=== PATIENT | male | born 2005 | race Caucasian/White ===

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

== ENCOUNTER 2024-06-11 09:41 | Inpatient (IN) ==
--- NOTE | 2024-06-11 09:59 | Emergency Department Note ---
Impression & Plan Tachycardia ADMIT ED Provider Note HPI: History obtained from patient as well as parents at the bedside. The patient is a 19 year-old male with complex past medical history including Klippel Feil syndrome, Weidemann Xavier syndrome, mitochondrial disorder, ADHD, GERD, vitamin D deficiency, gastroparesis, TPN dependence via central line, GJ tube, who presents to the ED today with his father at the bedside over concern for fever.Patient's mother and father at the bedside, they state that the patient developed a fever overnight to 101.8 and was complaining of some back pain and headache that he frequently gets when he gets febrile. Patient's mother states that she noticed he appeared unwell at about 8 AM and that is when she took his temperature. Patient has also been susceptible historically to central line infections. He is TPN dependent and has a central line in the right upper chest. On arrival here to the ED the patient is tachycardic but otherwise hemodynamically stable, he appears to be in mild distress secondary to back pain on arrival. ROS: - Per HPI Differential Diagnosis: Sepsis secondary to central line infection, viral upper respiratory infection to include COVID-19, influenza A, meningitis, encephalitis, epidural abscess, intra-abdominal abscess, Urinary tract infection, pneumonia , amongst other potential pathologies. *Outpatient medications and allergy history reviewed. PE: General: Alert, mild distress secondary to pain HEENT: Normocephalic, trachea midline Eyes: Extraocular eye movement is intact, no scleral erythema Pulmonary: Clear to auscultation bilaterally, no wheezing Cardio: Tachycardic rate and regular rhythm GI: Abdomen is soft to palpation, ostomy in place with appropriate drainage : No suprapubic tenderness MSK: No evidence of trauma or malformation of the extremities, no edema, There is no midline tenderness of the thoracic or lumbar spine with palpation, there is firm musculature lateral to the lumbar spine bilaterally that is somewhat tender to palpation Skin: Central line to the right upper chest appears without any surrounding erythema of the skin, no purulent drainage near the entry site, otherwise no evidence of rash Neuro: Alert, no focal deficits Psychiatric: Cooperative INDEPENDENT INTERPRETATIONS: monitoring coordinator: (As interpreted by myself): - An order was placed for continuous cardiac monitoring - Patient was noted to be in sinus rhythm with a rate of 113 EKG: (As interpreted by myself): Rate: 115 Rhythm: Sinus tachycardia Intervals: Within normal limits ST changes: No ST elevation Time: 1016 Chest x-ray: (As interpreted by myself): No focal infiltrate Interventions provided in ED: -IV fluid bolus, IV morphine, IV Zofran, IV cefepime, IV vancomycin, IV Capsofungin Medical Decision Making: IV was established and lab work ordered, patient was placed on security monitor.Lab work shows no leukocytosis, hemoglobin is normal, platelet count is 82 which appears to be near recent baseline. Venous blood gas shows a pH of 7.28, pCO2 is 56, CMP shows mild hyponatremia 131, chronic transaminitis, troponin is negative, no critical electrolyte abnormalities are noted, procalcitonin is mildly elevated at 0.55, urinalysis does not show any evidence of infection, viral panel testing is negative. Chest x-ray does not show any evidence of pneumonia. In regards to the patient's back pain, this appears to be in the area of the lateral lumbar musculature on both sides. There is no midline tenderness on palpation. Patient's mother states that he does get this pain frequently when he gets septic or has fevers. Have low suspicion for epidural abscess, Given the intermittent and chronic nature of the patient's pain in addition to the location and lack of neurologic findings of any significance in the lower extremities. Patient has motor and sensory function intact/baseline in the lower extremities. Patient started on broad-spectrum antibiotics with vancomycin and cefepime, I also did discuss the patient's presentation with on-call pediatric infectious disease at [facility], Dr. Chairez, Who is in agreement to initiating the patient on broad-spectrum antibiotics, she does recommend that we get cultures from both of the patient's ports of the central line and also would be in agreement for consultation should the patient be transferred to the adult service at [facility] in [place] given his chronic medical conditions and continuity of care with [facility].She also did recommend that the patient be started on antifungal medications secondary to recent cultures that were done at their facility. At this time I did discuss the patient's presentation with the physician at the transfer center for [facility], Dr. Perez, He did accept the patient for transfer but stated that there were currently no beds available and there likely would not be a bed available until Thursday morning and therefore [facility] and follow-up on blood cultures. I discussed this with the patient's parents at the bedside and they are in agreement for admission. Case was then discussed with the on-call [facility] hospitalist, Dr. Millan, The patient was placed for admission in stable condition. Prior to admission, the hospitalist did request CT imaging of the abdomen pelvis be performed for further evaluation of any potential infectious etiology, therefore this order was placed. Consultants/Discussions held with other healthcare providers: -Pediatric infectious disease, Dr. Chairez -Hospitalist, Dr. Millan -Transfer Physician at [facility], Dr. Perez Disposition discussion held by myself with: -Patient and Mother at bedside Diagnosis: 1. Tachycardia, acute 2. Fever by history 3. Central line in place, on TPN 4. Elevated procalcitonin, acute 5. Lower back pain, acute Disposition: ADMIT (pending transfer) Ricci Way DO Emergency Medicine Past Med/Surg History Problem List (Updated 06/11/24 @ 15:[address] DO) Tachycardia (Acute) Bladder dysfunction Insomnia POTS (postural orthostatic tachycardia syndrome) On total parenteral nutrition (TPN) Bacteremia History of central line-associated bloodstream infection (CLABSI) (Acute) Wiedemann-Xavier syndrome Klippel-Feil syndrome (Chronic) Abnormal LFTs Allergic reaction caused by a drug Mid back pain (Acute) Asthma (Chronic) Reflux (Chronic) Bowel dysfunction (Acute) Dehydration (Acute) ADHD (attention deficit hyperactivity disorder) (Chronic) Jejunostomy tube fell out (Acute) Medical History Lab test negative for COVID-19 virus Septic shock S/P colectomy Autistic disorder Pain around PEG tube site Constipation Surgical History History of fundoplication History of appendectomy S/P cecostomy S/P tonsillectomy and adenoidectomy Family History Other FHx: heart disease Family history of diabetes mellitus Family history of gallbladder disease Family history of high blood pressure Social History Smoking Status: Never smoker Hx Alcohol Use: No Hx Substance Use: No Preferred Language: Persian Communication Ability: Effective Visual Impairment: No Limitations Hearing Ability: Normal Officer Lieutenant Required: No Beliefs That Will Affect Care: None Current Living Situation: Parent Feels Safe at Home: Yes Assistive Devices: Nebulizer, Walker and Wheelchair Allergies Allergies Allergy/AdvReac Type Severity Reaction Status Date / Time dexmedetomidine Allergy Severe LOW BLOOD Verified 02/27/24 17:28 [From Precedex] PRESURE egg Allergy Severe Hives Verified 02/27/24 17:28 Wheezing midazolam Allergy Severe ANAPHYLAXIS Verified 02/27/24 17:28 alcohol Allergy Intermediate Rash/ Verified 02/27/24 17:28 [From Mastisol Adhesive] severe burning sensation of the skin gum mastic Allergy Intermediate Rash/ Verified 02/27/24 17:28 [From Mastisol Adhesive] severe burning sensation of the skin iodine Allergy Intermediate RASH Verified 02/27/24 17:28 methyl salicylate Allergy Intermediate Rash/ Verified 02/27/24 17:28 [From Mastisol Adhesive] severe burning sensation of the skin storax Allergy Intermediate Rash/ Verified 02/27/24 17:28 [From Mastisol Adhesive] severe burning sensation of the skin vancomycin Allergy Mild RED AMIRA Verified 02/27/24 17:28 ketamine AdvReac Intermediate Hallucinati Unverified 02/27/24 17:29 ng Peptmen JR Allergy Intermediate Rash Uncoded 02/27/24 17:28 Home Meds Home Medications Medication Instructions Recorded Confirmed Ethanol 70 % Lock Sari 1.3 ml IV DIRECTED 11/12/21 06/11/24 Tpn Sari 1 ea continuous IV infusion 11/12/21 06/11/24 DIRECTED albuterol sulfate 2.5 mg/3 mL 2.5 mg continuous nebulization Q4 11/12/21 06/11/24 (0.083 %) solution for nebulization PRN Shortness Of Breath Or Wheezing atenolol 25 mg tablet 25 mg feeding tube QAM 11/12/21 06/11/24 budesonide 0.5 mg/2 mL suspension 0.5 mg inhalation BID PRN 11/12/21 06/11/24 for nebulization Shortness Of Breath Or Wheezing fat emulsion-soybean sfy-eip-ssozf 350 ml IV 3XWK 11/12/21 06/11/24 oil-fish oil 20 % intravenous (SMOFlipid) fludrocortisone 0.1 mg tablet 0.2 mg feeding tube DAILY 11/12/21 06/11/24 heparin (porcine) 10 unit/mL in 3 unit IV DIRECTED PRN Other 11/12/21 06/11/24 0.9 % sodium chloride intravenous kit famotidine (PF) 20 mg/2 mL 40 mg IV QAM 02/08/22 06/11/24 intravenous solution cetirizine 10 mg tablet (Zyrtec) 20 mg feeding tube BID 07/20/22 06/11/24 cholecalciferol (vitamin D3) 50 50 mcg PO DAILY 07/20/22 06/11/24 mcg (2,000 unit) capsule (Vitamin D3) sodium chloride 0.9 % 75 ml IV DIRECTED 07/20/22 06/11/24 acetaminophen 500 mg tablet 500 mg feeding tube Q6H PRN .Fever 09/25/22 06/11/24 (Tylenol Extra Strength) >38 C, MILD-MOD PAIN duloxetine 60 mg capsule,delayed 60 mg PO BID 09/25/22 06/11/24 release ibuprofen 200 mg tablet 200 mg feeding tube Q4 PRN Pain 09/25/22 06/11/24 ondansetron HCl 4 mg tablet 4 mg PO Q8H PRN Nausea 09/25/22 06/11/24 tamsulosin 0.4 mg capsule 0.4 mg PO HS 09/25/22 06/11/24 dexmethylphenidate 30 mg 30 mg PO .DAILY@0800 11/20/22 06/11/24 capsule,extended release [id number] melatonin 5 mg tablet 10 mg feeding tube HS 11/20/22 06/11/24 menthol 0.44 %-zinc oxide 20.6 % 1 applic topical DIRECTED PRN 11/20/22 06/11/24 topical ointment AFFECTED AREAS, G/J-TUBE pantoprazole 40 mg intravenous 40 mg IV DAILY 11/20/22 06/11/24 solution potassium iodide 1 gram/mL oral 1 ml feeding tube DAILY 11/20/22 06/11/24 solution baclofen 10 mg tablet 10 mg feeding tube QID 01/26/23 06/11/24 simethicone 80 mg chewable tablet 80 mg PO Q6H PRN GAS/ABD PAIN 01/26/23 06/11/24 apixaban 2.5 mg tablet (Eliquis) 2.5 mg feeding tube BID 02/27/24 06/11/24 dexmethylphenidate 10 mg tablet 10 mg PO .@1400 06/11/24 06/11/24 oxybutynin chloride 5 ml feeding tube UD 06/11/24 06/11/24 Results & Data (ED) Vital Signs Vital Signs - 24 hr 06/11/24 09:42 06/11/24 11:04 06/11/24 11:04 Temperature 37.1 C Temperature Source Temporal Artery Scan Pulse Rate 132 H Pulse Rate [Finger] 102 H Pulse Rate from SpO2 Sensor Respiratory Rate 18 20 Respiratory Effort / Characteristics Non-Labored Spontaneous Respiratory Depth Normal Blood Pressure 117/65 Blood Pressure Mean 82 Pulse Oximetry 99 Oxygen Delivery Method Room Air Sepsis Recent Fever Within 48 Hours No Sepsis New/Unexplained Change in Mental Status N/A Sepsis Action Taken by Nursing No Action Required 06/11/24 11:09 06/11/24 11:12 06/11/24 11:54 Temperature Temperature Source Pulse Rate 102 H 102 H 99 H Pulse Rate [Finger] Pulse Rate from SpO2 Sensor 100 H 103 H 99 H Respiratory Rate 19 18 16 Respiratory Effort / Characteristics Respiratory Depth Blood Pressure 93/53 L Blood Pressure Mean 66 Pulse Oximetry 96 96 97 Oxygen Delivery Method Sepsis Recent Fever Within 48 Hours Sepsis New/Unexplained Change in Mental Status Sepsis Action Taken by Nursing 06/11/24 12:04 06/11/24 12:13 06/11/24 12:15 Temperature Temperature Source Pulse Rate 100 H 102 H Pulse Rate [Finger] Pulse Rate from SpO2 Sensor 101 H Respiratory Rate 19 Respiratory Effort / Characteristics Respiratory Depth Blood Pressure 96/56 L 98/56 L Blood Pressure Mean 72 69 Pulse Oximetry 97 Oxygen Delivery Method Sepsis Recent Fever Within 48 Hours Sepsis New/Unexplained Change in Mental Status Sepsis Action Taken by Nursing 06/11/24 12:30 06/11/24 12:44 06/11/24 12:45 Temperature 37 C Temperature Source Oral Pulse Rate 100 H 93 H Pulse Rate [Finger] Pulse Rate from SpO2 Sensor 99 H 95 H Respiratory Rate 17 16 Respiratory Effort / Characteristics Respiratory Depth Blood Pressure 96/58 L 93/72 L Blood Pressure Mean 70 79 Pulse Oximetry 96 96 Oxygen Delivery Method Sepsis Recent Fever Within 48 Hours Sepsis New/Unexplained Change in Mental Status Sepsis Action Taken by Nursing 06/11/24 13:00 06/11/24 13:15 06/11/24 13:36 Temperature Temperature Source Pulse Rate 110 H 106 H 116 H Pulse Rate [Finger] Pulse Rate from SpO2 Sensor 111 H 106 H Respiratory Rate 20 20 21 Respiratory Effort / Characteristics Respiratory Depth Blood Pressure 96/52 L Blood Pressure Mean 75 Pulse Oximetry 96 95 95 Oxygen Delivery Method Sepsis Recent Fever Within 48 Hours Sepsis New/Unexplained Change in Mental Status Sepsis Action Taken by Nursing 06/11/24 13:42 06/11/24 13:57 06/11/24 14:15 Temperature Temperature Source Pulse Rate 107 H 97 H 103 H Pulse Rate [Finger] Pulse Rate from SpO2 Sensor 97 H 104 H Respiratory Rate 16 14 18 Respiratory Effort / Characteristics Respiratory Depth Blood Pressure 86/54 L 122/61 Blood Pressure Mean 64 89 Pulse Oximetry 95 96 99 Oxygen Delivery Method Sepsis Recent Fever Within 48 Hours Sepsis New/Unexplained Change in Mental Status Sepsis Action Taken by Nursing 06/11/24 14:30 06/11/24 14:45 Temperature Temperature Source Pulse Rate 103 H 103 H Pulse Rate [Finger] Pulse Rate from SpO2 Sensor 103 H 101 H Respiratory Rate 17 16 Respiratory Effort / Characteristics Respiratory Depth Blood Pressure 103/63 106/61 Blood Pressure Mean 78 76 Pulse Oximetry 99 100 Oxygen Delivery Method Sepsis Recent Fever Within 48 Hours Sepsis New/Unexplained Change in Mental Status Sepsis Action Taken by Nursing Laboratory Data 06/11/24 10:45 06/11/24 10:45 Lab Results 06/11/24 06/11/24 06/11/24 Range/Units 10:45 11:40 13:09 WBC 6.11 (4.8-10.8) K/ul RBC 4.72 (4.70-6.10) M/uL Hgb 14.4 (14.0-18.0) g/dl Hct 40.3 L (42.0-52.0) % MCV 85.4 (80.0-100.0) fL MCH 30.5 (25.0-34.0) pg MCHC 35.7 (32.0-36.0) g/dL RDW Std Deviation 38.2 (36.4-46.3) fL RDW Coeff of Osvaldo 12.3 (11.5-14.5) % Plt Count 82 L (130-400) K/uL MPV 10.1 (9.4-12.4) fL Immature Gran % (Auto) 0.3 % Neut % (Auto) 89.8 % Lymph % (Auto) 3.3 % Weld % (Auto) 6.2 % Eos % (Auto) 0.2 % Baso % (Auto) 0.2 % Neut # (Auto) 5.49 (1.40-6.50) K/uL Lymph # (Auto) 0.20 L (1.20-3.40) K/uL Weld # (Auto) 0.38 (0.11-0.59) K/uL Eos # (Auto) 0.01 (0.00-0.50) K/uL Baso # (Auto) 0.01 (0.00-0.20) K/uL Immature Gran # (Auto) 0.02 (0.01-0.20) K/uL PT 11.9 (9.0-12.0) Seconds INR 1.1 (0.9-1.1) VBG pH 7.28 L (7.36-7.41) VBG pCO2 56 H (38-50) mmHg VBG pO2 40 mmHg VBG HCO3 26 mmol/L VBG O2 Saturation 66.5 % VBG Base Excess -1.4 mEq/L Sodium 131 L (136-145) mmol/L Potassium 4.0 (3.5-5.1) mmol/L Chloride 101 (98-107) mmol/L Carbon Dioxide 25 (21-32) mmol/L Anion Gap 5 (3-11) BUN 18 (6-23) mg/dl Creatinine 0.53 L (0.6-1.4) mg/dl Est Cr Clr Drug Dosing 181.3 ml/min eGFR 146.22 BUN/Creatinine Ratio 34.0 H (10-20) Glucose 100 H (70-99(Fasting)) mg/dl Lactate 1.2 (0.4-2.0) mmol/L Calcium 8.9 (8.6-10.3) mg/dl Magnesium 1.9 (1.7-2.4) mg/dl Total Bilirubin 0.7 (0.2-1.0) mg/dl Direct Bilirubin 0.2 (0-0.2) mg/dl AST 66 H (13-39) U/L ALT 220 H (7-52) U/L Alkaline Phosphatase 107 H (34-104) U/L Troponin I High Sens < 2.3 (0-20) pg/ml Total Protein 6.6 (6.0-8.3) gm/dl Albumin 4.0 (3.4-5.0) gm/dl Procalcitonin 0.55 H (0-0.5) ng/ml Urine Color Yellow Urine Appearance Clear (Clear) Urine pH 6.0 (4.5-7.5) Ur Specific Hadley 1.006 (1.000-1.030) Urine Protein Negative (Negative) Urine Glucose (UA) Negative (Negative) Urine Ketones Negative (Negative) Urine Blood Negative (Negative) Urine Nitrite Negative (Negative) Urine Bilirubin Negative (Negative) Urine Urobilinogen Negative (Negative) Ur Leukocyte Esterase Negative (Negative) Adenovirus (PCR) Not Detected (NotDetected) B. pertussis DNA (PCR) Not Detected (NotDetected) B.parapertussis DNA PCR Not Detected (NotDetected) C. pneumoniae DNA (PCR) Not Detected (NotDetected) Coronavirus OC43 (PCR) Not Detected (NotDetected) Coronavirus HKU1 (PCR) Not Detected (NotDetected) Coronavirus 229E (PCR) Not Detected (NotDetected) SARS-CoV-2 (PCR) Not Detected (NotDetected) Coronavirus NL63 (PCR) Not Detected (NotDetected) Human Metapneumovir PCR Not Detected (NotDetected) Influenza Type A (PCR) Not Detected (NotDetected) Influenza Type B (PCR) Not Detected (NotDetected) M. pneumoniae (PCR) Not Detected (NotDetected) Parainfluenza 1 (PCR) Not Detected (NotDetected) Parainfluenza 2 (PCR) Not Detected (NotDetected) Parainfluenza 3 (PCR) Not Detected (NotDetected) Parainfluenza 4 (PCR) Not Detected (NotDetected) RSV (PCR) Not Detected (NotDetected) Entero/Rhino (PCR) Not Detected (NotDetected) Administered Medications Discontinued Medications Diphenhydramine HCl (Diphenhydramine 50 Mg/Ml Vial) 25 mg IV NOW STA Stop: 06/11/24 10:08 Last Admin: 06/11/24 10:32 Dose: 25 mg Documented By: FATUMA Sodium Chloride (Nss) 1,000 mls @ 999 mls/hr IV .Q1M MORENITA Stop: 06/11/24 11:15 Last Infusion: 06/11/24 12:16 Dose: Infused Documented By: Admin: 06/11/24 10:36 Dose: 999 mls/hr Documented By: FATUMA Acetaminophen (Ofirmev) 1,000 mg in 100 mls @ 400 mls/hr IV NOW STA Stop: 06/11/24 10:20 Last Infusion: 06/11/24 11:16 Dose: Infused Documented By: Admin: 06/11/24 10:32 Dose: 400 mls/hr Documented By: FATUMA Vancomycin HCl 1,250 mg/ (Sodium Chloride) 525 mls @ 200 mls/hr IV NOW ONE Stop: 06/11/24 12:44 Last Infusion: 06/11/24 14:45 Dose: Infused Documented By: Admin: 06/11/24 11:06 Dose: 200 mls/hr Documented By: FATUMA Cefepime HCl (Maxipime 2000mg) 1,000 mg in 10 mls @ 5 mls/min IV NOW STA; Protocol Stop: 06/11/24 10:09 Last Admin: 06/11/24 12:45 Dose: 5 mls/min Documented By: REYES Caspofungin 70 mg/ Sodium (Chloride) 260 mls @ 260 mls/hr IV NOW ONE Stop: 06/11/24 11:44 Last Infusion: 06/11/24 14:45 Dose: Infused Documented By: Admin: 06/11/24 12:45 Dose: 260 mls/hr Documented By: REYES Sodium Chloride (Nss) 1,000 mls @ 999 mls/hr IV .Q1H1M MORENITA Stop: 06/11/24 15:00 Last Admin: 06/11/24 13:44 Dose: 999 mls/hr Documented By: REYES Ioversol (Optiray 320 100ml) 94 ml IV ONCE ONE Stop: 06/11/24 13:40 Last Admin: 06/11/24 13:40 Dose: 94 ml Documented By: BRIANA Morphine Sulfate (Morphine Sulfate 4 Mg/Ml 1 Ml Carp\Vial) 4 mg IV NOW STA Stop: 06/11/24 10:07 Last Admin: 06/11/24 10:32 Dose: 4 mg Documented By: FATUMA Morphine Sulfate (Morphine Sulfate 4 Mg/Ml 1 Ml Carp\Vial) 4 mg IV NOW STA Stop: 06/11/24 12:47 Last Admin: 06/11/24 12:54 Dose: 4 mg Documented By: REYES Ondansetron HCl (Ondansetron Inj 2 Mg/Ml 2 Ml Vial) 4 mg IV NOW STA Stop: 06/11/24 10:07 Last Admin: 06/11/24 10:32 Dose: 4 mg Documented By: FATUMA Imaging Data Radiologist's Impression: Chest X-Ray 06/11/24 10:06 XR chest 1V portable CLINICAL HISTORY: Sepsis. COMPARISON STUDY: Chest radiograph February 27, 2024. FINDINGS: Right internal jugular catheter is unchanged in position. Cardiomediastinal silhouette is stable. Mild right basilar densities favor atelectasis. There is no consolidation to suggest pneumonia. There is no pneumothorax or pleural effusion. IMPRESSION: No acute cardiopulmonary findings. No significant change in appearance of the chest. ACT 112: Negative or not required by law. Electronically signed by: Elroy Durbin M.D. 06/11/2024 1:36 PM Abdomen/Pelvis CT 06/11/24 12:45 CT OF THE ABDOMEN AND PELVIS WITH CONTRAST CLINICAL HISTORY: Fever. COMPARISON STUDY: CT of the abdomen and pelvis January 26, 2023. TECHNIQUE: Following IV administration of 94 mL of Optiray, axial images of the abdomen and pelvis were obtained from the lung bases to the proximal femurs. Images were reviewed in the axial, sagittal, and coronal planes. IV contrast was administered without complication. Automated exposure control was utilized for the study. A dose lowering technique was utilized adhering to the principles of ALARA. CT DOSE: 714.39 mGy.cm FINDINGS: Subpleural opacities within the visualized lower lungs favor atelectasis. There is no pneumatosis, free air or portal venous gas biliary ductal dilatation status post cholecystectomy. Gastrostomy tube is in place. Mild splenomegaly is unchanged. Adrenal glands, kidneys and pancreas are normal. There is no hydronephrosis. Slight dilatation of the bilateral ureters is noted. No urinary calculi. The bladder is distended. Bladder wall thickening is again noted. This is probably chronic. There are no fluid collections. There is no lymphadenopathy. 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 A few fluid-filled mildly dilated loops of small bowel are present. There is no definitive transition point. There is no definite evidence for a small bowel obstruction. There is no lymphadenopathy. IMPRESSION: 1. 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 A few mildly dilated small bowel loops without definite transition point. The small bowel dilatation is chronic however a partial small bowel obstruction cannot be excluded. 2. Distended bladder. Bladder wall thickening, likely chronic. 3. Gastrostomy tube in place. 4. Stable splenomegaly. 5. Subpleural lower lung opacities which favor atelectasis. ACT 112: Negative or not required by law. Electronically signed by: Elroy Durbin M.D. 06/11/2024 2:27 PM Discharge Plan Visit Data Chief Complaint: Fever Stated Complaint: FEVER/101.8, CENTRAL LINE ED Provider: Ricci Way Discharge Problem: Tachycardia Forms Stand Alone Forms: [facility] Prescriptions Prescriptions: No Action famotidine (PF) 20 mg/2 mL Solution 40 mg IV QAM Rx Instructions: Add to TPN acetaminophen [Tylenol Extra Strength] 500 mg Tablet 500 mg feeding tube Q6H PRN (Reason: .Fever >38 C, MILD-MOD PAIN) Rx Instructions: DO NOT EXCEED 3,000 MG DAILY duloxetine 60 mg capsule,delayed release(DR/EC) 60 mg PO BID ondansetron HCl 4 mg Tablet 4 mg PO Q8H PRN (Reason: Nausea) ibuprofen 200 mg Tablet 200 mg feeding tube Q4 PRN (Reason: Pain) tamsulosin 0.4 mg capsule 0.4 mg PO HS baclofen 10 mg tablet 10 mg feeding tube QID simethicone [Mylicon-80] 80 mg Tablet,Chewable 80 mg PO Q6H PRN (Reason: GAS/ABD PAIN) Rx Instructions: PT USES CAPSULE albuterol sulfate 2.5 mg /3 mL (0.083 %) solution for nebulization 2.5 mg continuous nebulization Q4 PRN (Reason: Shortness Of Breath Or Wheezing) atenolol 25 mg tablet 25 mg feeding tube QAM budesonide 0.5 mg/2 mL Suspension For Nebulization 0.5 mg INHALATION BID PRN (Reason: Shortness Of Breath Or Wheezing) fludrocortisone 0.1 mg tablet 0.2 mg feeding tube DAILY heparin (porcine) in 0.9% NaCl 10 unit/mL Kit 3 unit IV DIRECTED PRN (Reason: Other) Rx Instructions: Per mother, they use it PRN. USE DAILY TO WHITE LUMEN, THEN SUN, TUES, THUR, & SAT. TO RED LUMEN. SMOFlipid 20 % Emulsion 350 ml IV 3XWK Rx Instructions: MOWEFR lipid days Ethanol 70 % Lock Sari 1.3 ml IV DIRECTED Rx Instructions: Instill in both lumens of central catheter, DIRECTED BY PARENT (SHE HAS SPECIAL DIRECTIONS). ALLOW ETHANOL TO DWELL FOR 2-4 HOURS. AFTER DWELL, FLUSH ENTIRE DWELL VOLUME THROUGH CVC, FLUSH WITH 10 ML 0.9% SODIUM CHLORIDE. THEN FOLLOW WITH HEPARIN. Tpn Sari 1 ea continuous IV infusion DIRECTED Rx Instructions: ADMINISTER IV 2,640 ML DAILY. 2,900 ML PER DAY @ 145 ML/HR X 20 HOURS. TAPERS BETWEEN A TOTAL OF 17 HOURS. 1 hour taper up, 17 hour run time, 2 hour taper down per mother. cetirizine [Zyrtec] 10 mg Tablet 20 mg feeding tube BID sodium chloride 0.9 % Solution 75 ml IV DIRECTED Rx Instructions: INFUSE AT 75ML/HR X 20 HOURS, while tpn is running. 1500 ml over the 20 hours. cholecalciferol (vitamin D3) [Vitamin D3] 50 mcg (2,000 unit) Capsule 50 mcg PO DAILY pantoprazole 40 mg Recon Soln 40 mg IV DAILY potassium iodide 1 gram/mL Solution 1 ml feeding tube DAILY Rx Instructions: ADMINISTER WITH FOOD OR DILUTE IN WATER. REPEAT IF EMESIS OCCURS WITHIN 30 MINUTES. PARENT HAS MEDICATION WITH HER. melatonin 5 mg Tablet 10 mg feeding tube HS menthol-zinc oxide 0.44-20.6 % Ointment 1 applic TOPICAL DIRECTED PRN (Reason: AFFECTED AREAS, G/J-TUBE) dexmethylphenidate 30 mg capsule,ER biphasic 50-50 30 mg PO .DAILY@0800 Rx Instructions: TAKES AT 0800; PARENT HAS MED WITH THEM Eliquis 2.5 mg Tablet 2.5 mg feeding tube BID dexmethylphenidate 10 mg Tablet 10 mg PO .@1400 Rx Instructions: if needed parent can bring in the 10 mg oxybutynin chloride 5 ml feeding tube UD Rx Instructions: Per mother, pt isn't currently on but has it listed on their medication list. We added the medication just so it's on this list. Referrals Referrals: Torres Snowden MD [Primary Care Provider] -
[2024-06-11] MEDS ORDERED: VANCOMYCIN CONSULT ACTIVE PRN ×2 (10:07→16:01)
[2024-06-11] MEDS: ONDANSETRON INJ 2 MG/ML 2 ML VIAL IV STA (10:32)
[2024-06-11] MEDS: diphenhydrAMINE 50 MG/ML VIAL IV STA (10:32)
[2024-06-11] MEDS: MoRPHine SULFATE 4 MG/ML 1 ML CARP\\VIAL IV STA ×2 (10:32→12:54)
[2024-06-11] MEDS: ACETAMINOPHEN 1,000 MG/100 ML VIAL IV STA (10:32)
[2024-06-11] MEDS: SODIUM CHLORIDE 0.9% 1,000 ML IV SCH ×3 (10:36→17:35)
[2024-06-11] MEDS: VANCOMYCIN HCL 1,250 MG in SODIUM CHLORIDE 0.9% 500 ML IV ONE (11:06)
[2024-06-11 11:09] LABS: Basophils # (auto) 0.01 K/uL (0.00-0.20); Basophils % (auto) 0.2 %; Eosinophils # (auto) 0.01 K/uL (0.00-0.50); Eosinophils % (auto) 0.2 %; Hematocrit (blood only) 40.3 % (42.0-52.0); Hemoglobin 14.4 g/dl (14.0-18.0); Immature Granulocytes # (auto) 0.02 K/uL (0.01-0.20); Immature Granulocytes % (auto) 0.3 %; Lymphocytes % (auto) 3.3 %; Mean Corpuscular Hemoglobin 30.5 pg (25.0-34.0); Mean Corpuscular Hgb Conc 35.7 g/dL (32.0-36.0); Mean Corpuscular Volume 85.4 fL (80.0-100.0); Mean Platelet Volume 10.1 fL (9.4-12.4); Monocytes # (auto) 0.38 K/uL (0.11-0.59); Monocytes % (auto) 6.2 %; Neutrophils # (auto) 5.49 K/uL (1.40-6.50); Neutrophils % (auto) 89.8 %; Platelet Count 82 K/uL (130-400); RDW Coefficient of Variation 12.3 % (11.5-14.5); RDW Standard Deviation 38.2 fL (36.4-46.3); Red Blood Count 4.72 M/uL (4.70-6.10); White Blood Count 6.11 K/ul (4.8-10.8)
[2024-06-11 11:25] LABS: Alanine Aminotransferase 220 U/L (7-52); Alkaline Phosphatase 107 U/L (34-104); Anion Gap 5 (3-11); Aspartate Aminotransferase 66 U/L (13-39); Bilirubin Direct 0.2 mg/dl (0-0.2); Bilirubin,Total 0.7 mg/dl (0.2-1.0); Blood Urea Nitrogen 18 mg/dl (6-23); Calcium 8.9 mg/dl (8.6-10.3); Carbon Dioxide 25 mmol/L (21-32); Chloride 101 mmol/L (98-107); Creatinine Clr Calc Pharmacy 181.3 ml/min; Glucose 100 mg/dl (70-99(Fasting)); Magnesium 1.9 mg/dl (1.7-2.4); Sodium 131 mmol/L (136-145); Total Protein 6.6 gm/dl (6.0-8.3)
[2024-06-11 11:31] LABS: Troponin I High Sensitivity < 2.3 pg/ml (0-20)
[2024-06-11 11:35] LABS: INR 1.1 (0.9-1.1); Prothrombin Time 11.9 Seconds (9.0-12.0)
[2024-06-11 12:01] LABS: Base Excess VBG -1.4 mEq/L; HCO3 VBG 26 mmol/L; Oxygen Saturation VBG 66.5 %; PCO2 VBG 56 mmHg (38-50); PO2 VBG 40 mmHg; pH VBG 7.28 (7.36-7.41)
[2024-06-11 12:03] LABS: Adenovirus PCR Not Detected (NotDetected); Bordetella parapertussis PCR Not Detected (NotDetected); Bordetella pertussis PCR Not Detected (NotDetected); Chlamydia pneumoniae PCR Not Detected (NotDetected); Coronavirus 229E PCR Not Detected (NotDetected); Coronavirus CoV-2 (COVID19)PCR Not Detected (NotDetected); Coronavirus HKU1 PCR Not Detected (NotDetected); Coronavirus NL63 PCR Not Detected (NotDetected); Coronavirus OC43PCR Not Detected (NotDetected); Human Metapneumovirus PCR Not Detected (NotDetected); Influenza A PCR Not Detected (NotDetected); Influenza B PCR Not Detected (NotDetected); Mycoplasma pneumoniae PCR Not Detected (NotDetected); Parainfluenza Virus 1 PCR Not Detected (NotDetected); Parainfluenza Virus 2 PCR Not Detected (NotDetected); Parainfluenza Virus 3 PCR Not Detected (NotDetected); Parainfluenza Virus 4 PCR Not Detected (NotDetected); Respiratory Syncytial VirusPCR Not Detected (NotDetected); Rhinovirus/Enterovirus PCR Not Detected (NotDetected)
[2024-06-11] MEDS: CASPOFUNGIN 70 MG in SODIUM CHLORIDE 0.9% 250 ML IV ONE (12:45)
[2024-06-11] MEDS: CEFEPIME 1000MG 1,000 MG/10 ML SYR IV STA (12:45)
[2024-06-11 13:28] LABS: Appearance Urine Clear (Clear); Bilirubin Urine Negative (Negative); Blood Urine Negative (Negative); Color Urine Yellow; Glucose Urine UA Negative (Negative); Ketones Urine Negative (Negative); Leukocyte Esterase Urine Negative (Negative); Nitrite Urine Negative (Negative); Protein Urine Negative (Negative); Specific Gravity Urine 1.006 (1.000-1.030); Urobilinogen Urine Negative (Negative)
--- NOTE | 2024-06-11 13:38 | XRay Report ---
XR chest 1V portable CLINICAL HISTORY: Sepsis. COMPARISON STUDY: Chest radiograph February 27, 2024. FINDINGS: Right internal jugular catheter is unchanged in position. Cardiomediastinal silhouette is s table. Mild right basilar densities favor atelectasis. There is no consolidation to suggest pneumonia . There is no pneumothorax or pleural effusion. IMPRESSION: No acute cardiopulmonary findings. No significant change in appearance of the chest. ACT 112: Negative or not required by law. Electronically signed by: Elroy Durbin M.D. 06/11/2024 1:36 PM
[2024-06-11] MEDS: OPTIRAY 320 100ml IV ONE (13:40)
--- NOTE | 2024-06-11 14:30 | CT Scan Report ---
CT OF THE ABDOMEN AND PELVIS WITH CONTRAST CLINICAL HISTORY: Fever. COMPARISON STUDY: CT of the abdomen and pelvis January 26, 2023. TECHNIQUE: Following IV administration of 94 mL of Optiray, axial images of the abdomen and pelvis we re obtained from the lung bases to the proximal femurs. Images were reviewed in the axial, sagittal, and coronal planes. IV contrast was administered without complication. Automated exposure control wa s utilized for the study. A dose lowering technique was utilized adhering to the principles of ALARA . CT DOSE: 714.39 mGy.cm FINDINGS: Subpleural opacities within the visualized lower lungs favor atelectasis. There is no pneum atosis, free air or portal venous gas biliary ductal dilatation status post cholecystectomy. Gastrost meghna tube is in place. Mild splenomegaly is unchanged. Adrenal glands, kidneys and pancreas are normal . There is no hydronephrosis. Slight dilatation of the bilateral ureters is noted. No urinary calculi . The bladder is distended. Bladder wall thickening is again noted. This is probably chronic. There a re no fluid collections. There is no lymphadenopathy. Status post subtotal colectomy with Omar po uch formation and right-sided ileostomy. A few fluid-filled mildly dilated loops of small bowel are p resent. There is no definitive transition point. There is no definite evidence for a small bowel obst ruction. There is no lymphadenopathy. IMPRESSION: 1. 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 A few mildly dilated s mall bowel loops without definite transition point. The small bowel dilatation is chronic however a p artial small bowel obstruction cannot be excluded. 2. Distended bladder. Bladder wall thickening, likely chronic. 3. Gastrostomy tube in place. 4. Stable splenomegaly. 5. Subpleural lower lung opacities which favor atelectasis. ACT 112: Negative or not required by law. Electronically signed by: Elroy Durbin M.D. 06/11/2024 2:27 PM
--- NOTE | 2024-06-11 14:51 | History & Physical Report ---
Date of Service June 11, 2024 Assessment & Plan (1) Bacteremia: Plan: -patient with history of line infections, presenting with relative hypotension consistent with patients previous infections -hemodynamically stable, no leukocytosis, procal 0.55 -TPN reliant with chronic central line placement -follows with pediatric ID at 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, short stature, 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 -likely strong contributer to back pain (5) Abnormal LFTs: Plan: -likely related to TPN use, worsened by acute infection Plan: -trend LFTs daily -nutrition consult, TPN nutrition consult (6) Allergic reaction caused by a drug: Plan: -patient has known itching and reactions to most medications -per chart and family treated with benadryl prn 50 mg Plan: -50 mg q4hr prn benadryl for drug itch -continue cetirizine (7) POTS (postural orthostatic tachycardia syndrome): Plan: -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 and other chronic illnesses above Plan: -continue home florinef (8) Reflux: Plan: -conttinue home protonix (9) Dehydration: Plan: -s/p 1 L of NS Plan: -resume home TPN and fluids (10) ADHD (attention deficit hyperactivity disorder): Plan: -continue home dexmethylphnidate -continue home duloxetine (11) Mid back pain: Plan: -related to Klippel Feil syndrome and posture Plan: -continue home baclofen (12) Bowel dysfunction: Plan: -see above, ordered home TPN (13) On total parenteral nutrition (TPN): Plan: -see above, home TPN ordered (14) Insomnia: Plan: -continue home melatonin (15) Bladder dysfunction: Plan: -continue home oxybutynin and tamulosin Plan Feeding/fluids: TPN Analgesia: tylenol Sedation: none Thromboprophylaxis: on eliquis Head up position: 30 degrees Ulcer prophylaxis: protonix Glycemic control: none Spontaneous breathing trial: na Bowel care: miralax Indwelling catheter removal: none Deescalation of antibiotics: vanc/cefepime/capsofungin I spent a total of 75 minutes coordinating, documenting, and providing care for this patient excluding time spent in the performance of separately billed services. History of Present Illness Chief Complaint: back pain Primary Care Provider: Torres Snowden 18 past medical history of Klippel-Feil syndrome, Wiedemann Xavier syndrome, asthma, MARLENE, POTS, TPN reliance, ADD, gastroparesis who presents with back pain and lightheadedness. He has a history of lightheadedness and central line related infections. Mom and dad are very involved in care. Patient is reliant on TPN for nutrition. He states he woke up this morning did not feel right and had worsening back pain. Mom states she noticed right away that something was wrong and came to the emergency room. He does have back pain at baseline. No tobacco or alcohol use. No use of new medications in the past few weeks. Mom states this has happened before and this is how he is off. He usually gets hypotensive and his labs like behind. Follows with [facility], in the emergency room discussed case with team at that time. Patient has a central line. He feels like he has an infection. Denies chest pain shortness of breath abdominal pain or other associated symptoms. Allergies Allergy/AdvReac Type Severity Reaction Status Date / Time dexmedetomidine Allergy Severe LOW BLOOD Verified 02/27/24 17:28 [From Precedex] PRESURE egg Allergy Severe Hives Verified 02/27/24 17:28 Wheezing midazolam Allergy Severe ANAPHYLAXIS Verified 02/27/24 17:28 alcohol Allergy Intermediate Rash/ Verified 02/27/24 17:28 [From Mastisol Adhesive] severe burning sensation of the skin gum mastic Allergy Intermediate Rash/ Verified 02/27/24 17:28 [From Mastisol Adhesive] severe burning sensation of the skin iodine Allergy Intermediate RASH Verified 02/27/24 17:28 methyl salicylate Allergy Intermediate Rash/ Verified 02/27/24 17:28 [From Mastisol Adhesive] severe burning sensation of the skin storax Allergy Intermediate Rash/ Verified 02/27/24 17:28 [From Mastisol Adhesive] severe burning sensation of the skin vancomycin Allergy Mild RED AMIRA Verified 02/27/24 17:28 ketamine AdvReac Intermediate Hallucinati Unverified 02/27/24 17:29 ng Peptmen JR Allergy Intermediate Rash Uncoded 02/27/24 17:28 Home Medications Medication Instructions Recorded Confirmed Type Ethanol 70 % Lock Sari 1.3 ml IV DIRECTED 11/12/21 06/11/24 History Tpn Sari 1 ea continuous IV infusion 11/12/21 06/11/24 History DIRECTED albuterol sulfate 2.5 mg/3 mL 2.5 mg continuous nebulization Q4 11/12/21 06/11/24 History (0.083 %) solution for nebulization PRN Shortness Of Breath Or Wheezing atenolol 25 mg tablet 25 mg feeding tube QAM 11/12/21 06/11/24 History budesonide 0.5 mg/2 mL suspension 0.5 mg inhalation BID PRN 11/12/21 06/11/24 History for nebulization Shortness Of Breath Or Wheezing fat emulsion-soybean [id number] 350 ml IV 3XWK 11/12/21 06/11/24 History oil-fish oil 20 % intravenous (SMOFlipid) fludrocortisone 0.1 mg tablet 0.2 mg feeding tube DAILY 11/12/21 06/11/24 History heparin (porcine) 10 unit/mL in 3 unit IV DIRECTED PRN Other 11/12/21 06/11/24 History 0.9 % sodium chloride intravenous kit famotidine (PF) 20 mg/2 mL 40 mg IV QAM 02/08/22 06/11/24 History intravenous solution cetirizine 10 mg tablet (Zyrtec) 20 mg feeding tube BID 07/20/22 06/11/24 History cholecalciferol (vitamin D3) 50 50 mcg PO DAILY 07/20/22 06/11/24 History mcg (2,000 unit) capsule (Vitamin D3) sodium chloride 0.9 % 75 ml IV DIRECTED 07/20/22 06/11/24 History acetaminophen 500 mg tablet 500 mg feeding tube Q6H PRN .Fever 09/25/22 06/11/24 History (Tylenol Extra Strength) >38 C, MILD-MOD PAIN duloxetine 60 mg capsule,delayed 60 mg PO BID 09/25/22 06/11/24 History release ibuprofen 200 mg tablet 200 mg feeding tube Q4 PRN Pain 09/25/22 06/11/24 History ondansetron HCl 4 mg tablet 4 mg PO Q8H PRN Nausea 09/25/22 06/11/24 History tamsulosin 0.4 mg capsule 0.4 mg PO HS 09/25/22 06/11/24 History dexmethylphenidate 30 mg 30 mg PO .DAILY@0800 11/20/22 06/11/24 History capsule,extended release [id number] melatonin 5 mg tablet 10 mg feeding tube HS 11/20/22 06/11/24 History menthol 0.44 %-zinc oxide 20.6 % 1 applic topical DIRECTED PRN 11/20/22 06/11/24 History topical ointment AFFECTED AREAS, G/J-TUBE pantoprazole 40 mg intravenous 40 mg IV DAILY 11/20/22 06/11/24 History solution potassium iodide 1 gram/mL oral 1 ml feeding tube DAILY 11/20/22 06/11/24 History solution baclofen 10 mg tablet 10 mg feeding tube QID 01/26/23 06/11/24 History simethicone 80 mg chewable tablet 80 mg PO Q6H PRN GAS/ABD PAIN 01/26/23 06/11/24 History apixaban 2.5 mg tablet (Eliquis) 2.5 mg feeding tube BID 02/27/24 06/11/24 History dexmethylphenidate 10 mg tablet 10 mg PO .@1400 06/11/24 06/11/24 History oxybutynin chloride 5 ml feeding tube UD 06/11/24 06/11/24 History Past Med/Surg History Problem List (Updated 06/11/24 @ 15:[address] DO) Tachycardia (Acute) Bladder dysfunction Insomnia POTS (postural orthostatic tachycardia syndrome) On total parenteral nutrition (TPN) Bacteremia History of central line-associated bloodstream infection (CLABSI) (Acute) Wiedemann-Xavier syndrome Klippel-Feil syndrome (Chronic) Abnormal LFTs Allergic reaction caused by a drug Mid back pain (Acute) Asthma (Chronic) Reflux (Chronic) Bowel dysfunction (Acute) Dehydration (Acute) ADHD (attention deficit hyperactivity disorder) (Chronic) Jejunostomy tube fell out (Acute) Medical History Lab test negative for COVID-19 virus Septic shock S/P colectomy Autistic disorder Pain around PEG tube site Constipation Surgical History History of fundoplication History of appendectomy S/P cecostomy S/P tonsillectomy and adenoidectomy Family History Other FHx: heart disease Family history of diabetes mellitus Family history of gallbladder disease Family history of high blood pressure Social History Smoking Status: Never smoker Second Hand Exposure: No; Do You Dip or Chew Tobacco: No; Tobacco Cessation Education Requested by Patient: No Hx Alcohol Use: No Hx Substance Use: No Preferred Language: Japanese Communication Ability: Effective Visual Impairment: No Limitations Hearing Ability: Normal Waste Water Or Water Plant Operator Required: No Beliefs That Will Affect Care: None Current Living Situation: Family Other Information That Helps Us Care for You: No Feels Safe at Home: Yes Safety Concerns: Feels Safe At This Time Assistive Devices: Walker and Wheelchair Assistive Devices Comment: wheelchair and walker for long distances Review of Systems Review of Systems: CONSTITUTIONAL: Patient denies fevers, chills, sweats and weight changes. EYES: Patient denies any visual symptoms. EARS, NOSE, AND THROAT: No difficulties with hearing. No symptoms of rhinitis or sore throat. CARDIOVASCULAR: Patient denies chest pains, palpitations, orthopnea and paroxysmal nocturnal dyspnea. RESPIRATORY: No dyspnea on exertion, no wheezing or cough. GI: No nausea, vomiting, diarrhea, constipation, abdominal pain, hematochezia or melena. : No urinary hesitancy or dribbling. No nocturia or urinary frequency. No abnormal urethral discharge. MUSCULOSKELETAL: lower back pain NEUROLOGIC: headache on arrival, lightheaded PSYCHIATRIC: Patient denies problems with mood disturbance. No problems with anxiety. ENDOCRINE: No excessive urination or excessive thirst. DERMATOLOGIC: Patient denies any rashes or skin changes. Physical Exam Physical Exam: Gen: A&O 3 NAD HEENT: NCAT, EOMI, not icteric. External ears normal. No rhinorrhea. Moist mucous membranes. Neck: Supple, full range of motion, no observable masses, No meningeal sign. Lungs: No Respiratory distress. CV: RRR, no edema. Abdomen: Soft, nondistended, No rebound tenderness. Noted g tube MSK: No joint swelling, no redness. Skin: No rashes, petechiae, lesions. Normal color per patient. Neuro: Normal Gait, Grossly intact. Psych: Appropriate for situation. Results & Data Results & Data Vital Signs (Past 12 Hours) Vital Signs Temp Pulse Pulse Resp BP Pulse Ox O2 Del Method 06/11/24 12:44 37 C 06/11/24 12:13 102 H 19 96/56 L 97 06/11/24 12:04 100 H 06/11/24 11:54 99 H 16 93/53 L 97 06/11/24 11:12 102 H 18 96 06/11/24 11:09 102 H 19 96 06/11/24 11:04 Room Air 06/11/24 11:04 102 H 20 06/11/24 09:42 37.1 C 132 H 18 117/65 99 Laboratory Results Laboratory Results WBC 6.11 K/ul (4.8-10.8) 06/11/24 10:45 RBC 4.72 M/uL (4.70-6.10) 06/11/24 10:45 Hgb 14.4 g/dl (14.0-18.0) 06/11/24 10:45 Hct 40.3 % (42.0-52.0) L 06/11/24 10:45 MCV 85.4 fL (80.0-100.0) 06/11/24 10:45 MCH 30.5 pg (25.0-34.0) 06/11/24 10:45 MCHC 35.7 g/dL (32.0-36.0) 06/11/24 10:45 RDW Std Deviation 38.2 fL (36.4-46.3) 06/11/24 10:45 RDW Coeff of Osvaldo 12.3 % (11.5-14.5) 06/11/24 10:45 Plt Count 82 K/uL (130-400) L 06/11/24 10:45 MPV 10.1 fL (9.4-12.4) 06/11/24 10:45 Immature Gran % (Auto) 0.3 % 06/11/24 10:45 Neut % (Auto) 89.8 % 06/11/24 10:45 Lymph % (Auto) 3.3 % 06/11/24 10:45 [place] % (Auto) 6.2 % 06/11/24 10:45 Eos % (Auto) 0.2 % 06/11/24 10:45 Baso % (Auto) 0.2 % 06/11/24 10:45 Neut # (Auto) 5.49 K/uL (1.40-6.50) 06/11/24 10:45 Lymph # (Auto) 0.20 K/uL (1.20-3.40) L 06/11/24 10:45 [place] # (Auto) 0.38 K/uL (0.11-0.59) 06/11/24 10:45 Eos # (Auto) 0.01 K/uL (0.00-0.50) 06/11/24 10:45 Baso # (Auto) 0.01 K/uL (0.00-0.20) 06/11/24 10:45 Immature Gran # (Auto) 0.02 K/uL (0.01-0.20) 06/11/24 10:45 PT 11.9 Seconds (9.0-12.0) 06/11/24 10:45 INR 1.1 (0.9-1.1) 06/11/24 10:45 VBG pH 7.28 (7.36-7.41) L 06/11/24 11:40 VBG pCO2 56 mmHg (38-50) H 06/11/24 11:40 VBG pO2 40 mmHg 06/11/24 11:40 VBG HCO3 26 mmol/L 06/11/24 11:40 VBG O2 Saturation 66.5 % 06/11/24 11:40 VBG Base Excess -1.4 mEq/L 06/11/24 11:40 Sodium 131 mmol/L (136-145) L 06/11/24 10:45 Potassium 4.0 mmol/L (3.5-5.1) 06/11/24 10:45 Chloride 101 mmol/L (98-107) 06/11/24 10:45 Carbon Dioxide 25 mmol/L (21-32) 06/11/24 10:45 Anion Gap 5 (3-11) 06/11/24 10:45 BUN 18 mg/dl (6-23) 06/11/24 10:45 Creatinine 0.53 mg/dl (0.6-1.4) L 06/11/24 10:45 Est Cr Clr Drug Dosing 181.3 ml/min 06/11/24 10:45 eGFR 146.22 06/11/24 10:45 BUN/Creatinine Ratio 34.0 (10-20) H 06/11/24 10:45 Glucose 100 mg/dl (70-99(Fasting)) H 06/11/24 10:45 Lactate 1.2 mmol/L (0.4-2.0) 06/11/24 10:45 Calcium 8.9 mg/dl (8.6-10.3) 06/11/24 10:45 Magnesium 1.9 mg/dl (1.7-2.4) 06/11/24 10:45 Total Bilirubin 0.7 mg/dl (0.2-1.0) 06/11/24 10:45 Direct Bilirubin 0.2 mg/dl (0-0.2) 06/11/24 10:45 AST 66 U/L (13-39) H 06/11/24 10:45 ALT 220 U/L (7-52) H 06/11/24 10:45 Alkaline Phosphatase 107 U/L (34-104) H 06/11/24 10:45 Troponin I High Sens < 2.3 pg/ml (0-20) 06/11/24 10:45 Total Protein 6.6 gm/dl (6.0-8.3) 06/11/24 10:45 Albumin 4.0 gm/dl (3.4-5.0) 06/11/24 10:45 Procalcitonin 0.55 ng/ml (0-0.5) H 06/11/24 10:45 Urine Color Yellow 06/11/24 13:09 Urine Appearance Clear (Clear) 06/11/24 13:09 Urine pH 6.0 (4.5-7.5) 06/11/24 13:09 Ur Specific [place] 1.006 (1.000-1.030) 06/11/24 13:09 Urine Protein Negative (Negative) 06/11/24 13:09 Urine Glucose (UA) Negative (Negative) 06/11/24 13:09 Urine Ketones Negative (Negative) 06/11/24 13:09 Urine Blood Negative (Negative) 06/11/24 13:09 Urine Nitrite Negative (Negative) 06/11/24 13:09 Urine Bilirubin Negative (Negative) 06/11/24 13:09 Urine Urobilinogen Negative (Negative) 06/11/24 13:09 Ur Leukocyte Esterase Negative (Negative) 06/11/24 13:09 Adenovirus (PCR) Not Detected (NotDetected) 06/11/24 10:45 B. pertussis DNA (PCR) Not Detected (NotDetected) 06/11/24 10:45 B.parapertussis DNA PCR Not Detected (NotDetected) 06/11/24 10:45 C. pneumoniae DNA (PCR) Not Detected (NotDetected) 06/11/24 10:45 Coronavirus OC43 (PCR) Not Detected (NotDetected) 06/11/24 10:45 Coronavirus HKU1 (PCR) Not Detected (NotDetected) 06/11/24 10:45 Coronavirus 229E (PCR) Not Detected (NotDetected) 06/11/24 10:45 SARS-CoV-2 (PCR) Not Detected (NotDetected) 06/11/24 10:45 Coronavirus NL63 (PCR) Not Detected (NotDetected) 06/11/24 10:45 Human Metapneumovir PCR Not Detected (NotDetected) 06/11/24 10:45 Influenza Type A (PCR) Not Detected (NotDetected) 06/11/24 10:45 Influenza Type B (PCR) Not Detected (NotDetected) 06/11/24 10:45 M. pneumoniae (PCR) Not Detected (NotDetected) 06/11/24 10:45 Parainfluenza 1 (PCR) Not Detected (NotDetected) 06/11/24 10:45 Parainfluenza 2 (PCR) Not Detected (NotDetected) 06/11/24 10:45 Parainfluenza 3 (PCR) Not Detected (NotDetected) 06/11/24 10:45 Parainfluenza 4 (PCR) Not Detected (NotDetected) 06/11/24 10:45 RSV (PCR) Not Detected (NotDetected) 06/11/24 10:45 Entero/Rhino (PCR) Not Detected (NotDetected) 06/11/24 10:45 Impressions Chest X-Ray 06/11/24 10:06 XR chest 1V portable CLINICAL HISTORY: Sepsis. COMPARISON STUDY: Chest radiograph February 27, 2024. FINDINGS: Right internal jugular catheter is unchanged in position. Cardiomediastinal silhouette is stable. Mild right basilar densities favor atelectasis. There is no consolidation to suggest pneumonia. There is no pneumothorax or pleural effusion. IMPRESSION: No acute cardiopulmonary findings. No significant change in appearance of the chest. ACT 112: Negative or not required by law. Electronically signed by: Elroy Durbin M.D. 06/11/2024 1:36 PM Abdomen/Pelvis CT 06/11/24 12:45 CT OF THE ABDOMEN AND PELVIS WITH CONTRAST CLINICAL HISTORY: Fever. COMPARISON STUDY: CT of the abdomen and pelvis January 26, 2023. TECHNIQUE: Following IV administration of 94 mL of Optiray, axial images of the abdomen and pelvis were obtained from the lung bases to the proximal femurs. Images were reviewed in the axial, sagittal, and coronal planes. IV contrast was administered without complication. Automated exposure control was utilized for the study. A dose lowering technique was utilized adhering to the principles of ALARA. CT DOSE: 714.39 mGy.cm FINDINGS: Subpleural opacities within the visualized lower lungs favor atelectasis. There is no pneumatosis, free air or portal venous gas biliary ductal dilatation status post cholecystectomy. Gastrostomy tube is in place. Mild splenomegaly is unchanged. Adrenal glands, kidneys and pancreas are normal. There is no hydronephrosis. Slight dilatation of the bilateral ureters is noted. No urinary calculi. The bladder is distended. Bladder wall thickening is again noted. This is probably chronic. There are no fluid collections. There is no lymphadenopathy. 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 A few fluid-filled mildly dilated loops of small bowel are present. There is no definitive transition point. There is no definite evidence for a small bowel obstruction. There is no lymphadenopathy. IMPRESSION: 1. 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 A few mildly dilated small bowel loops without definite transition point. The small bowel dilatation is chronic however a partial small bowel obstruction cannot be excluded. 2. Distended bladder. Bladder wall thickening, likely chronic. 3. Gastrostomy tube in place. 4. Stable splenomegaly. 5. Subpleural lower lung opacities which favor atelectasis. ACT 112: Negative or not required by law. Electronically signed by: Elroy Durbin M.D. 06/11/2024 2:27 PM Medications Administered Sodium Chloride (Nss) 1,000 mls @ 999 mls/hr IV .Q1H1M MORENITA Stop: 06/11/24 15:00 Last Admin: 06/11/24 13:44 Dose: 999 mls/hr Documented By: REYES Code Status & VTE Plan Code Status full code VTE Prophylaxis Plan VTE Prophylaxis will be ordered: Yes (6) Allergic reaction caused by a drug Encounter type: initial encounter Qualified Code(s): T78.40XA - Allergy, unspecified, initial encounter (10) ADHD (attention deficit hyperactivity disorder) Attention deficit-hyperactivity disorder type: unspecified Qualified Code(s): F90.9 - Attention-deficit hyperactivity disorder, unspecified type (14) Insomnia Insomnia type: primary Qualified Code(s): F51.01 - Primary insomnia
[2024-06-11] MEDS ORDERED: SODIUM CHLORIDE 0.9% PF INJ 10 ML VIAL IV SCH (16:01)
[2024-06-11] MEDS ORDERED: SIMETHICONE 80 MG CHEW PO PRN (16:01)
[2024-06-11] MEDS ORDERED: [UNRECOGNIZED DRUG - NUTRITION] IV SCH (16:01)
[2024-06-11] MEDS ORDERED: POLYETHYLENE (MIRALAX) 17 GM PACK PO PRN (16:01)
[2024-06-11] MEDS ORDERED: TPN continuous IV infusion SCH (16:01)
[2024-06-11] MEDS ORDERED: ETHANOL IV SCH (16:01)
[2024-06-11] MEDS ORDERED: ONDANSETRON 4 MG OD TAB PO PRN (16:19)
[2024-06-11] MEDS ORDERED: MoRPHine SULFATE 10 MG/0.5 ML UDP NG PRN (16:47)
[2024-06-11] MEDS ORDERED: TPN/PPN CONSULT PHARMACY PRN (17:02)
[2024-06-11 17:13] LABS: Chol HDL Ratio 4.7 (0-5); Cholesterol 113 mg/dl (0-200); HDL Cholesterol 24 mg/dl; LDL Cholesterol Calculated 38 mg/dl; Triglycerides 253 mg/dl (0-150); VLDL Cholesterol 51 mg/dl (0-30)
[2024-06-11] MEDS: LIDOCAINE 5% 1 PATCH TD STA (17:52)
[2024-06-11] MEDS ORDERED: CENTRAL TPN IV SCH (18:00)
[2024-06-11] MEDS ORDERED: [UNRECOGNIZED DRUG - OTHER] IV SCH (18:00)
[2024-06-11] MEDS: MoRPHine SULFATE 10 MG/0.5 ML UDP SL PRN (18:23)
[2024-06-11] MEDS: BACLOFEN 10 MG TAB PEG SCH (18:23)
[2024-06-11] MEDS: CEFEPIME 2000MG 2,000 MG/20 ML SYR IV SCH (18:24)
[2024-06-11] MEDS ORDERED: MoRPHine SULFATE 10 MG/0.5 ML UDP GT PRN (18:37)
[2024-06-11] MEDS: diphenhydrAMINE 50 MG/ML VIAL IV SCH (19:29)
[2024-06-11] MEDS: VANCOMYCIN HCL 1,250 MG in SODIUM CHLORIDE 0.9% 250 ML IV SCH (20:17)
[2024-06-11] MEDS: MoRPHine SULFATE 4 MG/ML 1 ML CARP\\VIAL IV PRN (20:45)
[2024-06-11] MEDS: DULoxetine HCL 60 MG CAP PO SCH (21:04)
[2024-06-11] MEDS: MELATONIN 3 MG TAB PO SCH (21:04)
[2024-06-11] MEDS: TAMSULOSIN HCL 0.4 MG CAP PO SCH (21:04)
[2024-06-11] MEDS: APIXABAN 2.5 MG TAB PO SCH (21:04)
[2024-06-11] MEDS: CETIRIZINE ORAL SOLN 1 MG/ML GT SCH (21:05)
[2024-06-11] MEDS: FAMOTIDINE 20MG IV PUSH 20 MG/5 ML SYR IV SCH (21:05)
[2024-06-11] MEDS: ATENOLOL 25 MG TABLET PO SCH (21:06)
[2024-06-11 21:39] LABS: A calco-baum cmplx NotReported Not Detected (NotDetected); Bact fragilis Not Reported Not Detected (NotDetected); Blood Culture Id Panel See PCR Comment (NotDetected); C auris Not Reported Not Detected (NotDetected); Calbicans Not Reported Not Detected (NotDetected); Candida glabrata Not Reported Not Detected (NotDetected); Candida krusei Not Reported Not Detected (NotDetected); Cneoformans/gatti Not Reported Not Detected (NotDetected); Cparapsilosis Not Reported Not Detected (NotDetected); E cloacae compx Not Reported Not Detected (NotDetected); Efaecalis Not Reported Not Detected (NotDetected); Efaecium Not Reported Not Detected (NotDetected); Enterobacterales Not Reported Not Detected (NotDetected); Escherichia coli Not Reported Not Detected (NotDetected); H influenzae Not Reported Not Detected (NotDetected); K aerogenes Not Reported Not Detected (NotDetected); Koxytoca Not Reported Not Detected (NotDetected); Kpneumoniae grp Not Reported Not Detected (NotDetected); Lmonocyt Not Reported Not Detected (NotDetected); N meningitidis Not Reported Not Detected (NotDetected); P aeruginosa Not Reported Not Detected (NotDetected); Proteus spp Not Reported Not Detected (NotDetected); Salmonella spp Not Reported Not Detected (NotDetected); Staph lugdunensis Not Reported Not Detected (NotDetected); Staph spp. Not Reported DETECTED (NotDetected); Staphaureus Not Reported DETECTED (NotDetected); Staphepi Not Reported Not Detected (NotDetected); Staphylococcus spp. DETECTED (NotDetected); Stenmaltophilia Not Reported Not Detected (NotDetected); Strep agal(GrpB) Not Reported Not Detected (NotDetected); Strep pneum Not Reported Not Detected (NotDetected); Strep pyog (GrpA) Not Reported Not Detected (NotDetected); Strep spp Not Reported Not Detected (NotDetected); mecAC+MREJ Resistant Gene MRSA Not Detected (NotDetected)
[2024-06-12 04:20] LABS: Hematocrit (blood only) 36.8 % (42.0-52.0); Hemoglobin 12.7 g/dl (14.0-18.0); Mean Corpuscular Hemoglobin 30.3 pg (25.0-34.0); Mean Corpuscular Hgb Conc 34.5 g/dL (32.0-36.0); Mean Corpuscular Volume 87.8 fL (80.0-100.0); Mean Platelet Volume 10.1 fL (9.4-12.4); Platelet Count 63 K/uL (130-400); RDW Coefficient of Variation 12.6 % (11.5-14.5); RDW Standard Deviation 40.5 fL (36.4-46.3); Red Blood Count 4.19 M/uL (4.70-6.10)
[2024-06-12] MEDS ORDERED: Nursing to Pharmacy Communication SCH (04:30)
[2024-06-12 04:35] LABS: Albumin Globulin Ratio 1.5 (0.9-2); Albumin Level 3.5 gm/dl (3.4-5.0); BUN Creatinine Ratio 18.5 (10-20); Bilirubin,Total 1.2 mg/dl (0.2-1.0); Calcium 8.4 mg/dl (8.6-10.3); Creatinine Clr Calc Pharmacy 181.7 ml/min; Globulin 2.3 gm/dl (2.5-4.0); Magnesium 1.7 mg/dl (1.7-2.4); Phosphorus 2.1 mg/dl (2.5-4.9); Potassium 3.8 mmol/L (3.5-5.1); Total Protein 5.8 gm/dl (6.0-8.3)
[2024-06-12] MEDS ORDERED: PANTOPRAZOLE 40 MG IV SCH (09:00)
[2024-06-12] MEDS ORDERED: POTASSIUM IODIDE SOLN 1 GM/ML 30 ML NG SCH (09:00)
[2024-06-12] MEDS ORDERED: FAMOTIDINE 20 MG/2 ML IV SCH (09:00)
[2024-06-12] MEDS: DEXMETHYLPHENIDATE HCL 30 MG PO SCH (09:23)
[2024-06-12] MEDS: PATIENT'S OWN CONTROLLED MED 2 SCH (09:23)
[2024-06-12] MEDS: FLUDROCORTISONE ACETATE 0.1 MG TAB PO SCH (09:24)
[2024-06-12] MEDS: PANTOprazole 40 MG in SYRINGE DAILY IV SCH (09:24)
[2024-06-12] MEDS: ATENOLOL 25 MG TABLET PO SCH (09:25)
[2024-06-12] MEDS: diphenhydrAMINE 50 MG/ML VIAL IV PRN (09:50)
--- NOTE | 2024-06-12 10:32 | Surgery Consultation ---
Date of Consultation June 12, 2024 Assessment & Plan (1) Bacteremia: Blood cultures preliminarily show Gram (+) cocci resulting staph aureus. Upon examination of the patient, I see this is a tunneled catheter and will not be able to be removed at the bedside after discussion with his mother secondary to his complex history and procedure risks. He has had 26 central line exchanges with special protocols due to his complex history and now significant surgical risks. The patient did have a fever to 38.3 at 8pm last night and has been afebrile this am. His tachycardia is decreasing. He is on Cefepime, Vancomycin, Caspofungin and Eliquis. I have had a lengthy discussion with Onofre's mother regarding the intricateness of his central line management. When I asked about central line salvage, she tells me this is the process that is usually attempted first if possible because he is such a risk and had had so many exchanges. Considering risks and benefits, we both agreed that it may be more reasonable to initiate a central line salvage protocol while he awaits bed availability at [place] and transfer. The tunneled catheter will remain in place at this time. I have discussed this case in detail with Dr. Guevara who requested this consult. 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 He is typically treated at [place] or [place] for his central line management due to the complexities of his case further described below. He presented to the ED yesterday with his mom who noted a fever at home, once he c/o back pain and headache, overall feeling unwell. He has been admitted to medicine, blood cultures obtained returned positive with Staph aureus, final cultures pending and he is currently awaiting transfer to [place]. I have been consulted fo removal of a central line due to bacteremia. His mother is at the bedside and helps provide his history stating his line infections have typically been gram (-) and at times have been fungal. She says he has developed such scar tissue that the lines are difficult to remove and place resulting in significant bleeding when replaced. She also clarifies that he has required treatment in [place] where very specific protocols have been developed for him to undergo procedures as over the years, he has developed some significant sensitivities and become a more complex surgical case. As such, he is not able to have sedation due to a severe airway risk. He also requires a combination of pressors amongst other things during anesthesia secondary to life threatening vasodilation that occurs with anesthesia and specific protocols have been developed for him at [place] to be followed. Mom states all of his protocols had to be transferred to [place] which is where he is typically treated otherwise and that transfer process was also very intricate. His mother states that at this time, he appears improved compared to what he was at home prior to admission with the initiation of abx and other supportive measures. Allergies Allergy/AdvReac Type Severity Reaction Status Date / Time dexmedetomidine Allergy Severe LOW BLOOD Verified 02/27/24 17:28 [From Precedex] PRESURE egg Allergy Severe Hives Verified 02/27/24 17:28 Wheezing midazolam Allergy Severe ANAPHYLAXIS Verified 02/27/24 17:28 alcohol Allergy Intermediate Rash/ Verified 02/27/24 17:28 [From Mastisol Adhesive] severe burning sensation of the skin gum mastic Allergy Intermediate Rash/ Verified 02/27/24 17:28 [From Mastisol Adhesive] severe burning sensation of the skin iodine Allergy Intermediate RASH Verified 02/27/24 17:28 methyl salicylate Allergy Intermediate Rash/ Verified 02/27/24 17:28 [From Mastisol Adhesive] severe burning sensation of the skin storax Allergy Intermediate Rash/ Verified 02/27/24 17:28 [From Mastisol Adhesive] severe burning sensation of the skin vancomycin Allergy Mild RED AMIRA Verified 02/27/24 17:28 ketamine AdvReac Intermediate Hallucinati Unverified 02/27/24 17:29 ng Peptmen JR Allergy Intermediate Rash Uncoded 02/27/24 17:28 Home Medications Medication Instructions Recorded Confirmed Type Ethanol 70 % Lock Sari 1.3 ml IV DIRECTED 11/12/21 06/11/24 History Tpn Sari 1 ea continuous IV infusion 11/12/21 06/11/24 History DIRECTED albuterol sulfate 2.5 mg/3 mL 2.5 mg continuous nebulization Q4 11/12/21 06/11/24 History (0.083 %) solution for nebulization PRN Shortness Of Breath Or Wheezing atenolol 25 mg tablet 25 mg feeding tube QAM 11/12/21 06/11/24 History budesonide 0.5 mg/2 mL suspension 0.5 mg inhalation BID PRN 11/12/21 06/11/24 History for nebulization Shortness Of Breath Or Wheezing fat emulsion-soybean [id number] 350 ml IV 3XWK 11/12/21 06/11/24 History oil-fish oil 20 % intravenous (SMOFlipid) fludrocortisone 0.1 mg tablet 0.2 mg feeding tube DAILY 11/12/21 06/11/24 History heparin (porcine) 10 unit/mL in 3 unit IV DIRECTED PRN Other 11/12/21 06/11/24 History 0.9 % sodium chloride intravenous kit famotidine (PF) 20 mg/2 mL 40 mg IV QAM 02/08/22 06/11/24 History intravenous solution cetirizine 10 mg tablet (Zyrtec) 20 mg feeding tube BID 07/20/22 06/11/24 History cholecalciferol (vitamin D3) 50 50 mcg PO DAILY 07/20/22 06/11/24 History mcg (2,000 unit) capsule (Vitamin D3) sodium chloride 0.9 % 75 ml IV DIRECTED 07/20/22 06/11/24 History acetaminophen 500 mg tablet 500 mg feeding tube Q6H PRN .Fever 09/25/22 06/11/24 History (Tylenol Extra Strength) >38 C, MILD-MOD PAIN duloxetine 60 mg capsule,delayed 60 mg PO BID 09/25/22 06/11/24 History release ibuprofen 200 mg tablet 200 mg feeding tube Q4 PRN Pain 09/25/22 06/11/24 History ondansetron HCl 4 mg tablet 4 mg PO Q8H PRN Nausea 09/25/22 06/11/24 History tamsulosin 0.4 mg capsule 0.4 mg PO HS 09/25/22 06/11/24 History dexmethylphenidate 30 mg 30 mg PO .DAILY@0800 11/20/22 06/11/24 History capsule,extended release -96 melatonin 5 mg tablet 10 mg feeding tube HS 11/20/22 06/11/24 History menthol 0.44 %-zinc oxide 20.6 % 1 applic topical DIRECTED PRN 11/20/22 06/11/24 History topical ointment AFFECTED AREAS, G/J-TUBE pantoprazole 40 mg intravenous 40 mg IV DAILY 11/20/22 06/11/24 History solution potassium iodide 1 gram/mL oral 1 ml feeding tube DAILY 11/20/22 06/11/24 History solution baclofen 10 mg tablet 10 mg feeding tube QID 01/26/23 06/11/24 History simethicone 80 mg chewable tablet 80 mg PO Q6H PRN GAS/ABD PAIN 01/26/23 06/11/24 History apixaban 2.5 mg tablet (Eliquis) 2.5 mg feeding tube BID 02/27/24 06/11/24 History dexmethylphenidate 10 mg tablet 10 mg PO .@1400 06/11/24 06/11/24 History oxybutynin chloride 5 ml feeding tube UD 06/11/24 06/11/24 History Patient History Medical History Lab test negative for COVID-19 virus Septic shock S/P colectomy Autistic disorder Pain around PEG tube site Constipation Surgical History History of fundoplication History of appendectomy S/P cecostomy S/P tonsillectomy and adenoidectomy Family History Other FHx: heart disease Family history of diabetes mellitus Family history of gallbladder disease Family history of high blood pressure Social History Smoking Status: Never smoker Second Hand Exposure: No; Do You Dip or Chew Tobacco: No; Tobacco Cessation Education Requested by Patient: No Hx Alcohol Use: No Hx Substance Use: No Preferred Language: Sinhala Communication Ability: Effective Visual Impairment: No Limitations Hearing Ability: Normal Ground Source Heat Pump Technician Required: No Beliefs That Will Affect Care: None Current Living Situation: Family Other Information That Helps Us Care for You: No Feels Safe at Home: Yes Safety Concerns: Feels Safe At This Time Assistive Devices: Walker and Wheelchair Assistive Devices Comment: wheelchair and walker for long distances Review of Systems Review of Systems: as above Physical Exam Constitutional: Fever early this am Respiratory: normal respiratory effort; no respiratory distress, no labored breathing and does not use accessory muscles Chest (Breasts): Additional Comments: tunneled catheter at the right chest Skin: no rashes Psychiatric: Orientation: alert, oriented x 3 and cooperative Results & Data Vital Signs (Past 12 Hours) Vital Signs Temp Pulse Resp BP Pulse Ox O2 Del Method O2 Flow Rate 06/12/24 09:25 Nasal Cannula 2 06/12/24 08:49 37.0 C 103 H 19 113/71 98 Nasal Cannula 2 PG Care Time/CCT Total # of Minutes Spent Total Time Spent with Patient: Total time spent is greater than 50% in coordination of care (as documented) at patient's floor/unit and/or counseling patient: Coding Level of Care Code 95803 IN/OBS CONSULT LVL 3,45M Diagnoses Bacteremia R78.81
--- NOTE | 2024-06-12 10:48 | Pharmacy Report ---
Pharmacy PK ABX Note - Date of Service June 12, 2024 - Assessment and Plan Assessment 19 year old M receiving vancomycin, cefepime and caspofungin empirically in setting of bacteremia. History of central line associated bacteremia and followed by peds ID at [facility]. 06/11 blood cultures (+) GPC in clusters, Staph aureus (MSSA) in 09/09. [place] [facility] [place]2 of antimicrobial therapy. Plan Vancomycin * Maintenance dose: 1250 mg IV every 8 hours * Regimen is predicted to achieve target AUC/RHINA of 400-600 mg/L.hr * Random level ordered by hospitalist service overnight, 8.2mcg/mL (~7.5h level after 2 doses) - predicted to achieve ssAUC 499mg/L.hr - therapeutic. Continue vancomycin 1250mg IV q8h. * Will obtain a repeat steady state level in ~ 48h Pharmacy will continue to follow and will adjust dose/frequency as necessary. Thank you. Pharmacy has transitioned to AUC monitoring for vancomycin. AUC/RHINA is the preferred PK/PD target and is associated with decreased risk of nephrotoxicity compared to traditional trough targets.
[2024-06-12 11:19] LABS: Appearance Urine Clear (Clear); Bacteria Urine Automated None Seen (None Seen); Bilirubin Urine Negative (Negative); Blood Urine Negative (Negative); Cast Urine Automated 0-2 /lpf (0-2); Color Urine Dark Yellow; Epithelial Cell Urine Auto 0-2 /hpf (0-2); Glucose Urine UA Negative (Negative); Ketones Urine 1+ (Negative); Leukocyte Esterase Urine Negative (Negative); Nitrite Urine Negative (Negative); Protein Urine Trace (Negative); Specific Gravity Urine 1.021 (1.000-1.030); Urobilinogen Urine Negative (Negative); WBC Urine Automated 0-5 /hpf (0-5)
[2024-06-12] MEDS: DEXMETHYLPHENIDATE HCL 10 MG PO SCH (12:03)
[2024-06-12] MEDS: PATIENT'S OWN CONTROLLED MED 3 SCH (12:04)
[2024-06-12] MEDS: CASPOFUNGIN 50 MG in SODIUM CHLORIDE 0.9% 250 ML IV SCH (12:47)
[2024-06-12] MEDS: ACETAMINOPHEN 1,000 MG/100 ML VIAL IV STA (15:03)
[2024-06-12] MEDS ORDERED: FAMOTIDINE 20MG IV PUSH 20 MG/5 ML SYR IV SCH (16:45)
--- NOTE | 2024-06-12 16:45 | Hospitalist Progress Note ---
Date of Service June 12, 2024 Assessment & Plan (1) Bacteremia: Plan: Blood cultx posit. for MSSA -CT imaging without any overt nidus of infection -patient with history of line infections, presenting with relative hypotension consistent with patients previous infections -hemodynamically stable, no leukocytosis, procal 0.55 -TPN reliant with chronic central line placement -follows with pediatric ID at [facility], and likely transfer on Thursday - updated [facility] ID doctor as well as transfer center - unfortunately no beds available yet - also consulted and discussed w/ surgery , and pharmacy - given he had multiple line s removed / exchanged, requires specific anesthesia needs, will try to salvage the line for now Plan: -continue vancomycin, cefepime, and caspofungin per pediatric ID recs -ID and surgery consulted, as above - plan for transfer on Thursday pending bed avalability (2) History of central line-associated bloodstream infection (CLABSI): Plan: -see above, has predilection to line infections with unique resistance and bug profiles -will likely need transfer to [facility] when bed available (3) 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, short stature, hypotonia (4) Klippel-Feil syndrome: Plan: -cervical vertebral fusion syndrome -likely strong contributor to back pain (5) Abnormal LFTs: Plan: -likely related to TPN use, worsened by acute infection -trend LFTs daily (6) Allergic reaction caused by a drug: Plan: -patient has known itching and reactions to most medications -per chart and family treated with benadryl prn 50 mg Plan: -50 mg q4hr prn benadryl for drug itch -continue cetirizine (7) POTS (postural orthostatic tachycardia syndrome): Plan: -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 w/ peripheral IVF (10) ADHD (attention deficit hyperactivity disorder): Plan: -continue home dexmethylphnidate -continue home duloxetine (11) Mid back pain: Plan: -related to Klippel Feil syndrome and posture -continue home baclofen (12) Bowel dysfunction: Plan: -see above, on tpn (13) On total parenteral nutrition (TPN): Plan: -see above, on tpn (14) Insomnia: Plan: -continue home melatonin (15) Bladder dysfunction: Plan: -continue home oxybutynin and tamulosin Plan Thromboprophylaxis: on eliquis Ulcer prophylaxis: protonix Glycemic control: none Deescalation of antibiotics: vanc/cefepime/caspofungin Admission and Anticipated Discharge Date Admission Date: June 11, 2024 Subjective Pt seen in follow up of bacteremia, sepsis Pt on TPN - hx of multiple lines removed/ exchanged. discussed in detail w/ surgery today, ID, and pharmacy. Given pt's complicated hx , will try to salvage the line for now. Transfer Center also contacted and updated that pt is bacteremic. awaiting to hear back from triage officer Discussed w/ pt and and his mother multiple times symptom management. Pt gets back pain and pruritus when sick/ febrile/ on abx. Pt laying in bed in NAD, complains of back pain. No other pain reported. Review of Systems Review of Systems: All systems reviewed & are unremarkable except as noted in Subjective Physical Exam Physical Exam: Gen: WD/WN young M in NAD HEENT: NCAT, EOMI Neck: Supple Lungs: CTAB CV: RRR, no edema. Abdomen: Soft, nondistended, No rebound tenderness. Noted g tube MSK: No joint swelling, moves extremities Back: no edema, erythema noted Skin: warm, dry Neuro: awake, alert, answers simple questions, moves extremities Results & Data Results & Data Vital Signs (Past 12 Hours) Vital Signs Temp Pulse Pulse Resp BP Pulse Ox O2 Del Method 06/12/24 15:46 109 H 06/12/24 15:44 36.8 C 99 H 16 100/74 97 Nasal Cannula 06/12/24 11:22 36.6 C 110 H 18 119/77 06/12/24 09:25 Nasal Cannula 06/12/24 08:49 37.0 C 103 H 19 113/71 98 Nasal Cannula O2 Flow Rate 06/12/24 15:46 06/12/24 15:44 2 06/12/24 11:22 06/12/24 09:25 2 06/12/24 08:49 2 Laboratory Results 06/12/24 06/12/24 06/11/24 Range/Units 11:04 03:52 17:44 WBC 2.50 L (4.8-10.8) K/ul RBC 4.19 L (4.70-6.10) M/uL Hgb 12.7 L (14.0-18.0) g/dl Hct 36.8 L (42.0-52.0) % MCV 87.8 (80.0-100.0) fL MCH 30.3 (25.0-34.0) pg MCHC 34.5 (32.0-36.0) g/dL RDW Std Deviation 40.5 (36.4-46.3) fL RDW Coeff of Osvaldo 12.6 (11.5-14.5) % Plt Count 63 L (130-400) K/uL MPV 10.1 (9.4-12.4) fL Sodium 134 L (136-145) mmol/L Potassium 3.8 (3.5-5.1) mmol/L Chloride 104 (98-107) mmol/L Carbon Dioxide 27 (21-32) mmol/L Anion Gap 3 (3-11) BUN 10 (6-23) mg/dl Creatinine 0.54 L (0.6-1.4) mg/dl Est Cr Clr Drug Dosing 181.7 ml/min eGFR 145.40 BUN/Creatinine Ratio 18.5 (10-20) Glucose 87 (70-99(Fasting)) mg/dl POC Glucose 79 (70-99) mg/dl Calcium 8.4 L (8.6-10.3) mg/dl Phosphorus 2.1 L (2.5-4.9) mg/dl Magnesium 1.7 (1.7-2.4) mg/dl Total Bilirubin 1.2 H D (0.2-1.0) mg/dl AST 148 H (13-39) U/L ALT 390 H (7-52) U/L Alkaline Phosphatase 86 (34-104) U/L Total Protein 5.8 L (6.0-8.3) gm/dl Albumin 3.5 (3.4-5.0) gm/dl Globulin 2.3 L (2.5-4.0) gm/dl Albumin/Globulin Ratio 1.5 (0.9-2) Triglycerides (0-150) mg/dl Cholesterol (0-200) mg/dl LDL Cholesterol, Calc mg/dl VLDL Cholesterol, Calc (0-30) mg/dl HDL Cholesterol mg/dl Cholesterol/HDL Ratio (0-5) Urine Color Dark Yellow Urine Appearance Clear (Clear) Urine pH 6.0 (4.5-7.5) Ur Specific Morgan 1.021 (1.000-1.030) Urine Protein Trace H (Negative) Urine Glucose (UA) Negative (Negative) Urine Ketones 1+ H (Negative) Urine Blood Negative (Negative) Urine Nitrite Negative (Negative) Urine Bilirubin Negative (Negative) Urine Urobilinogen Negative (Negative) Ur Leukocyte Esterase Negative (Negative) Urine WBC (Auto) 0-5 (0-5) /hpf Urine RBC (Auto) 6-10 H (0-2) /hpf U Hyaline Cast (Auto) 0-2 (0-2) /lpf U Epithel Cells (Auto) 0-2 (0-2) /hpf Urine Bacteria (Auto) None Seen (None Seen) Random Vancomycin 8.2 L (10-20) mcg/ml Staphylococcus sp PCR (NotDetected) Staph aureus (PCR) (NotDetected) mecA/C & MREJ Resist Gene (NotDetected) Bld Cult ID Panel PCR (NotDetected) 06/11/24 06/11/24 Range/Units 10:45 10:35 WBC (4.8-10.8) K/ul RBC (4.70-6.10) M/uL Hgb (14.0-18.0) g/dl Hct (42.0-52.0) % MCV (80.0-100.0) fL MCH (25.0-34.0) pg MCHC (32.0-36.0) g/dL RDW Std Deviation (36.4-46.3) fL RDW Coeff of Osvaldo (11.5-14.5) % Plt Count (130-400) K/uL MPV (9.4-12.4) fL Sodium (136-145) mmol/L Potassium (3.5-5.1) mmol/L Chloride (98-107) mmol/L Carbon Dioxide (21-32) mmol/L Anion Gap (3-11) BUN (6-23) mg/dl Creatinine (0.6-1.4) mg/dl Est Cr Clr Drug Dosing ml/min eGFR BUN/Creatinine Ratio (10-20) Glucose (70-99(Fasting)) mg/dl POC Glucose (70-99) mg/dl Calcium (8.6-10.3) mg/dl Phosphorus (2.5-4.9) mg/dl Magnesium (1.7-2.4) mg/dl Total Bilirubin (0.2-1.0) mg/dl AST (13-39) U/L ALT (7-52) U/L Alkaline Phosphatase (34-104) U/L Total Protein (6.0-8.3) gm/dl Albumin (3.4-5.0) gm/dl Globulin (2.5-4.0) gm/dl Albumin/Globulin Ratio (0.9-2) Triglycerides 253 H (0-150) mg/dl Cholesterol 113 (0-200) mg/dl LDL Cholesterol, Calc 38 mg/dl VLDL Cholesterol, Calc 51 H (0-30) mg/dl HDL Cholesterol 24 mg/dl Cholesterol/HDL Ratio 4.7 (0-5) Urine Color Urine Appearance (Clear) Urine pH (4.5-7.5) Ur Specific Morgan (1.000-1.030) Urine Protein (Negative) Urine Glucose (UA) (Negative) Urine Ketones (Negative) Urine Blood (Negative) Urine Nitrite (Negative) Urine Bilirubin (Negative) Urine Urobilinogen (Negative) Ur Leukocyte Esterase (Negative) Urine WBC (Auto) (0-5) /hpf Urine RBC (Auto) (0-2) /hpf U Hyaline Cast (Auto) (0-2) /lpf U Epithel Cells (Auto) (0-2) /hpf Urine Bacteria (Auto) (None Seen) Random Vancomycin (10-20) mcg/ml Staphylococcus sp PCR DETECTED A (NotDetected) Staph aureus (PCR) DETECTED A (NotDetected) mecA/C & MREJ Resist Gene MRSA Not Detected (NotDetected) Bld Cult ID Panel PCR See PCR Comment (NotDetected) Medications Administered Current Inpatient Medications Apixaban (Apixaban 2.5 Mg Tab) 2.5 mg PO BID MORENITA Stop: 07/11/24 20:59 Last Admin: 06/12/24 09:24 Dose: 2.5 mg Atenolol (Atenolol 25 Mg Tablet) 25 mg PO QAM [facility] Stop: 07/12/24 08:59 Last Admin: 06/12/24 09:25 Dose: 25 mg Baclofen (Baclofen 10 Mg Tab) 10 mg PEG QID [facility] Stop: 07/11/24 16:59 Last Admin: 06/12/24 12:03 Dose: 10 mg Cetirizine HCl (Cetirizine Oral Soln 1 Mg/Ml) 25 mg GT BID [facility] Stop: 07/11/24 20:59 Last Admin: 06/12/24 09:27 Dose: 25 mg Dexmethylphenidate HCl (Dexmethylphenidate Hcl 30 Mg Cap - Patient's Own Med) 30 mg PO TODAY@0800 [facility] Stop: 07/12/24 07:59 Last Admin: 06/12/24 09:23 Dose: 30 mg Dexmethylphenidate HCl (Dexmethylphenidate Hcl 10 Mg Tab) 10 mg PO TODAY@1200 [facility] Stop: 06/26/24 11:59 Last Admin: 06/12/24 12:03 Dose: 10 mg Diphenhydramine HCl (Diphenhydramine 50 Mg/Ml Vial) 50 mg IV Q4 PRN PRN Reason: Itching Stop: 07/11/24 16:00 Last Admin: 06/12/24 09:50 Dose: 50 mg Diphenhydramine HCl (Diphenhydramine 50 Mg/Ml Vial) 25 mg IV Q8H [facility] Stop: 07/11/24 19:29 Last Admin: 06/12/24 12:48 Dose: 25 mg Duloxetine HCl (Duloxetine Hcl 60 Mg Cap) 60 mg PO BID [facility] Stop: 07/11/24 20:59 Last Admin: 06/12/24 09:26 Dose: 60 mg Fludrocortisone Acetate (Fludrocortisone Acetate 0.1 Mg Tab) 0.2 mg PO QAM [facility] Stop: 07/12/24 08:59 Last Admin: 06/12/24 09:24 Dose: 0.2 mg Cefepime HCl (Maxipime 2000mg) 2,000 mg in 20 mls @ 5 mls/min IV Q8H [facility]; Protocol Stop: 06/25/24 17:59 Last Admin: 06/12/24 09:23 Dose: 5 mls/min Caspofungin 50 mg/ Sodium (Chloride) 260 mls @ 250 mls/hr IV Q24H [facility]; Protocol Stop: 06/22/24 11:59 Last Infusion: 06/12/24 14:38 Dose: Infused Pantoprazole Sodium (Protonix) 40 mg in 10 mls @ 5 mls/min IV DAILY [facility] Stop: 07/12/24 08:59 Last Admin: 06/12/24 09:24 Dose: 5 mls/min Sodium Chloride (Nss) 1,000 mls @ 75 mls/hr IV .[id number] [facility] Stop: 07/11/24 17:14 Last Admin: 06/12/24 05:47 Dose: 75 mls/hr Famotidine (Pepcid 20mg Iv Push) 20 mg in 5 mls @ 2.5 mls/min IV Q12H [facility] Stop: 07/11/24 20:59 Last Admin: 06/12/24 09:22 Dose: 2.5 mls/min Vancomycin HCl 1,250 mg/ (Sodium Chloride) 275 mls @ 100 mls/hr IV Q8H [facility] Stop: 06/13/24 19:59 Last Infusion: 06/12/24 16:15 Dose: Infused Cefazolin Sodium 1.08 ml/ (Syringe) 1.08 mls @ 129.6 mls/hr INTC Q24H [facility]; Protocol Stop: 06/26/24 12:59 Last Admin: 06/12/24 13:32 Dose: 129.6 mls/hr Cefazolin Sodium 0.88 ml/ (Syringe) 0.88 mls @ 105.6 mls/hr INTC Q24H [facility]; Protocol Stop: 06/19/24 12:59 Last Admin: 06/12/24 13:32 Dose: 105.6 mls/hr Famotidine (Pepcid 20mg Iv Push) 20 mg in 5 mls @ 2.5 mls/min IV Q12H [facility] Stop: 07/12/24 16:44 Lidocaine (Lidocaine 5% 1 Patch) 1 patch TD Q24H [facility] Stop: 07/12/24 17:59 Melatonin (Melatonin 3 Mg Tab) 9 mg PO HSZ [facility] Stop: 07/11/24 21:59 Last Admin: 06/11/24 21:04 Dose: 9 mg Miscellaneous (Remove Lidoderm Patch) 1 each N/A DAILY@0600 [facility] Stop: 07/12/24 05:59 Last Admin: 06/12/24 04:07 Dose: Not Given Miscellaneous (Remove Antibiotc Lock Therapy (Alt) 1 Ea) 1 each INTC Q24H [facility] Stop: 07/12/24 12:59 Last Admin: 06/12/24 13:51 Dose: Not Given Miscellaneous (Remove Antibiotc Lock Therapy (Alt) 1 Ea) 1 each INTC Q24H [facility] Stop: 07/12/24 12:59 Last Admin: 06/12/24 13:51 Dose: Not Given Miscellaneous Information (Tpn/Ppn Consult Pharmacy) 1 each N/A UD PRN PRN Reason: Consult Stop: 07/11/24 17:01 Miscellaneous Information (Vancomycin Consult Active) 1 each N/A UD PRN PRN Reason: Consult Stop: 07/11/24 16:00 Morphine Sulfate (Morphine Sulfate 4 Mg/Ml 1 Ml Carp\Vial) 3 mg IV Q3H PRN PRN Reason: Severe Pain (Scale 7, 8, 9,10) Stop: 06/25/24 20:16 Non-Formulary Medication (Patient's Own Controlled Med 2) 1 each N/A TODAY@0800 [facility] Stop: 06/26/24 07:59 Last Admin: 06/12/24 09:23 Dose: 30 mg Non-Formulary Medication (Patient's Own Controlled Med 3) 1 ea N/A TODAY@1200 [facility] Stop: 06/26/24 11:59 Last Admin: 06/12/24 12:04 Dose: Not Given Ondansetron HCl (Ondansetron 4 Mg Od Tab) 4 mg PO Q8H PRN PRN Reason: Nausea And Vomiting Stop: 07/11/24 16:18 Polyethylene Glycol (Polyethylene (Miralax) 17 Gm Pack) 17 gm PO DAILY PRN PRN Reason: Constipation Stop: 07/11/24 16:00 Simethicone (Simethicone 80 Mg Chew) 80 mg PO Q6H PRN PRN Reason: GAS/ABD PAIN Stop: 07/11/24 16:00 Tamsulosin HCl (Tamsulosin Hcl 0.4 Mg Cap) 0.4 mg PO [facility] Stop: 07/11/24 20:59 Last Admin: 06/11/24 21:04 Dose: 0.4 mg (6) Allergic reaction caused by a drug Encounter type: initial encounter Qualified Code(s): T78.40XA - Allergy, unspecified, initial encounter (10) ADHD (attention deficit hyperactivity disorder) Attention deficit-hyperactivity disorder type: unspecified Qualified Code(s): F90.9 - Attention-deficit hyperactivity disorder, unspecified type (14) Insomnia Insomnia type: primary Qualified Code(s): F51.01 - Primary insomnia
[2024-06-12] MEDS: MoRPHine SULFATE 4 MG/ML 1 ML CARP\\VIAL IV PRN (17:14)
[2024-06-12] MEDS: LIDOCAINE 5% 1 PATCH TD SCH (17:38)
[2024-06-12] MEDS ORDERED: SODIUM PHOSPHATE 3 MMOL/1 ML INFUSION IV ONE (17:57)
[2024-06-12] MEDS: D5W AND 1/2NSS + 20MEQ KCL 20 MEQ/1,000 ML BAG IV SCH (18:16)
[2024-06-12] MEDS: SODIUM PHOSPHATE 9 MMOL in SODIUM CHLORIDE 0.9% 250 ML IV ONE (18:39)
[2024-06-12] MEDS ORDERED: oxyCODONE HCL IR 5 MG TAB (IMMEDIATE RELEASE) PO PRN (19:54)
[2024-06-12] MEDS: MAGNESIUM SULFATE / D5W 1 GM/100 ML BAG IV ONE (20:20)
[2024-06-13 11:42] LABS: Hematocrit (blood only) 38.8 % (42.0-52.0); Hemoglobin 14.1 g/dl (14.0-18.0); Mean Corpuscular Hemoglobin 30.6 pg (25.0-34.0); Mean Corpuscular Hgb Conc 36.3 g/dL (32.0-36.0); Mean Corpuscular Volume 84.2 fL (80.0-100.0); Mean Platelet Volume 9.7 fL (9.4-12.4); Platelet Count 84 K/uL (130-400); RDW Coefficient of Variation 12.7 % (11.5-14.5); RDW Standard Deviation 38.5 fL (36.4-46.3); Red Blood Count 4.61 M/uL (4.70-6.10); White Blood Count 3.49 K/ul (4.8-10.8)
[2024-06-13 11:55] LABS: Calcium 9.1 mg/dl (8.6-10.3); Creatinine Clr Calc Pharmacy 181.7 ml/min; Potassium 3.2 mmol/L (3.5-5.1)
[2024-06-13 11:56] LABS: Magnesium 1.8 mg/dl (1.7-2.4); Phosphorus 1.4 mg/dl (2.5-4.9)
[2024-06-13] MEDS ORDERED: POTASSIUM PHOS 3 MMOL/1 ML INFUSION IV STA (12:01)
[2024-06-13] MEDS: POTASSIUM PHOSPHATE 15 MMOL in SODIUM CHLORIDE 0.9% 250 ML IV ONE (12:50)
[2024-06-13] MEDS: MAGNESIUM SULFATE / D5W 1 GM/100 ML BAG IV ONE (13:26)
--- NOTE | 2024-06-13 15:19 | Electrocardiogram Report ---
Test Reason : Blood Pressure : */* mmHG Vent. Rate : 115 BPM Atrial Rate : 115 BPM P-R Int : 164 ms QRS Dur : 88 ms QT Int : 278 ms P-R-T Axes : 64 37 18 degrees QTcB Int : 384 ms Sinus tachycardia Otherwise normal ECG When compared with ECG of 27-Feb-2024 14:59, No significant change was found Confirmed by Malachi Rainey ([id number]) on 06/13/2024 3:19:12 PM Referred By: REFERRED SELF Confirmed By: Malachi Rainey
--- NOTE | 2024-06-13 17:01 | Infectious Disease Consult ---
Date of Service June 13, 2024 Telehealth Information I performed this visit using a real-time telehealth connection between my location and the patients location ([facility]). After connecting through interactive tele-video, patient was identified by name and date of and/or wristband check.Patient (or authorized healthcare exhibit display representative) was informed that this was a telemedicine visit and it was being conducted confidentially over secure lines. My office door was closed and no o ne else was present in the room with me.Patient (or authorized healthcare exhibit display representative) provided consent to proceed with the visit, expressed an understanding of privacy and security of the telemedicine visit, and gave permission to have a hospital exhibit display representative in the room in order to assist with the visit and to conduct portions of the visit, as needed. I informed the patient (or authorized healthcare exhibit display representative) that I reviewed their record and presented the opportunity for them to ask any questions regarding the visit today. The patient agreed to participate. 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 I would treat this as CLABSI. Although it is difficulty to define his worsening back pain as he is a poor historian, I would get MRI spine w/ contrast to evaluate the entire spine in view of high burden MSSA bacteremia. I spent a total of 60 minutes coordinating, documenting, and providing care for this patient excluding time spent in the performance of separately billed services or time spent by another provider/QHP. 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 Fever on presentation w/ high burden of MSSA in blood. Severe back pain all over (no HW present on spine). Headache resolved. No n/v, abd pain, diarrhea, coughing, sob, or CP. The patient is not a good historian. Tamara, patients mother, was at bedside during the video encounter. Allergies Allergy/AdvReac Type Severity Reaction Status Date / Time dexmedetomidine Allergy Severe LOW BLOOD Verified 02/27/24 17:28 [From Precedex] PRESURE egg Allergy Severe Hives Verified 02/27/24 17:28 Wheezing midazolam Allergy Severe ANAPHYLAXIS Verified 02/27/24 17:28 alcohol Allergy Intermediate Rash/ Verified 02/27/24 17:28 [From Mastisol Adhesive] severe burning sensation of the skin gum mastic Allergy Intermediate Rash/ Verified 02/27/24 17:28 [From Mastisol Adhesive] severe burning sensation of the skin iodine Allergy Intermediate RASH Verified 02/27/24 17:28 methyl salicylate Allergy Intermediate Rash/ Verified 02/27/24 17:28 [From Mastisol Adhesive] severe burning sensation of the skin storax Allergy Intermediate Rash/ Verified 02/27/24 17:28 [From Mastisol Adhesive] severe burning sensation of the skin vancomycin Allergy Mild RED AMIRA Verified 02/27/24 17:28 ketamine AdvReac Intermediate Hallucinati Unverified 02/27/24 17:29 ng Peptmen JR Allergy Intermediate Rash Uncoded 02/27/24 17:28 Home Medications Medication Instructions Recorded Confirmed Type Ethanol 70 % Lock Sari 1.3 ml IV DIRECTED 11/12/21 06/11/24 History Tpn Sari 1 ea continuous IV infusion 11/12/21 06/11/24 History DIRECTED albuterol sulfate 2.5 mg/3 mL 2.5 mg continuous nebulization Q4 11/12/21 06/11/24 History (0.083 %) solution for nebulization PRN Shortness Of Breath Or Wheezing atenolol 25 mg tablet 25 mg feeding tube QAM 11/12/21 06/11/24 History budesonide 0.5 mg/2 mL suspension 0.5 mg inhalation BID PRN 11/12/21 06/11/24 History for nebulization Shortness Of Breath Or Wheezing fat emulsion-soybean [id number] 350 ml IV 3XWK 11/12/21 06/11/24 History oil-fish oil 20 % intravenous (SMOFlipid) fludrocortisone 0.1 mg tablet 0.2 mg feeding tube DAILY 11/12/21 06/11/24 History heparin (porcine) 10 unit/mL in 3 unit IV DIRECTED PRN Other 11/12/21 06/11/24 History 0.9 % sodium chloride intravenous kit famotidine (PF) 20 mg/2 mL 40 mg IV QAM 02/08/22 06/11/24 History intravenous solution cetirizine 10 mg tablet (Zyrtec) 20 mg feeding tube BID 07/20/22 06/11/24 History cholecalciferol (vitamin D3) 50 50 mcg PO DAILY 07/20/22 06/11/24 History mcg (2,000 unit) capsule (Vitamin D3) sodium chloride 0.9 % 75 ml IV DIRECTED 07/20/22 06/11/24 History acetaminophen 500 mg tablet 500 mg feeding tube Q6H PRN .Fever 09/25/22 06/11/24 History (Tylenol Extra Strength) >38 C, MILD-MOD PAIN duloxetine 60 mg capsule,delayed 60 mg PO BID 09/25/22 06/11/24 History release ibuprofen 200 mg tablet 200 mg feeding tube Q4 PRN Pain 09/25/22 06/11/24 History ondansetron HCl 4 mg tablet 4 mg PO Q8H PRN Nausea 09/25/22 06/11/24 History tamsulosin 0.4 mg capsule 0.4 mg PO HS 09/25/22 06/11/24 History dexmethylphenidate 30 mg 30 mg PO .DAILY@0800 11/20/22 06/11/24 History capsule,extended release -20 melatonin 5 mg tablet 10 mg feeding tube HS 11/20/22 06/11/24 History menthol 0.44 %-zinc oxide 20.6 % 1 applic topical DIRECTED PRN 11/20/22 06/11/24 History topical ointment AFFECTED AREAS, G/J-TUBE pantoprazole 40 mg intravenous 40 mg IV DAILY 11/20/22 06/11/24 History solution potassium iodide 1 gram/mL oral 1 ml feeding tube DAILY 11/20/22 06/11/24 History solution baclofen 10 mg tablet 10 mg feeding tube QID 01/26/23 06/11/24 History simethicone 80 mg chewable tablet 80 mg PO Q6H PRN GAS/ABD PAIN 01/26/23 06/11/24 History apixaban 2.5 mg tablet (Eliquis) 2.5 mg feeding tube BID 02/27/24 06/11/24 History dexmethylphenidate 10 mg tablet 10 mg PO .@1400 06/11/24 06/11/24 History oxybutynin chloride 5 ml feeding tube UD 06/11/24 06/11/24 History Patient History Medical History Lab test negative for COVID-19 virus Septic shock S/P colectomy Autistic disorder Pain around PEG tube site Constipation Surgical History History of fundoplication History of appendectomy S/P cecostomy S/P tonsillectomy and adenoidectomy Family History Other FHx: heart disease Family history of diabetes mellitus Family history of gallbladder disease Family history of high blood pressure Social History Smoking Status: Never smoker Second Hand Exposure: No; Do You Dip or Chew Tobacco: No; Hx Alcohol Use: No Hx Substance Use: No Preferred Language: Latvian Communication Ability: Effective Visual Impairment: No Limitations Hearing Ability: Normal Assistant Manager Retail Required: No Beliefs That Will Affect Care: None Current Living Situation: Family Feels Safe at Home: Yes Assistive Devices: Walker and Wheelchair Review of Systems as HPI and all others negative Physical Exam General: does not appear to be in distress Lungs: breathing comfortably on RA but saturating around 90-91% Neuro: awake and answers some questions as he seems distracted A double-lumen R IJ in place Results & Data Vital Signs (Past 12 Hours) Vital Signs Temp Pulse Pulse Resp BP Pulse Ox O2 Del Method 06/13/24 15:17 101 H 01/06/25 15:10 37.5 C 114 H 18 135/94 91 Room Air 06/13/24 11:30 37.2 C 110 H 16 108/67 90 Room Air 06/13/24 08:00 100 H 06/13/24 07:56 37.2 C 102 H 18 100/67 92 Room Air Laboratory Results Labs WBC 6.11K -> 2.5K -> 3.49K H 14.1 Plt 84K Cr 0.54K LFT ast 148, alt 390, T bili 1.2 UA (06/12/24): WBC 0-5, neg LE Blood cx (06/13): result pending CXR (06/11/24): No acute cardiopulmonary findings. No significant change in appearance of the chest. CT A/P (06/11/24): 1. 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 A few mildly dilated small bowel loops without definite transition point. The small bowel dilatation is chronic however a partial small bowel obstruction cannot be excluded. 2. Distended bladder. Bladder wall thickening, likely chronic. 3. Gastrostomy tube in place. 4. Stable splenomegaly. 5. Subpleural lower lung opacities which favor atelectasis. Diagnostic Findings Blood cx (06/11): MSSA (6 of 6; drawn from 2 lumes and 1 periphery) Medications Administered cefepime, caspofungin, and vancomycin iv
[2024-06-13] MEDS: HYDROmorphone INJ 0.5 MG/0.5 ML SYR IV PRN (22:17)
[2024-06-13] MEDS: diphenhydrAMINE 50 MG/ML VIAL IV STA (23:33)
[2024-06-14 05:19] VITALS: RESP 16
--- NOTE | 2024-06-14 07:20 | Hospitalist Progress Note ---
Date of Service June 13, 2024 Assessment & Plan (1) Bacteremia: Plan: Blood cultx posit. for MSSA, CLABSI -CT imaging without any overt nidus of infection -patient with history of line infections, presenting with relative hypotension consistent with patients previous infections -hemodynamically stable, no leukocytosis, procal 0.55 -TPN reliant with chronic central line placement -follows with pediatric ID at [facility], and likely transfer on Thursday - updated [facility] ID doctor as well as transfer center - unfortunately no beds available yet - also consulted and discussed w/ surgery , and pharmacy - given he had multiple line s removed / exchanged, requires specific anesthesia needs, will try to salvage the line for now Plan: -continue vancomycin, cefepime, and caspofungin per pediatric ID recs -ID and surgery consulted, as above - plan for transfer pending bed availability (2) History of central line-associated bloodstream infection (CLABSI): Plan: -see above, has predilection to line infections with unique resistance and bug profiles -will likely need transfer to [facility] when bed available (3) 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, short stature, hypotonia (4) Klippel-Feil syndrome: Plan: -cervical vertebral fusion syndrome -likely strong contributor to back pain (5) Abnormal LFTs: Plan: -likely related to TPN use, worsened by acute infection -trend LFTs daily (6) Allergic reaction caused by a drug: Plan: -patient has known itching and reactions to most medications -per chart and family treated with benadryl prn 50 mg Plan: -50 mg q4hr prn benadryl for drug itch -continue cetirizine (7) POTS (postural orthostatic tachycardia syndrome): Plan: -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 w/ peripheral IVF (10) ADHD (attention deficit hyperactivity disorder): Plan: -continue home dexmethylphnidate -continue home duloxetine (11) Mid back pain: Plan: -related to Klippel Feil syndrome and posture -continue home baclofen (12) Bowel dysfunction: Plan: -see above, on tpn (13) On total parenteral nutrition (TPN): Plan: -see above, on tpn (14) Insomnia: Plan: -continue home melatonin (15) Bladder dysfunction: Plan: -continue home oxybutynin and tamulosin Plan Thromboprophylaxis: on eliquis Ulcer prophylaxis: protonix Admission and Anticipated Discharge Date Admission Date: June 11, 2024 Subjective Pt seen in follow up of bacteremia, sepsis Pt on TPN - hx of multiple lines removed/ exchanged. discussed in detail w/ surgery yesterday, ID, and pharmacy. Given pt's complicated hx , will try to salvage the line for now. Transfer Center also contacted and updated that pt is bacteremic. awaiting to hear back from triage officer Discussed w/ pt and and his mother symptom management. Pt gets back pain and pruritus when sick/ febrile/ on abx. Pt laying in bed in NAD, complains of back pain, but improved. No other pain reported. Update: Contacted by transfer center that pt will be leaving at 7pm on 06/13/23 Review of Systems Review of Systems: All systems reviewed & are unremarkable except as noted in Subjective Physical Exam Physical Exam: Gen: WD/WN young M in NAD HEENT: NCAT, EOMI Neck: Supple Lungs: CTAB CV: RRR, no edema. Abdomen: Soft, nondistended, No rebound tenderness. Noted g tube MSK: No joint swelling, moves extremities Back: no edema, erythema noted Skin: warm, dry Neuro: awake, alert, answers simple questions, moves extremities Results & Data Results & Data Vital Signs (Past 12 Hours) Vital Signs Temp Pulse Pulse Resp BP Pulse Ox O2 Del Method 06/13/24 23:14 37.8 C H 100 H 18 126/72 06/13/24 22:17 107 H 06/13/24 19:22 37.8 C H 111 H 20 116/80 91 Room Air O2 Flow Rate 06/13/24 23:14 06/13/24 22:17 06/13/24 19:22 (6) Allergic reaction caused by a drug Encounter type: initial encounter Qualified Code(s): T78.40XA - Allergy, unspecified, initial encounter (10) ADHD (attention deficit hyperactivity disorder) Attention deficit-hyperactivity disorder type: unspecified Qualified Code(s): F90.9 - Attention-deficit hyperactivity disorder, unspecified type (14) Insomnia Insomnia type: primary Qualified Code(s): F51.01 - Primary insomnia
[2024-06-14 07:52] VITALS: BP 125/82; PULSE 95; TEMP 99; O2SAT 91
--- NOTE | 2024-06-14 08:38 | Discharge Summary ---
Date of Service June 14, 2024 Admission HPI Per Admitting Provider 18 past medical history of Klippel-Feil syndrome, Wiedemann Xavier syndrome, asthma, MARLENE, POTS, TPN reliance, ADD, gastroparesis who presents with back pain and lightheadedness. He has a history of lightheadedness and central line related infections. Mom and dad are very involved in care. Patient is reliant on TPN for nutrition. He states he woke up this morning did not feel right and had worsening back pain. Mom states she noticed right away that something was wrong and came to the emergency room. He does have back pain at baseline. No tobacco or alcohol use. No use of new medications in the past few weeks. Mom states this has happened before and this is how he is off. He usually gets hypotensive and his labs like behind. Follows with [facility], in the emergency room discussed case with team at that time. Patient has a central line. He feels like he has an infection. Denies chest pain shortness of breath abdominal pain or other associated symptoms. Admission Exam Per Admitting Provider Gen: A&O 3 NAD HEENT: NCAT, EOMI, not icteric. External ears normal. No rhinorrhea. Moist muco us membranes. Neck: Supple, full range of motion, no observable masses, No meningeal sign. Lungs: No Respiratory distress. CV: RRR, no edema. Abdomen: Soft, nondistended, No rebound tenderness. Noted g tube MSK: No joint swelling, no redness. Skin: No rashes, petechiae, lesions. Normal color per patient. Neuro: Normal Gait, Grossly intact. Psych: Appropriate for situation. Principal Diagnosis Sepsis, bacteremia, CLABSI Discharge Exam Pt not seen early AM on 06/14/23. [place] [facility] [place]charge Data Allergies Allergy/AdvReac Type Severity Reaction Status Date / Time dexmedetomidine Allergy Severe LOW BLOOD Verified 02/27/24 17:28 [From Precedex] PRESURE egg Allergy Severe Hives Verified 02/27/24 17:28 Wheezing midazolam Allergy Severe ANAPHYLAXIS Verified 02/27/24 17:28 alcohol Allergy Intermediate Rash/ Verified 02/27/24 17:28 [From Mastisol Adhesive] severe burning sensation of the skin gum mastic Allergy Intermediate Rash/ Verified 02/27/24 17:28 [From Mastisol Adhesive] severe burning sensation of the skin iodine Allergy Intermediate RASH Verified 02/27/24 17:28 methyl salicylate Allergy Intermediate Rash/ Verified 02/27/24 17:28 [From Mastisol Adhesive] severe burning sensation of the skin storax Allergy Intermediate Rash/ Verified 02/27/24 17:28 [From Mastisol Adhesive] severe burning sensation of the skin vancomycin Allergy Mild RED AMIRA Verified 02/27/24 17:28 ketamine AdvReac Intermediate Hallucinati Unverified 02/27/24 17:29 ng Peptmen JR Allergy Intermediate Rash Uncoded 02/27/24 17:28 Consultations 06/11/24 12:50 ED Decision to Admit Stat 06/12/24 08:46 Consult Infectious Diseases Routine 06/12/24 09:15 Consult General Surgery Routine Ordered Studies 06/11/24 12:45 CT abd pelvis IV con only Stat FINDINGS: Subpleural opacities within the visualized lower lungs favor atelectasis. There is no pneumatosis, free air or portal venous gas biliary ductal dilatation status post cholecystectomy. Gastrostomy tube is in place. Mild splenomegaly is unchanged. Adrenal glands, kidneys and pancreas are normal. There is no hydronephrosis. Slight dilatation of the bilateral ureters is noted. No urinary calculi. The bladder is distended. Bladder wall thickening is again noted. This is probably chronic. There are no fluid collections. There is no lymphadenopathy. 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 A few fluid-filled mildly dilated loops of small bowel are present. There is no definitive transition point. There is no definite evidence for a small bowel obstruction. There is no lymphadenopathy. IMPRESSION: 1. 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 A few mildly dilated small bowel loops without definite transition point. The small bowel dilatation is chronic however a partial small bowel obstruction cannot be excluded. 2. Distended bladder. Bladder wall thickening, likely chronic. 3. Gastrostomy tube in place. 4. Stable splenomegaly. 5. Subpleural lower lung opacities which favor atelectasis. Hospital Course (1) Bacteremia: Blood cultx posit. for MSSA, CLABSI -CT imaging without any overt nidus of infection -patient with history of line infections, presenting with relative hypotension consistent with patients previous infections -hemodynamically stable, no leukocytosis, procal 0.55 -TPN reliant with chronic central line placement -follows with pediatric ID at [facility], and likely transfer on Thursday - updated [facility] ID doctor as well as transfer center - awaiting bed - also consulted and discussed w/ surgery , and pharmacy - given he had multiple line s removed / exchanged, requires specific anesthesia needs, will try to salvage the line for now - [facility] ID consulted Plan: -continue vancomycin, cefepime, and caspofungin per pediatric ID recs -ID and surgery consulted, as above - plan for transfer pending bed availability Update: Pt was supposed to leave on 06/13 in the evening but eventually left on 06/14 early AM. 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, short stature, hypotonia (4) Klippel-Feil syndrome: -cervical vertebral fusion syndrome -likely strong contributor to back pain (5) Abnormal LFTs: -likely related to TPN use, worsened by acute infection -trend LFTs daily (6) Allergic reaction caused by a drug: -patient has known itching and reactions to most medications -per chart and family treated with benadryl prn 50 mg Plan: -50 mg q4hr prn benadryl for drug itch -continue cetirizine (7) POTS (postural orthostatic tachycardia syndrome): -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 w/ peripheral IVF (10) ADHD (attention deficit hyperactivity disorder): -continue home dexmethylphnidate -continue home duloxetine (11) Mid back pain: -related to Klippel Feil syndrome and posture -continue home baclofen (12) Bowel dysfunction: -see above, on tpn (13) On total parenteral nutrition (TPN): -see above, on tpn (14) Insomnia: -continue home melatonin (15) Bladder dysfunction: -continue home oxybutynin and tamulosin Total Time Total Time Spent Total Time Spent (In Minutes): 0 Discharge Plan Discharge Items Patient Disposition: Transfer Acute Care Hospital Reason For Visit: SEPSIS Discharge Diagnosis: Sepsis, bacteremia, CLABSI Activity: Per Instructions section Non-emergency contact: Hospitalist and Specialist Call non-emergency contact if: you have any medication questions and your symptoms worsen Follow-up/Referrals: Torres Snowden MD [Primary Care Provider] - Diet: Other - See Diet Comment Diet Comment: TPN dependent, now on hold, and only on peripheral IVF Addtl Attending Provider Instructions: Patient to be transferred to [facility] for bacteremia - CLABSI. Pending Studies at Discharge: Yes Studies:: blood cultx results Stand-Alone Forms: My [facility] [employer] Skilled Items Patient informed of condition?: Yes DNR: No Discharge Level of Care: Other Communicable Disease: No Discharge Prognosis: Other Lines: Peripheral IV Urinary Catheter: No Medications and DC Order Prescriptions: Continued famotidine (PF) 20 mg/2 mL Solution 40 mg IV QAM Rx Instructions: Add to TPN acetaminophen [Tylenol Extra Strength] 500 mg Tablet 500 mg feeding tube Q6H PRN (Reason: .Fever >38 C, MILD-MOD PAIN) Rx Instructions: DO NOT EXCEED 3,000 MG DAILY duloxetine 60 mg capsule,delayed release(DR/EC) 60 mg PO BID ondansetron HCl 4 mg Tablet 4 mg PO Q8H PRN (Reason: Nausea) ibuprofen 200 mg Tablet 200 mg feeding tube Q4 PRN (Reason: Pain) tamsulosin 0.4 mg capsule 0.4 mg PO HS baclofen 10 mg tablet 10 mg feeding tube QID simethicone 80 mg Tablet,Chewable 80 mg PO Q6H PRN (Reason: GAS/ABD PAIN) Rx Instructions: PT USES CAPSULE albuterol sulfate 2.5 mg /3 mL (0.083 %) solution for nebulization 2.5 mg continuous nebulization Q4 PRN (Reason: Shortness Of Breath Or Wheezing) atenolol 25 mg tablet 25 mg feeding tube QAM budesonide 0.5 mg/2 mL Suspension For Nebulization 0.5 mg INHALATION BID PRN (Reason: Shortness Of Breath Or Wheezing) fludrocortisone 0.1 mg tablet 0.2 mg feeding tube DAILY heparin (porcine) in 0.9% NaCl 10 unit/mL Kit 3 unit IV DIRECTED PRN (Reason: Other) Rx Instructions: Per mother, they use it PRN. USE DAILY TO WHITE LUMEN, THEN SUN, KIMIES, THUR, & SAT. TO RED LUMEN. SMOFlipid 20 % Emulsion 350 ml IV 3XWK Rx Instructions: MOWEFR lipid days Ethanol 70 % Lock Sari 1.3 ml IV DIRECTED Rx Instructions: Instill in both lumens of central catheter, DIRECTED BY PARENT (SHE HAS SPECIAL DIRECTIONS). ALLOW ETHANOL TO DWELL FOR 2-4 HOURS. AFTER DWELL, FLUSH ENTIRE DWELL VOLUME THROUGH CVC, FLUSH WITH 10 ML 0.9% SODIUM CHLORIDE. THEN FOLLOW WITH HEPARIN. Tpn Sari 1 ea continuous IV infusion DIRECTED Rx Instructions: ADMINISTER IV 2,640 ML DAILY. 2,900 ML PER DAY @ 145 ML/HR X 20 HOURS. TAPERS BETWEEN A TOTAL OF 17 HOURS. 1 hour taper up, 17 hour run time, 2 hour taper down per mother. cetirizine [Zyrtec] 10 mg Tablet 20 mg feeding tube BID sodium chloride 0.9 % Solution 75 ml IV DIRECTED Rx Instructions: INFUSE AT 75ML/HR X 20 HOURS, while tpn is running. 1500 ml over the 20 hours. cholecalciferol (vitamin D3) [Vitamin D3] 50 mcg (2,000 unit) Capsule 50 mcg PO DAILY pantoprazole 40 mg Recon Soln 40 mg IV DAILY potassium iodide 1 gram/mL Solution 1 ml feeding tube DAILY Rx Instructions: ADMINISTER WITH FOOD OR DILUTE IN WATER. REPEAT IF EMESIS OCCURS WITHIN 30 MINUTES. PARENT HAS MEDICATION WITH HER. melatonin 5 mg Tablet 10 mg feeding tube HS menthol-zinc oxide 0.44-20.6 % Ointment 1 applic TOPICAL DIRECTED PRN (Reason: AFFECTED AREAS, G/J-TUBE) dexmethylphenidate 30 mg capsule,ER biphasic 50-50 30 mg PO .DAILY@0800 Rx Instructions: TAKES AT 0800; PARENT HAS MED WITH THEM Eliquis 2.5 mg Tablet 2.5 mg feeding tube BID dexmethylphenidate 10 mg Tablet 10 mg PO .@1400 Rx Instructions: if needed parent can bring in the 10 mg oxybutynin chloride 5 ml feeding tube UD Rx Instructions: Per mother, pt isn't currently on but has it listed on their medication list. We added the medication just so it's on this list. Discharge Orders: Discharge Order (Routine); Ordered 06/13/24 Ordered By: Amrit Guevara Admission Data Admit Date/Time: 06/11/24 14:22 Attending Provider: Amrit Guevara Admit Provider: Flash Millan Primary Care Provider: Torres Snowden Other Providers: Flash Millan; Asaf Kothari; Italo Goodwin; Refugio Ruvalcaba I.; Chaitanya Marrero II; Iveth Kilpatrick; Ricci Sanchez; Ruiz Arguello; China Lange; Rangel Marie Other Interventions: Discharge Summary Assessment (RN) Last Done: 06/14/24 07:55
== END 2024-06-14 08:00 | disposition short-term general hospital (02) | DRG 314 ==
LOC: ED 09:41 → SUATTDRO 14:22 → 3E 14:22 → 2S 15:45

== ENCOUNTER 2024-09-04 22:09 | Inpatient (IN) ==
[2024-09-04] MEDS ORDERED: VANCOMYCIN CONSULT ACTIVE PRN (22:36)
[2024-09-04 22:51] LABS: Base Excess VBG -0.7 mEq/L; HCO3 VBG 24 mmol/L; Oxygen Saturation VBG 99.1 %; PCO2 VBG 40 mmHg (38-50); PO2 VBG 91 mmHg; pH VBG 7.39 (7.36-7.41)
[2024-09-04] MEDS: SODIUM CHLORIDE 0.9% 1,000 ML IV ONE (22:53)
[2024-09-04] MEDS: MoRPHine SULFATE 4 MG/ML 1 ML CARP\\VIAL IV STA (22:53)
[2024-09-04] MEDS: SODIUM CHLORIDE 0.9% 1,000 ML IV SCH (22:54)
[2024-09-04] MEDS: CEFEPIME 2000MG 2,000 MG/20 ML SYR IV STA (22:57)
[2024-09-04] MEDS: ONDANSETRON INJ 2 MG/ML 2 ML VIAL IV STA (22:57)
[2024-09-04] MEDS: ACETAMINOPHEN 1,000 MG/100 ML VIAL IV STA (22:57)
[2024-09-04 22:58] LABS: Basophils # (auto) 0.01 K/uL (0.00-0.20); Basophils % (auto) 0.2 %; Eosinophils # (auto) 0.01 K/uL (0.00-0.50); Eosinophils % (auto) 0.2 %; Hematocrit (blood only) 44.4 % (42.0-52.0); Hemoglobin 15.8 g/dl (14.0-18.0); Immature Granulocytes # (auto) 0.02 K/uL (0.01-0.20); Immature Granulocytes % (auto) 0.4 %; Lymphocytes # (auto) 0.32 K/uL (1.20-3.40); Lymphocytes % (auto) 7.1 %; Mean Corpuscular Hemoglobin 30.5 pg (25.0-34.0); Mean Corpuscular Hgb Conc 35.6 g/dL (32.0-36.0); Mean Corpuscular Volume 85.7 fL (80.0-100.0); Mean Platelet Volume 9.6 fL (9.4-12.4); Monocytes # (auto) 0.46 K/uL (0.11-0.59); Monocytes % (auto) 10.3 %; Neutrophils # (auto) 3.66 K/uL (1.40-6.50); Neutrophils % (auto) 81.8 %; Platelet Count 112 K/uL (130-400); RDW Coefficient of Variation 12.2 % (11.5-14.5); RDW Standard Deviation 38.2 fL (36.4-46.3); Red Blood Count 5.18 M/uL (4.70-6.10); White Blood Count 4.48 K/ul (4.8-10.8)
[2024-09-04] MEDS: diphenhydrAMINE 50 MG/ML VIAL IV STA (23:04)
[2024-09-04] MEDS: VANCOMYCIN HCL 1,250 MG in SODIUM CHLORIDE 0.9% 500 ML IV ONE (23:04)
[2024-09-04 23:11] LABS: Albumin Level 4.7 gm/dl (3.4-5.0); BUN Creatinine Ratio 20.8 (10-20); Bilirubin Direct 0.3 mg/dl (0-0.2); Bilirubin,Total 0.9 mg/dl (0.2-1.0); Calcium 9.7 mg/dl (8.6-10.3); Magnesium 1.8 mg/dl (1.7-2.4); Potassium 3.6 mmol/L (3.5-5.1)
[2024-09-04 23:17] LABS: Troponin I High Sensitivity 5.6 pg/ml (0-20)
--- NOTE | 2024-09-04 23:17 | Emergency Department Note ---
History of Present Illness General Chief complaint: Fever Stated complaint: FEVER PROTOCOL W/ CENTRAL LINE Time Seen by Provider: 09/04/24 22:25 History of Present Illness This 19-year-old male with past medical history of Klippel-Feil syndrome, Wiedemann Xavier syndrome, asthma, MARLENE, POTS, TPN reliance, ADD, gastroparesis who presents to the ER with family and the mother is the primary historian for fever for the past day. Patient just left [facility] yesterday as they replaced his dual lumen central venous catheter. Mother states on the drive home they noticed a low-grade fever. Today the fever got up to 101 and was concerned and came in. She gave Tylenol earlier. Mother denies cough, congestion, vomiting, excessive diarrhea or any other medical complaints. The care plan outlined by Stu infectious disease was brought in by the mother. The child is on chronic TPN with a G and J-tube ileostomy and neurogenic bladder. Home Medications Medication Instructions Recorded Confirmed Type Ethanol 70 % Lock Sari 1.3 ml IV DIRECTED 11/12/21 09/05/24 History Tpn Sari 1 ea continuous IV infusion 11/12/21 09/05/24 History DIRECTED albuterol sulfate 2.5 mg/3 mL 2.5 mg continuous nebulization Q4 11/12/21 09/05/24 History (0.083 %) solution for nebulization PRN Shortness Of Breath Or Wheezing atenolol 25 mg tablet 25 mg feeding tube QAM 11/12/21 09/05/24 History budesonide 0.5 mg/2 mL suspension 0.5 mg inhalation BID PRN 11/12/21 09/05/24 History for nebulization Shortness Of Breath Or Wheezing fludrocortisone 0.1 mg tablet 0.2 mg feeding tube DAILY 11/12/21 09/05/24 History heparin (porcine) 10 unit/mL in 3 unit IV DIRECTED PRN NEEDED 11/12/21 09/05/24 History 0.9 % sodium chloride intravenous kit famotidine (PF) 20 mg/2 mL 40 mg IV QAM 02/08/22 09/05/24 History intravenous solution cetirizine 10 mg tablet (Zyrtec) 20 mg feeding tube BID 07/20/22 09/05/24 History sodium chloride 0.9 % 75 ml IV DIRECTED 07/20/22 09/05/24 History acetaminophen 500 mg tablet 500 mg feeding tube Q6H PRN .Fever 09/25/22 09/05/24 History (Tylenol Extra Strength) >38 C, MILD-MOD PAIN ibuprofen 200 mg tablet 200 mg feeding tube Q4 PRN Pain 09/25/22 09/05/24 History tamsulosin 0.4 mg capsule 0.4 mg PO HS 09/25/22 09/05/24 History dexmethylphenidate 30 mg 30 mg PO .DAILY@0800 11/20/22 09/05/24 History capsule,extended release [id number] menthol 0.44 %-zinc oxide 20.6 % 1 applic topical DIRECTED PRN 11/20/22 09/05/24 History topical ointment AFFECTED AREAS, G/J-TUBE potassium iodide 1 gram/mL oral 1 ml feeding tube DAILY 11/20/22 09/05/24 History solution baclofen 10 mg tablet 10 mg feeding tube QID 01/26/23 09/05/24 History apixaban 2.5 mg tablet (Eliquis) 2.5 mg feeding tube BID 02/27/24 09/05/24 History dexmethylphenidate 10 mg tablet 10 mg PO .@1400 06/11/24 09/05/24 History cholecalciferol (vitamin D3) 50 50 mcg PO DAILY 09/05/24 09/05/24 History mcg/drop (2,000 unit/drop) oral drops diphenhydramine HCl 50 mg capsule 50 mg PO .Q4-6HR PRN 09/05/24 09/05/24 History ITCHING/ANXIETY duloxetine 30 mg capsule,delayed 60 mg PO BID 09/05/24 09/05/24 History release esomeprazole sodium 40 mg 40 mg IV DAILY 09/05/24 09/05/24 History intravenous solution melatonin 10 mg tablet 10 mg feeding tube HS 09/05/24 09/05/24 History Allergies Allergy/AdvReac Type Severity Reaction Status Date / Time dexmedetomidine Allergy Severe LOW BLOOD Verified 09/05/24 00:20 [From Precedex] PRESURE egg Allergy Severe Hives Verified 09/05/24 00:20 Wheezing midazolam Allergy Severe ANAPHYLAXIS Verified 09/05/24 00:20 alcohol Allergy Intermediate Rash/ Verified 09/05/24 00:20 [From Mastisol Adhesive] severe burning sensation of the skin gum mastic Allergy Intermediate Rash/ Verified 09/05/24 00:20 [From Mastisol Adhesive] severe burning sensation of the skin iodine Allergy Intermediate RASH Verified 09/05/24 00:20 methyl salicylate Allergy Intermediate Rash/ Verified 09/05/24 00:20 [From Mastisol Adhesive] severe burning sensation of the skin storax Allergy Intermediate Rash/ Verified 09/05/24 00:20 [From Mastisol Adhesive] severe burning sensation of the skin vancomycin Allergy Mild RED AMIRA Verified 09/05/24 00:20 ketamine AdvReac Intermediate Hallucinati Verified 09/05/24 00:20 ng Peptmen JR Allergy Intermediate Rash Uncoded 09/05/24 00:20 Past Med/Surg History Problem List (Updated 09/05/24 @ 00:17 by Naina Moore PA-C) Fever of unknown origin (Acute) Fever (Acute) Bacteremia due to methicillin susceptible Staphylococcus aureus (MSSA) Bacterial sepsis Tachycardia (Acute) Bladder dysfunction Insomnia POTS (postural orthostatic tachycardia syndrome) On total parenteral nutrition (TPN) Bacteremia History of central line-associated bloodstream infection (CLABSI) (Acute) Wiedemann-Xavier syndrome Klippel-Feil syndrome (Chronic) Abnormal LFTs Allergic reaction caused by a drug Mid back pain (Acute) Asthma (Chronic) Reflux (Chronic) Bowel dysfunction (Acute) Dehydration (Acute) ADHD (attention deficit hyperactivity disorder) (Chronic) Jejunostomy tube fell out (Acute) Medical History Lab test negative for COVID-19 virus Septic shock S/P colectomy Autistic disorder Pain around PEG tube site Constipation Surgical History History of fundoplication History of appendectomy S/P cecostomy S/P tonsillectomy and adenoidectomy Family History Other FHx: heart disease Family history of diabetes mellitus Family history of gallbladder disease Family history of high blood pressure Social History Smoking Status: Never smoker Second Hand Exposure: No; Do You Dip or Chew Tobacco: No; Hx Alcohol Use: No Hx Substance Use: No Preferred Language: Czech Communication Ability: Effective Visual Impairment: No Limitations Hearing Ability: Normal Cosmetic Consultant Required: No Beliefs That Will Affect Care: None Current Living Situation: Family Feels Safe at Home: Yes Assistive Devices: Walker and Wheelchair Review of Systems A total of 10 systems reviewed and were otherwise negative Physical Exam Vital Signs Vital Signs - 24 hr 09/04/24 22:13 09/04/24 23:11 09/04/24 23:11 Temperature 38.1 C H Temperature Source Oral Pulse Rate 110 H 121 H Pulse Rate [Apical] 123 H Pulse Rhythm Regular Regular Pulse Rhythm [Apical] Regular Pulse Strength Normal Respiratory Rate 17 18 16 Respiratory Effort / Characteristics Non-Labored Spontaneous Non-Labored Spontaneous Respiratory Depth Normal Normal Respiratory Pattern Regular Blood Pressure 150/77 H Blood Pressure [Right Arm] 123/67 Blood Pressure Mean 101 Blood Pressure Mean [Right Arm] 85 Blood Pressure Position Lying Pulse Oximetry 98 99 99 Oxygen Delivery Method Room Air Room Air Room Air Sepsis Recent Fever Within 48 Hours Yes Sepsis New/Unexplained Change in Mental Status Yes Sepsis Action Taken by Nursing MD Previously Notified 09/04/24 23:20 09/04/24 23:45 09/05/24 00:06 Temperature 37.3 C Temperature Source Oral Pulse Rate 154 H Pulse Rate [Apical] 118 H Pulse Rhythm Pulse Rhythm [Apical] Regular Pulse Strength Respiratory Rate 18 Respiratory Effort / Characteristics Non-Labored Spontaneous Respiratory Depth Normal Respiratory Pattern Blood Pressure Blood Pressure [Right Arm] 118/71 Blood Pressure Mean Blood Pressure Mean [Right Arm] 86 Blood Pressure Position Pulse Oximetry 95 Oxygen Delivery Method Room Air Sepsis Recent Fever Within 48 Hours Sepsis New/Unexplained Change in Mental Status Sepsis Action Taken by Nursing VITALS: Vitals are noted on the nurse's note and reviewed by myself. Vital signs febrile GENERAL: Pleasant child with family present, in no acute distress, nondiaphoretic, well-developed well-nourished. SKIN: Central line in place with minimal erythema which is improving per mother, the rest of the skin was without rashes, erythema, edema, or bruising. There is no tenting of the skin. Capillary reflex less than 2 seconds. HEAD: Normocephalic atraumatic. EARS: External auditory canals clear EYES: Pupils equal round and reactive to light and accommodation. Conjunctivae without injection, sclerae without icterus. Extraocular movements intact. NOSE: Patent, no discharge. MOUTH: Mucous membranes moist. Pharynx without erythema or exudate. Uvula midline. Airway patent. Tongue does not deviate. NECK: Supple without nuchal rigidity. No lymphadenopathy. No thyromegaly. Cervical spine is nontender. No JVD. HEART: Regular rate and rhythm LUNGS: Clear to auscultation bilaterally without wheezes, rales or rhonchi. No retractions or accessory muscle use. ABDOMEN: Positive bowel sounds x 4. Normal tympanic percussion. Soft, G-tube and ostomy in place without signs of infection, nontender, without masses or organomegaly. Stevenson sign negative. No guarding or rebound tenderness. No CVA tenderness MUSCULOSKELETAL: No muscle atrophy, erythema, or edema noted. NEURO: Patient was alert and oriented at baseline per mother. No focal neurological deficits. Course Administered Medications Vancomycin HCl 1,250 mg/ (Sodium Chloride) 525 mls @ 200 mls/hr IV NOW ONE Stop: 09/05/24 01:13 Last Admin: 09/04/24 23:04 Dose: 200 mls/hr Documented By: [facility] Discontinued Medications Diphenhydramine HCl (Diphenhydramine 50 Mg/Ml Vial) 50 mg IV NOW STA Stop: 09/04/24 22:43 Last Admin: 09/04/24 23:04 Dose: 50 mg Documented By: [facility] Sodium Chloride (Nss) 1,000 mls @ 999 mls/hr IV .Q1H1M MORENITA Stop: 09/04/24 23:30 Last Infusion: 09/04/24 23:55 Dose: Infused Documented By: [facility] Admin: 09/04/24 22:54 Dose: 999 mls/hr Documented By: [facility] Cefepime HCl (Maxipime 2000mg) 2,000 mg in 20 mls @ 5 mls/min IV NOW STA; Protocol Stop: 09/04/24 22:39 Last Admin: 09/04/24 22:57 Dose: 5 mls/min Documented By: [facility] Acetaminophen (Ofirmev) 1,000 mg in 100 mls @ 400 mls/hr IV NOW STA Stop: 09/04/24 22:50 Last Infusion: 09/04/24 23:39 Dose: Infused Documented By: [facility] Admin: 09/04/24 22:57 Dose: 400 mls/hr Documented By: [facility] Sodium Chloride (Nss) 1,000 mls @ 999 mls/hr IV .Q1H1M ONE Stop: 09/04/24 23:42 Last Infusion: 09/04/24 23:55 Dose: Infused Documented By: [facility] Admin: 09/04/24 22:53 Dose: 999 mls/hr Documented By: [facility] Morphine Sulfate (Morphine Sulfate 4 Mg/Ml 1 Ml Carp\Vial) 4 mg IV NOW STA Stop: 09/04/24 22:37 Last Admin: 09/04/24 22:53 Dose: 4 mg Documented By: [facility] Ondansetron HCl (Ondansetron Inj 2 Mg/Ml 2 Ml Vial) 4 mg IV NOW STA Stop: 09/04/24 22:37 Last Admin: 09/04/24 22:57 Dose: 4 mg Documented By: [facility] Medical Decision Making Medical Records Attestation: I reviewed the patient's medical records. Home Medications Current Medication List: was personally reviewed by me Laboratory Data Attestation: I reviewed the patient's lab results. 09/04/24 22:40 09/04/24 22:40 Lab Results 09/04/24 09/04/24 09/04/24 Range/Units 22:40 22:50 23:25 WBC 4.48 L (4.8-10.8) K/ul RBC 5.18 (4.70-6.10) M/uL Hgb 15.8 (14.0-18.0) g/dl Hct 44.4 (42.0-52.0) % MCV 85.7 (80.0-100.0) fL MCH 30.5 (25.0-34.0) pg MCHC 35.6 (32.0-36.0) g/dL RDW Std Deviation 38.2 (36.4-46.3) fL RDW Coeff of Osvaldo 12.2 (11.5-14.5) % Plt Count 112 L (130-400) K/uL MPV 9.6 (9.4-12.4) fL Immature Gran % (Auto) 0.4 % Neut % (Auto) 81.8 % Lymph % (Auto) 7.1 % Edmunds % (Auto) 10.3 % Eos % (Auto) 0.2 % Baso % (Auto) 0.2 % Neut # (Auto) 3.66 (1.40-6.50) K/uL Lymph # (Auto) 0.32 L (1.20-3.40) K/uL Edmunds # (Auto) 0.46 (0.11-0.59) K/uL Eos # (Auto) 0.01 (0.00-0.50) K/uL Baso # (Auto) 0.01 (0.00-0.20) K/uL Immature Gran # (Auto) 0.02 (0.01-0.20) K/uL PT 11.5 (9.0-12.0) Seconds INR 1.1 (0.9-1.1) APTT 25 (21-31) Seconds PTT Ratio 0.9 VBG pH 7.39 (7.36-7.41) VBG pCO2 40 (38-50) mmHg VBG pO2 91 mmHg VBG HCO3 24 mmol/L VBG O2 Saturation 99.1 % VBG Base Excess -0.7 mEq/L Sodium 136 (136-145) mmol/L Potassium 3.6 (3.5-5.1) mmol/L Chloride 101 (98-107) mmol/L Carbon Dioxide 28 (21-32) mmol/L Anion Gap 7 (3-11) BUN 15 (6-23) mg/dl Creatinine 0.72 (0.6-1.4) mg/dl Est Cr Clr Drug Dosing 132.0 ml/min eGFR 133.30 BUN/Creatinine Ratio 20.8 H (10-20) Glucose 86 (70-99(Fasting)) mg/dl Lactate 0.7 (0.4-2.0) mmol/L Calcium 9.7 (8.6-10.3) mg/dl Magnesium 1.8 (1.7-2.4) mg/dl Total Bilirubin 0.9 (0.2-1.0) mg/dl Direct Bilirubin 0.3 H (0-0.2) mg/dl AST 194 H (13-39) U/L ALT 317 H (7-52) U/L Alkaline Phosphatase 174 H (34-104) U/L Troponin I High Sens 5.6 (0-20) pg/ml Total Protein 8.0 (6.0-8.3) gm/dl Albumin 4.7 (3.4-5.0) gm/dl Procalcitonin 0.54 H (0-0.5) ng/ml Urine Color Yellow Urine Appearance Clear (Clear) Urine pH 6.0 (4.5-7.5) Ur Specific [place] 1.026 (1.000-1.030) Urine Protein Trace H (Negative) Urine Glucose (UA) Negative (Negative) Urine Ketones Trace H (Negative) Urine Blood Trace H (Negative) Urine Nitrite Negative (Negative) Urine Bilirubin Negative (Negative) Urine Urobilinogen Negative (Negative) Ur Leukocyte Esterase Negative (Negative) Urine WBC (Auto) 0-5 (0-5) /hpf Urine RBC (Auto) 6-10 H (0-2) /hpf U Hyaline Cast (Auto) 0-2 (0-2) /lpf U Epithel Cells (Auto) 0-2 (0-2) /hpf Urine Bacteria (Auto) None Seen (None Seen) Adenovirus (PCR) Not Detected (NotDetected) B. pertussis DNA (PCR) Not Detected (NotDetected) B.parapertussis DNA PCR Not Detected (NotDetected) C. pneumoniae DNA (PCR) Not Detected (NotDetected) Coronavirus OC43 (PCR) Not Detected (NotDetected) Coronavirus HKU1 (PCR) Not Detected (NotDetected) Coronavirus 229E (PCR) Not Detected (NotDetected) SARS-CoV-2 (PCR) Not Detected (NotDetected) Coronavirus NL63 (PCR) Not Detected (NotDetected) Human Metapneumovir PCR Not Detected (NotDetected) Influenza Type A (PCR) Not Detected (NotDetected) Influenza Type B (PCR) Not Detected (NotDetected) M. pneumoniae (PCR) Not Detected (NotDetected) Parainfluenza 1 (PCR) Not Detected (NotDetected) Parainfluenza 2 (PCR) Not Detected (NotDetected) Parainfluenza 3 (PCR) Not Detected (NotDetected) Parainfluenza 4 (PCR) Not Detected (NotDetected) RSV (PCR) Not Detected (NotDetected) Entero/Rhino (PCR) Not Detected (NotDetected) Imaging Data Attestation: I personally reviewed and interpreted this imaging study as follows: Radiologist's Impression: Chest X-Ray 09/04/24 22:26 Exam(s): XR CXR 1 VIEW EXAM: XR Chest, 1 View CLINICAL HISTORY: Reason for exam: Sepsis. TECHNIQUE: Frontal view of the chest. COMPARISON: Chest radiograph On 06/11/2024 FINDINGS: Hardware: Right-sided central venous catheter terminates in the region of the lower SVC. Lungs/pleura: Normal. No focal consolidation. No pleural effusion or pneumothorax. Heart/mediastinum: Mild enlargement of the cardiac silhouette Soft tissues: Unremarkable. Bones: No acute fracture. Upper abdomen: Normal. IMPRESSION: 1. No acute disease identified. 2. Right-sided central venous catheter terminates in the region of the lower SVC. Electronically signed by: Les Klein M.D. 09/05/24 00:09 AM [facility] Narrative Prior records/ancillary studies reviewed. Triage Nursing notes reviewed. Additional history obtained from family. The patient's history was concerning for fever. Differential diagnosis: Etiologies such as sepsis, UTI, pneumonia, metabolic, electrolyte abnormalities, cardiac sources, intracerebral event, toxicologic, neurologic, as well as others were entertained. Physical examination: As above. Pertinent findings were febrile. Vital signs reviewed and revealed febrile. ER treatment provided: IV fluid resuscitation with Normal saline solution, 2000 mL bolus. Blood and urine cultures Antibiotics: Cefepime and vancomycin as outlined by the care plan Benadryl as needed prior to the vancomycin. Morphine and Tylenol for pain and fever. An order was placed for continuous cardiac monitoring. The monitor shows a rate of 60-100 with a sinus rhythm per my interpretation. On reassessment the patient vital signs improved. Diagnostics interpretation by me: ECG: Ordered for fever EKG: Normal sinus, normal intervals, no acute ST-T wave changes, rate of 118. Impression sinus tachycardia independently interpreted by myself The labs Independently Interpreted by myself revealed WBC 4.48 on CBC. Chemistry panel revealed chronically mildly elevated LFTs per chart review. LFTs revealed. Cardiac enzymes were negative. Negative BioFire Serum Lactate measurement was 0.7. Procalcitonin 0.54. Blood and urine cultures are pending. Imaging studies: Chest xray revealed with no acute consolidation, pneumothorax or free air per my independent interpretation Consultation: A consultation was placed with the hospitalist. The case was discussed and diagnostics were reviewed. The patient was evaluated in the ER for further treatment. Consultation was placed with Stu infectious disease, Dr. Landers. The case was discussed. She recommends continue the current treatment plan as outlined and call back once the cultures have resulted. Exam and history seem consistent with fever with unclear etiology. Patient just had his central line replaced. No obvious redness or drainage. Clear x-ray. Negative BioFire. Negative urine. No worrisome leukocytosis. Negative lactic. Patient does not have acute abdomen. Patient was started on his antibiotics as outlined by the treatment care plan. He was hydrated as above per septic protocol. He was reassessed and improved. Skin perfusion was stable upon reassessment. Mother was agreeable treatment plan of admission. Medicine and infectious disease were consulted. Patient was admitted to the medical service. The chart was completed utilizing [employer] Speech voice recognition software. Grammatical errors, random word insertions, pronoun errors, and incomplete sentences are an occassional consequence of this system due to software limitations, ambient noise, and hardware issues. Any formal questions or concerns about the content, text, or information contained within the body of this dictation should be directly addressed to the physician sales service assistant for clarification. Impression & Plan Fever, Fever of unknown origin Discharge Plan Visit Data Chief Complaint: Fever Stated Complaint: FEVER PROTOCOL W/ CENTRAL LINE ED Provider: Regis Knapp ED Midlevel Provider: Naina Moore Discharge Problem: Fever, Fever of unknown origin Patient Disposition: Admitted As Inpatient Condition: Good Forms Stand Alone Forms: [facility] Prescriptions Prescriptions: No Action famotidine (PF) 20 mg/2 mL Solution 40 mg IV QAM Rx Instructions: Add to TPN acetaminophen [Tylenol Extra Strength] 500 mg Tablet 500 mg feeding tube Q6H PRN (Reason: .Fever >38 C, MILD-MOD PAIN) Rx Instructions: DO NOT EXCEED 3,000 MG DAILY ibuprofen 200 mg Tablet 200 mg feeding tube Q4 PRN (Reason: Pain) tamsulosin 0.4 mg capsule 0.4 mg PO HS baclofen 10 mg tablet 10 mg feeding tube QID albuterol sulfate 2.5 mg /3 mL (0.083 %) solution for nebulization 2.5 mg continuous nebulization Q4 PRN (Reason: Shortness Of Breath Or Wheezing) atenolol 25 mg tablet 25 mg feeding tube QAM budesonide 0.5 mg/2 mL Suspension For Nebulization 0.5 mg INHALATION BID PRN (Reason: Shortness Of Breath Or Wheezing) fludrocortisone 0.1 mg tablet 0.2 mg feeding tube DAILY heparin (porcine) in 0.9% NaCl 10 unit/mL Kit 3 unit IV DIRECTED PRN (Reason: NEEDED) Rx Instructions: Per mother, they use it PRN. USE DAILY TO WHITE LUMEN, THEN SUN, TUES, THUR, & SAT. TO RED LUMEN. Ethanol 70 % Lock Sari 1.3 ml IV DIRECTED Rx Instructions: Instill in both lumens of central catheter, DIRECTED BY PARENT (SHE HAS SPECIAL DIRECTIONS). ALLOW ETHANOL TO DWELL FOR 2-4 HOURS. AFTER DWELL, FLUSH ENTIRE DWELL VOLUME THROUGH CVC, FLUSH WITH 10 ML 0.9% SODIUM CHLORIDE. THEN FOLLOW WITH HEPARIN. Tpn Sari 1 ea continuous IV infusion DIRECTED Rx Instructions: ADMINISTER IV 2,640 ML DAILY. 2,900 ML PER DAY @ 145 ML/HR X 20 HOURS. TAPERS BETWEEN A TOTAL OF 17 HOURS. 1 hour taper up, 17 hour run time, 2 hour taper down per mother. cetirizine [Zyrtec] 10 mg Tablet 20 mg feeding tube BID sodium chloride 0.9 % Solution 75 ml IV DIRECTED Rx Instructions: INFUSE AT 75ML/HR X 20 HOURS, while tpn is running. 1500 ml over the 20 hours. potassium iodide 1 gram/mL Solution 1 ml feeding tube DAILY Rx Instructions: ADMINISTER WITH FOOD OR DILUTE IN WATER. REPEAT IF EMESIS OCCURS WITHIN 30 MINUTES. PARENT HAS MEDICATION WITH HER. menthol-zinc oxide 0.44-20.6 % Ointment 1 applic TOPICAL DIRECTED PRN (Reason: AFFECTED AREAS, G/J-TUBE) dexmethylphenidate 30 mg capsule,ER biphasic 50-50 30 mg PO .DAILY@0800 Rx Instructions: TAKES AT 0800; PARENT HAS MED WITH THEM Eliquis 2.5 mg Tablet 2.5 mg feeding tube BID dexmethylphenidate 10 mg Tablet 10 mg PO .@1400 Rx Instructions: if needed parent can bring in the 10 mg diphenhydramine HCl [Benadryl] 50 mg Capsule 50 mg PO .Q4-6HR PRN (Reason: ITCHING/ANXIETY) duloxetine 30 mg Capsule,Delayed Release(Dr/Ec) 60 mg PO BID esomeprazole sodium [Nexium IV] 40 mg Recon Soln 40 mg IV DAILY Rx Instructions: administer over at least 3 mins if given IV push cholecalciferol (vitamin D3) 50 mcg/drop (2, 000 unit/drop) Drops 50 mcg PO DAILY melatonin 10 mg Tablet 10 mg feeding tube HS Referrals Referrals: Torres Snowden MD [Primary Care Provider] - Discharge Problem: Fever Qualifiers: Fever type: unspecified Qualified Code(s): R50.9 - Fever, unspecified
[2024-09-04 23:20] LABS: INR 1.1 (0.9-1.1); Partial Thromboplastin Ratio 0.9; Partial Thromboplastin Time 25 Seconds (21-31); Prothrombin Time 11.5 Seconds (9.0-12.0)
[2024-09-04 23:45] LABS: Adenovirus PCR Not Detected (NotDetected); Bordetella parapertussis PCR Not Detected (NotDetected); Bordetella pertussis PCR Not Detected (NotDetected); Chlamydia pneumoniae PCR Not Detected (NotDetected); Coronavirus 229E PCR Not Detected (NotDetected); Coronavirus CoV-2 (COVID19)PCR Not Detected (NotDetected); Coronavirus HKU1 PCR Not Detected (NotDetected); Coronavirus NL63 PCR Not Detected (NotDetected); Coronavirus OC43PCR Not Detected (NotDetected); Human Metapneumovirus PCR Not Detected (NotDetected); Influenza A PCR Not Detected (NotDetected); Influenza B PCR Not Detected (NotDetected); Mycoplasma pneumoniae PCR Not Detected (NotDetected); Parainfluenza Virus 1 PCR Not Detected (NotDetected); Parainfluenza Virus 2 PCR Not Detected (NotDetected); Parainfluenza Virus 3 PCR Not Detected (NotDetected); Parainfluenza Virus 4 PCR Not Detected (NotDetected); Respiratory Syncytial VirusPCR Not Detected (NotDetected); Rhinovirus/Enterovirus PCR Not Detected (NotDetected)
[2024-09-05 00:02] LABS: Appearance Urine Clear (Clear); Bacteria Urine Automated None Seen (None Seen); Bilirubin Urine Negative (Negative); Blood Urine Trace (Negative); Cast Urine Automated 0-2 /lpf (0-2); Color Urine Yellow; Epithelial Cell Urine Auto 0-2 /hpf (0-2); Glucose Urine UA Negative (Negative); Ketones Urine Trace (Negative); Leukocyte Esterase Urine Negative (Negative); Nitrite Urine Negative (Negative); Protein Urine Trace (Negative); Specific Gravity Urine 1.026 (1.000-1.030); Urobilinogen Urine Negative (Negative); WBC Urine Automated 0-5 /hpf (0-5)
--- NOTE | 2024-09-05 00:10 | XRay Report ---
Exam(s): XR CXR 1 VIEW EXAM: XR Chest, 1 View CLINICAL HISTORY: Reason for exam: Sepsis. TECHNIQUE: Frontal view of the chest. COMPARISON: Chest radiograph On 06/11/2024 FINDINGS: Hardware: Right-sided central venous catheter terminates in the region of the lower SVC. Lungs/pleura: Normal. No focal consolidation. No pleural effusion or pneumothorax. Heart/mediastinum: Mild enlargement of the cardiac silhouette Soft tissues: Unremarkable. Bones: No acute fracture. Upper abdomen: Normal. IMPRESSION: 1. No acute disease identified. 2. Right-sided central venous catheter terminates in the region of the lower SVC. Electronically signed by: Les Klein M.D. 09/05/24 00:09 AM
[2024-09-05] MEDS: MoRPHine SULFATE 4 MG/ML 1 ML CARP\\VIAL IV STA (00:56)
[2024-09-05] MEDS: diphenhydrAMINE 50 MG/ML VIAL IV STA ×2 (03:36→09:57)
--- NOTE | 2024-09-05 05:36 | History & Physical Report ---
Date of Service September 05, 2024 Assessment & Plan (1) Fever: Plan: 19-year-old male with past medical history significant for mild persistent asthma, obstructive sleep apnea, POTS, moderate protein calorie malnutrition, history of Klippel-Feil syndrome, Wiedemann Xavier syndrome, nutrition through TPN, ADD, gastroparesis insomnia, bladder dysfunction comes because of Fevers. Last Thursday Patient Was at [facility] and They Replaced His Dual-Lumen Central Venous Catheter. Came Home on Thursday. On Thursday He Was Having Low-Grade Fevers. Thursday Also Having Low-Grade Fevers but in the Nighttime the Fever Was Spiking up to 101 F so the Mother Brought Him to the ER.. Patient having mild tachycardia. Resting comfortably. Denies any headache. Denies chest pain. Denies shortness of breath. Denies abdominal pain. No nausea. Ileostomy is working okay. No cough. Blood pressure is okay. Saturating okay. Mother is in the room. Mother has the [facility] care plan with her. Patient started on IV Vanco and cefepime as per plan. Cultures were drawn from all the lines and also UA was ordered. ER called [facility] and they advised to call back after cultures are available. Fever Procal 0.5 Lactic acid 0.7 Tachycardia Blood pressure okay In June 2024 patient had MSSA bacteremia and transferred to [facility] and was treated with 6 weeks of IV Ancef. 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 Nutrition Patient is TPN dependent Will hold the nutrition until cultures available IV fluids ADHD Continue home medications Chronic back pain On baclofen Bladder dysfunction On oxybutynin and Flomax Insomnia On melatonin Nocturnal hypoxia oxygen q hs at home not started yet DVT prophylaxis On Eliquis Disposition Telemetry Full code. History of Present Illness Chief Complaint: Fevers Primary Care Provider: Torres Snowden 19-year-old male with past medical history significant for mild persistent asthma, obstructive sleep apnea, POTS, moderate protein calorie malnutrition, history of Klippel-Feil syndrome, Wiedemann Xavier syndrome, nutrition through TPN, ADD, gastroparesis insomnia, bladder dysfunction comes because of Fevers. Last Thursday Patient Was at [facility] and They Replaced His Dual-Lumen Central Venous Catheter. Came Home on Thursday. On Thursday He Was Having Low-Grade Fevers. Thursday Also Having Low-Grade Fevers but in the Nighttime the Fever Was Spiking up to 101 F so the Mother Brought Him to the ER.. Patient having some mild tachycardia. Resting comfortably. Denies any headache. Denies chest pain. Denies shortness of breath. Denies abdominal pain. No nausea. Ileostomy is working okay. No cough. Blood pressure is okay. Saturating okay. Mother is in the room. Mother has the [facility] care plan with her. Patient started on IV Vanco and cefepime as per plan. Cultures were drawn from all the lines and also UA was ordered. ER called [facility] and they advised to call back after cultures are available. Past medical history. As mentioned above Past surgical history. Bone marrow biopsy. Central line placement. Chemodenervation internal annals pinchers. Colonoscopy. Debride necrotic tissue abdominal wall. Dilatation of rectal narrowing. EGD. EGD with biopsy. Esophagogastric fundoplasty. Exploration of abdomen. Ileoscopy with biopsy. Ileostomy/jejunostomy. IR aspiration abscess. IR gastrojejunostomy. Percutaneous conversion of gastrostomy to gastrojejunostomy. Temporary gastrostomy tube. Removal of tunneled catheter. Cholecystectomy. Enterectomy small bowel resection. Removal of rectal obstruction. Tonsillectomy and adenoidectomy. Repair bowel opening. Wedge biopsy of liver. Social history. No smoking. No alcohol use. No drug use. Family history. Father has allergies. Asthma. Mother has asthma. GERD. Allergies Allergy/AdvReac Type Severity Reaction Status Date / Time dexmedetomidine Allergy Severe LOW BLOOD Verified 09/05/24 00:20 [From Precedex] PRESURE egg Allergy Severe Hives Verified 09/05/24 00:20 Wheezing midazolam Allergy Severe ANAPHYLAXIS Verified 09/05/24 00:20 alcohol Allergy Intermediate Rash/ Verified 09/05/24 00:20 [From Mastisol Adhesive] severe burning sensation of the skin gum mastic Allergy Intermediate Rash/ Verified 09/05/24 00:20 [From Mastisol Adhesive] severe burning sensation of the skin iodine Allergy Intermediate RASH Verified 09/05/24 00:20 methyl salicylate Allergy Intermediate Rash/ Verified 09/05/24 00:20 [From Mastisol Adhesive] severe burning sensation of the skin storax Allergy Intermediate Rash/ Verified 09/05/24 00:20 [From Mastisol Adhesive] severe burning sensation of the skin vancomycin Allergy Mild RED AMIRA Verified 09/05/24 00:20 ketamine AdvReac Intermediate Hallucinati Verified 09/05/24 00:20 ng Peptmen JR Allergy Intermediate Rash Uncoded 09/05/24 00:20 Home Medications Medication Instructions Recorded Confirmed Type Ethanol 70 % Lock Sari 1.3 ml IV DIRECTED 11/12/21 09/05/24 History Tpn Sari 1 ea continuous IV infusion 11/12/21 09/05/24 History DIRECTED albuterol sulfate 2.5 mg/3 mL 2.5 mg continuous nebulization Q4 11/12/21 09/05/24 History (0.083 %) solution for nebulization PRN Shortness Of Breath Or Wheezing atenolol 25 mg tablet 25 mg feeding tube QAM 11/12/21 09/05/24 History budesonide 0.5 mg/2 mL suspension 0.5 mg inhalation BID PRN 11/12/21 09/05/24 History for nebulization Shortness Of Breath Or Wheezing fludrocortisone 0.1 mg tablet 0.2 mg feeding tube DAILY 11/12/21 09/05/24 History heparin (porcine) 10 unit/mL in 3 unit IV DIRECTED PRN NEEDED 11/12/21 09/05/24 History 0.9 % sodium chloride intravenous kit famotidine (PF) 20 mg/2 mL 40 mg IV QAM 02/08/22 09/05/24 History intravenous solution cetirizine 10 mg tablet (Zyrtec) 20 mg feeding tube BID 07/20/22 09/05/24 History sodium chloride 0.9 % 75 ml IV DIRECTED 07/20/22 09/05/24 History acetaminophen 500 mg tablet 500 mg feeding tube Q6H PRN .Fever 09/25/22 09/05/24 History (Tylenol Extra Strength) >38 C, MILD-MOD PAIN ibuprofen 200 mg tablet 200 mg feeding tube Q4 PRN Pain 09/25/22 09/05/24 History tamsulosin 0.4 mg capsule 0.4 mg PO HS 09/25/22 09/05/24 History dexmethylphenidate 30 mg 30 mg PO .DAILY@0800 11/20/22 09/05/24 History capsule,extended release [id number] menthol 0.44 %-zinc oxide 20.6 % 1 applic topical DIRECTED PRN 11/20/22 09/05/24 History topical ointment AFFECTED AREAS, G/J-TUBE potassium iodide 1 gram/mL oral 1 ml feeding tube DAILY 11/20/22 09/05/24 History solution baclofen 10 mg tablet 10 mg feeding tube QID 01/26/23 09/05/24 History apixaban 2.5 mg tablet (Eliquis) 2.5 mg feeding tube BID 02/27/24 09/05/24 History dexmethylphenidate 10 mg tablet 10 mg PO .@1400 06/11/24 09/05/24 History cholecalciferol (vitamin D3) 50 50 mcg PO DAILY 09/05/24 09/05/24 History mcg/drop (2,000 unit/drop) oral drops diphenhydramine HCl 50 mg capsule 50 mg PO .Q4-6HR PRN 09/05/24 09/05/24 History ITCHING/ANXIETY duloxetine 30 mg capsule,delayed 60 mg PO BID 09/05/24 09/05/24 History release esomeprazole sodium 40 mg 40 mg IV DAILY 09/05/24 09/05/24 History intravenous solution melatonin 10 mg tablet 10 mg feeding tube HS 09/05/24 09/05/24 History Past Med/Surg History Problem List (Updated 09/05/24 @ 00:17 by Naina Moore PA-C) Fever of unknown origin (Acute) Fever (Acute) Bacteremia due to methicillin susceptible Staphylococcus aureus (MSSA) Bacterial sepsis Tachycardia (Acute) Bladder dysfunction Insomnia POTS (postural orthostatic tachycardia syndrome) On total parenteral nutrition (TPN) Bacteremia History of central line-associated bloodstream infection (CLABSI) (Acute) Wiedemann-Xavier syndrome Klippel-Feil syndrome (Chronic) Abnormal LFTs Allergic reaction caused by a drug Mid back pain (Acute) Asthma (Chronic) Reflux (Chronic) Bowel dysfunction (Acute) Dehydration (Acute) ADHD (attention deficit hyperactivity disorder) (Chronic) Jejunostomy tube fell out (Acute) Medical History Lab test negative for COVID-19 virus Septic shock S/P colectomy Autistic disorder Pain around PEG tube site Constipation Surgical History History of fundoplication History of appendectomy S/P cecostomy S/P tonsillectomy and adenoidectomy Family History Other FHx: heart disease Family history of diabetes mellitus Family history of gallbladder disease Family history of high blood pressure Social History Smoking Status: Never smoker Second Hand Exposure: No; Do You Dip or Chew Tobacco: No; Hx Alcohol Use: No Hx Substance Use: No Preferred Language: Slovak Communication Ability: Effective Visual Impairment: No Limitations Hearing Ability: Normal Substitute Bus Driver Required: No Beliefs That Will Affect Care: None Current Living Situation: Family Feels Safe at Home: Yes Assistive Devices: Walker and Wheelchair Review of Systems Review of Systems: All systems reviewed & are unremarkable except as noted in HPI & below Physical Exam Physical Exam: General- Not in distress Head- atraumatic Eyes- PERRL. ENT- oropharynx clear Neck- supple, no JVD. Lungs- clear to auscultation no wheezing or crackles Heart- regular rhythm; tachycardia no murmur, no gallop.Central line seen on right side of the chest-no erythema seen Abdomen- normal bowel sounds, soft, nontender, no distension. G tube seen and no erythema around G tube. Extremities- no pretibial edema, no calf tenderness; peripheral pulses intact Neuro- alert, oriented PERRL, no facial palsy; no dysarthria; moves extremities Results & Data Results & Data Vital Signs (Past 12 Hours) Vital Signs Temp Pulse Pulse Resp BP BP Pulse Ox 09/05/24 03:45 124 H 17 130/94 90 09/05/24 03:30 102 H 16 132/92 95 09/05/24 03:25 137 H 09/05/24 03:15 117 H 21 116/84 95 09/05/24 03:00 111 H 26 H 116/83 94 09/05/24 02:45 116 H 18 119/79 99 09/05/24 02:30 119 H 18 128/79 100 09/05/24 02:15 115 H 16 127/87 99 09/05/24 02:00 129 H 18 127/88 100 09/05/24 01:45 120 H 16 128/85 99 09/05/24 01:30 123 H 18 120/86 95 09/05/24 01:15 127 H 18 133/88 95 09/05/24 01:00 132 H 18 133/88 99 09/05/24 00:45 125 H 18 129/94 99 09/05/24 00:30 125 H 18 118/77 96 09/05/24 00:15 125 H 16 111/70 99 09/05/24 00:06 37.3 C 09/04/24 23:45 118 H 18 118/71 95 09/04/24 23:20 154 H 09/04/24 23:11 123 H 16 123/67 99 09/04/24 23:11 121 H 18 99 09/04/24 22:13 38.1 C H 110 H 17 150/77 H 98 O2 Del Method 09/05/24 03:45 Room Air 09/05/24 03:30 Room Air 09/05/24 03:25 09/05/24 03:15 Room Air 09/05/24 03:00 Room Air 09/05/24 02:45 Room Air 09/05/24 02:30 Room Air 09/05/24 02:15 Room Air 09/05/24 02:00 Room Air 09/05/24 01:45 Room Air 09/05/24 01:30 Room Air 09/05/24 01:15 Room Air 09/05/24 01:00 Room Air 09/05/24 00:45 Room Air 09/05/24 00:30 Room Air 09/05/24 00:15 Room Air 09/05/24 00:06 09/04/24 23:45 Room Air 09/04/24 23:20 09/04/24 23:11 Room Air 09/04/24 23:11 Room Air 09/04/24 22:13 Room Air Diagnostic Findings Laboratory Results WBC 4.48 K/ul (4.8-10.8) L 09/04/24 22:40 RBC 5.18 M/uL (4.70-6.10) 09/04/24 22:40 Hgb 15.8 g/dl (14.0-18.0) 09/04/24 22:40 Hct 44.4 % (42.0-52.0) 09/04/24 22:40 MCV 85.7 fL (80.0-100.0) 09/04/24 22:40 MCH 30.5 pg (25.0-34.0) 09/04/24 22:40 MCHC 35.6 g/dL (32.0-36.0) 09/04/24 22:40 RDW Std Deviation 38.2 fL (36.4-46.3) 09/04/24 22:40 RDW Coeff of [place] 12.2 % (11.5-14.5) 09/04/24 22:40 Plt Count 112 K/uL (130-400) L 09/04/24 22:40 MPV 9.6 fL (9.4-12.4) 09/04/24 22:40 Immature Gran % (Auto) 0.4 % 09/04/24 22:40 Neut % (Auto) 81.8 % 09/04/24 22:40 Lymph % (Auto) 7.1 % 09/04/24 22:40 [place] % (Auto) 10.3 % 09/04/24 22:40 Eos % (Auto) 0.2 % 09/04/24 22:40 Baso % (Auto) 0.2 % 09/04/24 22:40 Neut # (Auto) 3.66 K/uL (1.40-6.50) 09/04/24 22:40 Lymph # (Auto) 0.32 K/uL (1.20-3.40) L 09/04/24 22:40 [place] # (Auto) 0.46 K/uL (0.11-0.59) 09/04/24 22:40 Eos # (Auto) 0.01 K/uL (0.00-0.50) 09/04/24 22:40 Baso # (Auto) 0.01 K/uL (0.00-0.20) 09/04/24 22:40 Immature Gran # (Auto) 0.02 K/uL (0.01-0.20) 09/04/24 22:40 PT 11.5 Seconds (9.0-12.0) 09/04/24 22:40 INR 1.1 (0.9-1.1) 09/04/24 22:40 APTT 25 Seconds (21-31) 09/04/24 22:40 PTT Ratio 0.9 09/04/24 22:40 VBG pH 7.39 (7.36-7.41) 09/04/24 22:40 VBG pCO2 40 mmHg (38-50) 09/04/24 22:40 VBG pO2 91 mmHg 09/04/24 22:40 VBG HCO3 24 mmol/L 09/04/24 22:40 VBG O2 Saturation 99.1 % 09/04/24 22:40 VBG Base Excess -0.7 mEq/L 09/04/24 22:40 Sodium 136 mmol/L (136-145) 09/04/24 22:40 Potassium 3.6 mmol/L (3.5-5.1) 09/04/24:40 Chloride 101 mmol/L (98-107) 09/04/24 22:40 Carbon Dioxide 28 mmol/L (21-32) 09/04/24 22:40 Anion Gap 7 (3-11) 09/04/24 22:40 BUN 15 mg/dl (6-23) 09/04/24 22:40 Creatinine 0.72 mg/dl (0.6-1.4) 09/04/24 22:40 Est Cr Clr Drug Dosing 132.0 ml/min 09/04/24 22:40 eGFR 133.30 09/04/24 22:40 BUN/Creatinine Ratio 20.8 (10-20) H 09/04/24 22:40 Glucose 86 mg/dl (70-99(Fasting)) 09/04/24 22:40 Lactate 0.7 mmol/L (0.4-2.0) 09/04/24 22:50 Calcium 9.7 mg/dl (8.6-10.3) 09/04/24 22:40 Magnesium 1.8 mg/dl (1.7-2.4) 09/04/24 22:40 Total Bilirubin 0.9 mg/dl (0.2-1.0) 09/04/24 22:40 Direct Bilirubin 0.3 mg/dl (0-0.2) H 09/04/24 22:40 AST 194 U/L (13-39) H 09/04/24 22:40 ALT 317 U/L (7-52) H 09/04/24 22:40 Alkaline Phosphatase 174 U/L (34-104) H 09/04/24 22:40 Troponin I High Sens 5.6 pg/ml (0-20) 09/04/24 22:40 Total Protein 8.0 gm/dl (6.0-8.3) 09/04/24 22:40 Albumin 4.7 gm/dl (3.4-5.0) 09/04/24 22:40 Procalcitonin 0.54 ng/ml (0-0.5) H 09/04/24 22:40 Urine Color Yellow 09/04/24 23:25 Urine Appearance Clear (Clear) 09/04/24 23:25 Urine pH 6.0 (4.5-7.5) 09/04/24 23:25 Ur Specific [place] 1.026 (1.000-1.030) 09/04/24 23:25 Urine Protein Trace (Negative) H 09/04/24 23:25 Urine Glucose (UA) Negative (Negative) 09/04/24 23:25 Urine Ketones Trace (Negative) H 09/04/24 23:25 Urine Blood Trace (Negative) H 09/04/24 23:25 Urine Nitrite Negative (Negative) 09/04/24 23:25 Urine Bilirubin Negative (Negative) 09/04/24 23:25 Urine Urobilinogen Negative (Negative) 09/04/24 23:25 Ur Leukocyte Esterase Negative (Negative) 09/04/24 23:25 Urine WBC (Auto) 0-5 /hpf (0-5) 09/04/24 23:25 Urine RBC (Auto) 6-10 /hpf (0-2) H 09/04/24 23:25 U Hyaline Cast (Auto) 0-2 /lpf (0-2) 09/04/24 23:25 U Epithel Cells (Auto) 0-2 /hpf (0-2) 09/04/24 23:25 Urine Bacteria (Auto) None Seen (None Seen) 09/04/24 23:25 Adenovirus (PCR) Not Detected (NotDetected) 09/04/24 22:40 B. pertussis DNA (PCR) Not Detected (NotDetected) 09/04/24 22:40 B.parapertussis DNA PCR Not Detected (NotDetected) 09/04/24 22:40 C. pneumoniae DNA (PCR) Not Detected (NotDetected) 09/04/24 22:40 Coronavirus OC43 (PCR) Not Detected (NotDetected) 09/04/24 22:40 Coronavirus HKU1 (PCR) Not Detected (NotDetected) 09/04/24 22:40 Coronavirus 229E (PCR) Not Detected (NotDetected) 09/04/24 22:40 SARS-CoV-2 (PCR) Not Detected (NotDetected) 09/04/24 22:40 Coronavirus NL63 (PCR) Not Detected (NotDetected) 09/04/24 22:40 Human Metapneumovir PCR Not Detected (NotDetected) 09/04/24 22:40 Influenza Type A (PCR) Not Detected (NotDetected) 09/04/24 22:40 Influenza Type B (PCR) Not Detected (NotDetected) 09/04/24 22:40 M. pneumoniae (PCR) Not Detected (NotDetected) 09/04/24 22:40 Parainfluenza 1 (PCR) Not Detected (NotDetected) 09/04/24 22:40 Parainfluenza 2 (PCR) Not Detected (NotDetected) 09/04/24 22:40 Parainfluenza 3 (PCR) Not Detected (NotDetected) 09/04/24 22:40 Parainfluenza 4 (PCR) Not Detected (NotDetected) 09/04/24 22:40 RSV (PCR) Not Detected (NotDetected) 09/04/24 22:40 Entero/Rhino (PCR) Not Detected (NotDetected) 09/04/24 22:40 Impressions Chest X-Ray 03/30/25 22:26 Exam(s): XR CXR 1 VIEW EXAM: XR Chest, 1 View CLINICAL HISTORY: Reason for exam: Sepsis. TECHNIQUE: Frontal view of the chest. COMPARISON: Chest radiograph On 06/11/2024 FINDINGS: Hardware: Right-sided central venous catheter terminates in the region of the lower SVC. Lungs/pleura: Normal. No focal consolidation. No pleural effusion or pneumothorax. Heart/mediastinum: Mild enlargement of the cardiac silhouette Soft tissues: Unremarkable. Bones: No acute fracture. Upper abdomen: Normal. IMPRESSION: 1. No acute disease identified. 2. Right-sided central venous catheter terminates in the region of the lower SVC. Electronically signed by: Les Klein M.D. 09/05/24 00:09 AM ECG Additional Comments: ECG. Sinus tachycardia rate of 118. No significant change was found. Code Status & VTE Plan VTE Prophylaxis Plan VTE Prophylaxis will be ordered: Yes (1) Fever Fever type: unspecified Qualified Code(s): R50.9 - Fever, unspecified
[2024-09-05] MEDS ORDERED: ALBUTEROL 0.083% NEBU SOLN 3 ML VIAL NEB PRN (07:10)
[2024-09-05] MEDS ORDERED: MENTHOL-ZINC OXIDE 360 APPLN/120 GM TUBE EXT PRN (07:10)
[2024-09-05] MEDS ORDERED: BUDESONIDE 0.5 MG/2 ML VIAL (PULMICORT) INH PRN (07:10)
[2024-09-05 07:58] LABS: Eosinophils # (auto) 0.02 K/uL (0.00-0.50); Eosinophils % (auto) 0.6 %; Hematocrit (blood only) 39.3 % (42.0-52.0); Hemoglobin 13.8 g/dl (14.0-18.0); Immature Granulocytes # (auto) 0.02 K/uL (0.01-0.20); Immature Granulocytes % (auto) 0.6 %; Lymphocytes # (auto) 0.43 K/uL (1.20-3.40); Lymphocytes % (auto) 13.2 %; Mean Corpuscular Hemoglobin 30.5 pg (25.0-34.0); Mean Corpuscular Hgb Conc 35.1 g/dL (32.0-36.0); Mean Corpuscular Volume 86.8 fL (80.0-100.0); Monocytes # (auto) 0.42 K/uL (0.11-0.59); Monocytes % (auto) 12.9 %; Neutrophils # (auto) 2.37 K/uL (1.40-6.50); Neutrophils % (auto) 72.7 %; Platelet Count 93 K/uL (130-400); RDW Coefficient of Variation 12.7 % (11.5-14.5); RDW Standard Deviation 39.9 fL (36.4-46.3); Red Blood Count 4.53 M/uL (4.70-6.10); White Blood Count 3.26 K/ul (4.8-10.8)
[2024-09-05] MEDS: CEFEPIME 2000MG 2,000 MG/20 ML SYR IV ONE (08:00)
--- NOTE | 2024-09-05 08:18 | Electrocardiogram Report ---
Test Reason : Blood Pressure : */* mmHG Vent. Rate : 118 BPM Atrial Rate : 118 BPM P-R Int : 166 ms QRS Dur : 90 ms QT Int : 286 ms P-R-T Axes : 63 11 28 degrees QTcB Int : 400 ms Sinus tachycardia Otherwise normal ECG When compared with ECG of 11-Jun-2024 10:16, No significant change was found Confirmed by Kike Justice ([id number]) on 09/05/2024 8:17:33 AM Referred By: REFERRED SELF Confirmed By: Kike Justice
[2024-09-05] MEDS: D5W AND 1/2NSS 1,000 ML IV SCH (08:27)
[2024-09-05] MEDS: ACETAMINOPHEN 1,000 MG/100 ML VIAL IV PRN (08:27)
[2024-09-05] MEDS: diphenhydrAMINE 50 MG/ML VIAL IV SCH (08:32)
[2024-09-05] MEDS ORDERED: FAMOTIDINE 20 MG/2 ML IV SCH (09:00)
[2024-09-05] MEDS ORDERED: ESOMEPRAZOLE SODIUM 40 MG IV SCH (09:00)
[2024-09-05] MEDS: VANCOMYCIN HCL 1,250 MG in SODIUM CHLORIDE 0.9% 250 ML IV SCH (09:27)
[2024-09-05] MEDS: HYDROmorphone INJ 0.5 MG/0.5 ML SYR IV PRN ×2 (09:59→18:17)
[2024-09-05 10:00] LABS: A calco-baum cmplx NotReported Not Detected (NotDetected); Bact fragilis Not Reported Not Detected (NotDetected); Blood Culture Id Panel See PCR Comment (NotDetected); C auris Not Reported Not Detected (NotDetected); CTX-M Resistant Gene Not Detected (NotDetected); Calbicans Not Reported Not Detected (NotDetected); Candida glabrata Not Reported Not Detected (NotDetected); Candida krusei Not Reported Not Detected (NotDetected); Cneoformans/gatti Not Reported Not Detected (NotDetected); Cparapsilosis Not Reported Not Detected (NotDetected); Efaecalis Not Reported Not Detected (NotDetected); Efaecium Not Reported Not Detected (NotDetected); Enterobacterales DETECTED (NotDetected); Enterobacterales Not Reported DETECTED (NotDetected); Escherichia coli Not Reported Not Detected (NotDetected); H influenzae Not Reported Not Detected (NotDetected); IMP Resistant Gene Not Detected (NotDetected); K aerogenes Not Reported Not Detected (NotDetected); KPC Resistant Gene Not Detected (NotDetected); Koxytoca Not Reported Not Detected (NotDetected); Kpneumoniae grp Not Reported DETECTED (NotDetected); Lmonocyt Not Reported Not Detected (NotDetected); N meningitidis Not Reported Not Detected (NotDetected); NDM Resistant Gene Not Detected (NotDetected); OXA 48 Like Resistant Gene Not Detected (NotDetected); P aeruginosa Not Reported Not Detected (NotDetected); Proteus spp Not Reported Not Detected (NotDetected); Salmonella spp Not Reported Not Detected (NotDetected); Staph lugdunensis Not Reported Not Detected (NotDetected); Staph spp. Not Reported Not Detected (NotDetected); Staphaureus Not Reported Not Detected (NotDetected); Staphepi Not Reported Not Detected (NotDetected); Stenmaltophilia Not Reported Not Detected (NotDetected); Strep agal(GrpB) Not Reported Not Detected (NotDetected); Strep pneum Not Reported Not Detected (NotDetected); Strep pyog (GrpA) Not Reported Not Detected (NotDetected); Strep spp Not Reported Not Detected (NotDetected); VIM Resistant Gene Not Detected (NotDetected); mcr-1 Colistin Resistant Gene Not Detected (NotDetected)
[2024-09-05] MEDS: FAMOTIDINE 20MG IV PUSH 20 MG/5 ML SYR IV SCH (10:01)
[2024-09-05] MEDS: BACLOFEN 10 MG TAB GT SCH (10:04)
[2024-09-05] MEDS: ATENOLOL 25 MG TABLET PO SCH (10:04)
[2024-09-05] MEDS: CETIRIZINE HCL 10 MG TABLET PO SCH (10:04)
[2024-09-05] MEDS: DULoxetine HCL 60 MG CAP PO SCH (10:04)
[2024-09-05] MEDS: APIXABAN 2.5 MG TAB PO SCH (10:05)
[2024-09-05] MEDS: FLUDROCORTISONE ACETATE 0.1 MG TAB PO SCH (10:05)
[2024-09-05] MEDS: CHOLECALCIFEROL 25 MCG (1000 UNITS) TAB PO SCH (10:05)
[2024-09-05 10:08] LABS: E cloacae compx Not Reported DETECTED (NotDetected)
[2024-09-05 10:09] LABS: Enterobacter cloacae complex DETECTED (NotDetected); Klebsiella pneumoniae group DETECTED (NotDetected)
[2024-09-05 12:13] LABS: BUN Creatinine Ratio 16.4 (10-20); Calcium 9.1 mg/dl (8.6-10.3); Creatinine Clr Calc Pharmacy 172.8 ml/min; Phosphorus 2.4 mg/dl (2.5-4.9); Potassium 3.6 mmol/L (3.5-5.1)
[2024-09-05] MEDS: PANTOprazole 40 MG in SYRINGE DAILY IV SCH (12:23)
[2024-09-05] MEDS: HYDROmorphone INJ 0.5 MG/0.5 ML SYR IV STA (12:56)
[2024-09-05] MEDS: diphenhydrAMINE Capsule 25 MG CAP PO PRN (13:28)
[2024-09-05] MEDS: DEXMETHYLPHENIDATE HCL 30 MG PO SCH (13:36)
[2024-09-05] MEDS: PATIENT'S OWN CONTROLLED MED 1 EXT SCH (13:36)
--- NOTE | 2024-09-05 13:53 | Pharmacy Report ---
Pharmacy PK ABX Note - Date of Service September 05, 2024 - Assessment and Plan Assessment 19 year old M receiving vancomycin and cefepime empirically in setting of fever and recent CVC replacement. History of central line associated bloodstream infections. ID consulted. Renal function at baseline. Blood cultures (+) GNB in 06/13. Blood biofire (+) E. cloacae and K. pneumoniae. Day #1 of antimicrobial therapy. Plan Vancomycin * Loading dose: 1250 mg IV x 1 * Maintenance dose: 1250 mg IV every 8 hours * Regimen is predicted to achieve target AUC/RHINA of 400-600 mg/L.hr * Trough level ordered for: 4/1 AM Pharmacy will continue to follow and will adjust dose/frequency as necessary. Thank you. Pharmacy has transitioned to AUC monitoring for vancomycin. AUC/RHINA is the preferred PK/PD target and is associated with decreased risk of nephrotoxicity compared to traditional trough targets.
[2024-09-05] MEDS: CEFEPIME 2000MG 2,000 MG/20 ML SYR IV SCH (15:54)
[2024-09-05] MEDS: TAMSULOSIN HCL 0.4 MG CAP PO SCH (21:17)
[2024-09-05] MEDS: MELATONIN 3 MG TAB PO SCH (21:25)
[2024-09-06] MEDS ORDERED: DEXMETHYLPHENIDATE HCL 30 MG PO SCH (08:00)
[2024-09-06] MEDS: VANCOMYCIN LEVEL ONE (08:32)
[2024-09-06 08:33] LABS: Hematocrit (blood only) 42.9 % (42.0-52.0); Hemoglobin 15.1 g/dl (14.0-18.0); Mean Corpuscular Hemoglobin 30.4 pg (25.0-34.0); Mean Corpuscular Hgb Conc 35.2 g/dL (32.0-36.0); Mean Corpuscular Volume 86.5 fL (80.0-100.0); Mean Platelet Volume 9.3 fL (9.4-12.4); Platelet Count 108 K/uL (130-400); RDW Coefficient of Variation 12.8 % (11.5-14.5); RDW Standard Deviation 39.8 fL (36.4-46.3); Red Blood Count 4.96 M/uL (4.70-6.10); White Blood Count 1.58 K/ul (4.8-10.8)
[2024-09-06 08:45] LABS: Calcium 9.4 mg/dl (8.6-10.3); Creatinine Clr Calc Pharmacy 158.5 ml/min; Phosphorus 2.7 mg/dl (2.5-4.9); Potassium 3.3 mmol/L (3.5-5.1)
[2024-09-06] MEDS ORDERED: diphenhydrAMINE HCL 25 MG/10 ML UDC GT PRN (11:38)
[2024-09-06] MEDS ORDERED: TPN/PPN CONSULT PHARMACY PRN (11:47)
[2024-09-06] MEDS ORDERED: DEXTROSE 10% 1,000 ML IV PRN (11:47)
--- NOTE | 2024-09-06 13:23 | Discharge Summary ---
Discharge Summary Date of Service September 06, 2024 Principal Dx & Hospital Course #1 = Principal Diagnosis (1) Gram-negative sepsis: (2) Bacteremia due to Klebsiella pneumoniae: (3) Bacteremia due to Enterobacter species: (4) POTS (postural orthostatic tachycardia syndrome): (5) On total parenteral nutrition (TPN): (6) Wiedemann-Xavier syndrome: (7) Klippel-Feil syndrome: (8) ADHD (attention deficit hyperactivity disorder): (9) History of ileostomy: (10) History of colectomy: Plan Patient is a 19-year-old gentleman with numerous comorbidities and congenital syndromes that have left him dependent on TPN for nutrition and a chronic indwelling central catheter. Patient has had numerous episodes of bacteremia. This is required to his central line to be removed and replaced multiple times. Patient was just recently treated for MSSA bacteremia in June 2024. His central line had been removed at that time at [facility]. He completed his course of antibiotics outpatient and this past Thursday was at [facility] to have his dual-lumen central venous catheter replaced. This is the only hospital that has been willing to replace his central catheter. According to his mother the procedure went well and was discharged home on Thursday. During the trip home he started with low-grade fever. He also started to feel more unwell but no localizing symptoms. His fever continued to progress and elevate and patient was brought to [facility] ED for evaluation. He was noted to be febrile and leukopenic. Due to the patient's high risk of bacteremia patient was admitted to the hospital on broad-spectrum antibiotics. Blood cultures did grow gram-negative bacilli and more specifically Klebsiella and Enterobacter. Patient was treated with initially cefepime and vancomycin narrowed to cefepime once he is noted to have gram-negative bacteremia. The source of his bacteremia is unclear. Urinalysis was completely unremarkable. Patient has no other localizing symptoms. He has had no further fevers since antibiotics have been initiated. Due to the patient's complicated IV access. Also patient's complicated TPN scheduling did not have the services here at [facility] may need to provide removal of the central line and access of headed For ongoing antibiotics. Mother also stated that all of his entire care team has been at [place]. [place] center was contacted, had conversation with Dr. Marrero from infectious disease. He recommended obtaining a CT of the abdomen and pelvis to look for possible source of his Klebsiella and Enterobacter bacteremia. He did recommend that the central line be removed since more than likely it is now infected although may not have been the initial source of infection. Dr. Marrero did say that we could continue to use a central line s ina patient requires central line access for his TPN. Pharmacy was involved and helping continue patient's TPN and nutritional supplementations. We do not have interventional radiology services here that can manage this and and hospital medicine was contacted. Spoke with Dr. Arroyo, medicine at [facility]. Reviewed patient's case and situation with him. He graciously accepted the patient in transfer to continue his care at [place]. Notes For Next Care Provider Continue to pursue source of gram-negative bacteremia Medication Changes From Visit Cefepime for Klebsiella and Enterobacter bacteremia Admission HPI Per Admitting Provider 19-year-old male with past medical history significant for mild persistent asthma, obstructive sleep apnea, POTS, moderate protein calorie malnutrition, history of Klippel-Feil syndrome, Wiedemann Xavier syndrome, nutrition through TPN, ADD, gastroparesis insomnia, bladder dysfunction comes because of Fevers. Last Thursday Patient Was at [facility] and They Replaced His Dual-Lumen Central Venous Catheter. Came Home on Thursday. On Thursday He Was Having Low-Grade Fevers. Thursday Also Having Low-Grade Fevers but in the Nighttime the Fever Was Spiking up to 101 F so the Mother Brought Him to the ER.. Patient having some mild tachycardia. Resting comfortably. Denies any headache. Denies chest pain. Denies shortness of breath. Denies abdominal pain. No nausea. Ileostomy is working okay. No cough. Blood pressure is okay. Saturating okay. Mother is in the room. Mother has the [facility] care plan with her. Patient started on IV Vanco and cefepime as per plan. Cultures were drawn from all the lines and also UA was ordered. ER called [phone] and they advised to call back after cultures are available. Past medical history. As mentioned above Past surgical history. Bone marrow biopsy. Central line placement. Chemodenervation internal annals pinchers. Colonoscopy. Debride necrotic tissue abdominal wall. Dilatation of rectal narrowing. EGD. EGD with biopsy. Esophagogastric fundoplasty. Exploration of abdomen. Ileoscopy with biopsy. Ileostomy/jejunostomy. IR aspiration abscess. IR gastrojejunostomy. Percutaneous conversion of gastrostomy to gastrojejunostomy. Temporary gastrostomy tube. Removal of tunneled catheter. Cholecystectomy. Enterectomy small bowel resection. Removal of rectal obstruction. Tonsillectomy and adenoidectomy. Repair bowel opening. Wedge biopsy of liver. Social history. No smoking. No alcohol use. No drug use. Family history. Father has allergies. Asthma. Mother has asthma. GERD. Admission Exam Per Admitting Provider See H&P Discharge Exam Constitutional: Alert, nontoxic HEENT: Mucous membranes moist. Lungs: Clear to auscultation, decreased, CV: S1-S2, regular Abdomen: Soft, nontender, nondistended, ileostomy functioning Extremities: No significant edema Neuro: Baseline deficits Psych: Cooperative, normal mood Updated Medication List Medication Instructions Recorded Confirmed Type Ethanol 70 % Lock Sari 1.3 ml IV DIRECTED 11/12/21 09/05/24 History Tpn Sari 1 ea continuous IV infusion 11/12/21 09/05/24 History DIRECTED albuterol sulfate 2.5 mg/3 mL 2.5 mg continuous nebulization Q4 11/12/21 09/05/24 History (0.083 %) solution for nebulization PRN Shortness Of Breath Or Wheezing atenolol 25 mg tablet 25 mg feeding tube QAM 11/12/21 09/05/24 History budesonide 0.5 mg/2 mL suspension 0.5 mg inhalation BID PRN 11/12/21 09/05/24 History for nebulization Shortness Of Breath Or Wheezing fludrocortisone 0.1 mg tablet 0.2 mg feeding tube DAILY 11/12/21 09/05/24 History heparin (porcine) 10 unit/mL in 3 unit IV DIRECTED PRN NEEDED 11/12/21 09/05/24 History 0.9 % sodium chloride intravenous kit famotidine (PF) 20 mg/2 mL 40 mg IV QAM 02/08/22 09/05/24 History intravenous solution cetirizine 10 mg tablet (Zyrtec) 20 mg feeding tube BID 07/20/22 09/05/24 History sodium chloride 0.9 % 75 ml IV DIRECTED 07/20/22 09/05/24 History acetaminophen 500 mg tablet 500 mg feeding tube Q6H PRN .Fever 04/20/23 03/31/25 History (Tylenol Extra Strength) >38 C, MILD-MOD PAIN ibuprofen 200 mg tablet 200 mg feeding tube Q4 PRN Pain 09/25/22 09/05/24 History tamsulosin 0.4 mg capsule 0.4 mg PO HS 09/25/22 09/05/24 History dexmethylphenidate 30 mg 30 mg PO .DAILY@0800 11/20/22 09/05/24 History capsule,extended release [id number] menthol 0.44 %-zinc oxide 20.6 % 1 applic topical DIRECTED PRN 11/20/22 09/05/24 History topical ointment AFFECTED AREAS, G/J-TUBE potassium iodide 1 gram/mL oral 1 ml feeding tube DAILY 11/20/22 09/05/24 History solution baclofen 10 mg tablet 10 mg feeding tube QID 01/26/23 09/05/24 History apixaban 2.5 mg tablet (Eliquis) 2.5 mg feeding tube BID 02/27/24 09/05/24 History dexmethylphenidate 10 mg tablet 10 mg PO .@1400 06/11/24 09/05/24 History cholecalciferol (vitamin D3) 50 50 mcg PO DAILY 09/05/24 09/05/24 History mcg/drop (2,000 unit/drop) oral drops diphenhydramine HCl 50 mg capsule 50 mg PO .Q4-6HR PRN 09/05/24 09/05/24 History ITCHING/ANXIETY duloxetine 30 mg capsule,delayed 60 mg PO BID 09/05/24 09/05/24 History release esomeprazole sodium 40 mg 40 mg IV DAILY 09/05/24 09/05/24 History intravenous solution melatonin 10 mg tablet 10 mg feeding tube HS 09/05/24 09/05/24 History cetirizine 10 mg tablet 20 mg (2 x 10 mg) PO TID #90 tabs 09/06/24 Rx diphenhydramine HCl 12.5 mg/5 mL 50 mg (20 mL) G-tube Q4H PRN 09/06/24 Rx oral elixir itching #500 mL Hospital Stay Data Consultations 09/05/24 00:15 ED Decision to Admit Stat 09/05/24 10:17 Consult Infectious Diseases Routine Diagnostic Imagining Performed 09/06/24 12:55 CT abd pelvis wo con Routine Reviewed imaging, laboratory and diagnostic studies. Pertinent findings as below. WBCs 1.5 Hemoglobin 15.1 Platelets of 108 Sodium 139 Potassium 3.3, being replaced BUN 6 Creatinine 0.6 Magnesium 2.0 Phosphorus 2.7 Chest x-ray no acute cardiopulmonary abnormalities Initial EKG sinus tachycardia Initial blood cultures growing Klebsiella and Enterobacter Surveillance blood cultures from 09/06/2024, pending CT of abdomen pelvis pending Pending Results Patient Have Any Pending Studies at Discharge: Yes Discharge Instructions Given to Patient (Per Discharging Provider) You are going to be transferred to [facility] in [place] for ongoing care and management of your IV access Total Time Total Time Spent Total Time Spent (In Minutes): 63
[2024-09-06] MEDS: SODIUM CHLORIDE 0.9% 1,000 ML IV SCH (13:28)
[2024-09-06] MEDS: POTASSIUM CHLORIDE / WTR 10 MEQ/100 ML PLCT IV SCH (13:33)
--- NOTE | 2024-09-06 14:22 | Hospitalist Progress Note ---
Date of Service September 06, 2024 Assessment & Plan (1) Gram-negative sepsis: Plan: Unable to determine if it complication to his central line being placed (2) Bacteremia due to Klebsiella pneumoniae: (3) Bacteremia due to Enterobacter species: (4) POTS (postural orthostatic tachycardia syndrome): (5) On total parenteral nutrition (TPN): (6) Wiedemann-Xavier syndrome: (7) Klippel-Feil syndrome: (8) ADHD (attention deficit hyperactivity disorder): (9) History of ileostomy: (10) History of colectomy: Plan Patient presented with gram-negative sepsis. Patient has been afebrile the last 24 hours. Blood cultures growing Klebsiella and Enterobacter Narrow antibiotics to cefepime, discontinue vancomycin Phone conversation with infectious disease. Agreeable with cefepime. Recommend central line be removed. Recommend CT of the abdomen pelvis to evaluate for source of his gram-negative bacteremia. Phone conversation with the Dr. Arroyo from [facility]. Patient has had the majority of his care at [facility] especially when he was on the pediatric service. Patient has very specific anesthesia needs, nutritional needs. He also has been difficult to have a central line was removed due to scar tissue as well as right PICC lines being inserted for IV antibiotics. Request to transfer for continuity of care as well as we do not have interventional radiology for these procedures. Patient excepted tentatively for transfer, however bed not available. Extensive conversation with patient's mother at bedside, due to the patient's extensive history and complications with procedures she is very hesitant to go to [place] or to be seen by vascular surgery here. Reports that anytime they have gone anywhere else other than [place] he has had significant complications and/or issues with care. She is willing to continue care here getting antibiotics well waiting for a bed at [place]. Continue to monitor surveillance cultures TPN as coordinated and managed by pharmacy Replace potassium Infectious disease states that we can continue to use his central line until it can be removed and have other central access established Continue to monitor electrolytes 75 minutes spent in coordinating care, communication with specialist, review of records and care at the bedside. Admission and Anticipated Discharge Date Admission Date: September 05, 2024 Subjective Patient denies any pain. His biggest complaint is chronic pruritus Physical Exam Physical Exam: Constitutional: Alert, nontoxic HEENT: Mucous membranes moist. Lungs: Clear to auscultation, decreased, no wheezes rales or rhonchi CV: S1-S2, regular Abdomen: Soft, nontender, nondistended, ileostomy Extremities: No significant edema Neuro: At baseline deficits Psych: Cooperative, normal mood Results & Data Results & Data Vital Signs (Past 12 Hours) Vital Signs Temp Pulse Pulse Resp BP Pulse Ox O2 Del Method 09/06/24 14:13 91 H 09/06/24 11:04 36.9 C 86 17 118/74 98 Room Air 09/06/24 08:19 36.7 C 86 19 113/68 98 Room Air 09/06/24 07:00 78 09/06/24 02:49 36.4 C L 85 18 98/65 L 98 Room Air Diagnostic Findings Reviewed imaging, laboratory and diagnostic studies. Pertinent findings as below. WBCs 1.5 Hemoglobin 15.1 Platelets of 108 Sodium 139 Potassium 3.3, being replaced BUN 6 Creatinine 0.6 Magnesium 2.0 Phosphorus 2.7 Chest x-ray no acute cardiopulmonary abnormalities Initial EKG sinus tachycardia Initial blood cultures growing Klebsiella and Enterobacter Surveillance blood cultures from 09/06/2024, pending CT of abdomen pelvis pending (8) ADHD (attention deficit hyperactivity disorder) Attention deficit-hyperactivity disorder type: unspecified Qualified Code(s): F90.9 - Attention-deficit hyperactivity disorder, unspecified type
--- NOTE | 2024-09-06 14:37 | CT Scan Report ---
CT OF THE ABDOMEN AND PELVIS WITHOUT CONTRAST CLINICAL HISTORY: Bacteremia. COMPARISON STUDY: CT of the abdomen and pelvis June 11, 2024. TECHNIQUE: Axial images of the abdomen and pelvis were obtained without IV contrast. Images were revi ewed in the axial, sagittal, and coronal planes. Automated exposure control was utilized for the gita dy. A dose lowering technique was utilized adhering to the principles of ALARA. FINDINGS: There are trace bilateral pleural effusions. Subpleural opacities favor atelectasis. No pne umatosis, free air or portal venous gas is present. Evaluation of the abdomen and pelvis is suboptima l on this unenhanced exam. There are postoperative findings at the gastroesophageal junction. A gastr ostomy tube is in place. There are also postoperative findings consistent with subtotal colectomy wit h ileostomy and Omar pouch formation. The postoperative appearance is similar to CT of June 11, 2024. A few mildly dilated fluid-filled small bowel loops are similar to prior exam. There is no tra nsition point to suggest a bowel obstruction. Unenhanced images of the liver, adrenal glands, kidneys and pancreas are unremarkable. Splenomegaly is unchanged. There is no lymphadenopathy. There are no fluid collections. The bladder is distended, as before. Bladder wall thickening is also unchanged. Th ere is no hydronephrosis. There are no urinary calculi. IMPRESSION: 1. No acute process within the abdomen or pelvis on unenhanced exam. 2. Stable postoperative findings following subtotal colectomy with ileostomy and Omar pouch forma tion. A few mildly dilated small bowel loops, similar to prior exam. The findings are likely chronic. 3. Distended bladder and bladder wall thickening, similar to prior exam. No hydronephrosis. 4. Gastrostomy tube in place. 5. Stable splenomegaly. ACT 112: Negative or not required by law. Electronically signed by: Elroy Durbin M.D. 09/06/2024 2:36 PM
--- NOTE | 2024-09-06 14:39 | Infectious Disease Consult ---
Date of Service September 06, 2024 Telehealth Information I performed this visit using a real-time telehealth connection between my location and the patients location ([facility]). After connecting through interactive tele-video, patient was identified by name and date of and/or wristband check.Patient (or authorized healthcare safety representative) was informed that this was a telemedicine visit and it was being conducted confidentially over secure lines. My office door was closed and no one else was present in the room with me.Patient (or authorized healthcare safety representative) provided consent to proceed with the visit, expressed an understanding of privacy and security of the telemedicine visit, and gave permission to have a hospital safety representative in the room in order to assist with the visit and to conduct portions of the visit, as needed. I informed the patient (or authorized healthcare safety representative) that I reviewed their record and presented the opportunity for them to ask any questions regarding the visit today. The patient agreed to participate. Assessment & Plan (1) Bacteremia due to Enterobacter species: (2) Bacteremia due to Klebsiella pneumoniae: (3) Wiedemann-Xavier syndrome: (4) Klippel-Feil syndrome: Plan Patient with multiple species of Gram-negative bacteremia, agree with continuing with cefepime for the time being as there does not seem to be any other symptomatology, patient is stable. Unclear if his infection is related to his recent CBC replacement however this was very recently completed and fevers started immediately following replacement which may indicate causality. Agree with transferred to [facility], we will see him here. would recommend obtaining CT of the abdomen and pelvis given the Gram-negative bacteremia. - Cefepime IV 1 g q.6 hours - CT abdomen and pelvis with IV contrast if feasible Appreciate consultation, please do not hesitate to reach out for any further questions or concerns. Joe Vyas MD PGY5 Infectious Disease History of Present Illness History of Present Illness 19M w PMhx of Klippel-Feil and Wiedmann Graff syndrome, gastroparesis/Ostomy w nutrition via TPN, POTS, Recently treated for MSSA bacteremia June 2024 w 6 weeks Ancef, recently replacement CVC cath at [facility]. On return home on Thursday he developed low grade fevers, Tmax 101 and prompted ER visit. Blood cultures + for Klebsiella pneumoniae and Enterobacter. CXR unremarkable, WBC decreasing currently 1.58. Initiated on Cefepime/ Vancomycin. Discussed with the attending physician, plans with transferring to [facility]. Allergies Allergy/AdvReac Type Severity Reaction Status Date / Time dexmedetomidine Allergy Severe LOW BLOOD Verified 09/05/24 00:20 [From Precedex] PRESURE egg Allergy Severe Hives Verified 09/05/24 00:20 Wheezing midazolam Allergy Severe ANAPHYLAXIS Verified 09/05/24 00:20 alcohol Allergy Intermediate Rash/ Verified 09/05/24 00:20 [From Mastisol Adhesive] severe burning sensation of the skin fiber Allergy Intermediate Rash Verified 09/05/24 14:15 [From Peptide Formula 1.5] gum mastic Allergy Intermediate Rash/ Verified 09/05/24 00:20 [From Mastisol Adhesive] severe burning sensation of the skin iodine Allergy Intermediate RASH Verified 09/05/24 00:20 methyl salicylate Allergy Intermediate Rash/ Verified 09/05/24 00:20 [From Mastisol Adhesive] severe burning sensation of the skin nutritional Allergy Intermediate Rash Verified 09/05/24 14:15 supplement,special formulas [From Peptide Formula 1.5] storax Allergy Intermediate Rash/ Verified 09/05/24 00:20 [From Mastisol Adhesive] severe burning sensation of the skin vancomycin Allergy Mild RED AMIRA Verified 09/05/24 00:20 ketamine AdvReac Intermediate Hallucinati Verified 09/05/24 00:20 ng Home Medications Medication Instructions Recorded Confirmed Type Ethanol 70 % Lock Sari 1.3 ml IV DIRECTED 11/12/21 09/05/24 History Tpn Sari 1 ea continuous IV infusion 11/12/21 09/05/24 History DIRECTED albuterol sulfate 2.5 mg/3 mL 2.5 mg continuous nebulization Q4 11/12/21 09/05/24 History (0.083 %) solution for nebulization PRN Shortness Of Breath Or Wheezing atenolol 25 mg tablet 25 mg feeding tube QAM 11/12/21 09/05/24 History budesonide 0.5 mg/2 mL suspension 0.5 mg inhalation BID PRN 11/12/21 09/05/24 History for nebulization Shortness Of Breath Or Wheezing fludrocortisone 0.1 mg tablet 0.2 mg feeding tube DAILY 11/12/21 09/05/24 History heparin (porcine) 10 unit/mL in 3 unit IV DIRECTED PRN NEEDED 11/12/21 09/05/24 History 0.9 % sodium chloride intravenous kit famotidine (PF) 20 mg/2 mL 40 mg IV QAM 02/08/22 09/05/24 History intravenous solution cetirizine 10 mg tablet (Zyrtec) 20 mg feeding tube BID 07/20/22 09/05/24 History sodium chloride 0.9 % 75 ml IV DIRECTED 07/20/22 09/05/24 History acetaminophen 500 mg tablet 500 mg feeding tube Q6H PRN .Fever 09/25/22 09/05/24 History (Tylenol Extra Strength) >38 C, MILD-MOD PAIN ibuprofen 200 mg tablet 200 mg feeding tube Q4 PRN Pain 09/25/22 09/05/24 History tamsulosin 0.4 mg capsule 0.4 mg PO HS 09/25/22 09/05/24 History dexmethylphenidate 30 mg 30 mg PO .DAILY@0800 11/20/22 09/05/24 History capsule,extended release [id number] menthol 0.44 %-zinc oxide 20.6 % 1 applic topical DIRECTED PRN 11/20/22 09/05/24 History topical ointment AFFECTED AREAS, G/J-TUBE potassium iodide 1 gram/mL oral 1 ml feeding tube DAILY 11/20/22 09/05/24 History solution baclofen 10 mg tablet 10 mg feeding tube QID 01/26/23 09/05/24 History apixaban 2.5 mg tablet (Eliquis) 2.5 mg feeding tube BID 02/27/24 09/05/24 History dexmethylphenidate 10 mg tablet 10 mg PO .@1400 06/11/24 09/05/24 History cholecalciferol (vitamin D3) 50 50 mcg PO DAILY 09/05/24 09/05/24 History mcg/drop (2,000 unit/drop) oral drops diphenhydramine HCl 50 mg capsule 50 mg PO .Q4-6HR PRN 09/05/24 09/05/24 History ITCHING/ANXIETY duloxetine 30 mg capsule,delayed 60 mg PO BID 09/05/24 09/05/24 History release esomeprazole sodium 40 mg 40 mg IV DAILY 09/05/24 09/05/24 History intravenous solution melatonin 10 mg tablet 10 mg feeding tube HS 09/05/24 09/05/24 History cetirizine 10 mg tablet 20 mg (2 x 10 mg) PO TID #90 tabs 09/06/24 Rx diphenhydramine HCl 12.5 mg/5 mL 50 mg (20 mL) G-tube Q4H PRN 09/06/24 Rx oral elixir itching #500 mL Patient History Medical History Lab test negative for COVID-19 virus Septic shock S/P colectomy Autistic disorder Pain around PEG tube site Constipation Surgical History History of fundoplication History of appendectomy S/P cecostomy S/P tonsillectomy and adenoidectomy Family History Other FHx: heart disease Family history of diabetes mellitus Family history of gallbladder disease Family history of high blood pressure Social History Smoking Status: Never smoker Second Hand Exposure: No; Do You Dip or Chew Tobacco: No; Hx Alcohol Use: No Hx Substance Use: No Preferred Language: Malagasy Communication Ability: Effective Visual Impairment: No Limitations Hearing Ability: Normal 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 HEENT: Denies changes in vision and hearing. RESPIRATORY: Denies SOB and cough. CV: Denies palpitations and CP. GI: Denies abdominal pain, nausea, vomiting and diarrhea. : Denies dysuria and urinary frequency. MSK: Denies myalgia and joint pain. SKIN: Denies rash and pruritus. NEUROLOGICAL: Denies headache and syncope PSYCHIATRIC: Denies recent changes in mood. Denies anxiety and depression. Physical Exam General: playing video games / on his tablet comfortably NEUROLOGIC: No focal neurological deficits. Cranial nerves grossly intact. Results & Data Vital Signs (Past 12 Hours) Vital Signs Temp Pulse Pulse Resp BP Pulse Ox O2 Del Method 09/06/24 14:13 91 H 09/06/24 11:04 36.9 C 86 17 118/74 98 Room Air 09/06/24 08:19 36.7 C 86 19 113/68 98 Room Air 09/06/24 07:00 78 09/06/24 02:49 36.4 C L 85 18 98/65 L 98 Room Air Laboratory Results 09/04/24 22:50 Aerobic Blood Culture - Preliminary Blood Gram negative bacilli Anaerobic Blood Culture - Preliminary No growth in Anaerobic bottle after 24 hours. 09/04/24 22:45 Aerobic Blood Culture - Preliminary Blood Klebsiella pneumoniae Enterobacter cloacae complex Anaerobic Blood Culture - Preliminary Klebsiella pneumoniae Enterobacter cloacae complex 09/06/24 08:12 Aerobic Blood Culture - Pending Blood Anaerobic Blood Culture - Pending 09/06/24 08:00 Aerobic Blood Culture - Pending Blood Anaerobic Blood Culture - Pending 09/04/24 22:40 Aerobic Blood Culture - Preliminary Blood No growth in Aerobic bottle after 24 hours. Anaerobic Blood Culture - Preliminary No growth in Anaerobic bottle after 24 hours. 09/06/24 09/05/24 08:00 14:47 WBC 1.58 L RBC 4.96 Hgb 15.1 Hct 42.9 MCV 86.5 MCH 30.4 MCHC 35.2 RDW Std Deviation 39.8 RDW Coeff of Osvaldo 12.8 Plt Count 108 L MPV 9.3 L Sodium 139 Potassium 3.3 L Chloride 104 Carbon Dioxide 31 Anion Gap 4 BUN 6 Creatinine 0.60 Est Cr Clr Drug Dosing 158.5 eGFR 140.85 BUN/Creatinine Ratio 10.0 Glucose 92 POC Glucose 85 Calcium 9.4 Phosphorus 2.7 Magnesium 2.0
[2024-09-06] MEDS: CETIRIZINE HCL 10 MG TABLET PO SCH (14:41)
[2024-09-06] MEDS: DEXMETHYLPHENIDATE HCL 10 MG PO SCH (14:42)
[2024-09-06] MEDS: DEXMETHYLPHENIDATE 10 MG PO SCH (14:42)
--- NOTE | 2024-09-06 15:18 | Pharmacy Report ---
Pharmacy Initial PN Consult Nt - Date of Service September 06, 2024 - [facility] has been consulted on this date to manage parenteral nutrition orders and order appropriate labs. As part of the Nutrition Support Team Guidelines, pharmacy will work in conjunction with dietary when determining the patients c aloric needs. - Subjective * The patient is a 19 year old Male admitted on 09/05/24 for FEVER, HX OF SEPSIS AND BACTEREMIA. * Patient is to receive parenteral nutrition for chronic home TPN. * Pertinent PMHx: * Weidemann-Stiner Syndrome * Klippel-Feil syndrome * POTS * gastroparesis * ileostomy - Objective Vascular Access: * Patient currently has a central line. * Height & Weight (Last Documented) Height 5 ft 1 in Weight 65.4 kg Diet Order(s) 09/05/24 07:10 NPO Intake & Ouput (24hrs) 09/05/24 09/06/24 09/07/24 06:59 06:59 06:59 Intake Total 2875 / 2875 2983.333 / 2983.333 1000 / 1000 Output Total 425 / 425 2750 / 2750 1250 / 1250 Balance 2450 / 2450 233.333 / 233.333 -250 / -250 Selected Laboratory Results 09/06/24 08:00 Sodium 139 Potassium 3.3 L Chloride 104 Carbon Dioxide 31 Anion Gap 4 BUN 6 Creatinine 0.60 BUN/Creatinine Ratio 10.0 Glucose 92 Calcium 9.[address] - Initial Nutrition Assessment Start: 09/06/24 09:45 Freq: Status: Active Protocol: Document 09/06/24 09:46 WCHARLY (Rec: 09/06/24 10:37 DARCY [email or web address]) Co-signed By Amrit Mazariegos - Assessment & Plan Assessment: * Appreciate dietitians recommendations for macronutrients. * Will continue cyclic TPN as patient does at home, begins infusion with 1 hour ramp up at 1800, then 2 hour ramp down at 1200, ending infusion at 1400. * To reach home volume of 2900mL, will need additional fluids in addition to central Clinimix 8/14 formulation. NS @70mLs/hr is ordered which exceeds his typical TPN sodium content so no additional sodium has been added to TPN at this time for this reason. * Remainder of electrolytes similar to home TPN formulation * No lipids as patient has egg allergy and cannot use formulary Clinolipid. Uses SMOF at home, can submit a non-formulary request if necessary and patient is u nabgunjan to transfer to [place]. Plan: * For Day #1 of TPN administration, the following will be ordered: * Macronutrients: * Amino Acids: 96 grams/day * Dextrose: 168 grams/day * Lipids: HOLD (see assessment) * Micronutrients: * Potassium phosphate: 45 mMol/day * Potassium chloride: 40 mEq/day * Magnesium sulfate: 16.24 mEq/day * Calcium gluconate: 4.06 mEq/day * Multivitamins: 10 mL/day * Trace elements: 1 mL/day * Total volume of 1259 mL will be infused over 20 hours and will provide 956 kcal/day * Labs will be ordered per PN protocol. * Pharmacy will follow and adjust PN orders on a daily basis. Thank you!
[2024-09-06 15:31] VITALS: RESP 18
[2024-09-06] MEDS: [UNRECOGNIZED DRUG - OTHER] IV SCH (18:03)
[2024-09-06] MEDS: CENTRAL TPN IV SCH (18:03)
[2024-09-06] MEDS: TPN STOP ORDER ONE (18:28)
[2024-09-06] MEDS: ACETAMINOPHEN SUSP 325 MG/10.15 ML UDC GT PRN (21:45)
[2024-09-06] MEDS: FAMOTIDINE SUSP 20 MG/2.5 ML UDP GT SCH (21:51)
[2024-09-06 23:16] VITALS: BP 124/89; PULSE 93; TEMP 98.1; O2SAT 95
[2024-09-07] MEDS ORDERED: LANSOPRAZOLE 30 MG SOLTAB GT SCH (09:00)
== END 2024-09-07 00:56 | disposition short-term general hospital (02) | DRG 314 ==
LOC: ED 22:09 → OBSVTOIN 09-05 05:14 → INTOOBSV 09-05 05:14 → SUATTDRO 09-05 05:14 → EDINP 09-05 05:14 → 2S 09-05 07:11

== ENCOUNTER 2025-01-07 21:36 | Inpatient (IN) ==
[2025-01-07 22:20] LABS: Hematocrit (blood only) 34.5 % (42.0-52.0); Hemoglobin 11.7 g/dl (14.0-18.0); Immature Granulocytes # (auto) 0.01 K/uL (0.01-0.20); Immature Granulocytes % (auto) 0.4 %; Mean Corpuscular Hemoglobin 28.6 pg (25.0-34.0); Mean Corpuscular Volume 84.4 fL (80.0-100.0); Platelet Count 87 K/uL (130-400); RDW Standard Deviation 40.6 fL (36.4-46.3); Red Blood Count 4.09 M/uL (4.70-6.10); White Blood Count 2.77 K/ul (4.8-10.8)
[2025-01-07] MEDS: KETOROLAC TROMETHAMINE 15 MG/ML VIAL IV STA (22:26)
[2025-01-07] MEDS: SODIUM CHLORIDE 0.9% 1,000 ML IV SCH (22:27)
[2025-01-07 22:38] LABS: Anion Gap 8.0 (3-11); Blood Urea Nitrogen 13.0 mg/dl (6-23); Calcium 9.1 mg/dl (8.6-10.3); Carbon Dioxide 26.0 mmol/L (21-32); Chloride 102.0 mmol/L (98-107); Creatinine Clr Calc Pharmacy 199.8 ml/min; Glucose 111.0 mg/dl (70-99(Fasting)); Potassium 3.5 mmol/L (3.5-5.1); Sodium 136.0 mmol/L (136-145)
[2025-01-07 22:43] LABS: Procalcitonin 0.62 ng/ml (0-0.5)
[2025-01-07 22:45] LABS: Alkaline Phosphatase 204.0 U/L (34-104); Bilirubin,Total 1.3 mg/dl (0.2-1.0); Magnesium 1.6 mg/dl (1.7-2.4); Total Protein 6.5 gm/dl (6.0-8.3)
[2025-01-07 22:56] LABS: Alanine Aminotransferase 605.0 U/L (7-52)
--- NOTE | 2025-01-07 23:02 | Emergency Department Note ---
History of Present Illness General Chief complaint: Fever Stated complaint: FEVER W/ PICC LINE Time Seen by Provider: 01/07/25 21:46 Source: patient and family (Parents at bedside) History of Present Illness Provider complaint: Fever Onset (ago): day(s) 1 Maximum Pain Intensity: [age]-year-old male with complicated medical history including Klippel-Feil syndrome, neurogenic bladder, intellectual disability, pancytopenia, and recurrent central line associated bloodstream infections presented to the emergency department for fever. Parents reports that the patient had a fever this evening. They report they gave him Tylenol at 8 PM. Patient reports myalgias headache. Parents state they were just discharged from [facility] for similar symptoms. They state his blood cultures were were negative there. They state they removed his central line that he usually has and put in a PICC line. They report the patient is currently on 2 outpatient antibiotics. They presented me with a care plan from the patient which states that the patient is supposed to be worked up for sepsis and transferred to [facility]. Home Medications Medication Instructions Recorded Confirmed Type Tpn Sari 1 ea continuous IV infusion 11/12/21 01/07/25 History DIRECTED atenolol 25 mg tablet 25 mg feeding tube QAM 11/12/21 01/07/25 History fludrocortisone 0.1 mg tablet 0.2 mg feeding tube DAILY 11/12/21 01/07/25 History heparin (porcine) 10 unit/mL in 3 ml IV DIRECTED PRN NEEDED 11/12/21 01/07/25 History 0.9 % sodium chloride intravenous kit famotidine (PF) 20 mg/2 mL 40 mg continuous IV infusion DAILY 02/08/22 01/07/25 History intravenous solution sodium chloride 0.9 % 1,000 ml IV DIRECTED 07/20/22 01/07/25 History acetaminophen 500 mg tablet 500 mg feeding tube Q6H PRN .Fever 09/25/22 01/07/25 History (Tylenol Extra Strength) >38 C, MILD-MOD PAIN tamsulosin 0.4 mg capsule 0.4 mg PO QAM 09/25/22 01/07/25 History dexmethylphenidate 30 mg 30 mg PO .DAILY@0800 11/20/22 01/07/25 History capsule,extended release [id number] menthol 0.44 %-zinc oxide 20.6 % 1 applic topical DIRECTED PRN 11/20/22 01/07/25 History topical ointment AFFECTED AREAS, G/J-TUBE baclofen 10 mg tablet 10 mg feeding tube QID 01/26/23 01/07/25 History dexmethylphenidate 10 mg tablet 10 mg PO .DAILY@1200 06/11/24 01/07/25 History cholecalciferol (vitamin D3) 50 50 mcg PO HS 09/05/24 01/07/25 History mcg/drop (2,000 unit/drop) oral drops melatonin 10 mg tablet 10 mg feeding tube HS 09/05/24 01/07/25 History Sterile Water Irrigation 5 - 20 ml feeding tube TID FLUSH 01/07/25 01/07/25 History AFTER MEDS. apixaban 5 mg tablet (Eliquis) 5 mg feeding tube BID 01/07/25 01/07/25 History cefadroxil 500 mg capsule 500 mg PO BID 01/07/25 01/07/25 History cetirizine 10 mg tablet 10 mg PO TID 01/07/25 01/07/25 History ciprofloxacin 0.3 %-dexamethasone 2 drp DIRECTED PRN DRESSING 01/07/25 01/07/25 History 0.1 % ear drops,suspension CHANGES dextrose 10 % in water (D10W) 10 % 1,000 ea IV DIRECTED PRN PUMP 01/07/25 01/07/25 History in water (D10W) intravenous FAILURE/WEATHER EMERGENCY. solution diphenhydramine HCl 25 mg tablet 25 mg feeding tube HS 01/07/25 01/07/25 History (Benadryl Allergy) doxycycline hyclate 100 mg capsule 100 mg PO BID 01/07/25 01/07/25 History duloxetine 60 mg capsule,delayed 60 mg PO BID 01/07/25 01/07/25 History release econazole nitrate 1 % topical cream 1 applic topical DAILY 01/07/25 01/07/25 History electrolytes-dextrose oral 0 ml feeding tube DIRECTED 01/07/25 01/07/25 History solution (Pedialyte oral solution) famotidine 20 mg tablet 20 mg feeding tube QAM 01/07/25 01/07/25 History fat emulsion-soybean [id number] 350 ml IV 5XWK 01/07/25 01/07/25 History oil-fish oil 20 % intravenous (SMOFlipid) heparin flush (porcine) 100 5 unit IV DIRECTED 01/07/25 01/07/25 History unit/mL in 0.9 % sodium chloride IV kit mirabegron 25 mg tablet,extended 25 mg PO DAILY 01/07/25 01/07/25 History release 24 hr ondansetron HCl 4 mg tablet 4 mg PO Q8H PRN Nausea 01/07/25 01/07/25 History pantoprazole 40 mg intravenous 40 mg IV DAILY 01/07/25 01/07/25 History solution simethicone 80 mg chewable tablet 40 mg PO Q6H PRN GAS/ABD PAIN 01/07/25 01/07/25 History sodium chloride 0.9 % 1,500 ml IV DIRECTED 01/07/25 01/07/25 History sodium chloride 0.9 % (flush) 10 ml IV DAILY 01/07/25 01/07/25 History therapeutic multivitamin 10 ml PO DAILY 01/07/25 01/07/25 History Allergies Allergy/AdvReac Type Severity Reaction Status Date / Time dexmedetomidine Allergy Severe LOW BLOOD Verified 01/07/25 23:19 [From Precedex] PRESURE egg Allergy Severe Hives Verified 01/07/25 23:19 Wheezing midazolam Allergy Severe ANAPHYLAXIS Verified 01/07/25 23:19 alcohol Allergy Intermediate Rash/ Verified 01/07/25 23:19 [From Mastisol Adhesive] severe burning sensation of the skin fiber Allergy Intermediate Rash Verified 01/07/25 23:19 [From Peptide Formula 1.5] gum mastic Allergy Intermediate Rash/ Verified 01/07/25 23:19 [From Mastisol Adhesive] severe burning sensation of the skin iodine Allergy Intermediate RASH Verified 01/07/25 23:19 methyl salicylate Allergy Intermediate Rash/ Verified 01/07/25 23:19 [From Mastisol Adhesive] severe burning sensation of the skin nutritional Allergy Intermediate Rash Verified 01/07/25 23:19 supplement,special formulas [From Peptide Formula 1.5] storax Allergy Intermediate Rash/ Verified 01/07/25 23:19 [From Mastisol Adhesive] severe burning sensation of the skin vancomycin Allergy Mild RED AMIRA Verified 01/07/25 23:19 ketamine AdvReac Intermediate Hallucinati Verified 01/07/25 23:19 ng Past Med/Surg History Problem List (Updated 01/08/25 @ 00:14 by Tru Dejesus MD) Lyme disease (Acute) History of colectomy History of ileostomy Bacteremia due to Enterobacter species Bacteremia due to Klebsiella pneumoniae Gram-negative sepsis Fever of unknown origin (Acute) Fever (Acute) Bacteremia due to methicillin susceptible Staphylococcus aureus (MSSA) Bacterial sepsis Tachycardia (Acute) Bladder dysfunction Insomnia POTS (postural orthostatic tachycardia syndrome) On total parenteral nutrition (TPN) Bacteremia History of central line-associated bloodstream infection (CLABSI) (Acute) Wiedemann-Xavier syndrome Klippel-Feil syndrome (Chronic) Abnormal LFTs Allergic reaction caused by a drug Mid back pain (Acute) Asthma (Chronic) Reflux (Chronic) Bowel dysfunction (Acute) Dehydration (Acute) ADHD (attention deficit hyperactivity disorder) (Chronic) Jejunostomy tube fell out (Acute) Medical History Lab test negative for COVID-19 virus Septic shock S/P colectomy Autistic disorder Pain around PEG tube site Constipation Surgical History History of fundoplication History of appendectomy S/P cecostomy S/P tonsillectomy and adenoidectomy Family History Other FHx: heart disease Family history of diabetes mellitus Family history of gallbladder disease Family history of high blood pressure Social History Smoking Status: Never smoker Second Hand Exposure: No; Do You Dip or Chew Tobacco: No; Hx Alcohol Use: No Hx Substance Use: No Preferred Language: Macedonian Communication Ability: Effective Visual Impairment: No Limitations Hearing Ability: Normal Linen Room Houseperson Required: No Beliefs That Will Affect Care: Spiritual Current Living Situation: Family Feels Safe at Home: Yes Assistive Devices: Walker and Wheelchair Physical Exam Vital Signs Vital Signs - 24 hr 01/07/25 21:38 01/07/25 21:46 01/07/25 21:46 Temperature 37.9 C H Temperature Source Oral Pulse Rate 129 H 116 H Pulse Rate [Right Finger] 115 H Pulse Rhythm Regular Pulse Rhythm [Right Finger] Pulse Strength Normal Respiratory Rate 18 20 16 Respiratory Effort / Characteristics Non-Labored Spontaneous Respiratory Depth Normal Normal Respiratory Pattern Regular Blood Pressure 133/86 Blood Pressure [Left Arm] 110/74 Blood Pressure Mean 101 Blood Pressure Mean [Left Arm] 86 Blood Pressure Position Sitting Pulse Oximetry 96 97 Oxygen Delivery Method Room Air Room Air Room Air Sepsis Recent Fever Within 48 Hours Yes Sepsis New/Unexplained Change in Mental Status No Sepsis Action Taken by Nursing No Action Required 01/07/25 21:46 01/07/25 21:57 01/07/25 22:31 Temperature Temperature Source Pulse Rate 115 H Pulse Rate [Right Finger] 115 H 98 H Pulse Rhythm Pulse Rhythm [Right Finger] Regular Pulse Strength Respiratory Rate 20 16 Respiratory Effort / Characteristics Respiratory Depth Normal Respiratory Pattern Blood Pressure Blood Pressure [Left Arm] 110/74 111/74 Blood Pressure Mean Blood Pressure Mean [Left Arm] 86 86 Blood Pressure Position Pulse Oximetry 95 97 Oxygen Delivery Method Room Air Room Air Sepsis Recent Fever Within 48 Hours Sepsis New/Unexplained Change in Mental Status Sepsis Action Taken by Nursing 01/07/25 23:07 01/07/25 23:40 Temperature Temperature Source Pulse Rate Pulse Rate [Right Finger] 110 H 94 H Pulse Rhythm Pulse Rhythm [Right Finger] Regular Regular Pulse Strength Respiratory Rate 20 20 Respiratory Effort / Characteristics Respiratory Depth Normal Normal Respiratory Pattern Blood Pressure Blood Pressure [Left Arm] 125/70 110/80 Blood Pressure Mean Blood Pressure Mean [Left Arm] 88 90 Blood Pressure Position Pulse Oximetry 95 96 Oxygen Delivery Method Room Air Room Air Sepsis Recent Fever Within 48 Hours Sepsis New/Unexplained Change in Mental Status Sepsis Action Taken by Nursing Physical Exam GENERAL: Ill-appearing. CV: Tachycardic rate, regular rhythm, normal heart sounds and intact distal pulses. There is no peripheral edema. Palpable radial pulses bue. PULM/CHEST: Effort normal and breath sounds normal. No respiratory distress. No stridor. He has no wheezes. He has no rales. ABD: The abdomen is soft. Ostomy present. MUSC/SKEL: PICC line in the patient's right upper extremity. Course Course 2145: The patient was evaluated in room C11. A complete history and physical exam was performed Cardiac monitoring: An order was placed for continuous cardiac monitoring. The monitor shows a rate of 120 with sinus tachycardia rhythm interpreted by ma Sepsis protocols initiated. 2300: Labs show white blood cell count 2.77 hemoglobin 11.7 sodium 136 total bili 1.3 direct bilirubin 0.7 AST 216 ALT 605 alkaline phosphatase 204. Lactic acid was within normal limits. Procalcitonin elevated 0.62. Spoke with Dr. Goodwin on-call infectious disease at [facility]. He states that there is no need for transfer at this time. He does recommend adding on a fungal blood culture to the patient. He states continue cefepime and vancomycin as instructed by the care plan. He did state that the mother sometimes directs the patient's care and advocates for the patient to be transferred to [facility] however he states that there is no need at this time and that antibiotics can be given here and cultures can be followed here. I did discuss these findings with the patient and the family at bedside. The patient and the mother were uneasy about the plan to be admitted here stating they have had negative experiences and eventually need to be transferred to [facility] in the past. They had several questions about the patient's PICC line and TPN which I stated I would contact Dr. Goodwin about and relayed to him. I relayed the patient's and mother's concerns to Dr. Goodwin and he states he would not be the accepting physician. He states he did not want to make decision if the patient need to be transferred to [place] but ultimately was up to the patient. The patient and mother seemed to be more comfortable being transferred to [place] as it is dictated by their care plan. Dr. Goodwin stated to speak with the hospitalist at [facility]. 2317: Spoke with Dr. Angeles [facility] hospitalist. He agreed with Dr. Goodwin's assessment that blood cultures can be followed here and IV antibiotics can be given here. I again expressed to him the patient and family's concerns about not following the care plan and initiating transfer. After very lengthy discussion Dr. Angeles did agree to accept the patient. Unfortunately there are no beds available at [facility] and he stated that he would be the accepting physician but since there are no beds available we decided we would admit the patient here. Dr. Angeles did make note that the systems triage officer would review this transfer in the morning to determine when and if the patient should be transferred to [place]. I did discuss this with the patient and family and they are in agreement with the plan to be admitted here overnight. They understand that the patient's case will be reviewed in the morning by [facility] systems triage officer. Upon reviewing the patient's blood work, I did ask if that they have any pets or if the patient has been exposed to any ticks. They state they do have several pets but the patient has not been outside exposed to any pets. Patient's blood work from [facility] during his last admission did not show any testing for any tickborne illnesses however given the patient's persistent fevers I did decide to add on a tickborne illness panel. 0011: Vital signs stable. Patient's respiratory bio fire is negative. Patient's tickborne panel was sent out. Patient is Lyme screen positive. We will continue with the plan to do the patient cefepime and vancomycin and will also continue his doxycycline and cefotaxime that he was discharged with. Will definitely continue doxycycline as he tested positive for Lyme. Other tickborne illness panel blood work is still pending. Discussed the case with Dr. Baeza [facility] hospitalist who did agree to admit the patient to the hospital tonight. Administered Medications Discontinued Medications Diphenhydramine HCl (Diphenhydramine 50 Mg/Ml Vial) 25 mg IV NOW STA Stop: 01/07/25 23:16 Last Admin: 01/07/25 23:55 Dose: 25 mg Documented By: YAKOV Sodium Chloride (Nss) 1,000 mls @ 999 mls/hr IV .Q1H1M MORENITA Stop: 01/07/25 23:00 Last Admin: 01/07/25 22:27 Dose: 999 mls/hr Documented By: YAKOV Cefepime HCl (Maxipime 2000mg) 2,000 mg in 20 mls @ 5 mls/min IV NOW STA; Protocol Stop: 01/07/25 23:17 Last Admin: 01/07/25 23:40 Dose: 5 mls/min Documented By: YAKOV Ketorolac Tromethamine (Ketorolac Tromethamine 15 Mg/Ml Vial) 15 mg IV NOW STA Stop: 01/07/25 22:20 Last Admin: 01/07/25 22:26 Dose: 15 mg Documented By: YAKOV Medical Decision Making Medical Records Attestation: I reviewed the patient's medical records. External medical records reviewed. Family presented me with a care plan signed by Dr. Torres Snowden director of the [facility] clinic at [facility]. According to this, the patient has a history of recurrent several central line infections as well as UTIs secondary to his neurogenic bladder. They stated that the patient has fevers to obtain CBC procalcitonin urinalysis and urine culture. It states that the patient should be transferred to [facility] and recommended starting vancomycin and cefepime and to call infectious disease at [facility]. 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 Medical records were reviewed from patient's last admission from [facility] from December 29 to January 04, 2025. According to the discharge summary by Dr. Diaz the patient presented with fevers and having headaches and myalgias and tachycardia. On presentation the patient's labs showed a white blood cell count of 2.33, hemoglobin 12.8 platelet count 78 CRP 30 AST 348 ALT 676 alk phos 243 chest x- ray was unremarkable and an abdominal ultrasound showed hepatomegaly with hepatic steatosis. The patient's elevated liver enzymes were thought to be due to his TPN. The patient had his central line removed and a PICC line inserted on January 03, 2025. The patient blood cultures did not grow out anything and the patient was transition from IV antibiotics to oral antibiotics cefadroxil and doxycycline and was supposed to finish this on January 12, 2025. Laboratory Data Attestation: I reviewed the patient's lab results. 01/07/25 22:04 01/07/25 22:04 Lab Results 01/07/25 01/07/25 01/07/25 Range/Units 22:00 22:04 22:30 WBC 2.77 L (4.8-10.8) K/ul RBC 4.09 L (4.70-6.10) M/uL Hgb 11.7 L (14.0-18.0) g/dl Hct 34.5 L (42.0-52.0) % MCV 84.4 (80.0-100.0) fL MCH 28.6 (25.0-34.0) pg MCHC 33.9 (32.0-36.0) g/dL RDW Std Deviation 40.6 (36.4-46.3) fL RDW Coeff of Osvaldo 13.2 (11.5-14.5) % Plt Count 87 L (130-400) K/uL MPV 10.1 (9.4-12.4) fL Immature Gran % (Auto) 0.4 % Neut % (Auto) 85.1 % Lymph % (Auto) 5.8 % [place] % (Auto) 7.6 % Eos % (Auto) 1.1 % Baso % (Auto) 0.0 % Neut # (Auto) 2.36 (1.40-6.50) K/uL Lymph # (Auto) 0.16 L (1.20-3.40) K/uL [place] # (Auto) 0.21 (0.11-0.59) K/uL Eos # (Auto) 0.03 (0.00-0.50) K/uL Baso # (Auto) 0.00 (0.00-0.20) K/uL Immature Gran # (Auto) 0.01 (0.01-0.20) K/uL PT Cancelled INR Cancelled APTT Cancelled PTT Ratio Cancelled Sodium 136 (136-145) mmol/L Potassium 3.5 (3.5-5.1) mmol/L Chloride 102 (98-107) mmol/L Carbon Dioxide 26 (21-32) mmol/L Anion Gap 8 (3-11) BUN 13 (6-23) mg/dl Creatinine 0.49 L (0.6-1.4) mg/dl Est Cr Clr Drug Dosing 199.8 ml/min eGFR 149.73 BUN/Creatinine Ratio 26.5 H (10-20) Glucose 111 H (70-99(Fasting)) mg/dl Lactate 1.2 (0.4-2.0) mmol/L Calcium 9.1 (8.6-10.3) mg/dl Magnesium 1.6 L (1.7-2.4) mg/dl Total Bilirubin 1.3 H (0.2-1.0) mg/dl Direct Bilirubin 0.7 H (0-0.2) mg/dl AST 216 H (13-39) U/L ALT 605 H (7-52) U/L Alkaline Phosphatase 204 H (34-104) U/L Troponin I High Sens 8.3 (0-20) pg/ml Total Protein 6.5 (6.0-8.3) gm/dl Albumin 3.9 (3.4-5.0) gm/dl Procalcitonin 0.62 H (0-0.5) ng/ml Adenovirus (PCR) Not Detected (NotDetected) Anaplasma Smear See Comment Babesia Smear See Comment B. pertussis DNA (PCR) Not Detected (NotDetected) B.parapertussis DNA PCR Not Detected (NotDetected) Lyme Disease Screen Positive H (Negative) C. pneumoniae DNA (PCR) Not Detected (NotDetected) Coronavirus OC43 (PCR) Not Detected (NotDetected) Coronavirus HKU1 (PCR) Not Detected (NotDetected) Coronavirus 229E (PCR) Not Detected (NotDetected) SARS-CoV-2 (PCR) Not Detected (NotDetected) Coronavirus NL63 (PCR) Not Detected (NotDetected) Human Metapneumovir PCR Not Detected (NotDetected) Influenza Type A (PCR) Not Detected (NotDetected) Influenza Type B (PCR) Not Detected (NotDetected) M. pneumoniae (PCR) Not Detected (NotDetected) Parainfluenza 1 (PCR) Not Detected (NotDetected) Parainfluenza 2 (PCR) Not Detected (NotDetected) Parainfluenza 3 (PCR) Not Detected (NotDetected) Parainfluenza 4 (PCR) Not Detected (NotDetected) RSV (PCR) Not Detected (NotDetected) Entero/Rhino (PCR) Not Detected (NotDetected) Imaging Data Attestation: I personally reviewed and interpreted this imaging study as follows: My Impression: Chest x-ray negative. Airway clear. No pneumothorax. No consolidation. No cardiomegaly or cephalization.. No free air under the diaphragm. No fractures of the skeletal structures. ECG Data Attestation: I personally reviewed and interpreted this ECG as follows: Rate (beats per minute): 111 Rhythm: + sinus tachycardia ECG Intervals/blocks: + Normal QRS, + Normal ID and + Normal QT-c ECG ST segments: + Normal ST segments [facility] Narrative 2146: The patient was evaluated in room C11. A complete history and physical exam was performed Cardiac monitoring: An order was placed for continuous cardiac monitoring. The monitor shows a rate of 120 with sinus tachycardia rhythm interpreted by me Sepsis protocols initiated. 2300: Labs show white blood cell count 2.77 hemoglobin 11.7 sodium 136 total bili 1.3 direct bilirubin 0.7 AST 216 ALT 605 alkaline phosphatase 204. Lactic acid was within normal limits. Procalcitonin elevated 0.62. Spoke with Dr. Goodwin on-call infectious disease at [facility]. He states that there is no need for transfer at this time. He does recommend adding on a fungal blood culture to the patient. He states continue cefepime and vancomycin as instructed by the care plan. He did state that the mother sometimes directs the patient's care and advocates for the patient to be transferred to [facility] however he states that there is no need at this time and that antibiotics can be given here and cultures can be followed here. I did discuss these findings with the patient and the family at bedside. The patient and the mother were uneasy about the plan to be admitted here stating they have had negative experiences and eventually need to be transferred to [facility] in the past. They had several questions about the patient's PICC line and TPN which I stated I would contact Dr. Goodwin about and relayed to him. I relayed the patient's and mother's concerns to Dr. Goodwin and he states he would not be the accepting physician. He states he did not want to make decision if the patient need to be transferred to [place] but ultimately was up to the patient. The patient and mother seemed to be more comfortable being transferred to [place] as it is dictated by their care plan. Dr. Goodwin stated to speak with the hospitalist at [facility]. 2317: Spoke with Dr. Angeles [facility] hospitalist. He agreed with Dr. Goodwin's assessment that blood cultures can be followed here and IV antibiotics can be given here. I again expressed to him the patient and family's concerns about not following the care plan and initiating transfer. After very lengthy discussion Dr. Angeles did agree to accept the patient. Unfortunately there are no beds available at [facility] and he stated that he would be the accepting physician but since there are no beds available we decided we would admit the patient here. Dr. Angeles did make note that the systems triage officer would review this transfer in the morning to determine when and if the patient should be transferred to [place]. I did discuss this with the patient and family and they are in agreement with the plan to be admitted here overnight. They understand that the patient's case will be reviewed in the morning by [facility] systems triage officer. Upon reviewing the patient's blood work, I did ask if that they have any pets or if the patient has been exposed to any ticks. They state they do have several pets but the patient has not been outside exposed to any pets. Patient's blood work from [facility] during his last admission did not show any testing for any tickborne illnesses however given the patient's persistent fevers I did decide to add on a tickborne illness panel. 0011: Vital signs stable. Patient's respiratory bio fire is negative. Patient's tickborne panel was sent out. Patient is Lyme screen positive. We will continue with the plan to do the patient cefepime and vancomycin and will also continue his doxycycline and cefotaxime that he was discharged with. Will definitely continue doxycycline as he tested positive for Lyme. Other tickborne illness panel blood work is still pending. Discussed the case with Dr. Baeza [facility] hospitalist who did agree to admit the patient to the [facility]. Impression & Plan Fever of unknown origin, Lyme disease Discharge Plan Visit Data Chief Complaint: Fever Stated Complaint: FEVER W/ PICC LINE ED Provider: Tru Dejesus Discharge Problem: Fever of unknown origin, Lyme disease Patient Disposition: Admitted As Inpatient Condition: Fair Forms Stand Alone Forms: My [facility] Prescriptions Prescriptions: No Action famotidine (PF) 20 mg/2 mL Solution 40 mg continuous IV infusion DAILY Rx Instructions: Add to TPN acetaminophen [Tylenol Extra Strength] 500 mg Tablet 500 mg feeding tube Q6H PRN (Reason: .Fever >38 C, MILD-MOD PAIN) Rx Instructions: DO NOT EXCEED 3,000 MG DAILY tamsulosin 0.4 mg capsule 0.4 mg PO QAM baclofen 10 mg tablet 10 mg feeding tube QID atenolol 25 mg tablet 25 mg feeding tube QAM fludrocortisone 0.1 mg tablet 0.2 mg feeding tube DAILY heparin (porcine) in 0.9% NaCl 10 unit/mL Kit 3 ml IV DIRECTED PRN (Reason: NEEDED) Rx Instructions: Per mother, they use it PRN. USE DAILY TO WHITE LUMEN, THEN SUN, TUES, THUR, & SAT. TO RED LUMEN. Tpn Sari 1 ea continuous IV infusion DIRECTED Rx Instructions: ADMINISTER IV 2,640 ML DAILY. 2,900 ML PER DAY @ 145 ML/HR X 20 HOURS. TAPERS BETWEEN A TOTAL OF 17 HOURS. 1 hour taper up, 17 hour run time, 2 hour taper down per mother. sodium chloride 0.9 % Solution 1,000 ml IV DIRECTED Rx Instructions: ADMINISTER 1,000 ML OVER 2 HOURS IV DAILY NEEDED. menthol-zinc oxide 0.44-20.6 % Ointment 1 applic TOPICAL DIRECTED PRN (Reason: AFFECTED AREAS, G/J-TUBE) dexmethylphenidate 30 mg capsule,ER biphasic 50-50 30 mg PO .DAILY@0800 Rx Instructions: TAKES AT 0800; PARENT HAS MED WITH THEM doxycycline hyclate 100 mg capsule 100 mg PO BID Rx Instructions: STARTED 01/04/25 FOR 9 DAYS ondansetron HCl [Zofran] 4 mg Tablet 4 mg PO Q8H PRN (Reason: Nausea) pantoprazole 40 mg Recon Soln 40 mg IV DAILY Rx Instructions: MIX WITH 10 ML OF NSS. ADMINISTER VIA SLOW IV PUSH OVER 3-5 MINUTES DAILY. cefadroxil 500 mg capsule 500 mg PO BID Rx Instructions: OF 01/04/25, TAKE FOR 9 MORE DAYS. famotidine 20 mg Tablet 20 mg feeding tube QAM sodium chloride 0.9 % Solution 1,500 ml IV DIRECTED Rx Instructions: ADMINISTER 1,500 ML OVER 20 HRS DAILY. . administer before and after IV drug administration as part of [facility] protocol econazole nitrate 1 % Cream 1 applic TOPICAL DAILY Rx Instructions: APPLY TO RASH diphenhydramine HCl [Benadryl Allergy] 25 mg Tablet 25 mg feeding tube HS Rx Instructions: MAY GIVE 50 MG VIA G-TUBE NEEDED FOR ITCHING/ANXIETY electrolytes-dextrose [Pedialyte] Solution 0 ml feeding tube DIRECTED Rx Instructions: MIX WITH ELECARE JR. AND WATER. ADMINISTER AT GOAL OF 8 ML/HR CONTINUOUSLY VIA FEEDING TUBE VIA PUMP. simethicone 80 mg Tablet,Chewable 40 mg PO Q6H PRN (Reason: GAS/ABD PAIN) Multivitamin Therapeutic Liquid 10 ml PO DAILY Rx Instructions: ADD TO INFUSION heparin flush(porcine)-0.9NaCl 100 unit/mL Kit 5 unit IV DIRECTED Rx Instructions: FLUSH PICC LINE. administer after IV drug administration as part of [facility] protocol dextrose 10 % in water (D10W) 10 % Parenteral Solution 1,000 ea IV DIRECTED PRN (Reason: PUMP FAILURE/WEATHER EMERGENCY.) sodium chloride 0.9 % (flush) Syringe 10 ml IV DAILY Rx Instructions: administer before and after IV drug administration as part of [facility] protocol ciprofloxacin-dexamethasone 0.3-0.1 % Drops,Suspension 2 drp DIRECTED PRN (Reason: DRESSING CHANGES) Rx Instructions: APPLY 2 DRPS TO AFFECTED SITE AT LEAST EVERY 3-4 DAYS OR WITH DRESSING CHANGES. duloxetine 60 mg capsule,delayed release(DR/EC) 60 mg PO BID mirabegron 25 mg Tablet Extended Release 24 Hr 25 mg PO DAILY Eliquis 5 mg tablet 5 mg feeding tube BID SMOFlipid 20 % Emulsion 350 ml IV 5XWK Rx Instructions: THURSDAY THROUGH . Sterile Water Irrigation 5 - 20 ml feeding tube TID cetirizine 10 mg tablet 10 mg PO TID dexmethylphenidate 10 mg Tablet 10 mg PO .DAILY@1200 Rx Instructions: if needed parent can bring in the 10 mg cholecalciferol (vitamin D3) 50 mcg/drop (2, 000 unit/drop) Drops 50 mcg PO HS melatonin 10 mg Tablet 10 mg feeding tube HS Referrals Referrals: Torres Snowden MD [Primary Care Provider] -
[2025-01-07] MEDS ORDERED: VANCOMYCIN CONSULT ACTIVE PRN (23:15)
[2025-01-07 23:27] LABS: Lyme Screen Rflx Confirmation Positive (Negative)
[2025-01-07] MEDS: CEFEPIME 2000MG 2,000 MG/20 ML SYR IV STA (23:40)
[2025-01-07 23:53] LABS: Chlamydia pneumoniae PCR Not Detected (NotDetected); Coronavirus 229E PCR Not Detected (NotDetected); Coronavirus CoV-2 (COVID19)PCR Not Detected (NotDetected); Coronavirus HKU1 PCR Not Detected (NotDetected); Coronavirus NL63 PCR Not Detected (NotDetected); Coronavirus OC43PCR Not Detected (NotDetected); Human Metapneumovirus PCR Not Detected (NotDetected); Parainfluenza Virus 1 PCR Not Detected (NotDetected); Parainfluenza Virus 2 PCR Not Detected (NotDetected); Parainfluenza Virus 3 PCR Not Detected (NotDetected); Parainfluenza Virus 4 PCR Not Detected (NotDetected); Respiratory Syncytial VirusPCR Not Detected (NotDetected); Rhinovirus/Enterovirus PCR Not Detected (NotDetected)
[2025-01-07] MEDS: diphenhydrAMINE 50 MG/ML VIAL IV STA (23:55)
[2025-01-08 00:11] LABS: Lyme Ab IgG 2nd Tier Confirm Negative (Negative)
[2025-01-08 00:12] LABS: Lyme Ab IgM 2nd Tier Confirm Negative (Negative)
[2025-01-08 00:12] LABS: Base Excess VBG 4.0 mEq/L; HCO3 VBG 29 mmol/L; Oxygen Saturation VBG 83.8 %; PCO2 VBG 45 mmHg (38-50); PO2 VBG 49 mmHg; pH VBG 7.42 (7.36-7.41)
[2025-01-08 00:34] LABS: INR 1.1 (0.9-1.1); Partial Thromboplastin Time 27 Seconds (21-31); Prothrombin Time 11.4 Seconds (9.0-12.0)
[2025-01-08] MEDS: VANCOMYCIN HCL 1,500 MG in SODIUM CHLORIDE 0.9% 500 ML IV ONE (01:26)
--- NOTE | 2025-01-08 02:52 | XRay Report ---
Exam(s): XR CXR 1 VIEW EXAM: XR Chest, 1 View CLINICAL HISTORY: Reason for exam: Sepsis. TECHNIQUE: Frontal view of the chest. COMPARISON: Prior chest x-ray from September 04, 2024. FINDINGS: There is a loop right brachial approach PICC line in place with the distal tip in the right ventricle. Lungs: Unremarkable. No consolidation. Pleural space: Unremarkable. No pneumothorax. Heart: Moderate cardiomegaly. Mediastinum: Unremarkable. Normal mediastinal contour. Bones/joints: Unremarkable. No acute fracture. IMPRESSION: No evidence of acute cardiopulmonary process. There is a right brachial approach PICC line in place with the distal tip in the right ventricle. Recommend pulling back catheter 8-9 cm Electronically signed by: Naya Curtis MD 01/08/25 02:51 AM
--- NOTE | 2025-01-08 02:56 | History & Physical Report ---
Date of Service January 08, 2025 Assessment & Plan (1) Fever: Plan: 19-year-old male with past medical history significant for mild persistent asthma, obstructive sleep apnea, POTS, moderate protein calorie malnutrition, history of Klippel-Feil syndrome, Wiedemann Xavier syndrome, nutrition through TPN, ADD, gastroparesis insomnia, bladder dysfunction comes because of Fevers. Patient was recently admitted at [facility] on 12/29/2024 and discharged on 01/04/2025. Patient was admitted for fevers, headaches and tachycardia. Patient has history of multiple bloodstream infection and is high risk for CLABSI. And because of complex history ID was consulted and was started on broad-spectrum antibiotics. Cultures from the venous blood sample and Central line did not show any growth. TPN was held for 48 hours until until negative blood cultures. Patient also had his central line removed and PICC line was inserted on 01/03/2025 given his history of CLABSI and the fevers. The plan is to need line replacement following completion of antibiotics. Hepatology was consulted foR elevated transaminase and and was felt elevated to TPN's and was recommended to follow-up with them as outpatient. Patient also follows with nutrition. Patient was discharged on p.o. doxycycline and cefadroxil until 01/12/2025. Yesterday's Thursday at 8 PM patient started having fevers. Complaining of headaches and bodyaches. There was no retching or vomiting. His ileostomy was working okay. Patient can speak and can ambulate. For long distances wheelchair is used. Patient complains of headache. Denies any nausea. Denies chest pain. Denies abdominal pain. Denies back pain. Denies pain in the legs. Hemodynamics are okay. According to the care plan to give Vanco with IV Benadryl as patient has allergy to vancomycin and cefepime and sepsis workup and to transfer to [facility]. ER talked with the [facility] ID and they said patient can be managed here. But mother wanted to be transferred to [facility] so the ER called back again [facility] and spoke with ID and hospitalist and was accepted for transfer but no bed availability at this time. Patient is on TPN for 20 hours. Patient also gets 1.5 L of normal saline daily in a period of 20 hours. Total he gets 4.5 L fluid daily Fever History of CLABSI Has PICC line. 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 Nutrition Patient is TPN dependent Will hold the nutrition until cultures available IV fluids ADHD Continue home medications Chronic back pain On baclofen Bladder dysfunction On mirabegron and Flomax Insomnia On melatonin Nocturnal hypoxia oxygen q hs? DVT prophylaxis On Eliquis Disposition Telemetry Full code. History of Present Illness Chief Complaint: Fevers Primary Care Provider: Torres Snowden 19-year-old male with past medical history significant for mild persistent asthma, obstructive sleep apnea, POTS, moderate protein calorie malnutrition, history of Klippel-Feil syndrome, Wiedemann Xavier syndrome, nutrition through TPN, ADD, gastroparesis insomnia, bladder dysfunction comes because of Fevers. Patient was recently admitted at [facility] on 12/29/2024 and discharged on 01/04/2025. Patient was admitted for fevers, headaches and tachycardia. Patient has history of multiple bloodstream infection and is high risk for CLABSI. And because of complex history ID was consulted and was started on broad-spectrum antibiotics. Cultures from the venous blood sample and Central line did not show any growth. TPN was held for 48 hours until until negative blood cul tures. Patient also had his central line removed and PICC line was inserted on 01/03/2025 given his history of CLABSI and the fevers. The plan is to need line replacement following completion of antibiotics. Hepatology was consulted foR elevated transaminase and and was felt elevated to TPN's and was recommended to follow-up with them as outpatient. Patient also follows with nutrition. Patient was discharged on p.o. doxycycline and cefadroxil until 01/12/2025. Yesterday's Thursday at 8 PM patient started having fevers. Complaining of headaches and bodyaches. There was no retching or vomiting. His ileostomy was working okay. Patient can speak and can ambulate. For long distances wheelchair is used. Patient complains of headache. Denies any nausea. Denies chest pain. Denies abdominal pain. Denies back pain. Denies pain in the legs. Hemodynamics are okay. According to the care plan to give Vanco with IV Benadryl as patient has allergy to vancomycin and cefepime and sepsis workup and to transfer to [facility]. ER talked with the [facility] ID and they said patient can be managed here. But mother wanted to be transferred to [facility] so the ER called back again [facility] and spoke with ID and hospitalist and was accepted for transfer but no bed availability at this time. Patient is on TPN for 20 hours. Patient also gets 1.5 L of normal saline daily in a period of 20 hours. Total he gets 4.5 L fluid daily Past medical history. As mentioned above Past surgical history. Bone marrow biopsy. Central line placement. Chemodenervation internal annals pinchers. Colonoscopy. Debride necrotic tissue abdominal wall. Dilatation of rectal narrowing. EGD. EGD with biopsy. Esophagogastric fundoplasty. Exploration of abdomen. Ileoscopy with biopsy. Ileostomy/jejunostomy. IR aspiration abscess. IR gastrojejunostomy. Percutaneous conversion of gastrostomy to gastrojejunostomy. Temporary gastrostomy tube. Removal of tunneled catheter. Cholecystectomy. Enterectomy small bowel resection. Removal of rectal obstruction. Tonsillectomy and adenoidectomy. Repair bowel opening. Wedge biopsy of liver. Social history. No smoking. No alcohol use. No drug use. Family history. Father has allergies. Asthma. Mother has asthma. GERD. Allergies Allergy/AdvReac Type Severity Reaction Status Date / Time dexmedetomidine Allergy Severe LOW BLOOD Verified 01/07/25 23:19 [From Precedex] PRESURE egg Allergy Severe Hives Verified 01/07/25 23:19 Wheezing midazolam Allergy Severe ANAPHYLAXIS Verified 01/07/25 23:19 alcohol Allergy Intermediate Rash/ Verified 01/07/25 23:19 [From Mastisol Adhesive] severe burning sensation of the skin fiber Allergy Intermediate Rash Verified 01/07/25 23:19 [From Peptide Formula 1.5] gum mastic Allergy Intermediate Rash/ Verified 01/07/25 23:19 [From Mastisol Adhesive] severe burning sensation of the skin iodine Allergy Intermediate RASH Verified 01/07/25 23:19 methyl salicylate Allergy Intermediate Rash/ Verified 01/07/25 23:19 [From Mastisol Adhesive] severe burning sensation of the skin nutritional Allergy Intermediate Rash Verified 01/07/25 23:19 supplement,special formulas [From Peptide Formula 1.5] storax Allergy Intermediate Rash/ Verified 01/07/25 23:19 [From Mastisol Adhesive] severe burning sensation of the skin vancomycin Allergy Mild RED AMIRA Verified 01/07/25 23:19 ketamine AdvReac Intermediate Hallucinati Verified 01/07/25 23:19 ng Home Medications Medication Instructions Recorded Confirmed Type Tpn Sari 1 ea continuous IV infusion 11/12/21 01/07/25 History DIRECTED atenolol 25 mg tablet 25 mg feeding tube QAM 11/12/21 01/07/25 History fludrocortisone 0.1 mg tablet 0.2 mg feeding tube DAILY 11/12/21 01/07/25 History heparin (porcine) 10 unit/mL in 3 ml IV DIRECTED PRN NEEDED 11/12/21 01/07/25 History 0.9 % sodium chloride intravenous kit famotidine (PF) 20 mg/2 mL 40 mg continuous IV infusion DAILY 02/08/22 01/07/25 History intravenous solution sodium chloride 0.9 % 1,000 ml IV DIRECTED 07/20/22 01/07/25 History acetaminophen 500 mg tablet 500 mg feeding tube Q6H PRN .Fever 09/25/22 01/07/25 History (Tylenol Extra Strength) >38 C, MILD-MOD PAIN tamsulosin 0.4 mg capsule 0.4 mg PO QAM 09/25/22 01/07/25 History dexmethylphenidate 30 mg 30 mg PO .DAILY@0800 11/20/22 01/07/25 History capsule,extended release [id number] menthol 0.44 %-zinc oxide 20.6 % 1 applic topical DIRECTED PRN 11/20/22 01/07/25 History topical ointment AFFECTED AREAS, G/J-TUBE baclofen 10 mg tablet 10 mg feeding tube QID 01/26/23 01/07/25 History dexmethylphenidate 10 mg tablet 10 mg PO .DAILY@1200 06/11/24 01/07/25 History cholecalciferol (vitamin D3) 50 50 mcg PO HS 09/05/24 01/07/25 History mcg/drop (2,000 unit/drop) oral drops melatonin 10 mg tablet 10 mg feeding tube HS 09/05/24 01/07/25 History Sterile Water Irrigation 5 - 20 ml feeding tube TID FLUSH 01/07/25 01/07/25 History AFTER MEDS. apixaban 5 mg tablet (Eliquis) 5 mg feeding tube BID 01/07/25 01/07/25 History cefadroxil 500 mg capsule 500 mg PO BID 01/07/25 01/07/25 History cetirizine 10 mg tablet 10 mg PO TID 01/07/25 01/07/25 History ciprofloxacin 0.3 %-dexamethasone 2 drp DIRECTED PRN DRESSING 01/07/25 01/07/25 History 0.1 % ear drops,suspension CHANGES dextrose 10 % in water (D10W) 10 % 1,000 ea IV DIRECTED PRN PUMP 01/07/25 01/07/25 History in water (D10W) intravenous FAILURE/WEATHER EMERGENCY. solution diphenhydramine HCl 25 mg tablet 25 mg feeding tube HS 01/07/25 01/07/25 History (Benadryl Allergy) doxycycline hyclate 100 mg capsule 100 mg PO BID 01/07/25 01/07/25 History duloxetine 60 mg capsule,delayed 60 mg PO BID 01/07/25 01/07/25 History release econazole nitrate 1 % topical cream 1 applic topical DAILY 01/07/25 01/07/25 History electrolytes-dextrose oral 0 ml feeding tube DIRECTED 01/07/25 01/07/25 History solution (Pedialyte oral solution) famotidine 20 mg tablet 20 mg feeding tube QAM 01/07/25 01/07/25 History fat emulsion-soybean [id number] 350 ml IV 5XWK 01/07/25 01/07/25 History oil-fish oil 20 % intravenous (SMOFlipid) heparin flush (porcine) 100 5 unit IV DIRECTED 01/07/25 01/07/25 History unit/mL in 0.9 % sodium chloride IV kit mirabegron 25 mg tablet,extended 25 mg PO DAILY 01/07/25 01/07/25 History release 24 hr ondansetron HCl 4 mg tablet 4 mg PO Q8H PRN Nausea 01/07/25 01/07/25 History pantoprazole 40 mg intravenous 40 mg IV DAILY 01/07/25 01/07/25 History solution simethicone 80 mg chewable tablet 40 mg PO Q6H PRN GAS/ABD PAIN 01/07/25 01/07/25 History sodium chloride 0.9 % 1,500 ml IV DIRECTED 01/07/25 01/07/25 History sodium chloride 0.9 % (flush) 10 ml IV DAILY 01/07/25 01/07/25 History therapeutic multivitamin 10 ml PO DAILY 01/07/25 01/07/25 History Past Med/Surg History Problem List (Updated 01/08/25 @ 00:14 by Tru Dejesus MD) Lyme disease (Acute) History of colectomy History of ileostomy Bacteremia due to Enterobacter species Bacteremia due to Klebsiella pneumoniae Gram-negative sepsis Fever of unknown origin (Acute) Fever (Acute) Bacteremia due to methicillin susceptible Staphylococcus aureus (MSSA) Bacterial sepsis Tachycardia (Acute) Bladder dysfunction Insomnia POTS (postural orthostatic tachycardia syndrome) On total parenteral nutrition (TPN) Bacteremia History of central line-associated bloodstream infection (CLABSI) (Acute) Wiedemann-Xavier syndrome Klippel-Feil syndrome (Chronic) Abnormal LFTs Allergic reaction caused by a drug Mid back pain (Acute) Asthma (Chronic) Reflux (Chronic) Bowel dysfunction (Acute) Dehydration (Acute) ADHD (attention deficit hyperactivity disorder) (Chronic) Jejunostomy tube fell out (Acute) Medical History Lab test negative for COVID-19 virus Septic shock S/P colectomy Autistic disorder Pain around PEG tube site Constipation Surgical History History of fundoplication History of appendectomy S/P cecostomy S/P tonsillectomy and adenoidectomy Family History Other FHx: heart disease Family history of diabetes mellitus Family history of gallbladder disease Family history of high blood pressure Social History Smoking Status: Never smoker Second Hand Exposure: No; Do You Dip or Chew Tobacco: No; Tobacco Cessation Education Requested by Patient: No Hx Alcohol Use: No Hx Substance Use: No Preferred Language: Malay Communication Ability: Effective Visual Impairment: No Limitations Hearing Ability: Normal Drug Room Operator Required: No Beliefs That Will Affect Care: None Current Living Situation: Family Other Information That Helps Us Care for You: No Feels Safe at Home: Yes Assistive Devices: None Review of Systems Review of Systems: All systems reviewed & are unremarkable except as noted in HPI & below Physical Exam Physical Exam: General- Not in distress. Head- atraumatic Eyes- PERRL. ENT- oropharynx clear Neck- supple, no JVD. Lungs- clear to auscultation no wheezing or crackles Heart- regular rhythm; no murmur, no gallop. Abdomen- Surgical scars seen.normal bowel sounds, soft, nontender, ileostomy bag seen. No distension Extremities- no pretibial edema, no erythema seen Neuro- Sleepy PERRL, no facial palsy; no dysarthria; moves extremities, obeys simple commands Results & Data Results & Data Vital Signs (Past 12 Hours) Vital Signs Temp Pulse Pulse Resp BP BP Pulse Ox 01/08/25 01:52 83 01/08/25 01:00 80 18 116/78 96 01/07/25 23:45 101 H 20 115/76 96 01/07/25 23:40 94 H 20 110/80 96 01/07/25 23:07 110 H 20 125/70 95 01/07/25 22:31 98 H 16 111/74 97 01/07/25 21:57 115 H 01/07/25 21:46 115 H 20 110/74 95 01/07/25 21:46 116 H 16 01/07/25 21:46 115 H 20 110/74 97 01/07/25 21:38 37.9 C H 129 H 18 133/86 96 O2 Del Method 01/08/25 01:52 01/08/25 01:00 Room Air 01/07/25 23:45 Room Air 01/07/25 23:40 Room Air 01/07/25 23:07 Room Air 01/07/25 22:31 Room Air 01/07/25 21:57 01/07/25 21:46 Room Air 01/07/25 21:46 Room Air 01/07/25 21:46 Room Air 01/07/25 21:38 Room Air Diagnostic Findings Laboratory Results WBC 2.77 K/ul (4.8-10.8) L 01/07/25 22:04 RBC 4.09 M/uL (4.70-6.10) L 01/07/25 22:04 Hgb 11.7 g/dl (14.0-18.0) L 01/07/25 22:04 Hct 34.5 % (42.0-52.0) L 01/07/25 22:04 MCV 84.4 fL (80.0-100.0) 01/07/25 22:04 MCH 28.6 pg (25.0-34.0) 01/07/25 22: MCHC 33.9 g/dL (32.0-36.0) 01/07/25 22: RDW Std Deviation 40.6 fL (36.4-46.3) 01/07/25 22:04 RDW Coeff of Osvaldo 13.2 % (11.5-14.5) 01/07/25 22:04 Plt Count 87 K/uL (130-400) L 01/07/25 22:04 MPV 10.1 fL (9.4-12.4) 01/07/25 22:04 Immature Gran % (Auto) 0.4 % 01/07/25 22:04 Neut % (Auto) 85.1 % 01/07/25 22:04 Lymph % (Auto) 5.8 % 01/07/25 22:04 [place] % (Auto) 7.6 % 01/07/25 22:04 Eos % (Auto) 1.1 % 01/07/25 22:04 Baso % (Auto) 0.0 % 01/07/25 22:04 Neut # (Auto) 2.36 K/uL (1.40-6.50) 01/07/25 22:04 Lymph # (Auto) 0.16 K/uL (1.20-3.40) L 01/07/25 22:04 [place] # (Auto) 0.21 K/uL (0.11-0.59) 01/07/25 22:04 Eos # (Auto) 0.03 K/uL (0.00-0.50) 01/07/25 22:04 Baso # (Auto) 0.00 K/uL (0.00-0.20) 01/07/25 22:04 Immature Gran # (Auto) 0.01 K/uL (0.01-0.20) 01/07/25 22:04 PT 11.4 Seconds (9.0-12.0) 01/07/25: INR 1.1 (0.9-1.1) 01/07/25: APTT 27 Seconds (21-31) 01/07/25: PTT Ratio 1.0 01/07/25 23: VBG pH 7.42 (7.36-7.41) H 01/07/25: VBG pCO2 45 mmHg (38-50) 01/07/25: VBG pO2 49 mmHg 01/07/25: VBG HCO3 29 mmol/L 01/07/25: VBG O2 Saturation 83.8 % 01/07/25: VBG Base Excess 4.0 mEq/L 01/07/25 23: Sodium 136 mmol/L (136-145) 01/07/25 22:04 Potassium 3.5 mmol/L (3.5-5.1) 01/07/25 22:04 Chloride 102 mmol/L (98-107) 01/07/25 22:04 Carbon Dioxide 26 mmol/L (21-32) 01/07/25 22:04 Anion Gap 8 (3-11) 01/07/25 22:04 BUN 13 mg/dl (6-23) 01/07/25 22:04 Creatinine 0.49 mg/dl (0.6-1.4) L 01/07/25 22:04 Est Cr Clr Drug Dosing 199.8 ml/min 01/07/25 22:04 eGFR 149.73 01/07/25 22:04 BUN/Creatinine Ratio 26.5 (10-20) H 01/07/25 22:04 Glucose 111 mg/dl (70-99(Fasting)) H 01/07/25 22:04 Lactate 1.2 mmol/L (0.4-2.0) 01/07/25 22:00 Calcium 9.1 mg/dl (8.6-10.3) 01/07/25 22:04 Magnesium 1.6 mg/dl (1.7-2.4) L 01/07/25 22:04 Total Bilirubin 1.3 mg/dl (0.2-1.0) H 01/07/25 22:04 Direct Bilirubin 0.7 mg/dl (0-0.2) H 01/07/25 22:04 AST 216 U/L (13-39) H 01/07/25 22:04 ALT 605 U/L (7-52) H 01/07/25 22:04 Alkaline Phosphatase 204 U/L (34-104) H 01/07/25 22:04 Troponin I High Sens 8.3 pg/ml (0-20) 01/07/25 22:04 Total Protein 6.5 gm/dl (6.0-8.3) 01/07/25 22:04 Albumin 3.9 gm/dl (3.4-5.0) 01/07/25 22:04 Procalcitonin 0.62 ng/ml (0-0.5) H 01/07/25 22:04 Adenovirus (PCR) Not Detected (NotDetected) 01/07/25 22:30 Anaplasma Smear See Comment 01/07/25 22:04 Babesia Smear See Comment 01/07/25 22:04 B. pertussis DNA (PCR) Not Detected (NotDetected) 01/07/25 22:30 B.parapertussis DNA PCR Not Detected (NotDetected) 01/07/25 22:30 Lyme Disease Screen Positive (Negative) H 01/07/25 22:04 Lyme Tier 2 IgG Confirm Negative (Negative) 01/07/25 22:04 Lyme Tier 2 IgM Confirm Negative (Negative) 01/07/25 22:04 C. pneumoniae DNA (PCR) Not Detected (NotDetected) 01/07/25 22:30 Coronavirus OC43 (PCR) Not Detected (NotDetected) 01/07/25 22:30 Coronavirus HKU1 (PCR) Not Detected (NotDetected) 01/07/25 22:30 Coronavirus 229E (PCR) Not Detected (NotDetected) 01/07/25 22:30 SARS-CoV-2 (PCR) Not Detected (NotDetected) 01/07/25 22:30 Coronavirus NL63 (PCR) Not Detected (NotDetected) 01/07/25 22:30 Human Metapneumovir PCR Not Detected (NotDetected) 01/07/25 22:30 Influenza Type A (PCR) Not Detected (NotDetected) 01/07/25 22:30 Influenza Type B (PCR) Not Detected (NotDetected) 01/07/25 22:30 M. pneumoniae (PCR) Not Detected (NotDetected) 01/07/25 22:30 Parainfluenza 1 (PCR) Not Detected (NotDetected) 01/07/25 22:30 Parainfluenza 2 (PCR) Not Detected (NotDetected) 01/07/25 22:30 Parainfluenza 3 (PCR) Not Detected (NotDetected) 01/07/25 22:30 Parainfluenza 4 (PCR) Not Detected (NotDetected) 01/07/25 22:30 RSV (PCR) Not Detected (NotDetected) 01/07/25 22:30 Entero/Rhino (PCR) Not Detected (NotDetected) 01/07/25 22:30 Impressions Chest X-Ray 01/07/25 21:46 Exam(s): XR CXR 1 VIEW EXAM: XR Chest, 1 View CLINICAL HISTORY: Reason for exam: Sepsis. TECHNIQUE: Frontal view of the chest. COMPARISON: Prior chest x-ray from September 04, 2024. FINDINGS: There is a loop right brachial approach PICC line in place with the distal tip in the right ventricle. Lungs: Unremarkable. No consolidation. Pleural space: Unremarkable. No pneumothorax. Heart: Moderate cardiomegaly. Mediastinum: Unremarkable. Normal mediastinal contour. Bones/joints: Unremarkable. No acute fracture. IMPRESSION: No evidence of acute cardiopulmonary process. There is a right brachial approach PICC line in place with the distal tip in the right ventricle. Recommend pulling back catheter 8-9 cm Electronically signed by: Naya Curtis MD 01/08/25 02:51 AM ECG Additional Comments: ECG. Sinus tach rate of 111. No significant changes found. QTc 394 Code Status & VTE Plan VTE Prophylaxis Plan VTE Prophylaxis will be ordered: Yes (1) Fever Fever type: unspecified Qualified Code(s): R50.9 - Fever, unspecified
[2025-01-08] MEDS ORDERED: MENTHOL-ZINC OXIDE 360 APPLN/120 GM TUBE EXT PRN (04:38)
[2025-01-08] MEDS ORDERED: ONDANSETRON INJ 2 MG/ML 2 ML VIAL IV PRN (04:38)
[2025-01-08] MEDS ORDERED: SIMETHICONE 80 MG CHEW PO PRN (04:38)
[2025-01-08] MEDS: D5W AND 1/2NSS 1,000 ML IV SCH (05:00)
--- NOTE | 2025-01-08 07:28 | Electrocardiogram Report ---
Test Reason : Blood Pressure : */* mmHG Vent. Rate : 111 BPM Atrial Rate : 111 BPM P-R Int : 162 ms QRS Dur : 92 ms QT Int : 290 ms P-R-T Axes : 43 31 33 degrees QTcB Int : 394 ms Sinus tachycardia Otherwise normal ECG When compared with ECG of 04-Sep-2024 23:03, No significant change was found Confirmed by Carter Plaza ([id number]) on 01/08/2025 7:28:10 AM Referred By: REFERRED SELF Confirmed By: Carter Plaza
[2025-01-08] MEDS: VANCOMYCIN HCL 1,250 MG in SODIUM CHLORIDE 0.9% 250 ML IV SCH (08:10)
[2025-01-08] MEDS: APIXABAN 5 MG TABLET PO SCH (08:10)
[2025-01-08] MEDS: ATENOLOL 25 MG TABLET PO SCH (08:10)
[2025-01-08] MEDS: CEFEPIME 2000MG 2,000 MG/20 ML SYR IV SCH (08:10)
[2025-01-08] MEDS: ECONAZOLE NITRATE 1% CRM 15 GM TUBE TOP SCH (08:11)
[2025-01-08] MEDS: BACLOFEN 10 MG TAB PO SCH (08:11)
[2025-01-08] MEDS: CETIRIZINE HCL 10 MG TABLET PO SCH (08:11)
[2025-01-08] MEDS: DOXYCYCLINE HYCLATE 100 MG CAP PO SCH (08:11)
[2025-01-08] MEDS: FAMOTIDINE 20 MG TAB PO SCH (08:12)
[2025-01-08] MEDS: FLUDROCORTISONE ACETATE 0.1 MG TAB PO SCH (08:13)
[2025-01-08] MEDS: PANTOprazole 40 MG in SYRINGE DAILY IV SCH (08:13)
[2025-01-08] MEDS: TAMSULOSIN HCL 0.4 MG CAP PO SCH (08:13)
[2025-01-08] MEDS: VIBEGRON 75 MG TAB PO SCH (08:15)
[2025-01-08] MEDS: diphenhydrAMINE 50 MG/ML VIAL IV PRN (08:15)
[2025-01-08 08:21] LABS: Hematocrit (blood only) 36.6 % (42.0-52.0); Hemoglobin 12.1 g/dl (14.0-18.0); Immature Granulocytes # (auto) 0.02 K/uL (0.01-0.20); Immature Granulocytes % (auto) 0.5 %; Mean Corpuscular Hemoglobin 28.5 pg (25.0-34.0); Mean Corpuscular Volume 86.3 fL (80.0-100.0); Platelet Count 100 K/uL (130-400); RDW Standard Deviation 42.4 fL (36.4-46.3); Red Blood Count 4.24 M/uL (4.70-6.10); White Blood Count 3.95 K/ul (4.8-10.8)
[2025-01-08 08:51] LABS: Anion Gap 5.0 (3-11); Blood Urea Nitrogen 12.0 mg/dl (6-23); Calcium 9.1 mg/dl (8.6-10.3); Carbon Dioxide 31.0 mmol/L (21-32); Chloride 105.0 mmol/L (98-107); Glucose 104.0 mg/dl (70-99(Fasting)); Magnesium 2.0 mg/dl (1.7-2.4); Potassium 3.9 mmol/L (3.5-5.1); Sodium 141.0 mmol/L (136-145)
[2025-01-08] MEDS ORDERED: PANTOPRAZOLE 40 MG IV SCH (09:00)
[2025-01-08 09:16] LABS: Creatinine Clr Calc Pharmacy 154.3 ml/min
--- NOTE | 2025-01-08 09:56 | Pharmacy Report ---
Pharmacy PK ABX Note - Date of Service January 08, 2025 - Assessment and Plan Assessment 19 year old M receiving vancomycin and cefepime for empiric coverage of fever in setting of central line/recurrent CLABSI. Recent admission to [facility] (known to ID consult service) and new PICC placement 01/03. Discharged on PO cefadroxil/doxycycline per report although cultures (-). Blood cultures pending from 01/07. Renal function stable. Day # 1 of antimicrobial therapy. Plan Vancomycin * Loading dose: 1500 mg IV x 1 * Maintenance dose: 1250 mg IV every 8 hours * Regimen is predicted to achieve target AUC/RHINA of 400-600 mg/L.hr * Trough ordered for 8/4 AM Pharmacy will continue to follow and will adjust dose/frequency as necessary. Thank you. Pharmacy has transitioned to AUC monitoring for vancomycin. AUC/RHINA is the preferred PK/PD target and is associated with decreased risk of nephrotoxicity compared to traditional trough targets.
--- NOTE | 2025-01-08 10:52 | Communication Note ---
Date of Service: January 08, 2025 Patient sleeping but arousable. Father at bedside stated he didn't get much sleep last night Continue vanc and cefepime Follow up infectious workup Start diet Continue IVF Awaiting transfer to [facility] Other plans as detailed in H/P this AM
[2025-01-08] MEDS: diphenhydrAMINE 50 MG/ML VIAL IV SCH (15:23)
[2025-01-08 15:34] LABS: A calco-baum cmplx NotReported Not Detected (NotDetected); Bact fragilis Not Reported Not Detected (NotDetected); Blood Culture Id Panel PCR Panel Negative (NotDetected); C auris Not Reported Not Detected (NotDetected); Calbicans Not Reported Not Detected (NotDetected); Candida glabrata Not Reported Not Detected (NotDetected); Candida krusei Not Reported Not Detected (NotDetected); Cneoformans/gatti Not Reported Not Detected (NotDetected); Cparapsilosis Not Reported Not Detected (NotDetected); Ctropicalis Not Reported Not Detected (NotDetected); E cloacae compx Not Reported Not Detected (NotDetected); Efaecalis Not Reported Not Detected (NotDetected); Efaecium Not Reported Not Detected (NotDetected); Enterobacterales Not Reported Not Detected (NotDetected); Escherichia coli Not Reported Not Detected (NotDetected); H influenzae Not Reported Not Detected (NotDetected); K aerogenes Not Reported Not Detected (NotDetected); Koxytoca Not Reported Not Detected (NotDetected); Kpneumoniae grp Not Reported Not Detected (NotDetected); Lmonocyt Not Reported Not Detected (NotDetected); N meningitidis Not Reported Not Detected (NotDetected); P aeruginosa Not Reported Not Detected (NotDetected); Proteus spp Not Reported Not Detected (NotDetected); Salmonella spp Not Reported Not Detected (NotDetected); Staph lugdunensis Not Reported Not Detected (NotDetected); Staph spp. Not Reported Not Detected (NotDetected); Staphaureus Not Reported Not Detected (NotDetected); Staphepi Not Reported Not Detected (NotDetected); Stenmaltophilia Not Reported Not Detected (NotDetected); Strep agal(GrpB) Not Reported Not Detected (NotDetected); Strep pneum Not Reported Not Detected (NotDetected); Strep pyog (GrpA) Not Reported Not Detected (NotDetected); Strep spp Not Reported Not Detected (NotDetected)
[2025-01-08] MEDS: diphenhydrAMINE Capsule 25 MG CAP PO SCH (20:13)
[2025-01-08] MEDS: CHOLECALCIFEROL 25 MCG (1000 UNITS) TAB PO SCH (20:13)
[2025-01-08 23:53] LABS: Appearance Urine Clear (Clear); Glucose Urine UA Negative (Negative)
[2025-01-09 07:33] LABS: Hematocrit (blood only) 32.9 % (42.0-52.0); Hemoglobin 11.3 g/dl (14.0-18.0); Mean Corpuscular Hemoglobin 29.0 pg (25.0-34.0); Mean Corpuscular Volume 84.4 fL (80.0-100.0); Platelet Count 114 K/uL (130-400); RDW Standard Deviation 40.8 fL (36.4-46.3); Red Blood Count 3.90 M/uL (4.70-6.10); White Blood Count 3.02 K/ul (4.8-10.8)
[2025-01-09] MEDS: VANCOMYCIN LEVEL ONE (08:06)
[2025-01-09 08:11] LABS: Alanine Aminotransferase 453.0 U/L (7-52); Albumin Globulin Ratio 1.4 (0.9-2); Alkaline Phosphatase 184.0 U/L (34-104); Anion Gap 4.0 (3-11); Bilirubin,Total 1.1 mg/dl (0.2-1.0); Blood Urea Nitrogen 6.0 mg/dl (6-23); Calcium 9.1 mg/dl (8.6-10.3); Carbon Dioxide 31.0 mmol/L (21-32); Chloride 106.0 mmol/L (98-107); Creatinine Clr Calc Pharmacy 174.3 ml/min; Globulin 2.6 gm/dl (2.5-4.0); Glucose 103.0 mg/dl (70-99(Fasting)); Magnesium 1.9 mg/dl (1.7-2.4); Potassium 3.4 mmol/L (3.5-5.1); Sodium 141.0 mmol/L (136-145); Total Protein 6.2 gm/dl (6.0-8.3)
--- NOTE | 2025-01-09 08:25 | Pharmacy Report ---
Pharmacy PK ABX Note - Date of Service January 09, 2025 - Assessment and Plan Assessment 01/09 * Random vancomycin level this AM was ~13 mcg/ml - current vancomycin dosing associated with goal AUC/RHINA therefore will continue current regimen. Awaiting culture results. ID consulted 01/08: * 19 year old M receiving vancomycin and cefepime for empiric coverage of fever in setting of central line/recurrent CLABSI. Recent [place] [facility] [place]known to ID consult service) and new PICC placement 01/03. Discharged on PO cefadroxil/doxycycline per report although cultures (-). Blood cultures pending from 01/07. Renal function stable. * Day # 1 of antimicrobial therapy. Plan Vancomycin * Continue 1250 mg IV every 8 hours Pharmacy will continue to follow and will adjust dose/frequency as necessary. Thank you. Pharmacy has transitioned to AUC monitoring for vancomycin. AUC/RHINA is the preferred PK/PD target and is associated with decreased risk of nephrotoxicity compared to traditional trough targets.
--- NOTE | 2025-01-09 11:58 | Hospitalist Progress Note ---
Date of Service January 09, 2025 Assessment & Plan (1) Fever: Plan: 19-year-old male with past medical history significant for mild persistent asthma, obstructive sleep apnea, POTS, moderate protein calorie malnutrition, history of Klippel-Feil syndrome, Wiedemann Xavier syndrome, nutrition through TPN, ADD, gastroparesis insomnia, bladder dysfunction comes because of Fevers. Patient was recently admitted at [place] on 12/29/2024 and discharged on 01/04/2025. Patient was admitted for fevers, headaches and tachycardia. Patient has history of multiple bloodstream infection and is high risk for CLABSI. Cultures from the venous blood sample and Central line did not show any growth. TPN was held for 48 hours until until negative blood cultures. Patient also had his central line removed and PICC line was inserted on 01/03/2025 given his history of CLABSI and the fevers. The plan is to need line replacement following completion of antibiotics. Hepatology was consulted for elevated transaminase and and was felt elevated to TPN's and was recommended to follow-up with them as outpatient. Patient was discharged on p.o. doxycycline and cefadroxil until 01/12/2025. Bacteremia Fevers History of CLABSI Has PICC line. Blood culture growing Acinetobacter bereziniae in 1 bottle Lyme screen positive but IgG and IgM negative ID evaluated. Discussed with ID who recommends to try to treat through positive blood culture and possibly do lock therapy. If he has another fever, will likely need transfer for vascular access care Will await sensitivities to do lock therapy. 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 Nutrition Patient is TPN dependent Continue IVF Spoke with pharm as mother reports patient has specific TPN/possible interactions with others. Script provided for the nonformulary TPN patient is on and pharm will order it ADHD Continue home medications Chronic back pain On baclofen Bladder dysfunction On mirabegron and Flomax Insomnia On melatonin DVT prophylaxis On Eliquis Full code. I spent a total of 50 minutes coordinating, documenting and providing care for this patient excluding time spent in performance of separately billed services Admission and Anticipated Discharge Date Admission Date: January 08, 2025 Subjective Patient seen Mother at bedside Patient agitated about being in the hospital. Mother reports this happens sometimes and recommended to defer physical exam to another time Physical Exam Physical Exam: Exam deferred as patient is currently agitated Results & Data Results & Data Vital Signs (Past 12 Hours) Vital Signs Temp Pulse Resp BP Pulse Ox O2 Del Method 01/09/25 11:06 36.8 C 86 21 118/78 97 Room Air 01/09/25 07:43 36.6 C 72 21 105/68 96 Room Air 01/09/25 04:28 36.6 C 63 17 103/41 L 96 Room Air 01/09/25 00:03 36.9 C 86 17 122/81 99 Room Air Laboratory Results Abnormal lab results 01/09/25 Range/Units 06:59 WBC 3.02 L (4.8-10.8) K/ul RBC 3.90 L (4.70-6.10) M/uL Hgb 11.3 L (14.0-18.0) g/dl Hct 32.9 L (42.0-52.0) % Plt Count 114 L (130-400) K/uL Potassium 3.4 L (3.5-5.1) mmol/L Creatinine 0.54 L (0.6-1.4) mg/dl Glucose 103 H (70-99(Fasting)) mg/dl Total Bilirubin 1.1 H (0.2-1.0) mg/dl AST 123 H (13-39) U/L ALT 453 H (7-52) U/L Alkaline Phosphatase 184 H (34-104) U/L Procalcitonin 0.62 H (0-0.5) ng/ml (1) Fever Fever type: unspecified Qualified Code(s): R50.9 - Fever, unspecified
--- NOTE | 2025-01-09 15:45 | Infectious Disease Consult ---
Date of Service January 09, 2025 Telehealth Information I performed this visit using a real-time telehealth connection between my location and the patients location ([facility]). After connecting through interactive tele-video, patient was identified by name and date of and/or wristband check.Patient (or authorized healthcare loan servicing representative) was informed that this was a telemedicine visit and it was being conducted confidentially over secure lines. My office door was closed and no on e else was present in the room with me.Patient (or authorized healthcare loan servicing representative) provided consent to proceed with the visit, expressed an understanding of privacy and security of the telemedicine visit, and gave permission to have a hospital loan servicing representative in the room in order to assist with the visit and to conduct portions of the visit, as needed. I informed the patient (or authorized healthcare loan servicing representative) that I reviewed their record and presented the opportunity for them to ask any questions regarding the visit today. The patient agreed to participate. Assessment & Plan (1) Infection due to Acinetobacter species: Plan: The source of this infection is almost certainly the current PICC line. We spent a lot of time talking about the pros and cons of removing the current PICC line vs trying to treat through it. We are opting for the latter right now given his limited access and needs for TPN. Plan 1. D/C vancomycin 2. D/C doxycycline (Lyme testing is negative) 3. Continue IV cefepime for now-- await final susceptibilities to determine options for possible lock therapy. I would anticipate a 14 day course of IV abx therapy as well. Final abx plans remain pending. 4. If fever recurs, then I would suggest transfer to [facility] for PICC line removal and placement of new access History of Present Illness History of Present Illness Mr. Wild is a 19yo male with a complex h/o intellectual disability and GI dismotility d/o requiring chronic TPN. His recent course has been complicated by multiple line infections and he was at [facility] the prior week with fevers. Cultures however never revealed an obvious source and he was given a course of PO abx therapy. After leaving he once again developed fever and so was taken to the ED at [facility]. Blood cultures there have subsequently turned positive in 1 of 4 bottles with Acinetobacter. Mother is at the bedside and helps provide input into the history. As of today, he is feeling better and without complaints. He still has the dual lumen PICC line in place. Allergies Allergy/AdvReac Type Severity Reaction Status Date / Time dexmedetomidine Allergy Severe LOW BLOOD Verified 01/07/25 23:19 [From Precedex] PRESURE egg Allergy Severe Hives Verified 01/07/25 23:19 Wheezing midazolam Allergy Severe ANAPHYLAXIS Verified 01/07/25 23:19 alcohol Allergy Intermediate Rash/ Verified 01/07/25 23:19 [From Mastisol Adhesive] severe burning sensation of the skin fiber Allergy Intermediate Rash Verified 01/07/25 23:19 [From Peptide Formula 1.5] gum mastic Allergy Intermediate Rash/ Verified 01/07/25 23:19 [From Mastisol Adhesive] severe burning sensation of the skin iodine Allergy Intermediate RASH Verified 01/07/25 23:19 methyl salicylate Allergy Intermediate Rash/ Verified 01/07/25 23:19 [From Mastisol Adhesive] severe burning sensation of the skin nutritional Allergy Intermediate Rash Verified 01/07/25 23:19 supplement,special formulas [From Peptide Formula 1.5] storax Allergy Intermediate Rash/ Verified 01/07/25 23:19 [From Mastisol Adhesive] severe burning sensation of the skin vancomycin Allergy Mild RED AMIRA Verified 01/07/25 23:19 ketamine AdvReac Intermediate Hallucinati Verified 01/07/25 23:19 ng Home Medications Medication Instructions Recorded Confirmed Type Tpn Sari 1 ea continuous IV infusion 11/12/21 01/07/25 History DIRECTED atenolol 25 mg tablet 25 mg feeding tube QAM 11/12/21 01/07/25 History fludrocortisone 0.1 mg tablet 0.2 mg feeding tube DAILY 11/12/21 01/07/25 History heparin (porcine) 10 unit/mL in 3 ml IV DIRECTED PRN NEEDED 11/12/21 01/07/25 History 0.9 % sodium chloride intravenous kit famotidine (PF) 20 mg/2 mL 40 mg continuous IV infusion DAILY 02/08/22 01/07/25 History intravenous solution sodium chloride 0.9 % 1,000 ml IV DIRECTED 07/20/22 01/07/25 History acetaminophen 500 mg tablet 500 mg feeding tube Q6H PRN .Fever 09/25/22 01/07/25 History (Tylenol Extra Strength) >38 C, MILD-MOD PAIN tamsulosin 0.4 mg capsule 0.4 mg PO QAM 09/25/22 01/07/25 History dexmethylphenidate 30 mg 30 mg PO .DAILY@0800 11/20/22 01/07/25 History capsule,extended release [id number] menthol 0.44 %-zinc oxide 20.6 % 1 applic topical DIRECTED PRN 11/20/22 01/07/25 History topical ointment AFFECTED AREAS, G/J-TUBE baclofen 10 mg tablet 10 mg feeding tube QID 01/26/23 01/07/25 History dexmethylphenidate 10 mg tablet 10 mg PO .DAILY@1200 06/11/24 01/07/25 History cholecalciferol (vitamin D3) 50 50 mcg PO HS 09/05/24 01/07/25 History mcg/drop (2,000 unit/drop) oral drops melatonin 10 mg tablet 10 mg feeding tube HS 09/05/24 01/07/25 History Sterile Water Irrigation 5 - 20 ml feeding tube TID FLUSH 01/07/25 01/07/25 History AFTER MEDS. apixaban 5 mg tablet (Eliquis) 5 mg feeding tube BID 01/07/25 01/07/25 History cefadroxil 500 mg capsule 500 mg PO BID 01/07/25 01/07/25 History cetirizine 10 mg tablet 10 mg PO TID 01/07/25 01/07/25 History ciprofloxacin 0.3 %-dexamethasone 2 drp DIRECTED PRN DRESSING 01/07/25 01/07/25 History 0.1 % ear drops,suspension CHANGES dextrose 10 % in water (D10W) 10 % 1,000 ea IV DIRECTED PRN PUMP 01/07/25 01/07/25 History in water (D10W) intravenous FAILURE/WEATHER EMERGENCY. solution diphenhydramine HCl 25 mg tablet 25 mg feeding tube HS 01/07/25 01/07/25 History (Benadryl Allergy) doxycycline hyclate 100 mg capsule 100 mg PO BID 01/07/25 01/07/25 History duloxetine 60 mg capsule,delayed 60 mg PO BID 01/07/25 01/07/25 History release econazole nitrate 1 % topical cream 1 applic topical DAILY 01/07/25 01/07/25 History electrolytes-dextrose oral 0 ml feeding tube DIRECTED 01/07/25 01/07/25 His tory solution (Pedialyte oral solution) famotidine 20 mg tablet 20 mg feeding tube QAM 01/07/25 01/07/25 History fat emulsion-soybean [id number] 350 ml IV 5XWK 01/07/25 01/07/25 History oil-fish oil 20 % intravenous (SMOFlipid) heparin flush (porcine) 100 5 unit IV DIRECTED 01/07/25 01/07/25 History unit/mL in 0.9 % sodium chloride IV kit mirabegron 25 mg tablet,extended 25 mg PO DAILY 01/07/25 01/07/25 History release 24 hr ondansetron HCl 4 mg tablet 4 mg PO Q8H PRN Nausea 01/07/25 01/07/25 History pantoprazole 40 mg intravenous 40 mg IV DAILY 01/07/25 01/07/25 History solution simethicone 80 mg chewable tablet 40 mg PO Q6H PRN GAS/ABD PAIN 01/07/25 01/07/25 History sodium chloride 0.9 % 1,500 ml IV DIRECTED 01/07/25 01/07/25 History sodium chloride 0.9 % (flush) 10 ml IV DAILY 01/07/25 01/07/25 History therapeutic multivitamin 10 ml PO DAILY 01/07/25 01/07/25 History Patient History Medical History Lab test negative for COVID-19 virus Septic shock S/P colectomy Autistic disorder Pain around PEG tube site Constipation Surgical History History of fundoplication History of appendectomy S/P cecostomy S/P tonsillectomy and adenoidectomy Family History Other FHx: heart disease Family history of diabetes mellitus Family history of gallbladder disease Family history of high blood pressure Social History Smoking Status: Never smoker Second Hand Exposure: No; Do You Dip or Chew Tobacco: No; Tobacco Cessation Education Requested by Patient: No Hx Alcohol Use: No Hx Substance Use: No Preferred Language: Tuvaluan Communication Ability: Effective Visual Impairment: No Limitations Hearing Ability: Normal Meat Lugger Required: No Beliefs That Will Affect Care: None Current Living Situation: Family Other Information That Helps Us Care for You: No Feels Safe at Home: Yes Assistive Devices: CPAP, Oxygen - at Night, Walker and Wheelchair Review of Systems Gen- Positve for fevers HEENT- No MONTENEGRO, sore throat Resp- No cough or SOB CV- No chest pain GI- No N/V or diarrhea - No dysuria Skin- No rash Physical Exam Gen- NAD, cooperative HEENT- NC AT Resp- Normal respirations on room air Skin- No rash Neuro- Alert and oriented Results & Data Vital Signs (Past 12 Hours) Vital Signs Temp Pulse Resp BP Pulse Ox O2 Del Method 01/09/25 11:06 36.8 C 86 21 118/78 97 Room Air 01/09/25 07:43 36.6 C 72 21 105/68 96 Room Air 01/09/25 04:28 36.6 C 63 17 103/41 L 96 Room Air Laboratory Results WBC 3.02 Hgb 11.3 Platelets 114 Na 141 Creatinine 0.54 BUN 6 UA WNL Diagnostic Findings BLood cultures 01/07 with 1 of 4 bottles Acinetobacter beriziniae
[2025-01-09] MEDS ORDERED: NON-FORMULARY MEDICATION (Diphenhydramine Hcl [Benadryl Allergy] 25 MG) feeding tube SCH (22:50)
[2025-01-09] MEDS: diphenhydrAMINE 50 MG/ML VIAL IV PRN (23:32)
[2025-01-09] MEDS: MELATONIN 3 MG TAB PO PRN (23:32)
[2025-01-10] MEDS ORDERED: TPN/PPN CONSULT PHARMACY PRN (06:00)
[2025-01-10 06:24] LABS: Hematocrit (blood only) 33.9 % (42.0-52.0); Hemoglobin 11.8 g/dl (14.0-18.0); Mean Corpuscular Hemoglobin 29.1 pg (25.0-34.0); Mean Corpuscular Volume 83.5 fL (80.0-100.0); Platelet Count 134 K/uL (130-400); RDW Standard Deviation 39.4 fL (36.4-46.3); Red Blood Count 4.06 M/uL (4.70-6.10); White Blood Count 3.26 K/ul (4.8-10.8)
[2025-01-10 06:49] LABS: Alanine Aminotransferase 393.0 U/L (7-52); Albumin Globulin Ratio 1.5 (0.9-2); Alkaline Phosphatase 192.0 U/L (34-104); Anion Gap 6.0 (3-11); Bilirubin,Total 1.0 mg/dl (0.2-1.0); Blood Urea Nitrogen 5.0 mg/dl (6-23); Calcium 9.3 mg/dl (8.6-10.3); Carbon Dioxide 32.0 mmol/L (21-32); Chloride 103.0 mmol/L (98-107); Creatinine Clr Calc Pharmacy 153.6 ml/min; Globulin 2.6 gm/dl (2.5-4.0); Glucose 109.0 mg/dl (70-99(Fasting)); Potassium 3.1 mmol/L (3.5-5.1); Sodium 141.0 mmol/L (136-145); Total Protein 6.4 gm/dl (6.0-8.3)
[2025-01-10 07:54] LABS: Magnesium 1.9 mg/dl (1.7-2.4)
--- NOTE | 2025-01-10 11:56 | Hospitalist Progress Note ---
Date of Service January 10, 2025 Assessment & Plan (1) Fever: Plan: 19-year-old male with past medical history significant for mild persistent asthma, obstructive sleep apnea, POTS, moderate protein calorie malnutrition, history of Klippel-Feil syndrome, Wiedemann Xavier syndrome, nutrition through TPN, ADD, gastroparesis insomnia, bladder dysfunction comes because of Fevers. Patient was recently admitted at [place] on 12/29/2024 and discharged on 01/04/2025. Patient was admitted for fevers, headaches and tachycardia. Patient has history of multiple bloodstream infection and is high risk for CLABSI. Cultures from the venous blood sample and Central line did not show any growth. TPN was held for 48 hours until until negative blood cultures. Patient also had his central line removed and PICC line was inserted on 01/03/2025 given his history of CLABSI and the fevers. The plan is to need line replacement following completion of antibiotics. Hepatology was consulted for elevated transaminase and and was felt elevated to TPN's and was recommended to follow-up with them as outpatient. Patient was discharged on p.o. doxycycline and cefadroxil until 01/12/2025. Acinetobacter Bacteremia CLABSI History of CLABSI Has PICC line. Blood culture growing Acinetobacter bereziniae in 1 bottle ID evaluation noted On 01/09/25, I discussed with ID who recommends to try to treat through positive blood culture and possibly do lock therapy. If he has another fever, will likely need transfer for vascular access care Will await sensitivities to do lock therapy. Can use line for TPN for now Continue cefepime for now. 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 Patient's TPN ordered by pharm yesterday Discussed with pharm today. Pharm plans to start TPN this evening and that TPN will amount to 1531ml of fluids. 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 Updated mother at bedside I spent a total of 50 minutes coordinating, documenting and providing care for this patient excluding time spent in performance of separately billed services Admission and Anticipated Discharge Date Admission Date: January 08, 2025 Subjective Patient seen and examined Denied any complaints Sitting in bed playing his game Physical Exam Constitutional: + well hydrated; no acute distress Eyes: PERRL, conjunctivae normal, anicteric sclerae ENMT: external ear and nose normal, oropharynx normal Respiratory: normal respiratory effort, lungs clear to auscultation Cardiovascular: Rate/Rhythm: regular rate and regular rhythm Gastrointestinal (Abdomen): Soft, nontender, ostomy in place, gastrostomy tube in place Musculoskeletal: No pedal edema Neurologic: PERRL, EOMI, accommodation nl, no face palsy, no dysarthria Results & Data Results & Data Vital Signs (Past 12 Hours) Vital Signs Temp Pulse Pulse Resp BP Pulse Ox O2 Del Method 01/10/25 08:23 36.6 C 78 16 122/78 98 Room Air 01/10/25 08:00 67 01/10/25 03:10 36.9 C 81 18 104/66 98 Room Air Laboratory Results Abnormal lab results 01/10/25 Range/Units 05:26 WBC 3.26 L (4.8-10.8) K/ul RBC 4.06 L (4.70-6.10) M/uL Hgb 11.8 L (14.0-18.0) g/dl Hct 33.9 L (42.0-52.0) % Potassium 3.1 L (3.5-5.1) mmol/L BUN 5 L (6-23) mg/dl BUN/Creatinine Ratio 8.1 L (10-20) Glucose 109 H (70-99(Fasting)) mg/dl AST 90 H (13-39) U/L ALT 393 H (7-52) U/L Alkaline Phosphatase 192 H (34-104) U/L (1) Fever Fever type: unspecified Qualified Code(s): R50.9 - Fever, unspecified
--- NOTE | 2025-01-10 13:57 | Pharmacy Report ---
Pharmacy Initial PN Consult Nt - Date of Service January 10, 2025 - Scope Pharmacy has been consulted on this date to manage parenteral nutrition orders and order appropriate labs. As part of the Nutrition Support Team Guidelines, pharmacy will work in conjunction with dietary when determining the patients caloric needs. - Subjective * The patient is a 19 year old Male admitted on 01/08/25 for FEVERS, HX OF LINE INFECTIONS. * Patient is to receive parenteral nutrition for chronic home TPN d/t medical hx listed below. * ID consult, continue IV cefepime for now-- await final susceptibilities to determine options for possible lock therapy. Anticipate a 14 day course of IV abx therapy as well. Final abx plans remain pending. * Pertinent PMHx:mild persistent asthma, obstructive sleep apnea, POTS, moderate protein calorie malnutrition, history of Klippel-Feil syndrome, Wiedemann Xavier syndrome, nutrition through TPN, ADD, gastroparesis insomnia, bladder dysfunction, ileostomy & PEG tube managed by patient. - Objective Vascular Access: * Patient currently has a central line. Height & Weight (Last Documented) Height 5 ft 1 in Weight 65.6 kg Diet Order(s) 01/08/25 Lunch Intake & Ouput (24hrs) 01/09/25 01/10/25 01/11/25 06:59 06:59 06:59 Intake Total 4365 / 4365 4957.25 / 4957.25 1000 / 1000 Output Total 5025 / 5025 6350 / 6350 Balance -660 / -660 -1392.75 / -1392.75 1000 / 1000 Selected Laboratory Results 01/10/25 05:26 Sodium 141 Potassium 3.1 L Chloride 103 Carbon Dioxide 32 Anion Gap 6 BUN 5 L Creatinine 0.62 BUN/Creatinine Ratio 8.1 L Glucose 109 H Calcium 9.3 Phosphorus 4.5 D Magnesium 1.9 Total Bilirubin 1.0 AST 90 H ALT 393 H Alkaline Phosphatase [address] - Follow Up Nutrition Assessment Start: 01/08/25 10:41 Freq: Status: Active Protocol: Document 01/10/25 10:52 [id number] (Rec: 01/10/25 11:11 [id number]) - Assessment & Plan Assessment: * Appreciate dietitians recommendations for macronutrients. Plan: * For Day #1 of TPN administration, the following will be ordered to closely match macronutrients of home TPN: * Macronutrients: * Amino Acids: 115 grams/day * Dextrose: 202 grams/day * Lipids: MWF 50 grams/day - SMOFlipid (soybean oil, MCTs, olive oil, and fish oil in a 30:30:25:15 ratio) for patient with egg allergy * Micronutrients: * Sodium Phosphate: 24 mMol/day * Sodium chloride: 50 mEq/day * Potassium phosphate: 21 mMol/day * Potassium chloride: 50 mEq/day * Magnesium sulfate: 12.18 mEq/day * Calcium gluconate: 8.3 mEq/day * Multivitamins: 10 mL/day * Trace elements: 1 mL/day * Total volume of 1532 mL will be infused over 20 hours (1800 to 1400 daily) and will provide 1146 kcal/day * Labs will be ordered per PN protocol. * Pharmacy will follow and adjust PN orders on a daily basis. Thank you!
[2025-01-10] MEDS: STOP TPN ORDER SCH (14:27)
[2025-01-10] MEDS: ACETAMINOPHEN 325 MG TAB PO PRN (16:16)
[2025-01-10] MEDS: [UNRECOGNIZED DRUG - OTHER] IV SCH (17:49)
[2025-01-10] MEDS: CENTRAL TPN IV SCH (17:49)
[2025-01-10] MEDS: SODIUM CHLORIDE 0.9% 1,000 ML IV SCH (17:52)
[2025-01-10] MEDS ORDERED: DEXTROSE 10% 1,000 ML IV PRN (18:00)
[2025-01-10] MEDS: TPN RATE CHANGE SCH (20:07)
[2025-01-10] MEDS: MELATONIN 3 MG TAB PO SCH (20:49)
[2025-01-11 06:01] LABS: Hematocrit (blood only) 33.1 % (42.0-52.0); Hemoglobin 11.2 g/dl (14.0-18.0); Mean Corpuscular Hemoglobin 28.2 pg (25.0-34.0); Mean Corpuscular Volume 83.4 fL (80.0-100.0); Platelet Count 130 K/uL (130-400); RDW Standard Deviation 39.3 fL (36.4-46.3); Red Blood Count 3.97 M/uL (4.70-6.10); White Blood Count 3.37 K/ul (4.8-10.8)
[2025-01-11 06:25] LABS: Anion Gap 6.0 (3-11); Blood Urea Nitrogen 13.0 mg/dl (6-23); Calcium 8.9 mg/dl (8.6-10.3); Carbon Dioxide 30.0 mmol/L (21-32); Chloride 105.0 mmol/L (98-107); Creatinine Clr Calc Pharmacy 179.7 ml/min; Glucose 96.0 mg/dl (70-99(Fasting)); Magnesium 2.1 mg/dl (1.7-2.4); Potassium 3.6 mmol/L (3.5-5.1); Sodium 141.0 mmol/L (136-145)
[2025-01-11] MEDS: FAMOTIDINE 20MG IV PUSH 20 MG/5 ML SYR IV ONE (10:26)
[2025-01-11] MEDS: TPN RATE CHANGE SCH (12:35)
--- NOTE | 2025-01-11 13:22 | Hospitalist Progress Note ---
Date of Service January 11, 2025 Assessment & Plan (1) Sepsis: (2) CLABSI (central line-associated bloodstream infection): (3) Infection due to Acinetobacter species: (4) History of colectomy: (5) History of ileostomy: (6) On total parenteral nutrition (TPN): (7) POTS (postural orthostatic tachycardia syndrome): (8) Wiedemann-Xavier syndrome: (9) Klippel-Feil syndrome: (10) ADHD (attention deficit hyperactivity disorder): Plan Patient with actinobacter bacteremia most likely from PICC line in the setting of chronic TPN and IV fluid requirements. Communication with infectious disease, recommending cefepime for 14 days and then a cefepime lock. Logistically this may not be able to be performed as far as the antibiotic lock. Patient is on IV fluids and TPN 20 out of 24 hours a day. May need to coordinate to home IV cefepime and outpatient exchange of his PICC l ine at [facility] which he has done previously. Case management coordinating home antibiotics Will attempt to coordinate outpatient PICC line in exchange Mother at bedside and helping to coordinate patient's care Continue TPN Admission and Anticipated Discharge Date Admission Date: January 08, 2025 Subjective Patient has had no fevers since restarting TPN. Feels well. Mom at bedside Physical Exam Physical Exam: Constitutional: Alert, nontoxic, no acute distress HEENT: Mucous membranes moist. Lungs: Clear to auscultation, decreased, no wheezes rales or rhonchi CV: S1-S2, regular Abdomen: Soft, nontender, nondistended Extremities: No significant edema Neuro: At baseline Psych: Cooperative, normal mood Results & Data Results & Data Vital Signs (Past 12 Hours) Vital Signs Temp Pulse Pulse Resp BP Pulse Ox O2 Del Method 01/11/25 12:29 36.9 C 82 18 124/74 98 Room Air 01/11/25 08:00 77 01/11/25 08:00 36.7 C 91 H 20 129/85 96 Room Air 01/11/25 02:57 36.6 C 75 18 138/70 97 Room Air Diagnostic Findings Reviewed imaging, laboratory and diagnostic studies. Pertinent findings as below. WBCs 3.3 Hemoglobin 11.2 Electrolytes stable Creatinine 0.53 (1) Sepsis Sepsis type: sepsis due to unspecified organism Qualified Code(s): A41.9 - Sepsis, unspecified organism (10) ADHD (attention deficit hyperactivity disorder) Attention deficit-hyperactivity disorder type: unspecified Qualified Code(s): F90.9 - Attention-deficit hyperactivity disorder, unspecified type
[2025-01-11] MEDS: CENTRAL TPN IV SCH (18:07)
[2025-01-11] MEDS: [UNRECOGNIZED DRUG - OTHER] IV SCH (18:07)
[2025-01-11] MEDS: FAT EMUL/SOY/MCT/OLIV/FISH OIL 50 GM/250 ML BAG IV SCH (18:10)
[2025-01-11 23:31] VITALS: RESP 16
[2025-01-12 07:02] LABS: Hematocrit (blood only) 33.2 % (42.0-52.0); Hemoglobin 11.7 g/dl (14.0-18.0); Mean Corpuscular Hemoglobin 29.4 pg (25.0-34.0); Mean Corpuscular Volume 83.4 fL (80.0-100.0); Platelet Count 138 K/uL (130-400); RDW Standard Deviation 38.6 fL (36.4-46.3); Red Blood Count 3.98 M/uL (4.70-6.10); White Blood Count 3.39 K/ul (4.8-10.8)
[2025-01-12 07:15] LABS: Anion Gap 5.0 (3-11); Blood Urea Nitrogen 15.0 mg/dl (6-23); Calcium 9.0 mg/dl (8.6-10.3); Carbon Dioxide 28.0 mmol/L (21-32); Chloride 107.0 mmol/L (98-107); Creatinine Clr Calc Pharmacy 160.7 ml/min; Glucose 103.0 mg/dl (70-99(Fasting)); Magnesium 2.2 mg/dl (1.7-2.4); Potassium 3.9 mmol/L (3.5-5.1); Sodium 140.0 mmol/L (136-145)
[2025-01-12] MEDS: PANTOprazole 40 MG/10 ML SYR IV SCH (09:37)
--- NOTE | 2025-01-12 12:01 | Discharge Summary ---
Discharge Summary Date of Service January 12, 2025 Principal Dx & Hospital Course #1 = Principal Diagnosis (1) Sepsis: (2) CLABSI (central line-associated bloodstream infection): (3) Infection due to Acinetobacter species: (4) History of colectomy: (5) History of ileostomy: (6) On total parenteral nutrition (TPN): (7) POTS (postural orthostatic tachycardia syndrome): (8) Wiedemann-Xavier syndrome: (9) Klippel-Feil syndrome: (10) ADHD (attention deficit hyperactivity disorder): Plan Patient is a 19-year-old gentleman with extensive medical history, on chronic TPN and IV fluids. Presented to [facility] emergency room with complaints of fevers. Patient had recently been at [facility] where he was treated for a bloodstream infection and had a PICC line replaced. Evaluation in the emergency room concern for sepsis. Initially there was possibly patient would be transferred back to [facility]. Emergency department talked with infectious disease who recommended him being treated at [facility] with antibiotics. Additionally, there were no bed availability at [facility]. Patient was admitted to the hospital. He was started on broad-spectrum IV antibiotics. His TPN and IV fluids were held in the short-term. Due to the patient's history high concern for CLABSI. Patient has a long-term PICC line. Patient's fevers resolved and overall his symptoms significantly improved with antibiotic intervention. A trial of restarting his IV fluids and TPN was performed. He tolerated this well with no recurrence of his fevers. A single blood culture grew actinobacter. This was not sent for sensitivities. Previously had been pansensitive. Infectious disease consultation was obtained. They recommended a 14-day course of IV cefepime and then considering doing a antibiotic lock for his PICC line. Logistics of this was discussed with our pharmacist who manages antibiotic locks. The patient was requiring both lumens of his PICC line for IV fluids and TPN 20 out of 24 hours a day. This limits the ability for an effective antibiotic lock and the PICC line. With this logistical issue it was felt that it may be best just to replace the PICC line. The patient requires special sedation and a interventional radiology team that is well-known to him at [facility]. We coordinated for him to continue his IV antibiotics at home. I coordinate for him to get an outpatient PICC line exchange early next week at [facility]. And then he will follow-up with and complete course of 14 days of cefepime and his outpatient providers. Surveillance blood cultures are pending. Notes For Next Care Provider Patient to complete a 14-day course of IV antibiotics Continue with his outpatient care and follow-up with specialists Medication Changes From Visit Cefepime for 11 more days Admission HPI Per Admitting Provider 19-year-old male with past medical history significant for mild persistent asthma, obstructive sleep apnea, POTS, moderate protein calorie malnutrition, history of Klippel-Feil syndrome, Wiedemann Xavier syndrome, nutrition through TPN, ADD, gastroparesis insomnia, bladder dysfunction comes because of Fevers. Patient was recently admitted at [facility] on 12/29/2024 and discharged on 01/04/2025. Patient was admitted for fevers, headaches and tachycardia. Patient has history of multiple bloodstream infection and is high risk for CLABSI. And because of complex history ID was consulted and was started on broad-spectrum antibiotics. Cultures from the venous blood sample and Central line did not show any growth. TPN was held for 48 hours until until negative blood cultures. Patient also had his central line removed and PICC line was inserted on 01/03/2025 given his history of CLABSI and the fevers. The plan is to need line replacement following completion of antibiotics. Hepatology was consulted foR elevated transaminase and and was felt elevated to TPN's and was recommended to follow-up with them as outpatient. Patient also follows with nutrition. Patient was discharged on p.o. doxycycline and cefadroxil until 01/12/2025. Yesterday's Thursday at 8 PM patient started having fevers. Complaining of headaches and bodyaches. There was no retching or vomiting. His ileostomy was working okay. Patient can speak and can ambulate. For long distances wheelchair is used. Patient complains of headache. Denies any nausea. Denies chest pain. Denies abdominal pain. Denies back pain. Denies pain in the legs. Hemodynamics are okay. According to the care plan to give Vanco with IV Benadryl as patient has allergy to vancomycin and cefepime and sepsis workup and to transfer to [facility]. ER talked with the [facility] ID and they said patient can be managed here. But mother wanted to be transferred to [facility] so the ER called back again [facility] and spoke with ID and hospitalist and was accepted for transfer but no bed availability at this time. Patient is on TPN for 20 hours. Patient also gets 1.5 L of normal saline daily in a period of 20 hours. Total he gets 4.5 L fluid daily Past medical history. As mentioned above Past surgical history. Bone marrow biopsy. Central line placement. Chemodenervation internal annals pinchers. Colonoscopy. Debride necrotic tissue abdominal wall. Dilatation of rectal narrowing. EGD. EGD with biopsy. Esophagogastric fundoplasty. Exploration of abdomen. Ileoscopy with biopsy. Ileostomy/jejunostomy. IR aspiration abscess. IR gastrojejunostomy. Percutaneous conversion of gastrostomy to gastrojejunostomy. Temporary gastrostomy tube. Removal of tunneled catheter. Cholecystectomy. Enterectomy small bowel resection. Removal of rectal obstruction. Tonsillectomy and adenoidectomy. Repair bowel opening. Wedge biopsy of liver. Social history. No smoking. No alcohol use. No drug use. Family history. Father has allergies. Asthma. Mother has asthma. GERD. Admission Exam Per Admitting Provider See H&P Discharge Exam Constitutional: Alert, nontoxic, no acute distress HEENT: Mucous membranes moist. Lungs: Clear to auscultation, decreased, no wheezes rales or rhonchi CV: S1-S2, regular Abdomen: Soft, nontender, nondistended Extremities: No significant edema Neuro: At his baseline Psych: Cooperative, normal mood Updated Medication List Medication Instructions Recorded Confirmed Type Tpn Sari 1 ea continuous IV infusion 11/12/21 01/07/25 History DIRECTED atenolol 25 mg tablet 25 mg feeding tube QAM 11/12/21 01/07/25 History fludrocortisone 0.1 mg tablet 0.2 mg feeding tube DAILY 11/12/21 01/07/25 History heparin (porcine) 10 unit/mL in 3 ml IV DIRECTED PRN NEEDED 11/12/21 01/07/25 History 0.9 % sodium chloride intravenous kit famotidine (PF) 20 mg/2 mL 40 mg continuous IV infusion DAILY 02/08/22 01/07/25 History intravenous solution sodium chloride 0.9 % 1,000 ml IV DIRECTED 07/20/22 01/07/25 History acetaminophen 500 mg tablet 500 mg feeding tube Q6H PRN .Fever 09/25/22 01/07/25 History (Tylenol Extra Strength) >38 C, MILD-MOD PAIN tamsulosin 0.4 mg capsule 0.4 mg PO QAM 09/25/22 01/07/25 History dexmethylphenidate 30 mg 30 mg PO .DAILY@0800 11/20/22 01/07/25 History capsule,extended release [id number] menthol 0.44 %-zinc oxide 20.6 % 1 applic topical DIRECTED PRN 11/20/22 01/07/25 History topical ointment AFFECTED AREAS, G/J-TUBE baclofen 10 mg tablet 10 mg feeding tube QID 01/26/23 01/07/25 History dexmethylphenidate 10 mg tablet 10 mg PO .DAILY@1200 06/11/24 01/07/25 History cholecalciferol (vitamin D3) 50 50 mcg PO HS 09/05/24 01/07/25 History mcg/drop (2,000 unit/drop) oral drops melatonin 10 mg tablet 10 mg feeding tube HS 09/05/24 01/07/25 History Sterile Water Irrigation 5 - 20 ml feeding tube TID FLUSH 01/07/25 01/07/25 History AFTER MEDS. apixaban 5 mg tablet (Eliquis) 5 mg feeding tube BID 01/07/25 01/07/25 History cefadroxil 500 mg capsule 500 mg PO BID 01/07/25 01/07/25 History cetirizine 10 mg tablet 10 mg PO TID 01/07/25 01/07/25 History ciprofloxacin 0.3 %-dexamethasone 2 drp DIRECTED PRN DRESSING 01/07/25 01/07/25 History 0.1 % ear drops,suspension CHANGES dextrose 10 % in water (D10W) 10 % 1,000 ea IV DIRECTED PRN PUMP 01/07/25 01/07/25 History in water (D10W) intravenous FAILURE/WEATHER EMERGENCY. solution diphenhydramine HCl 25 mg tablet 25 mg feeding tube HS 01/07/25 01/07/25 History (Benadryl Allergy) doxycycline hyclate 100 mg capsule 100 mg PO BID 01/07/25 01/07/25 History duloxetine 60 mg capsule,delayed 60 mg PO BID 01/07/25 01/07/25 History release econazole nitrate 1 % topical cream 1 applic topical DAILY 01/07/25 01/07/25 History electrolytes-dextrose oral 0 ml feeding tube DIRECTED 01/07/25 01/07/25 History solution (Pedialyte oral solution) famotidine 20 mg tablet 20 mg feeding tube QAM 01/07/25 01/07/25 History fat emulsion-soybean [id number] 350 ml IV 5XWK 01/07/25 01/07/25 History oil-fish oil 20 % intravenous (SMOFlipid) heparin flush (porcine) 100 5 unit IV DIRECTED 01/07/25 01/07/25 History unit/mL in 0.9 % sodium chloride IV kit mirabegron 25 mg tablet,extended 25 mg PO DAILY 01/07/25 01/07/25 History release 24 hr ondansetron HCl 4 mg tablet 4 mg PO Q8H PRN Nausea 01/07/25 01/07/25 History pantoprazole 40 mg intravenous 40 mg IV DAILY 01/07/25 01/07/25 History solution simethicone 80 mg chewable tablet 40 mg PO Q6H PRN GAS/ABD PAIN 01/07/25 01/07/25 History sodium chloride 0.9 % 1,500 ml IV DIRECTED 01/07/25 01/07/25 History sodium chloride 0.9 % (flush) 10 ml IV DAILY 01/07/25 01/07/25 History therapeutic multivitamin 10 ml PO DAILY 01/07/25 01/07/25 History Hospital Stay Data Consultations 01/07/25 23:29 ED Decision to Admit Stat 01/08/25 06:59 Burn CD for patient Stat 01/08/25 12:58 Consult Infectious Diseases Routine Diagnostic Imagining Performed Reviewed imaging, laboratory and diagnostic studies. Pertinent findings as below. 1 of 4 blood cultures grew out actinobacter WBCs 3.3 Hemoglobin 9.7, stable Platelets of 138 Electrolytes are within normal range Creatinine 0.59 Glucose 103 AST 90 ALT 393 Alk phos 192 Procalcitonin on admission 0.62 Pending Results Patient Have Any Pending Studies at Discharge: Yes Discharge Instructions Given to Patient (Per Discharging Provider) Appointment with Interventional Radiology at [facility] ([phone]): Home Health Attestation I certify that this patient is under my care and that I, or a physicians business office assistant working with me, had a face to-face encounter that meets the home health klpe-ch-njur encounter requirements with this patient. The encounter with the patient was in whole, or in part, for the following medical condition, which is the primary reason for home health care (list medical condition): I certify that, based on my findings, the following services are medically necessary home health services: My clinical findings support the need for the above services because: Further, I certify that my clinical findings support that this patient is homebound (i.e. absences from home require considerable and taxing effort and are for medical reasons or yarsanism services or infrequently or of short duration when for other reasons) because: Certification for Home Health Services: Based on the above findings, I certify that this patient is confined to the home and needs intermittent residential care, physical therapy and/or speech therapy or continues to need occupational therapy. The patient is under my care, and I have initiated the establishment of the plan of care. This patient will be followed by a physician who will periodically review the plan of care. Total Time Total Time Spent Total Time Spent (In Minutes): 43
[2025-01-12 14:47] VITALS: BP 93/57; PULSE 60; TEMP 97.9; O2SAT 98
[2025-01-12] MEDS ORDERED: [UNRECOGNIZED DRUG - OTHER] IV SCH (18:00)
[2025-01-12] MEDS ORDERED: CENTRAL TPN IV SCH (18:00)
[2025-01-17 21:02] LABS: Q Fever IgG, Phase I NEGATIVE
== END 2025-01-12 15:01 | disposition home or self-care (01) | DRG 314 ==
LOC: ED 21:36 → 4W 01-08 02:36 → SUATTDRO 01-08 02:36 → 4W 01-08 03:26 → 3E 01-11 17:04

== ENCOUNTER 2025-05-24 21:23 | Inpatient (IN) ==
[2025-05-24] MEDS ORDERED: VANCOMYCIN CONSULT ACTIVE PRN (21:35)
[2025-05-24 22:07] LABS: Base Excess VBG 2.8 mEq/L; HCO3 VBG 26 mmol/L; Oxygen Saturation VBG 91.1 %; PCO2 VBG 35 mmHg (38-50); PO2 VBG 55 mmHg; pH VBG 7.48 (7.36-7.41)
[2025-05-24] MEDS: ACETAMINOPHEN 1,000 MG/100 ML VIAL IV STA (22:15)
[2025-05-24] MEDS: MoRPHine SULFATE 4 MG/ML 1 ML CARP\\VIAL IV STA (22:15)
[2025-05-24] MEDS: ONDANSETRON INJ 2 MG/ML 2 ML VIAL IV STA (22:16)
[2025-05-24] MEDS: CEFEPIME 2000MG 2,000 MG/20 ML SYR IV STA (22:16)
[2025-05-24] MEDS: SODIUM CHLORIDE 0.9% 1,000 ML IV SCH (22:16)
--- NOTE | 2025-05-24 22:20 | Emergency Department Note ---
History of Present Illness General Chief complaint: Fever Stated complaint: FEVER WITH CENTRAL LINE, 101.5, REF BY Time Seen by Provider: 05/24/25 21:24 History of Present Illness Maximum Pain Intensity: 10 This 20-year-old male with past medical history significant for mild persistent asthma, obstructive sleep apnea, POTS, moderate protein calorie malnutrition, history of Klippel-Feil syndrome, Wiedemann Xavier syndrome, nutrition through TPN, ADD, gastroparesis insomnia, bladder dysfunction comes because of Fevers. Patient has a history of recurrent central line infections. He has a treatment plan that is outlined by [facility] and they would like to be called once the test have been completed. Central line was last replaced in February at [place]. He has a history of MRSA, Serratia, Enterobacter, Enterococcus and candidiasis. He has also had several UTI secondary to his neurogenic bladder caused by Pseudomonas and actinobacter. Mother gives the history and states normally when he gets like this is usually a line infection. No other concerns per mother. Home Medications Medication Instructions Recorded Confirmed Type Tpn Sari 1 ea continuous IV infusion 11/12/21 01/07/25 History DIRECTED atenolol 25 mg tablet 25 mg feeding tube QAM 11/12/21 05/24/25 History fludrocortisone 0.1 mg tablet 0.2 mg feeding tube DAILY 11/12/21 01/07/25 History famotidine (PF) 20 mg/2 mL 40 mg continuous IV infusion DAILY 02/08/22 01/07/25 History intravenous solution sodium chloride 0.9 % 1,000 ml IV DIRECTED 07/20/22 01/07/25 History acetaminophen 500 mg tablet 500 mg feeding tube Q6H PRN .Fever 09/25/22 05/24/25 History (Tylenol Extra Strength) >38 C, MILD-MOD PAIN tamsulosin 0.4 mg capsule 0.4 mg PO QAM 09/25/22 01/07/25 History dexmethylphenidate 30 mg 30 mg PO .DAILY@0800 11/20/22 01/07/25 History capsule,extended release [id number] menthol 0.44 %-zinc oxide 20.6 % 1 applic topical DIRECTED PRN 11/20/22 01/07/25 History topical ointment AFFECTED AREAS, G/J-TUBE baclofen 10 mg tablet 10 mg feeding tube QID 01/26/23 05/24/25 History dexmethylphenidate 10 mg tablet 10 mg PO .DAILY@1200 06/11/24 01/07/25 History cholecalciferol (vitamin D3) 50 50 mcg PO HS 09/05/24 01/07/25 History mcg/drop (2,000 unit/drop) oral drops melatonin 10 mg tablet 10 mg feeding tube HS 09/05/24 01/07/25 History Sterile Water Irrigation 5 - 20 ml feeding tube TID FLUSH 01/07/25 01/07/25 History AFTER MEDS. apixaban 5 mg tablet (Eliquis) 5 mg feeding tube BID 01/07/25 01/07/25 History cetirizine 10 mg tablet 10 mg PO TID 01/07/25 01/07/25 History ciprofloxacin 0.3 %-dexamethasone 2 drp DIRECTED PRN DRESSING 01/07/25 01/07/25 History 0.1 % ear drops,suspension CHANGES dextrose 10 % in water (D10W) 10 % 1,000 ea IV DIRECTED PRN PUMP 01/07/25 01/07/25 History in water (D10W) intravenous FAILURE/WEATHER EMERGENCY. solution diphenhydramine HCl 25 mg tablet 25 mg feeding tube HS 01/07/25 05/24/25 History (Benadryl Allergy) duloxetine 60 mg capsule,delayed 60 mg PO BID 01/07/25 01/07/25 History release econazole nitrate 1 % topical cream 1 applic topical DAILY 01/07/25 01/07/25 History electrolytes-dextrose oral 0 ml feeding tube DIRECTED 01/07/25 01/07/25 History solution (Pedialyte oral solution) famotidine 20 mg tablet 20 mg feeding tube QAM 01/07/25 01/07/25 History fat emulsion-soybean xyk-kpf-decly 350 ml IV 5XWK 01/07/25 01/07/25 History oil-fish oil 20 % intravenous (SMOFlipid) heparin flush (porcine) 100 5 unit IV DIRECTED 01/07/25 01/07/25 History unit/mL in 0.9 % sodium chloride IV kit mirabegron 25 mg tablet,extended 25 mg PO DAILY 01/07/25 01/07/25 History release 24 hr ondansetron HCl 4 mg tablet 4 mg PO Q8H PRN Nausea 01/07/25 01/07/25 History pantoprazole 40 mg intravenous 40 mg IV DAILY 01/07/25 01/07/25 History solution simethicone 80 mg chewable tablet 40 mg PO Q6H PRN GAS/ABD PAIN 01/07/25 01/07/25 History sodium chloride 0.9 % 1,500 ml IV DIRECTED 01/07/25 01/07/25 History sodium chloride 0.9 % (flush) 10 ml IV DAILY 01/07/25 01/07/25 History therapeutic multivitamin 10 ml PO DAILY 01/07/25 01/07/25 History Allergies Allergy/AdvReac Type Severity Reaction Status Date / Time dexmedetomidine Allergy Severe LOW BLOOD Verified 01/07/25 23:19 [From Precedex] PRESURE egg Allergy Severe Hives Verified 01/07/25 23:19 Wheezing midazolam Allergy Severe ANAPHYLAXIS Verified 01/07/25 23:19 alcohol Allergy Intermediate Rash/ Verified 01/07/25 23:19 [From Mastisol Adhesive] severe burning sensation of the skin gum mastic Allergy Intermediate Rash/ Verified 01/07/25 23:19 [From Mastisol Adhesive] severe burning sensation of the skin iodine Allergy Intermediate RASH Verified 01/07/25 23:19 methyl salicylate Allergy Intermediate Rash/ Verified 01/07/25 23:19 [From Mastisol Adhesive] severe burning sensation of the skin storax Allergy Intermediate Rash/ Verified 01/07/25 23:19 [From Mastisol Adhesive] severe burning sensation of the skin vancomycin Allergy Mild RED AMIRA Verified 01/07/25 23:19 ketamine AdvReac Intermediate Hallucinati Verified 01/07/25 23:19 ng peptamen mateo AdvReac Rash Uncoded 01/10/25 11:14 Past Med/Surg History Problem List (Updated 05/25/25 @ 00:02 by Naina Moore PA-C) Fever (Acute) Influenza A (Acute) CLABSI (central line-associated bloodstream infection) Infection due to Acinetobacter species Lyme disease (Acute) History of colectomy History of ileostomy Bacteremia due to Enterobacter species Bacteremia due to Klebsiella pneumoniae Gram-negative sepsis Fever of unknown origin (Acute) Fever (Acute) Bacteremia due to methicillin susceptible Staphylococcus aureus (MSSA) Bacterial sepsis Tachycardia (Acute) Bladder dysfunction Insomnia POTS (postural orthostatic tachycardia syndrome) On total parenteral nutrition (TPN) Bacteremia History of central line-associated bloodstream infection (CLABSI) (Acute) Wiedemann-Xavier syndrome Klippel-Feil syndrome (Chronic) Abnormal LFTs Allergic reaction caused by a drug Mid back pain (Acute) Asthma (Chronic) Reflux (Chronic) Bowel dysfunction (Acute) Dehydration (Acute) ADHD (attention deficit hyperactivity disorder) (Chronic) Jejunostomy tube fell out (Acute) Medical History Lab test negative for COVID-19 virus Septic shock S/P colectomy Autistic disorder Pain around PEG tube site Constipation Surgical History History of fundoplication History of appendectomy S/P cecostomy S/P tonsillectomy and adenoidectomy Family History Other FHx: heart disease Family history of diabetes mellitus Family history of gallbladder disease Family history of high blood pressure Social History Smoking Status: Never smoker Second Hand Exposure: No; Do You Dip or Chew Tobacco: No; Hx Alcohol Use: No Hx Substance Use: No Preferred Language: Afghan Communication Ability: Effective Visual Impairment: No Limitations Hearing Ability: Normal Kitchenhand Required: No Beliefs That Will Affect Care: None Current Living Situation: Family Feels Safe at Home: Yes Assistive Devices: CPAP, Oxygen - at Night, Walker and Wheelchair Review of Systems A total of 10 systems reviewed and were otherwise negative Physical Exam Vital Signs Vital Signs - 24 hr 05/24/25 21:27 05/24/25 21:39 05/24/25 22:18 Temperature 38.4 C H Temperature Source Oral Pulse Rate 140 H 132 H 122 H Pulse Rate from SpO2 Sensor 129 H Respiratory Rate 24 12 Respiratory Effort / Characteristics Spontaneous Labored Short of Breath Respiratory Depth Normal Respiratory Pattern Regular Blood Pressure 150/104 H 95/76 L Blood Pressure Mean 119 82 Pulse Oximetry 98 92 Oxygen Delivery Method Room Air Sepsis Recent Fever Within 48 Hours Yes Sepsis New/Unexplained Change in Mental Status No Sepsis Action Taken by Nursing Physician Notified 05/24/25 22:30 Temperature Temperature Source Pulse Rate 131 H Pulse Rate from SpO2 Sensor 132 H Respiratory Rate 8 L Respiratory Effort / Characteristics Respiratory Depth Respiratory Pattern Blood Pressure 122/65 Blood Pressure Mean 84 Pulse Oximetry 92 Oxygen Delivery Method Sepsis Recent Fever Within 48 Hours Sepsis New/Unexplained Change in Mental Status Sepsis Action Taken by Nursing VITALS: Vitals are noted on the nurse's note and reviewed by myself. Vital signs febrile GENERAL: Pleasant patient mildly ill-appearing with family present SKIN: Central line in place with minimal erythema which is unchanged per mother, the rest of the skin was without rashes, erythema, edema, or bruising. There is no tenting of the skin. Capillary reflex less than 2 seconds. HEAD: Normocephalic atraumatic. EARS: External auditory canals clear EYES: Pupils equal round and reactive to light and accommodation. Conjunctivae without injection, sclerae without icterus. Extraocular movements intact. NOSE: Patent, no discharge. MOUTH: Mucous membranes moist. Pharynx without erythema or exudate. Uvula midline. Airway patent. Tongue does not deviate. NECK: Supple without nuchal rigidity. No lymphadenopathy. No thyromegaly. Cervical spine is nontender. No JVD. HEART: Regular rate and rhythm LUNGS: Clear to auscultation bilaterally without wheezes, rales or rhonchi. No retractions or accessory muscle use. ABDOMEN: Positive bowel sounds x 4. Normal tympanic percussion. Soft, G-tube and ostomy in place without signs of infection, nontender, without masses or organomegaly. Stevenson sign negative. No guarding or rebound tenderness. No CVA tenderness MUSCULOSKELETAL: No muscle atrophy, erythema, or edema noted. NEURO: Patient was alert and oriented at baseline per mother. No focal neurological deficits. Course Administered Medications Vancomycin HCl 1,250 mg/ (Sodium Chloride) 500 mls @ 200 mls/hr IV NOW STA Stop: 05/25/25 00:04 Last Admin: 05/24/25 22:28 Dose: 200 mls/hr Documented By: URIEL Discontinued Medications Diphenhydramine HCl (Diphenhydramine 50 Mg/Ml Vial) 25 mg IV NOW STA Stop: 05/24/25 22:17 Last Admin: 05/24/25 22:28 Dose: 25 mg Documented By: URIEL Cefepime HCl (Maxipime 2000mg) 2,000 mg in 20 mls @ 5 mls/min IV NOW STA; Protocol Stop: 05/24/25 21:38 Last Admin: 05/24/25 22:16 Dose: 5 mls/min Documented By: UIREL Sodium Chloride (Nss) 1,000 mls @ 999 mls/hr IV .Q1H1M MORENITA Stop: 05/24/25 23:45 Last Admin: 05/24/25 23:11 Dose: 999 mls/hr Documented By: Infusion: 05/24/25 23:11 Dose: Infused Documented By: Admin: 05/24/25 22:16 Dose: 999 mls/hr Documented By: URIEL Acetaminophen (Ofirmev) 1,000 mg in 100 mls @ 400 mls/hr IV NOW STA Stop: 05/24/25 21:51 Last Infusion: 05/24/25 22:31 Dose: Infused Documented By: Admin: 05/24/25 22:15 Dose: 400 mls/hr Documented By: URIEL Morphine Sulfate (Morphine Sulfate 4 Mg/Ml 1 Ml Carp\Vial) 4 mg IV NOW STA Stop: 05/24/25 21:47 Last Admin: 05/24/25 22:15 Dose: 4 mg Documented By: URIEL Ondansetron HCl (Ondansetron Inj 2 Mg/Ml 2 Ml Vial) 4 mg IV NOW STA Stop: 05/24/25 21:47 Last Admin: 05/24/25 22:16 Dose: 4 mg Documented By: URIEL Medical Decision Making Medical Records Attestation: I reviewed the patient's medical records. Home Medications Current Medication List: was personally reviewed by me Laboratory Data Attestation: I reviewed the patient's lab results. 05/24/25 21:58 05/24/25 21:58 Lab Results 05/24/25 05/24/25 Range/Units 21:58 22:29 WBC 5.50 (4.8-10.8) K/ul RBC 5.12 (4.70-6.10) M/uL Hgb 15.8 (14.0-18.0) g/dL Hct 43.3 (42.0-52.0) % MCV 84.6 (80.0-100.0) fL MCH 30.9 (25.0-34.0) pg MCHC 36.5 H (32.0-36.0) g/dL RDW Std Deviation 43.3 (36.4-46.3) fL RDW Coeff of Osvadlo 14.0 (11.5-14.5) % Plt Count 125 L (130-400) K/uL MPV 9.8 (9.4-12.4) fL Immature Gran % (Auto) 0.4 % Neut % (Auto) 88.9 % Lymph % (Auto) 4.0 % [place] % (Auto) 6.0 % Eos % (Auto) 0.5 % Baso % (Auto) 0.2 % Neut # (Auto) 4.89 (1.40-6.50) K/uL Lymph # (Auto) 0.22 L (1.20-3.40) K/uL [place] # (Auto) 0.33 (0.11-0.59) K/uL Eos # (Auto) 0.03 (0.00-0.50) K/uL Baso # (Auto) 0.01 (0.00-0.20) K/uL Immature Gran # (Auto) 0.02 (0.01-0.20) K/uL VBG pH 7.48 H (7.36-7.41) VBG pCO2 35 L (38-50) mmHg VBG pO2 55 mmHg VBG HCO3 26 mmol/L VBG O2 Saturation 91.1 % VBG Base Excess 2.8 mEq/L Sodium 136 (136-145) mmol/L Potassium 3.4 L (3.5-5.1) mmol/L Chloride 101 (98-107) mmol/L Carbon Dioxide 24 (21-32) mmol/L Anion Gap 11 (3-11) BUN 12 (6-23) mg/dl Creatinine 0.59 L (0.6-1.4) mg/dl Est Cr Clr Drug Dosing 162.3 ml/min eGFR 140.68 BUN/Creatinine Ratio 20.3 H (10-20) Glucose 101 H (70-99(Fasting)) mg/dl Lactate 2.0 (0.4-2.0) mmol/L Calcium 9.2 (8.6-10.3) mg/dl Magnesium 1.8 (1.7-2.4) mg/dl Total Bilirubin 1.1 H (0.2-1.0) mg/dl Direct Bilirubin TNP AST 136 H (13-39) U/L ALT 449 H (7-52) U/L Alkaline Phosphatase 203 H (34-104) U/L Troponin I High Sens 9.6 (0-20) pg/ml Total Protein 7.5 (6.0-8.3) gm/dl Albumin 4.5 (3.4-5.0) gm/dl Procalcitonin 0.04 (0-0.5) ng/ml Urine Color Dark Yellow Urine Appearance Clear (Clear) Urine pH 6.0 (4.5-7.5) Ur Specific [place] 1.025 (1.000-1.030) Urine Protein 1+ H (Negative) Urine Glucose (UA) Negative (Negative) Urine Ketones Trace H (Negative) Urine Blood 1+ H (Negative) Urine Nitrite Negative (Negative) Urine Bilirubin 1+ H (Negative) Urine Urobilinogen Negative (Negative) Ur Leukocyte Esterase Negative (Negative) Urine WBC (Auto) 0-5 (0-5) /hpf Urine RBC (Auto) 11-20 H (0-2) /hpf U Hyaline Cast (Auto) 3-5 H (0-2) /lpf U Epithel Cells (Auto) 0-2 (0-2) /hpf Urine Bacteria (Auto) None Seen (None Seen) Urine Comment Adenovirus (PCR) Not Detected (NotDetected) B. pertussis DNA (PCR) Not Detected (NotDetected) B.parapertussis DNA PCR Not Detected (NotDetected) C. pneumoniae DNA (PCR) Not Detected (NotDetected) Coronavirus OC43 (PCR) Not Detected (NotDetected) Coronavirus HKU1 (PCR) Not Detected (NotDetected) Coronavirus 229E (PCR) Not Detected (NotDetected) SARS-CoV-2 (PCR) Not Detected (NotDetected) Coronavirus NL63 (PCR) Not Detected (NotDetected) Human Metapneumovir PCR Not Detected (NotDetected) Influenza A (H3) PCR DETECTED A (NotDetected) Influenza Type B (PCR) Not Detected (NotDetected) M. pneumoniae (PCR) Not Detected (NotDetected) Parainfluenza 1 (PCR) Not Detected (NotDetected) Parainfluenza 2 (PCR) Not Detected (NotDetected) Parainfluenza 3 (PCR) Not Detected (NotDetected) Parainfluenza 4 (PCR) Not Detected (NotDetected) RSV (PCR) Not Detected (NotDetected) Entero/Rhino (PCR) Not Detected (NotDetected) Imaging Data Attestation: I personally reviewed and interpreted this imaging study as follows: MDM Narrative Prior records/ancillary studies reviewed. Triage Nursing notes reviewed. Additional history obtained from family. The patient's history was concerning for fever. Differential diagnosis: Etiologies such as sepsis, UTI, pneumonia, metabolic, electrolyte abnormalities, cardiac sources, intracerebral event, toxicologic, neurologic, as well as others were entertained. Physical examination: As above. Pertinent findings were febrile. Vital signs reviewed and revealed febrile. ER treatment provided: IV fluid resuscitation with Normal saline solution, 2000 mL bolus. Blood and urine cultures Antibiotics: Cefepime and vancomycin as outlined by his treatment plan An order was placed for continuous cardiac monitoring. The monitor shows a rate of 60-100 with a sinus rhythm per my interpretation. Zofran, Benadryl and morphine were also given Tamiflu was ordered for influenza On reassessment the patient vital signs improved. Diagnostics interpretation by me: ECG: Ordered for weakness EKG: Normal sinus, normal intervals, no acute ST-T wave changes, rate of 126. Impression sinus tachycardia independently interpreted by myself The labs Independently Interpreted by myself revealed no worrisome leukocytosis on CBC. Chemistry panel revealed chronically elevated LFTs. LFTs revealed. Cardiac enzymes were negative. Serum Lactate measurement was 2. Blood and urine cultures are pending. VBG was reviewed Procalcitonin 0.04 Negative urine Influenza A positive Imaging studies: Chest xray revealed was reviewed and read by radiology Consultation: A consultation was placed with the hospitalist. The case was discussed and diagnostics were reviewed. The patient was evaluated in the ER for further treatment. Consultation was placed with [place] internal medicine, Dr. Sophie Martinez and recommends the patient can stay here for now as labs are stable and we can wait for the blood cultures. He recommends calling back in the morning to reassess. Exam and history seem consistent with fever that is most likely related to influenza A. Patient was given Tamiflu. Blood cultures are pending from port lines and peripherally. Negative lactic. Negative procalcitonin. No worrisome leukocytosis. Chronically elevated LFTs. Results reviewed with mother and patient. All questions were answered. Medicine was consulted and the case discussed. Patient was admitted to the medical service. Stu was consulted and states the patient can stay here while we await the culture results. The chart was completed utilizing [employer] Speech voice recognition software. Grammatical errors, random word insertions, pronoun errors, and incomplete sentences are an occassional consequence of this system due to software limitations, ambient noise, and hardware issues. Any formal questions or concerns about the content, text, or information contained within the body of this dictation should be directly addressed to the physician material assistant for clarification. Impression & Plan Influenza A, Fever Discharge Plan Visit Data Chief Complaint: Fever Stated Complaint: FEVER WITH CENTRAL LINE, 101.5, REF BY DR ED Provider: Babatunde Phillips ED Midlevel Provider: Naina Moore Discharge Problem: Influenza A, Fever Patient Disposition: Admitted As Inpatient Condition: Fair Forms Stand Alone Forms: [facility] Prescriptions Prescriptions: No Action famotidine (PF) 20 mg/2 mL Solution 40 mg continuous IV infusion DAILY Rx Instructions: Add to TPN acetaminophen [Tylenol Extra Strength] 500 mg Tablet 500 mg feeding tube Q6H PRN (Reason: .Fever >38 C, MILD-MOD PAIN) Rx Instructions: DO NOT EXCEED 3,000 MG DAILY tamsulosin 0.4 mg capsule 0.4 mg PO QAM baclofen 10 mg tablet 10 mg feeding tube QID atenolol 25 mg tablet 25 mg feeding tube QAM fludrocortisone 0.1 mg tablet 0.2 mg feeding tube DAILY Tpn Sari 1 ea continuous IV infusion DIRECTED Rx Instructions: ADMINISTER IV 2,640 ML DAILY. 2,900 ML PER DAY @ 145 ML/HR X 20 HOURS. TAPERS BETWEEN A TOTAL OF 17 HOURS. 1 hour taper up, 17 hour run time, 2 hour taper down per mother. sodium chloride 0.9 % Solution 1,000 ml IV DIRECTED Rx Instructions: ADMINISTER 1,000 ML OVER 2 HOURS IV DAILY NEEDED. menthol-zinc oxide 0.44-20.6 % Ointment 1 applic TOPICAL DIRECTED PRN (Reason: AFFECTED AREAS, G/J-TUBE) dexmethylphenidate 30 mg capsule,ER biphasic 50-50 30 mg PO .DAILY@0800 Rx Instructions: TAKES AT 0800; PARENT HAS MED WITH THEM ondansetron HCl 4 mg Tablet 4 mg PO Q8H PRN (Reason: Nausea) pantoprazole 40 mg Recon Soln 40 mg IV DAILY Rx Instructions: MIX WITH 10 ML OF NSS. ADMINISTER VIA SLOW IV PUSH OVER 3-5 MINUTES DAILY. famotidine 20 mg Tablet 20 mg feeding tube QAM sodium chloride 0.9 % Solution 1,500 ml IV DIRECTED Rx Instructions: ADMINISTER 1,500 ML OVER 20 HRS DAILY. . administer before and after IV drug administration as part of [facility] protocol econazole nitrate 1 % Cream 1 applic TOPICAL DAILY Rx Instructions: APPLY TO RASH diphenhydramine HCl [Benadryl Allergy] 25 mg Tablet 25 mg feeding tube HS Rx Instructions: MAY GIVE 50 MG VIA G-TUBE NEEDED FOR ITCHING/ANXIETY electrolytes-dextrose [Pedialyte] Solution 0 ml feeding tube DIRECTED Rx Instructions: MIX WITH ELECARE JR. AND WATER. ADMINISTER AT GOAL OF 8 ML/HR CONTINUOUSLY VIA FEEDING TUBE VIA PUMP. simethicone 80 mg Tablet,Chewable 40 mg PO Q6H PRN (Reason: GAS/ABD PAIN) therapeutic multivitamin Liquid 10 ml PO DAILY Rx Instructions: ADD TO INFUSION heparin flush(porcine)-0.9NaCl 100 unit/mL Kit 5 unit IV DIRECTED Rx Instructions: FLUSH PICC LINE. administer after IV drug administration as part of [facility] protocol dextrose 10 % in water (D10W) 10 % Parenteral Solution 1,000 ea IV DIRECTED PRN (Reason: PUMP FAILURE/WEATHER EMERGENCY.) sodium chloride 0.9 % (flush) Syringe 10 ml IV DAILY Rx Instructions: administer before and after IV drug administration as part of [facility] protocol ciprofloxacin-dexamethasone 0.3-0.1 % Drops,Suspension 2 drp DIRECTED PRN (Reason: DRESSING CHANGES) Rx Instructions: APPLY 2 DRPS TO AFFECTED SITE AT LEAST EVERY 3-4 DAYS OR WITH DRESSING CHANGES. duloxetine 60 mg capsule,delayed release(DR/EC) 60 mg PO BID mirabegron 25 mg Tablet Extended Release 24 Hr 25 mg PO DAILY Eliquis 5 mg tablet 5 mg feeding tube BID SMOFlipid 20 % Emulsion 350 ml IV [id number] Rx Instructions: THURSDAY THROUGH . Sterile Water Irrigation 5 - 20 ml feeding tube TID cetirizine 10 mg tablet 10 mg PO TID dexmethylphenidate 10 mg Tablet 10 mg PO .DAILY@1200 Rx Instructions: if needed parent can bring in the 10 mg cholecalciferol (vitamin D3) 50 mcg/drop (2, 000 unit/drop) Drops 50 mcg PO HS melatonin 10 mg Tablet 10 mg feeding tube HS Referrals Referrals: Torres Snowden MD [Primary Care Provider] -
[2025-05-24 22:27] LABS: Hematocrit (blood only) 43.3 % (42.0-52.0); Hemoglobin 15.8 g/dL (14.0-18.0); Immature Granulocytes # (auto) 0.02 K/uL (0.01-0.20); Immature Granulocytes % (auto) 0.4 %; Mean Corpuscular Hemoglobin 30.9 pg (25.0-34.0); Mean Corpuscular Volume 84.6 fL (80.0-100.0); Platelet Count 125 K/uL (130-400); RDW Standard Deviation 43.3 fL (36.4-46.3); Red Blood Count 5.12 M/uL (4.70-6.10); White Blood Count 5.50 K/ul (4.8-10.8)
[2025-05-24] MEDS: VANCOMYCIN HCL 1,250 MG in SODIUM CHLORIDE 0.9% 500 ML IV STA (22:28)
[2025-05-24] MEDS: diphenhydrAMINE 50 MG/ML VIAL IV STA (22:28)
[2025-05-24 22:36] LABS: Alanine Aminotransferase 449 U/L (7-52); Albumin Level 4.5 gm/dl (3.4-5.0); Alkaline Phosphatase 203 U/L (34-104); Anion Gap 11 (3-11); Bilirubin,Total 1.1 mg/dl (0.2-1.0); Blood Urea Nitrogen 12 mg/dl (6-23); Calcium 9.2 mg/dl (8.6-10.3); Carbon Dioxide 24 mmol/L (21-32); Chloride 101 mmol/L (98-107); Creatinine Clr Calc Pharmacy 162.3 ml/min; Glucose 101 mg/dl (70-99(Fasting)); Magnesium 1.8 mg/dl (1.7-2.4); Potassium 3.4 mmol/L (3.5-5.1); Sodium 136 mmol/L (136-145); Total Protein 7.5 gm/dl (6.0-8.3)
[2025-05-24 22:53] LABS: Appearance Urine Clear (Clear); Bacteria Urine Automated None Seen (None Seen); Epithelial Cell Urine Auto 0-2 /hpf (0-2); Glucose Urine UA Negative (Negative); WBC Urine Automated 0-5 /hpf (0-5)
[2025-05-24 23:36] LABS: Chlamydia pneumoniae PCR Not Detected (NotDetected); Coronavirus 229E PCR Not Detected (NotDetected); Coronavirus CoV-2 (COVID19)PCR Not Detected (NotDetected); Coronavirus HKU1 PCR Not Detected (NotDetected); Coronavirus NL63 PCR Not Detected (NotDetected); Coronavirus OC43PCR Not Detected (NotDetected); Human Metapneumovirus PCR Not Detected (NotDetected); Influenza A (H3) PCR DETECTED (NotDetected); Parainfluenza Virus 1 PCR Not Detected (NotDetected); Parainfluenza Virus 2 PCR Not Detected (NotDetected); Parainfluenza Virus 3 PCR Not Detected (NotDetected); Parainfluenza Virus 4 PCR Not Detected (NotDetected); Respiratory Syncytial VirusPCR Not Detected (NotDetected); Rhinovirus/Enterovirus PCR Not Detected (NotDetected)
--- NOTE | 2025-05-25 00:27 | History & Physical Report ---
Date of Service May 25, 2025 Assessment & Plan (1) Sepsis: Plan: Assessment and plan below following discussion of case with ED provider and reviewing patient history/pertinent normal/abnormal diagnostic test results. 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 Torres Snowden) as needed [place] [facility] [place] [phone]. Hold Eliquis for now given possible central line change (Eliquis usually held for 48 to 72 hours prior to central line change as per patient mother.) IV heparin while Eliquis on hold Replace potassium DVT prophylaxis. IV heparin while Eliquis on hold Full code Patient parents requesting updates from providers. Ms. Tamara Wild (mother), contact #[phone] Mr. Wai Wild (father), contact # [phone]. Text document was generated using [employer] voice recognition software. It may contain grammatical or spelling errors. Kindly contact undersigned for clarification of any documentation item in question. History of Present Illness Chief Complaint: Fever, chills Primary Care Provider: Torres Snowden History obtained from patient, family, and records. 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 difficile Last confinement January 2025 for sepsis secondary to CLABSI. Acetobacter species on cultures. Patient discharged on IV cefepime course as per ID recommendations. [place] [facility] [place] Patient noted to have fever and transient headache and back pain complaints at home last night. Some dry heaving. Denies abdominal pain. Denies chest pain, SOB. No cough symptoms. Not sure about sick contacts. Symptoms reminiscent of central line infection as per patient family. IV vancomycin and cefepime administered at the ER. ED provider in touch [place] [facility] [place] (Dr. Osman) to transfer patient following treatment plan outlined by patient's PCP. [facility] stay recommended for now. Medical History as above Surgical History : Esophogastric fundoplasty, cecostomy/colostomy, ex lap, vascular procedure, GJ tube placement, adenoidectomy, enterectomy, cholecystectomy, rectal obstruction removal, colostomy/ileostomy revision, dental surgery, liver biopsy Family History : DM, thyroid disease, asthma Personal/Social history : Non-smoker, no EtOH intake, high school graduate, lives with parents Allergies Allergy/AdvReac Type Severity Reaction Status Date / Time dexmedetomidine Allergy Severe LOW BLOOD Verified 01/07/25 23:19 [From Precedex] PRESURE egg Allergy Severe Hives Verified 01/07/25 23:19 Wheezing midazolam Allergy Severe ANAPHYLAXIS Verified 01/07/25 23:19 alcohol Allergy Intermediate Rash/ Verified 01/07/25 23:19 [From Mastisol Adhesive] severe burning sensation of the skin gum mastic Allergy Intermediate Rash/ Verified 01/07/25 23:19 [From Mastisol Adhesive] severe burning sensation of the skin iodine Allergy Intermediate RASH Verified 01/07/25 23:19 methyl salicylate Allergy Intermediate Rash/ Verified 01/07/25 23:19 [From Mastisol Adhesive] severe burning sensation of the skin storax Allergy Intermediate Rash/ Verified 01/07/25 23:19 [From Mastisol Adhesive] severe burning sensation of the skin vancomycin Allergy Mild RED AMIRA Verified 01/07/25 23:19 ketamine AdvReac Intermediate Hallucinati Verified 01/07/25 23:19 ng peptamen mateo AdvReac Rash Uncoded 01/10/25 11:14 Home Medications Medication Instructions Recorded Confirmed Type Tpn Sari 1 ea continuous IV infusion 11/12/21 05/25/25 History DIRECTED atenolol 25 mg tablet 25 mg feeding tube QAM 11/12/21 05/24/25 History fludrocortisone 0.1 mg tablet 0.2 mg feeding tube QAM 11/12/21 05/25/25 History famotidine (PF) 20 mg/2 mL 40 mg continuous IV infusion DAILY 02/08/22 05/25/25 History intravenous solution sodium chloride 0.9 % 1,000 ml IV DIRECTED 07/20/22 05/25/25 History acetaminophen 500 mg tablet 500 mg feeding tube Q6H PRN .Fever 09/25/22 05/24/25 History (Tylenol Extra Strength) >38 C, MILD-MOD PAIN tamsulosin 0.4 mg capsule 0.4 mg PO QAM 09/25/22 05/25/25 History dexmethylphenidate 30 mg 30 mg PO QAM 11/20/22 05/25/25 History capsule,extended release -91 menthol 0.44 %-zinc oxide 20.6 % 1 applic topical DIRECTED PRN 11/20/22 05/25/25 History topical ointment AFFECTED AREAS, G/J-TUBE baclofen 10 mg tablet 10 mg feeding tube QID 01/26/23 05/24/25 History dexmethylphenidate 10 mg tablet 20 mg PO .DAILY@1200 06/11/24 05/25/25 History cholecalciferol (vitamin D3) 50 50 mcg PO HS 09/05/24 05/25/25 History mcg/drop (2,000 unit/drop) oral drops melatonin 10 mg tablet 10 mg feeding tube HS 09/05/24 05/25/25 History apixaban 5 mg tablet (Eliquis) 5 mg PO AMHS 01/07/25 05/25/25 History cetirizine 10 mg tablet 10 mg PO TID 01/07/25 05/25/25 History dextrose 10 % in water (D10W) 10 % 1,000 ea IV DIRECTED PRN PUMP 01/07/25 05/25/25 History in water (D10W) intravenous FAILURE/WEATHER EMERGENCY. solution diphenhydramine HCl 25 mg tablet 25 mg feeding tube HS 01/07/25 05/24/25 History (Benadryl Allergy) duloxetine 60 mg capsule,delayed 60 mg PO AMHS 01/07/25 05/25/25 History release econazole nitrate 1 % topical cream 1 applic topical DAILY 01/07/25 05/25/25 History electrolytes-dextrose oral 0 ml feeding tube DIRECTED 01/07/25 05/25/25 History solution (Pedialyte oral solution) famotidine 20 mg tablet 20 mg feeding tube QAM 01/07/25 05/25/25 History fat emulsion-soybean xfm-seg-dcozu 350 ml IV 5XWK 01/07/25 05/25/25 History oil-fish oil 20 % intravenous (SMOFlipid) ondansetron HCl 4 mg tablet 4 mg PO Q8H PRN Nausea 01/07/25 05/25/25 History pantoprazole 40 mg intravenous 40 mg IV DAILY 01/07/25 05/25/25 History solution simethicone 80 mg chewable tablet 40 mg PO Q6H PRN ABD PAIN 01/07/25 05/25/25 History sodium chloride 0.9 % 1,500 ml IV DIRECTED 01/07/25 05/25/25 History sodium chloride 0.9 % (flush) 10 ml IV DAILY PRN see below 01/07/25 05/25/25 History therapeutic multivitamin See Rx Instructions .Route .COMPLEX 01/07/25 05/25/25 History Ethanol In Sterile Water 70% See Rx Instructions .Route .COMPLEX 05/25/25 05/25/25 History Heparin & Nacl 10-0.9 Unit/Ml 3 ml IV QAM 05/25/25 05/25/25 History Sterile Water For Irrigation 5 ml G-tube TID 05/25/25 05/25/25 History Tpn Fat Emulsion Fish/Plant See Rx Instructions .Route .COMPLEX 05/25/25 05/25/25 History Tpn Infusion See Rx Instructions .Route .COMPLEX 05/25/25 05/25/25 History albuterol sulfate 2.5 mg/3 mL 2.5 mg continuous nebulization Q4 05/25/25 05/25/25 History (0.083 %) solution for nebulization PRN Shortness Of Breath Or Wheezing budesonide 0.5 mg/2 mL suspension 0.5 mg inhalation BID PRN Wheezing 05/25/25 05/25/25 History for nebulization erythromycin ethylsuccinate 200 200 mg feeding tube WM 05/25/25 05/25/25 History mg/5 mL oral powder for suspension mirabegron 50 mg tablet,extended 50 mg PO QAM 05/25/25 05/25/25 History release 24 hr pantoprazole 40 mg tablet,delayed 40 mg PO DAILYBB 05/25/25 05/25/25 History release Past Med/Surg History Problem List (Updated 05/25/25 @ 00:02 by Naina Moore PA-C) Fever (Acute) Influenza A (Acute) CLABSI (central line-associated bloodstream infection) Infection due to Acinetobacter species Lyme disease (Acute) History of colectomy History of ileostomy Bacteremia due to Enterobacter species Bacteremia due to Klebsiella pneumoniae Gram-negative sepsis Fever of unknown origin (Acute) Fever (Acute) Bacteremia due to methicillin susceptible Staphylococcus aureus (MSSA) Bacterial sepsis Tachycardia (Acute) Bladder dysfunction Insomnia POTS (postural orthostatic tachycardia syndrome) On total parenteral nutrition (TPN) Bacteremia History of central line-associated bloodstream infection (CLABSI) (Acute) Wiedemann-Xavier syndrome Klippel-Feil syndrome (Chronic) Abnormal LFTs Allergic reaction caused by a drug Mid back pain (Acute) Asthma (Chronic) Reflux (Chronic) Bowel dysfunction (Acute) Dehydration (Acute) ADHD (attention deficit hyperactivity disorder) (Chronic) Jejunostomy tube fell out (Acute) Medical History Lab test negative for COVID-19 virus Septic shock S/P colectomy Autistic disorder Pain around PEG tube site Constipation Surgical History History of fundoplication History of appendectomy S/P cecostomy S/P tonsillectomy and adenoidectomy Family History Other FHx: heart disease Family history of diabetes mellitus Family history of gallbladder disease Family history of high blood pressure Social History Smoking Status: Never smoker Second Hand Exposure: No; Do You Dip or Chew Tobacco: No; Hx Alcohol Use: No Hx Substance Use: No Preferred Language: French Communication Ability: Effective Visual Impairment: No Limitations Hearing Ability: Normal Brush Holder Inspector Required: No Beliefs That Will Affect Care: None Current Living Situation: Family Current Living Situation Comment: lives at home with mother Other Information That Helps Us Care for You: No Feels Safe at Home: Yes Safety Concerns: Feels Safe At This Time Assistive Devices: CPAP, Oxygen - at Night, Walker and Wheelchair Review of Systems Review of Systems: As per HPI, all other systems reviewed and negative Physical Exam Physical Exam: GENERAL: Comfortable, no respiratory distress SKIN: Normal color, warm HEENT: [place] palpebral conjunctivae, no ptosis, dry buccal mucosa NECK : Short neck with decreased mobility, no tenderness CHEST : Decreased breath sounds, no tenderness HEART : Tachycardic, no obvious murmurs ABDOMEN: Some distention, GJ tube in place, no overt tenderness EXTREMITIES : No LE swelling/tenderness, no other conspicuous deformities noted NEUROLOGIC : Coherent, no facial asymmetry, gait and stance not assessed Results & Data Results & Data Vital Signs (Past 12 Hours) Vital Signs Temp Pulse Resp BP Pulse Ox O2 Del Method 05/25/25 00:00 127 H 20 125/56 L 91 05/24/25 23:45 125 H 22 108/62 94 05/24/25 23:45 108/62 05/24/25 23:30 122 H 17 114/64 95 05/24/25 23:15 120 H 20 113/65 94 05/24/25 23:00 122 H 24 119/62 94 05/24/25 22:45 131 H 24 112/70 94 05/24/25 22:30 131 H 8 L 122/65 92 05/24/25 22:18 122 H 12 95/76 L 92 05/24/25 21:39 132 H 05/24/25 21:27 38.4 C H 140 H 24 150/104 H 98 Room Air Laboratory Results Laboratory Results WBC 5.50 K/ul (4.8-10.8) 05/24/25 21:58 RBC 5.12 M/uL (4.70-6.10) 05/24/25 21:58 Hgb 15.8 g/dL (14.0-18.0) 05/24/25 21:58 Hct 43.3 % (42.0-52.0) 05/24/25 21:58 MCV 84.6 fL (80.0-100.0) 05/24/25 21:58 MCH 30.9 pg (25.0-34.0) 05/24/25 21:58 MCHC 36.5 g/dL (32.0-36.0) H 05/24/25 21:58 RDW Std Deviation 43.3 fL (36.4-46.3) 05/24/25 21:58 RDW Coeff of Osvaldo 14.0 % (11.5-14.5) 05/24/25 21:58 Plt Count 125 K/uL (130-400) L 05/24/25 21:58 MPV 9.8 fL (9.4-12.4) 05/24/25 21:58 Immature Gran % (Auto) 0.4 % 05/24/25 21:58 Neut % (Auto) 88.9 % 05/24/25 21:58 Lymph % (Auto) 4.0 % 05/24/25 21:58 [place] % (Auto) 6.0 % 05/24/25 21:58 Eos % (Auto) 0.5 % 05/24/25 21:58 Baso % (Auto) 0.2 % 05/24/25 21:58 Neut # (Auto) 4.89 K/uL (1.40-6.50) 05/24/25 21:58 Lymph # (Auto) 0.22 K/uL (1.20-3.40) L 05/24/25 21:58 [place] # (Auto) 0.33 K/uL (0.11-0.59) 05/24/25 21:58 Eos # (Auto) 0.03 K/uL (0.00-0.50) 05/24/25 21:58 Baso # (Auto) 0.01 K/uL (0.00-0.20) 05/24/25 21:58 Immature Gran # (Auto) 0.02 K/uL (0.01-0.20) 05/24/25 21:58 VBG pH 7.48 (7.36-7.41) H 05/24/25 21:58 VBG pCO2 35 mmHg (38-50) L 05/24/25 21:58 VBG pO2 55 mmHg 05/24/25 21:58 VBG HCO3 26 mmol/L 05/24/25 21:58 VBG O2 Saturation 91.1 % 05/24/25 21:58 VBG Base Excess 2.8 mEq/L 05/24/25 21:58 Sodium 136 mmol/L (136-145) 05/24/25 21:58 Potassium 3.4 mmol/L (3.5-5.1) L 05/24/25 21:58 Chloride 101 mmol/L (98-107) 05/24/25 21:58 Carbon Dioxide 24 mmol/L (21-32) 05/24/25 21:58 Anion Gap 11 (3-11) 05/24/25 21:58 BUN 12 mg/dl (6-23) 05/24/25 21:58 Creatinine 0.59 mg/dl (0.6-1.4) L 05/24/25 21:58 Est Cr Clr Drug Dosing 162.3 ml/min 05/24/25 21:58 eGFR 140.68 05/24/25 21:58 BUN/Creatinine Ratio 20.3 (10-20) H 05/24/25 21:58 Glucose 101 mg/dl (70-99(Fasting)) H 05/24/25 21:58 Lactate 2.0 mmol/L (0.4-2.0) 05/24/25 21:58 Calcium 9.2 mg/dl (8.6-10.3) 05/24/25 21:58 Magnesium 1.8 mg/dl (1.7-2.4) 05/24/25 21:58 Total Bilirubin 1.1 mg/dl (0.2-1.0) H 05/24/25 21:58 Direct Bilirubin TNP 05/24/25 21:58 AST 136 U/L (13-39) H 05/24/25 21:58 ALT 449 U/L (7-52) H 05/24/25 21:58 Alkaline Phosphatase 203 U/L (34-104) H 05/24/25 21:58 Troponin I High Sens 9.6 pg/ml (0-20) 05/24/25 21:58 Total Protein 7.5 gm/dl (6.0-8.3) 05/24/25 21:58 Albumin 4.5 gm/dl (3.4-5.0) 05/24/25 21:58 Procalcitonin 0.04 ng/ml (0-0.5) 05/24/25 21:58 Urine Color Dark Yellow 05/24/25: Urine Appearance Clear (Clear) 05/24/25: Urine pH 6.0 (4.5-7.5) 05/24/25: Ur Specific [place] 1.025 (1.000-1.030) 05/24/25: Urine Protein 1+ (Negative) H 05/24/25: Urine Glucose (UA) Negative (Negative) 05/24/25: Urine Ketones Trace (Negative) H 05/24/25: Urine Blood 1+ (Negative) H 05/24/25: Urine Nitrite Negative (Negative) 05/24/25: Urine Bilirubin 1+ (Negative) H 05/24/25: Urine Urobilinogen Negative (Negative) 05/24/25: Ur Leukocyte Esterase Negative (Negative) 05/24/25: Urine WBC (Auto) 0-5 /hpf (0-5) 05/24/25: Urine RBC (Auto) 11-20 /hpf (0-2) H 05/24/25: U Hyaline Cast (Auto) 3-5 /lpf (0-2) H 05/24/25 22: U Epithel Cells (Auto) 0-2 /hpf (0-2) 05/24/25: Urine Bacteria (Auto) None Seen (None Seen) 05/24/25 22: Urine Comment 05/24/25 22: Adenovirus (PCR) Not Detected (NotDetected) 05/24/25 22: B. pertussis DNA (PCR) Not Detected (NotDetected) 05/24/25 22: B.parapertussis DNA PCR Not Detected (NotDetected) 05/24/25 22: C. pneumoniae DNA (PCR) Not Detected (NotDetected) 05/24/25 22: Coronavirus OC43 (PCR) Not Detected (NotDetected) 05/24/25 22: Coronavirus HKU1 (PCR) Not Detected (NotDetected) 05/24/25 22: Coronavirus 229E (PCR) Not Detected (NotDetected) 05/24/25 22: SARS-CoV-2 (PCR) Not Detected (NotDetected) 12/17/25 22:29 Coronavirus NL63 (PCR) Not Detected (NotDetected) 05/24/25 22:29 Human Metapneumovir PCR Not Detected (NotDetected) 05/24/25 22:29 Influenza A (H3) PCR DETECTED (NotDetected) A 05/24/25 22:29 Influenza Type B (PCR) Not Detected (NotDetected) 05/24/25 22:29 M. pneumoniae (PCR) Not Detected (NotDetected) 05/24/25 22:29 Parainfluenza 1 (PCR) Not Detected (NotDetected) 05/24/25 22:29 Parainfluenza 2 (PCR) Not Detected (NotDetected) 05/24/25 22:29 Parainfluenza 3 (PCR) Not Detected (NotDetected) 05/24/25 22:29 Parainfluenza 4 (PCR) Not Detected (NotDetected) 05/24/25 22:29 RSV (PCR) Not Detected (NotDetected) 05/24/25 22:29 Entero/Rhino (PCR) Not Detected (NotDetected) 05/24/25 22:29 Diagnostic Findings EKG as per my interpretation :Rate 130, sinus tachycardia, normal axis, T wave abnormalities inferior leads (1) Sepsis Sepsis type: sepsis due to unspecified organism Qualified Code(s): A41.9 - Sepsis, unspecified organism
[2025-05-25] MEDS ORDERED: ACETAMINOPHEN 500 MG TAB PO PRN (00:34)
[2025-05-25] MEDS ORDERED: ACETAMINOPHEN 500 MG TAB PEG PRN (00:34)
[2025-05-25] MEDS ORDERED: MoRPHine SULFATE 10 MG/0.5 ML UDP GT PRN (00:41)
[2025-05-25] MEDS: POTASSIUM CHLORIDE 20 MEQ/15 ML UDC JT STA (01:12)
[2025-05-25] MEDS: MELATONIN 3 MG TAB PEG SCH (01:12)
[2025-05-25] MEDS: LORATADINE 10 MG TAB JT ONE (01:12)
[2025-05-25] MEDS: OSELTAMIVIR PHOSPHATE 75 MG CAP PO STA (01:12)
[2025-05-25] MEDS: METOPROLOL TARTRATE 1 MG/ML VIAL IV STA (01:12)
[2025-05-25] MEDS: diphenhydrAMINE 50 MG/ML VIAL IV PRN (01:13)
[2025-05-25] MEDS: MAGNESIUM SULFATE / D5W 1 GM/100 ML BAG IV ONE (01:14)
[2025-05-25 01:17] LABS: INR 1.1 (0.9-1.1); Prothrombin Time 11.9 Seconds (9.0-12.0)
[2025-05-25] MEDS ORDERED: TPN/PPN CONSULT PHARMACY PRN (01:40)
[2025-05-25] MEDS: NSS + 20MEQ KCL 20 MEQ/1,000 ML BAG IV ONE (01:41)
[2025-05-25] MEDS: HEPARIN 25000 UNIT/500 ML D5W 25,000 UNITS/500 ML BAG IV SCH (01:41)
--- NOTE | 2025-05-25 01:59 | XRay Report ---
Exam(s): XR CXR 1 VIEW EXAM: XR Chest, 1 View CLINICAL HISTORY: Reason for exam: Sepsis. TECHNIQUE: Frontal view of the chest. COMPARISON: Chest radiograph on 01/07/2025 FINDINGS: Hardware: Right-sided central venous catheter terminates near the cavoatrial junction. Lungs/pleura: Normal. No focal consolidation. No pleural effusion or pneumothorax. Heart/mediastinum: Stable enlargement of the cardiac silhouette Soft tissues: Unremarkable. Bones: No acute fracture. Upper abdomen: Normal. IMPRESSION: 1. Right-sided central venous catheter terminates near the cavoatrial junction. 2. No acute disease identified. Electronically signed by: Les Klein M.D. 05/25/25 01:57 AM
[2025-05-25] MEDS: MoRPHine SULFATE 4 MG/ML 1 ML CARP\\VIAL ONE (02:39)
[2025-05-25] MEDS: Heparin IV Adult Wt-Based Low-Dose *NO* INITIAL Bolus Protocol IV SCH (03:31)
[2025-05-25] MEDS: CEFEPIME 2000MG 2,000 MG/20 ML SYR IV SCH (05:50)
[2025-05-25] MEDS: FLUDROCORTISONE ACETATE 0.1 MG TAB PO SCH (05:50)
[2025-05-25] MEDS: VANCOMYCIN HCL 1,250 MG in SODIUM CHLORIDE 0.9% 250 ML IV SCH (06:35)
[2025-05-25] MEDS: BACLOFEN 10 MG TAB GT SCH (07:57)
[2025-05-25] MEDS: VIBEGRON 75 MG TAB PO SCH (07:57)
[2025-05-25] MEDS: TAMSULOSIN HCL 0.4 MG CAP PO SCH (07:58)
[2025-05-25] MEDS: ATENOLOL 25 MG TABLET PO SCH (07:58)
[2025-05-25] MEDS: CETIRIZINE HCL 10 MG TABLET PO SCH (07:58)
[2025-05-25] MEDS: PANTOprazole 40 MG in SYRINGE DAILY IV SCH (07:59)
[2025-05-25] MEDS: FAMOTIDINE 20 MG TAB JT SCH (08:13)
[2025-05-25] MEDS: MoRPHine SULFATE 2 MG/ML CARP IV PRN (08:55)
[2025-05-25] MEDS ORDERED: PANTOPRAZOLE 40 MG IV SCH (09:00)
[2025-05-25] MEDS ORDERED: FLUDROCORTISONE ACETATE 0.1 MG TAB PO SCH (09:00)
[2025-05-25 09:15] LABS: Hematocrit (blood only) 39.1 % (42.0-52.0); Hemoglobin 13.4 g/dL (14.0-18.0); Immature Granulocytes # (auto) 0.00 K/uL (0.01-0.20); Immature Granulocytes % (auto) 0.0 %; Mean Corpuscular Hemoglobin 29.7 pg (25.0-34.0); Mean Corpuscular Volume 86.7 fL (80.0-100.0); Platelet Count 90 K/uL (130-400); RDW Standard Deviation 46.7 fL (36.4-46.3); Red Blood Count 4.51 M/uL (4.70-6.10); White Blood Count 3.30 K/ul (4.8-10.8)
[2025-05-25] MEDS: ERYTHROMYCIN ETHYLSUCC SUSP 200 MG/5 ML 100 ML BTL GT SCH (09:21)
[2025-05-25] MEDS: ACETAMINOPHEN 1,000 MG/100 ML VIAL IV PRN (09:29)
[2025-05-25] MEDS: PLASMA-LYTE A 1,000 ML IV SCH (09:29)
[2025-05-25 09:38] LABS: Alanine Aminotransferase 473.0 U/L (7-52); Albumin Globulin Ratio 1.6 (0.9-2); Albumin Level 3.9 gm/dl (3.4-5.0); Alkaline Phosphatase 177.0 U/L (34-104); Anion Gap 5.0 (3-11); Bilirubin,Total 1.5 mg/dl (0.2-1.0); Blood Urea Nitrogen 8.0 mg/dl (6-23); Calcium 8.4 mg/dl (8.6-10.3); Carbon Dioxide 26.0 mmol/L (21-32); Chloride 102.0 mmol/L (98-107); Creatinine Clr Calc Pharmacy 185.9 ml/min; Globulin 2.5 gm/dl (2.5-4.0); Glucose 99.0 mg/dl (70-99(Fasting)); Magnesium 2.0 mg/dl (1.7-2.4); Potassium 4.1 mmol/L (3.5-5.1); Sodium 133.0 mmol/L (136-145); Total Protein 6.4 gm/dl (6.0-8.3); Triglycerides 78.0 mg/dl (0-150)
[2025-05-25 09:41] LABS: ANTI-Xa, UFH(UnfractionatedHep 0.20 IU/ml (0.3-0.7)
--- NOTE | 2025-05-25 10:34 | Communication Note ---
Date of Service: May 25, 2025 Patient seen and evaluated Mother at bedside reported he developed fevers, nausea, small vomiting with increasing weakness prior to presentation Recent central line (tunneled) place in february. Patient is currently sleeping. Intermittent fevers, tachycardic Reviewed lab. +Influenza on Resp PCR Blood cultures still in lab Continue tamiflu, vanc and cefepime Hold TPN for today and monitor. Discussed with Pharm Mother reports he gets about 2L per day of fluids and then 2.9L of TPN Increase plasmalyte to 150cc/h. Discussed with Dr Arroyo who called in from [facility] via transfer center. We reviewed patient. He recommends continuing treatment here but patient may need transfer if line needs to be removed or exchanged Will get ID consult in AM
--- NOTE | 2025-05-25 13:27 | Pharmacy Report ---
Pharmacy PK ABX Note - Date of Service May 25, 2025 - Assessment and Plan Assessment 20 year old M receiving vancomycin and cefepime for treatment of possible sepsis. Last admitted 01/2025 for sepsis secondary to CLABSI (acinetobacter sp) and pt was discharged on course of IV cefepime per ID recommendations. PICC line exchange done 02/2025 at OSH. * Blood cultures x 3 from 05/24 are pending. Day # 2 of antimicrobial therapy. Plan Vancomycin * Loading dose: 1250 mg IV x 1 * Maintenance dose: 1250 mg IV every 8 hours * Regimen is predicted to achieve target AUC/RHINA of 400-600 mg/L.hr * Random level ordered for: 05/26 with AM labs Pharmacy will continue to follow and will adjust dose/frequency as necessary. Thank you. Pharmacy has transitioned to AUC monitoring for vancomycin. AUC/RHINA is the preferred PK/PD target and is associated with decreased risk of nephrotoxicity compared to traditional trough targets.
[2025-05-25] MEDS: IBUPROFEN 200 MG/10 ML UDC PO PRN (15:57)
[2025-05-25 16:07] LABS: ANTI-Xa, UFH(UnfractionatedHep 0.23 IU/ml (0.3-0.7)
[2025-05-25] MEDS: D5W AND NSS 1,000 ML IV SCH (16:35)
[2025-05-25] MEDS: PATIENT'S OWN CONTROLLED MED 2 PO SCH (18:17)
[2025-05-25] MEDS: OSELTAMIVIR PHOSPHATE 75 MG CAP PO SCH (20:49)
[2025-05-25] MEDS: CHOLECALCIFEROL 25 MCG (1000 UNITS) TAB GT SCH (20:49)
--- NOTE | 2025-05-25 21:26 | Electrocardiogram Report ---
Test Reason : Blood Pressure : */* mmHG Vent. Rate : 126 BPM Atrial Rate : 126 BPM P-R Int : 164 ms QRS Dur : 90 ms QT Int : 292 ms P-R-T Axes : 54 7 14 degrees QTcB Int : 422 ms Sinus tachycardia Otherwise normal ECG When compared with ECG of 07-Jan-2025 21:55, No significant change was found Confirmed by Ramakrishna Gallegos ([id number]) on 05/25/2025 9:26:25 PM Referred By: Torres Snowden Confirmed By: Ramakrishna Gallegos
[2025-05-25 23:32] LABS: ANTI-Xa, UFH(UnfractionatedHep 0.26 IU/ml (0.3-0.7)
[2025-05-26] MEDS: VANCOMYCIN LEVEL ONE (06:34)
[2025-05-26 06:41] LABS: Hematocrit (blood only) 36.4 % (42.0-52.0); Hemoglobin 13.0 g/dL (14.0-18.0); Mean Corpuscular Hemoglobin 30.7 pg (25.0-34.0); Mean Corpuscular Volume 85.8 fL (80.0-100.0); Platelet Count 85 K/uL (130-400); RDW Standard Deviation 45.8 fL (36.4-46.3); Red Blood Count 4.24 M/uL (4.70-6.10); White Blood Count 3.78 K/ul (4.8-10.8)
[2025-05-26 07:14] LABS: Alanine Aminotransferase 407.0 U/L (7-52); Albumin Globulin Ratio 1.5 (0.9-2); Albumin Level 3.9 gm/dl (3.4-5.0); Alkaline Phosphatase 180.0 U/L (34-104); Anion Gap 6.0 (3-11); Bilirubin,Total 1.0 mg/dl (0.2-1.0); Blood Urea Nitrogen 6.0 mg/dl (6-23); Calcium 8.6 mg/dl (8.6-10.3); Carbon Dioxide 29.0 mmol/L (21-32); Chloride 99.0 mmol/L (98-107); Creatinine Clr Calc Pharmacy 172.3 ml/min; Globulin 2.6 gm/dl (2.5-4.0); Glucose 102.0 mg/dl (70-99(Fasting)); Magnesium 1.7 mg/dl (1.7-2.4); Potassium 3.4 mmol/L (3.5-5.1); Sodium 134.0 mmol/L (136-145); Total Protein 6.5 gm/dl (6.0-8.3)
[2025-05-26 07:17] LABS: ANTI-Xa, UFH(UnfractionatedHep 0.28 IU/ml (0.3-0.7)
[2025-05-26] MEDS: PATIENT'S OWN CONTROLLED MED 1 PO SCH (08:55)
--- NOTE | 2025-05-26 09:26 | Pharmacy Report ---
Pharmacy PK ABX Note - Date of Service May 26, 2025 - Assessment and Plan Assessment 05/26: Day #3 vancomycin * Vancomycin level drawn this morning was 5.4mcg/mL which extrapolates to an AUC below the goal range. The maintenance dose of vancomycin has been increased. * Preliminary blood cultures from 05/24 are no growth to date * Respiratory BioFire from 05/24 is + for influenza A * Nasal MRSA is negative * ID has been consulted 05/25: 20 year old M receiving vancomycin and cefepime for treatment of possible sepsis. Last admitted 01/2025 for sepsis secondary to CLABSI (acinetobacter sp) and pt was discharged on course of IV cefepime per ID recommendations. PICC line exchange done 02/2025 at OSH. * Blood cultures x 3 from 05/24 are pending. Plan Vancomycin * Vancomycin level this morning was 5.4 mcg/mL which extrapolated to an AUC of 379mg/L.hr * Increase maintenance dose: 1500 mg IV every 8 hours * Regimen is predicted to achieve target AUC/RHINA of 400-600 mg/L.hr * Random level ordered for: 05/28 with AM labs cefepime 2gm iv q 8 hours Pharmacy will continue to follow and will adjust dose/frequency as necessary. Thank you. Pharmacy has transitioned to AUC monitoring for vancomycin. AUC/RHINA is the preferred PK/PD target and is associated with decreased risk of nephrotoxicity compared to traditional trough targets.
[2025-05-26] MEDS ORDERED: POTASSIUM PHOS 3 MMOL/1 ML INFUSION IV STA (10:01)
--- NOTE | 2025-05-26 10:02 | Hospitalist Progress Note ---
Date of Service May 26, 2025 Assessment & Plan (1) Sepsis: Plan: 20-year-old man with past medical history significant for mild persistent asthma, obstructive sleep apnea, POTS, moderate protein calorie malnutrition, history of Klippel-Feil syndrome, Wiedemann Xavier syndrome, nutrition through TPN, ADD, gastroparesis insomnia, bladder dysfunction who presented with fevers and nausea Sepsis Influenza illness History of recurrent CLABSI/bacteremia Met SIRS criteria with fevers, tachycardia Labs on admission notable for K 3.4, AST 136, ALT 449, Alk P 203 Resp PCR + for influenza A CXR did not show any acute findings Blood cultures negative for 24h Continue Tamiflu Currently on empirical Vanc and cefepime due to h/o recurrent CLABSI/bacteremia in the past Will get ID eval as well Continue tylenol and ibuprofen prn fevers and pain Abnormal LFTs Chronic. Monitor Nutrition Patient is TPN dependent Discussed with Pharm who will resume TPN today Continue IVF. Currently on D5 saline due to poor intake and BG trends. 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 IV heparin while Eliquis on hold Full code Updated father at bedside Ms. Tamara Wild (mother), contact #[phone] Mr. Wai Wild (father), contact # [phone]. I spent a total of 50 minutes coordinating, documenting and providing care for this patient excluding time spent in performance of separately billed services Admission and Anticipated Discharge Date Admission Date: May 25, 2025 Subjective Patient seen and examined Father at bedside Reports feeling tired Gets intermittent fevers Reports chronic back pain Reports chronic mild cough Physical Exam Constitutional: + ill appearing and + well hydrated Eyes: PERRL, conjunctivae normal, anicteric sclerae ENMT: external ear and nose normal, oropharynx normal Respiratory: normal respiratory effort, lungs clear to auscultation Cardiovascular: Rate/Rhythm: regular rhythm and + tachycardic Gastrointestinal (Abdomen): No abd distention, soft, ostomy in situ, Gastrostomy tube Musculoskeletal: No pedal edema Neurologic: PERRL, EOMI, accommodation nl, no face palsy, no dysarthria Psychiatric: AOX3 Results & Data Results & Data Vital Signs (Past 12 Hours) Vital Signs Temp Pulse Pulse Resp BP Pulse Ox O2 Del Method 05/26/25 08:42 37.2 C 05/26/25 07:37 Room Air 05/26/25 07:19 37.4 C 99 H 16 114/78 93 Room Air 05/26/25 06:43 37.5 C 05/26/25 06:08 96 H 05/26/25 05:46 100 H 05/26/25 04:10 39.3 C H 124 H 18 130/72 92 Room Air 05/25/25 22:30 37.5 C 115 H 18 129/87 94 Room Air 05/25/25 22:14 140 H Laboratory Results Abnormal lab results 05/25/25 05/25/25 05/26/25 Range/Units 15:27 22:42 06:20 WBC 3.78 L (4.8-10.8) K/ul RBC 4.24 L (4.70-6.10) M/uL Hgb 13.0 L (14.0-18.0) g/dL Hct 36.4 L (42.0-52.0) % Plt Count 85 L (130-400) K/uL Heparin Anti-Xa, Unfract 0.23 L 0.26 L 0.28 L (0.3-0.7) IU/ml Sodium 134 L (136-145) mmol/L Potassium 3.4 L (3.5-5.1) mmol/L Creatinine 0.56 L (0.6-1.4) mg/dl Glucose 102 H (70-99(Fasting)) mg/dl POC Glucose (70-99) mg/dl Phosphorus 2.1 L (2.5-4.9) mg/dl AST 123 H (13-39) U/L ALT 407 H (7-52) U/L Alkaline Phosphatase 180 H (34-104) U/L Random Vancomycin 5.4 L (10-20) mcg/ml 05/26/25 05/26/25 Range/Units 11:15 12:59 WBC (4.8-10.8) K/ul RBC (4.70-6.10) M/uL Hgb (14.0-18.0) g/dL Hct (42.0-52.0) % Plt Count (130-400) K/uL Heparin Anti-Xa, Unfract 0.27 L (0.3-0.7) IU/ml Sodium (136-145) mmol/L Potassium (3.5-5.1) mmol/L Creatinine (0.6-1.4) mg/dl Glucose (70-99(Fasting)) mg/dl POC Glucose 100 H (70-99) mg/dl Phosphorus (2.5-4.9) mg/dl AST (13-39) U/L ALT (7-52) U/L Alkaline Phosphatase (34-104) U/L Random Vancomycin (10-20) mcg/ml (1) Sepsis Sepsis type: sepsis due to unspecified organism Qualified Code(s): A41.9 - Sepsis, unspecified organism
[2025-05-26] MEDS: POTASSIUM PHOSPHATE 21 MMOL in SODIUM CHLORIDE 0.9% 500 ML IV ONE (10:27)
--- NOTE | 2025-05-26 11:54 | Pharmacy Report ---
Pharmacy Initial PN Consult Nt - Date of Service May 26, 2025 - Scope Pharmacy has been consulted on this date to manage parenteral nutrition orders and order appropriate labs. As part of the Nutrition Support Team Guidelines, pharmacy will work in conjunction with dietary when determining the patients caloric needs. - Subjective * The patient is a 20 year old Male admitted on 05/25/25 for SEPSIS, TACHY (PRIVATE RM PER REQ). * Patient is to receive parenteral nutrition for chronic home TPN. * Pertinent PMHx: mild persistent asthma, obstructive sleep apnea, POTS, moderate protein calorie malnutrition, history of Klippel-Feil syndrome, Wiede shaw Xavier syndrome, nutrition through TPN, gastroparesis, and bladder dysfunction. Patient has a history of recurrent central line infections. He has a history of MRSA, Serratia, Enterobacter, Enterococcus and candidiasis. Central line was last replaced in February at [place]. - Objective Vascular Access: * Patient currently has a central line. Height & Weight (Last Documented) Height 5 ft 1 in Weight 68.7 kg Diet Order(s) 05/25/25 Breakfast Diet Intake & Ouput (24hrs) 05/25/25 05/26/25 05/27/25 06:59 06:59 06:59 Intake Total 3567.5 / 3567.5 4139.084 / 4139.084 1315.633 / 1315.633 Output Total 3200 / 3200 6575 / 6575 Balance 367.5 / 367.5 -2435.916 / -2435.916 1315.633 / 1315.633 Selected Laboratory Results 05/26/25 06:20 Sodium 134 L Potassium 3.4 L Chloride 99 Carbon Dioxide 29 Anion Gap 6 BUN 6 Creatinine 0.56 L BUN/Creatinine Ratio 10.7 Glucose 102 H Calcium 8.6 Phosphorus 2.1 L Magnesium 1.7 Total Bilirubin 1.0 D AST 123 H ALT 407 H Alkaline Phosphatase [address] - Initial Nutrition Assessment Start: 05/25/25 12:22 Freq: Status: Active Protocol: Document 05/25/25 12:22 [id number] (Rec: 05/25/25 12:47 [id number]) - Assessment & Plan Assessment: * Appreciate dietitians recommendations for macronutrients. Plan: * For Day #1 of TPN administration, the following will be ordered to closely match home TPN components * Macronutrients: * Amino Acids: 115 grams/day * Dextrose: 202 grams/day * SMOF Lipids: 50 grams M,W,F--patient with egg allergy * Micronutrients: * Sodium phosphate: 24 mMol/day * Sodium chloride: 80 mEq/day * Sodium acetate: 30 mEq/day * Potassium phosphate: 21 mMol/day * Potassium chloride: 50 mEq/day * Potassium acetate: 0 mEq/day * Magnesium sulfate: 12.18 mEq/day * Calcium gluconate: 9.3 mEq/day * Multivitamins: 10 mL/day * Trace elements: 0 mL/day--hold * famotidine 20mg * Total volume of 1562 mL will be infused over 20 hours and will provide 1646 kcal/day (4419-5245 as he does at home) * Labs will be ordered per PN protocol. * Pharmacy will follow and adjust PN orders on a daily basis. Thank you!
[2025-05-26] MEDS ORDERED: PATIENT'S OWN CONTROLLED MED 2 PO SCH (12:00)
[2025-05-26 13:39] LABS: ANTI-Xa, UFH(UnfractionatedHep 0.27 IU/ml (0.3-0.7)
[2025-05-26] MEDS: VANCOMYCIN HCL 1,500 MG in SODIUM CHLORIDE 0.9% 500 ML IV SCH (13:58)
[2025-05-26] MEDS ORDERED: STOP TPN ORDER SCH (14:00)
--- NOTE | 2025-05-26 14:56 | Infectious Disease Consult ---
Date of Service May 26, 2025 Telehealth Information I performed this visit using a real-time telehealth connection between my location and the patients location ([facility]). After connecting through interactive tele-video, patient was identified by name and date of and/or wristband check.Patient (or authorized healthcare abrasives sales representative) was informed that this was a telemedicine visit and it was being conducted confidentially over secure lines. My office door was closed and no one else was present in the room with me.Patient (or authorized healthcare abrasives sales representative) provided consent to proceed with the visit, expressed an understanding of privacy and security of the telemedicine visit, and gave permission to have a hospital abrasives sales representative in the room in order to assist with the visit and to conduct portions of the visit, as needed. I informed the patient (or authorized healthcare abrasives sales representative) that I reviewed their record and presented the opportunity for them to ask any questions regarding the visit today. The patient agreed to participate. Assessment & Plan (1) H. influenzae infection: (2) Gastrointestinal dysmotility: (3) On total parenteral nutrition (TPN): Plan I am not concerned about central venous catheter infection at this point. Therefore, I would recommend discontinuing all antibiotics and continuing on oseltamivir only. Follow-up on blood culture, and if positive, start on antibiotics accordingly. History of Present Illness History of Present Illness Onofre is a 20-year-old young man with past medical history of asthma, GI dysmotility disorder status post GI tube/ileostomy placement and on chronic TPN, POTS/autonomic dysfunction, history of DVT, autism spectrum disorder, intelle ctual disability, ADHD, Weidmann Xavier syndrome, Klippel-Feil syndrome, 19q chromosomal duplication, Chiari 1 malformation, neurogenic bladder and history of C diff who was admitted to [facility] after being noticed to have fever with headache and back pain around 1 day prior to presentation. On admission, he was noticed to have fever of 38.4, tachycardia of 140, blood pressure 150/104 and saturating 98% at room air. Initial workup showed no leukocytosis, thrombocytopenia of 125 (chronic), chemistry and LFTs were mainly significant for mildly elevated AST at 1:36, moderately elevated ALT at 449 and mildly elevated alkaline phosphatase at 203, UA showed no bacteria and 0-5 WBCs, RVP panel detected influenza A H3 and chest x-ray showed no acute pathologies. ID team was consulted for further recommendations and to help guide antibiotic treatment. Allergies Allergy/AdvReac Type Severity Reaction Status Date / Time dexmedetomidine Allergy Severe LOW BLOOD Verified 01/07/25 23:19 [From Precedex] PRESURE egg Allergy Severe Hives Verified 01/07/25 23:19 Wheezing midazolam Allergy Severe ANAPHYLAXIS Verified 01/07/25 23:19 alcohol Allergy Intermediate Rash/ Verified 01/07/25 23:19 [From Mastisol Adhesive] severe burning sensation of the skin gum mastic Allergy Intermediate Rash/ Verified 01/07/25 23:19 [From Mastisol Adhesive] severe burning sensation of the skin iodine Allergy Intermediate RASH Verified 01/07/25 23:19 methyl salicylate Allergy Intermediate Rash/ Verified 01/07/25 23:19 [From Mastisol Adhesive] severe burning sensation of the skin storax Allergy Intermediate Rash/ Verified 01/07/25 23:19 [From Mastisol Adhesive] severe burning sensation of the skin vancomycin Allergy Mild RED AMIRA Verified 01/07/25 23:19 ketamine AdvReac Intermediate Hallucinati Verified 01/07/25 23:19 ng peptamen mateo AdvReac Rash Uncoded 01/10/25 11:14 Home Medications Medication Instructions Recorded Confirmed Type Tpn Sari 1 ea continuous IV infusion 11/12/21 05/25/25 History DIRECTED atenolol 25 mg tablet 25 mg feeding tube QAM 11/12/21 05/24/25 History fludrocortisone 0.1 mg tablet 0.2 mg feeding tube QAM 11/12/21 05/25/25 History famotidine (PF) 20 mg/2 mL 40 mg continuous IV infusion DAILY 02/08/22 05/25/25 History intravenous solution sodium chloride 0.9 % 1,000 ml IV DIRECTED 07/20/22 05/25/25 History acetaminophen 500 mg tablet 500 mg feeding tube Q6H PRN .Fever 09/25/22 05/24/25 History (Tylenol Extra Strength) >38 C, MILD-MOD PAIN tamsulosin 0.4 mg capsule 0.4 mg PO QAM 09/25/22 05/25/25 History dexmethylphenidate 30 mg 30 mg PO QAM 11/20/22 05/25/25 History capsule,extended release [id number] menthol 0.44 %-zinc oxide 20.6 % 1 applic topical DIRECTED PRN 11/20/22 05/25/25 History topical ointment AFFECTED AREAS, G/J-TUBE baclofen 10 mg tablet 10 mg feeding tube QID 01/26/23 05/24/25 History dexmethylphenidate 10 mg tablet 20 mg PO .DAILY@1200 06/11/24 05/25/25 History cholecalciferol (vitamin D3) 50 50 mcg PO HS 09/05/24 05/25/25 History mcg/drop (2,000 unit/drop) oral drops melatonin 10 mg tablet 10 mg feeding tube HS 09/05/24 05/25/25 History apixaban 5 mg tablet (Eliquis) 5 mg PO AMHS 01/07/25 05/25/25 History cetirizine 10 mg tablet 10 mg PO TID 01/07/25 05/25/25 History dextrose 10 % in water (D10W) 10 % 1,000 ea IV DIRECTED PRN PUMP 01/07/25 05/25/25 History in water (D10W) intravenous FAILURE/WEATHER EMERGENCY. solution diphenhydramine HCl 25 mg tablet 25 mg feeding tube HS 01/07/25 05/24/25 History (Benadryl Allergy) duloxetine 60 mg capsule,delayed 60 mg PO AMHS 01/07/25 05/25/25 History release econazole nitrate 1 % topical cream 1 applic topical DAILY 01/07/25 05/25/25 History electrolytes-dextrose oral 0 ml feeding tube DIRECTED 01/07/25 05/25/25 History solution (Pedialyte oral solution) famotidine 20 mg tablet 20 mg feeding tube QAM 01/07/25 05/25/25 History fat emulsion-soybean gzi-dml-sicau 350 ml IV 5XWK 01/07/25 05/25/25 History oil-fish oil 20 % intravenous (SMOFlipid) ondansetron HCl 4 mg tablet 4 mg PO Q8H PRN Nausea 01/07/25 05/25/25 History pantoprazole 40 mg intravenous 40 mg IV DAILY 01/07/25 05/25/25 History solution simethicone 80 mg chewable tablet 40 mg PO Q6H PRN ABD PAIN 01/07/25 05/25/25 History sodium chloride 0.9 % 1,500 ml IV DIRECTED 01/07/25 05/25/25 History sodium chloride 0.9 % (flush) 10 ml IV DAILY PRN see below 01/07/25 05/25/25 History therapeutic multivitamin See Rx Instructions .Route .COMPLEX 01/07/25 05/25/25 History Ethanol In Sterile Water 70% See Rx Instructions .Route .COMPLEX 05/25/25 05/25/25 History Heparin & Nacl 10-0.9 Unit/Ml 3 ml IV QAM 05/25/25 05/25/25 History Sterile Water For Irrigation 5 ml G-tube TID 05/25/25 05/25/25 History Tpn Fat Emulsion Fish/Plant See Rx Instructions .Route .COMPLEX 05/25/25 05/25/25 History Tpn Infusion See Rx Instructions .Route .COMPLEX 05/25/25 05/25/25 History albuterol sulfate 2.5 mg/3 mL 2.5 mg continuous nebulization Q4 05/25/25 05/25/25 History (0.083 %) solution for nebulization PRN Shortness Of Breath Or Wheezing budesonide 0.5 mg/2 mL suspension 0.5 mg inhalation BID PRN Wheezing 05/25/25 05/25/25 History for nebulization erythromycin ethylsuccinate 200 200 mg feeding tube WM 05/25/25 05/25/25 History mg/5 mL oral powder for suspension mirabegron 50 mg tablet,extended 50 mg PO QAM 05/25/25 05/25/25 History release 24 hr pantoprazole 40 mg tablet,delayed 40 mg PO DAILYBB 05/25/25 05/25/25 History release Patient History Medical History Lab test negative for COVID-19 virus Septic shock S/P colectomy Autistic disorder Pain around PEG tube site Constipation Surgical History History of fundoplication History of appendectomy S/P cecostomy S/P tonsillectomy and adenoidectomy Family History Other FHx: heart disease Family history of diabetes mellitus Family history of gallbladder disease Family history of high blood pressure Social History Smoking Status: Never smoker Second Hand Exposure: No; Do You Dip or Chew Tobacco: No; Hx Alcohol Use: No Hx Substance Use: No Preferred Language: Cymro Communication Ability: Effective Visual Impairment: No Limitations Hearing Ability: Normal Cell Tender Required: No Beliefs That Will Affect Care: None Current Living Situation: Family Current Living Situation Comment: lives at home with mother Other Information That Helps Us Care for You: No Feels Safe at Home: Yes Safety Concerns: Feels Safe At This Time Assistive Devices: CPAP, Oxygen - at Night, Wheelchair and Other Review of Systems Negative except for what was mentioned in the H&P. Physical Exam Could not be performed as the visit was conducted via TeleMed. Results & Data Vital Signs (Past 12 Hours) Vital Signs Temp Pulse Pulse Resp BP Pulse Ox O2 Del Method 05/26/25 12:50 96 Nasal Cannula 05/26/25 10:39 38.1 C H 108 H 18 125/80 90 Nasal Cannula 05/26/25 08:42 37.2 C 05/26/25 07:37 Room Air 05/26/25 07:19 37.4 C 99 H 16 114/78 93 Room Air 05/26/25 06:43 37.5 C 05/26/25 06:08 96 H 05/26/25 05:46 100 H 05/26/25 04:10 39.3 C H 124 H 18 130/72 92 Room Air O2 Flow Rate 05/26/25 12:50 1 05/26/25 10:39 1 05/26/25 08:42 05/26/25 07:37 05/26/25 07:19 05/26/25 06:43 05/26/25 06:08 05/26/25 05:46 05/26/25 04:10 Laboratory Results Microbiology: 05/24: 3 sets of blood culture negative to date 05/24: RVP panel positive for influenza A H3 Diagnostic Findings Chest x-ray on 05/24: No acute cardiopulmonary pathology. Right-sided central venous catheter terminates near the cavoatrial junction.
[2025-05-26] MEDS: FAT EMUL/SOY/MCT/OLIV/FISH OIL 50 GM/250 ML BAG IV SCH (18:07)
[2025-05-26] MEDS: TPN RATE CHANGE SCH (19:01)
[2025-05-26 20:16] LABS: ANTI-Xa, UFH(UnfractionatedHep 0.31 IU/ml (0.3-0.7)
[2025-05-26] MEDS: diphenhydrAMINE Capsule 25 MG CAP GT SCH (21:03)
[2025-05-27 06:52] LABS: Hematocrit (blood only) 35.5 % (42.0-52.0); Hemoglobin 12.4 g/dL (14.0-18.0); Mean Corpuscular Hemoglobin 29.9 pg (25.0-34.0); Mean Corpuscular Volume 85.5 fL (80.0-100.0); Platelet Count 74 K/uL (130-400); RDW Standard Deviation 43.8 fL (36.4-46.3); Red Blood Count 4.15 M/uL (4.70-6.10); White Blood Count 2.19 K/ul (4.8-10.8)
[2025-05-27 07:15] LABS: Alanine Aminotransferase 294.0 U/L (7-52); Albumin Globulin Ratio 1.4 (0.9-2); Albumin Level 3.6 gm/dl (3.4-5.0); Alkaline Phosphatase 159.0 U/L (34-104); Anion Gap 5.0 (3-11); Bilirubin,Total 0.6 mg/dl (0.2-1.0); Blood Urea Nitrogen 9.0 mg/dl (6-23); Calcium 8.3 mg/dl (8.6-10.3); Carbon Dioxide 33.0 mmol/L (21-32); Chloride 99.0 mmol/L (98-107); Creatinine Clr Calc Pharmacy 223.6 ml/min; Globulin 2.6 gm/dl (2.5-4.0); Glucose 107.0 mg/dl (70-99(Fasting)); Magnesium 1.9 mg/dl (1.7-2.4); Potassium 3.4 mmol/L (3.5-5.1); Sodium 137.0 mmol/L (136-145); Total Protein 6.2 gm/dl (6.0-8.3)
[2025-05-27 07:27] LABS: ANTI-Xa, UFH(UnfractionatedHep 0.33 IU/ml (0.3-0.7)
[2025-05-27] MEDS: APIXABAN 5 MG TABLET PO SCH (09:22)
[2025-05-27] MEDS: POTASSIUM CHLORIDE 20 MEQ/15 ML UDC GT STA (09:23)
--- NOTE | 2025-05-27 10:30 | XRay Report ---
Technique: A frontal view of the chest was obtained Comparison is made to the prior examination dated 05/24/2025 Findings: There are no confluent pulmonary infiltrates. The heart size is at the upper limit of normal. No pleural effusion or pneumothorax is seen. There is suspected mild pulmonary vascular congestion No fracture is noted. There is an unchanged right jugular central venous line with its tip in the SVC Impression: Mild pulmonary vascular congestion Electronically signed by Jose Ramirez 05-27-2025 10:30 AM
[2025-05-27] MEDS: PLASMA-LYTE A 1,000 ML IV SCH (11:44)
--- NOTE | 2025-05-27 12:34 | Hospitalist Progress Note ---
Date of Service May 27, 2025 Assessment & Plan (1) Sepsis: Plan: 20-year-old man with past medical history significant for mild persistent asthma, obstructive sleep apnea, POTS, moderate protein calorie malnutrition, history of Klippel-Feil syndrome, Wiedemann Xavier syndrome, nutrition through TPN, ADD, gastroparesis insomnia, bladder dysfunction who presented with fevers and nausea Sepsis Influenza illness History of recurrent CLABSI/bacteremia Met SIRS criteria with fevers, tachycardia Labs on admission notable for K 3.4, AST 136, ALT 449, Alk P 203 Resp PCR + for influenza A CXR did not show any acute findings Blood cultures negative for 48h Continue Tamiflu Last fever was yesterday AM ID recs noted. Empirical antibiotics had been discontinued Abnormal LFTs Chronic Monitor Nutrition Patient is TPN dependent Mother stated he gets 2.9L of TPN and 2L of IVF at home to compensate for fluid losses from GT Considering mild congestion in CXR this AM, will reduce IVF to 100cc/h Continue TPN Monitor I/O Replete hypokalemia POTS Secondary to avalos malformation and other chronic illness On Florinef On atenolol GERD On PPI ADHD Continue home medications Chronic back pain On baclofen Bladder dysfunction On Flomax Insomnia On melatonin Klippel-Feil syndrome Cervical vertebral fusion syndrome [place] Xavier 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 ROSS San resumed Full code Updated mother at bedside Ms. Tamara Wild (mother), contact #[phone] Mr. Wai Wild (father), contact # [phone]. I spent a total of 50 minutes coordinating, documenting and providing care for this patient excluding time spent in performance of separately billed services Admission and Anticipated Discharge Date Admission Date: May 25, 2025 Subjective Patient seen and examined Mother at bedside Reports weakness, generalized body pains Still has cough. Denied SOB. Reports mild sore throat Physical Exam Constitutional: + well hydrated; no acute distress Eyes: PERRL, conjunctivae normal, anicteric sclerae ENMT: external ear and nose normal, oropharynx normal Respiratory: normal respiratory effort, lungs clear to auscultation Cardiovascular: Rate/Rhythm: regular rate and regular rhythm Gastrointestinal (Abdomen): No abd distention, soft, ostomy in situ, Gastrostomy tube Musculoskeletal: No pedal edema Neurologic: PERRL, EOMI, accommodation nl, no face palsy, no dysarthria Results & Data Results & Data Vital Signs (Past 12 Hours) Vital Signs Temp Pulse Pulse Resp BP Pulse Ox O2 Del Method 05/27/25 11:53 37.1 C 98 H 16 120/80 91 Room Air 05/27/25 09:25 Nasal Cannula 05/27/25 07:53 37.1 C 83 20 141/94 H 96 Nasal Cannula 05/27/25 05:00 89 05/27/25 03:35 37.4 C 98 H 19 126/85 97 Nasal Cannula O2 Flow Rate 05/27/25 11:53 05/27/25 09:25 2 05/27/25 07:53 2 05/27/25 05:00 05/27/25 03:35 2 Laboratory Results Abnormal lab results 05/26/25 05/26/25 05/27/25 Range/Units 16:23 19:54 06:29 WBC 2.19 L (4.8-10.8) K/ul RBC 4.15 L (4.70-6.10) M/uL Hgb 12.4 L (14.0-18.0) g/dL Hct 35.5 L (42.0-52.0) % Plt Count 74 L (130-400) K/uL MPV 9.1 L (9.4-12.4) fL Potassium 3.4 L (3.5-5.1) mmol/L Carbon Dioxide 33 H (21-32) mmol/L Creatinine 0.43 L (0.6-1.4) mg/dl BUN/Creatinine Ratio 20.9 H (10-20) Glucose 107 H (70-99(Fasting)) mg/dl POC Glucose 100 H 101 H (70-99) mg/dl Calcium 8.3 L (8.6-10.3) mg/dl AST 72 H (13-39) U/L ALT 294 H (7-52) U/L Alkaline Phosphatase 159 H (34-104) U/L 05/27/25 Range/Units 07:20 WBC (4.8-10.8) K/ul RBC (4.70-6.10) M/uL Hgb (14.0-18.0) g/dL Hct (42.0-52.0) % Plt Count (130-400) K/uL MPV (9.4-12.4) fL Potassium (3.5-5.1) mmol/L Carbon Dioxide (21-32) mmol/L Creatinine (0.6-1.4) mg/dl BUN/Creatinine Ratio (10-20) Glucose (70-99(Fasting)) mg/dl POC Glucose 111 H (70-99) mg/dl Calcium (8.6-10.3) mg/dl AST (13-39) U/L ALT (7-52) U/L Alkaline Phosphatase (34-104) U/L (1) Sepsis Sepsis type: sepsis due to unspecified organism Qualified Code(s): A41.9 - Sepsis, unspecified organism
[2025-05-27] MEDS: TPN RATE CHANGE SCH (12:45)
[2025-05-27] MEDS: STOP TPN ORDER SCH (14:32)
[2025-05-28] MEDS ORDERED: VANCOMYCIN LEVEL ONE (05:00)
[2025-05-28 06:58] LABS: Anion Gap 5.0 (3-11); Blood Urea Nitrogen 15.0 mg/dl (6-23); Calcium 8.7 mg/dl (8.6-10.3); Carbon Dioxide 31.0 mmol/L (21-32); Chloride 101.0 mmol/L (98-107); Creatinine Clr Calc Pharmacy 234.5 ml/min; Glucose 100.0 mg/dl (70-99(Fasting)); Magnesium 2.2 mg/dl (1.7-2.4); Potassium 3.7 mmol/L (3.5-5.1); Sodium 137.0 mmol/L (136-145)
[2025-05-28] MEDS ORDERED: ACETAMINOPHEN SUSP 325 MG/10.15 ML UDC PEG PRN (09:31)
--- NOTE | 2025-05-28 10:08 | Hospitalist Progress Note ---
Date of Service May 28, 2025 Assessment & Plan (1) Sepsis: Plan: 20-year-old man with past medical history significant for mild persistent asthma, obstructive sleep apnea, POTS, moderate protein calorie malnutrition, history of Klippel-Feil syndrome, Wiedemann Xavier syndrome, nutrition through TPN, ADD, gastroparesis insomnia, bladder dysfunction who presented with fevers and nausea Sepsis Influenza illness History of recurrent CLABSI/bacteremia Met SIRS criteria with fevers, tachycardia Labs on admission notable for K 3.4, AST 136, ALT 449, Alk P 203 Resp PCR + for influenza A CXR did not show any acute findings Blood cultures negative Continue Tamiflu Last fever was yesterday AM ID recs noted. 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 Eliquis Full code Updated mother at bedside Ms. Tamara Wild (mother), contact #[phone] Mr. Wai Wild (father), contact # [phone]. I spent a total of 40 minutes coordinating, documenting and providing care for this patient excluding time spent in performance of separately billed services Admission and Anticipated Discharge Date Admission Date: May 25, 2025 Subjective Patient seen and examined Mother at bedside Reports sinus congestion, some cough Occasional muscle aches in forearms and back improves with tylenol Physical Exam Constitutional: + well hydrated; no acute distress Eyes: PERRL, conjunctivae normal, anicteric sclerae ENMT: external ear and nose normal, oropharynx normal Respiratory: normal respiratory effort, lungs clear to auscultation Cardiovascular: Rate/Rhythm: regular rate and regular rhythm Gastrointestinal (Abdomen): No abd distention, soft, ostomy in situ, Gastrostomy tube Musculoskeletal: No pedal edema Neurologic: PERRL, EOMI, accommodation nl, no face palsy, no dysarthria AOx3 Results & Data Results & Data Vital Signs (Past 12 Hours) Vital Signs Temp Pulse Pulse Resp BP Pulse Ox O2 Del Method 05/28/25 07:39 37.0 C 95 H 22 140/89 93 Room Air 05/28/25 07:34 Room Air 05/28/25 04:59 87 05/28/25 03:29 37.3 C 103 H 17 116/79 93 Room Air 05/27/25 23:08 37.3 C 101 H 16 108/69 92 Room Air 05/27/25 22:10 105 H Laboratory Results Abnormal lab results 05/28/25 Range/Units 06:27 Creatinine 0.41 L (0.6-1.4) mg/dl BUN/Creatinine Ratio 36.6 H (10-20) Glucose 100 H (70-99(Fasting)) mg/dl (1) Sepsis Sepsis type: sepsis due to unspecified organism Qualified Code(s): A41.9 - Sepsis, unspecified organism
[2025-05-28] MEDS: PROMETHAZINE 6.25 MG/50.25 ML BAG IV PRN (17:48)
[2025-05-28 23:13] VITALS: O2SAT 96
[2025-05-29] MEDS ORDERED: OSELTAMIVIR PHOSPHATE 75 MG CAP PO SCH
[2025-05-29 06:12] LABS: Hematocrit (blood only) 35.9 % (42.0-52.0); Hemoglobin 12.3 g/dL (14.0-18.0); Mean Corpuscular Hemoglobin 29.9 pg (25.0-34.0); Mean Corpuscular Volume 87.1 fL (80.0-100.0); Platelet Count 108 K/uL (130-400); RDW Standard Deviation 44.4 fL (36.4-46.3); Red Blood Count 4.12 M/uL (4.70-6.10); White Blood Count 2.24 K/ul (4.8-10.8)
[2025-05-29 06:36] LABS: Anion Gap 5.0 (3-11); Blood Urea Nitrogen 18.0 mg/dl (6-23); Calcium 8.8 mg/dl (8.6-10.3); Carbon Dioxide 29.0 mmol/L (21-32); Chloride 105.0 mmol/L (98-107); Creatinine Clr Calc Pharmacy 274.7 ml/min; Glucose 100.0 mg/dl (70-99(Fasting)); Magnesium 2.2 mg/dl (1.7-2.4); Potassium 4.0 mmol/L (3.5-5.1); Sodium 139.0 mmol/L (136-145)
[2025-05-29 07:44] VITALS: RESP 20; TEMP 98.6
[2025-05-29 09:33] VITALS: BP 121/82
--- NOTE | 2025-05-29 09:54 | Discharge Summary ---
Date of Service May 29, 2025 Admission HPI Per Admitting Provider History obtained from patient, family, and records. 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 difficile Last confinement January 2025 for sepsis secondary to CLABSI. Acetobacter species on cultures. Patient discharged on IV cefepime course as per ID recommendations. Outpatient PICC line exchange done at [facility]. Patient noted to have fever and transient headache and back pain complaints at home last night. Some dry heaving. Denies abdominal pain. Denies chest pain, SOB. No cough symptoms. Not sure about sick contacts. Symptoms reminiscent of central line infection as per patient family. IV vancomycin and cefepime administered at the ER. ED provider in touch with [facility] hospitalist on-call (Dr. Osman) to transfer patient following treatment plan outlined by patient's PCP. [facility] stay recommended for now. Medical History as above Surgical History : Esophogastric fundoplasty, cecostomy/colostomy, ex lap, vascular procedure, GJ tube placement, adenoidectomy, enterectomy, cholecystectomy, rectal obstruction removal, colostomy/ileostomy revision, dental surgery, liver biopsy Family History : DM, thyroid disease, asthma Personal/Social history : Non-smoker, no EtOH intake, high school graduate, lives with parents Admission Exam Per Admitting Provider GENERAL: Comfortable, no respiratory distress SKIN: Normal color, warm HEENT: [place] palpebral conjunctivae, no ptosis, dry buccal mucosa NECK : Short neck with decreased mobility, no tenderness CHEST : Decreased breath sounds, no tenderness HEART : Tachycardic, no obvious murmurs ABDOMEN: Some distention, GJ tube in place, no overt tenderness EXTREMITIES : No LE swelling/tenderness, no other conspicuous deformities noted NEUROLOGIC : Coherent, no facial asymmetry, gait and stance not assessed Principal Diagnosis Influenza A Discharge Exam Constitutional + well hydrated; no acute distress Eyes PERRL, conjunctivae normal, anicteric sclerae ENMT external ear and nose normal, oropharynx normal Respiratory normal respiratory effort, lungs clear to auscultation Cardiovascular Rate/Rhythm: regular rate and regular rhythm Gastrointestinal (Abdomen) No abd distention, soft, ostomy in situ, Gastrostomy tube Musculoskeletal No pedal edema Neurologic PERRL, EOMI, accommodation nl, no face palsy, no dysarthria Psychiatric A+Ox3, euthymic affect Discharge Data Allergies Allergy/AdvReac Type Severity Reaction Status Date / Time dexmedetomidine Allergy Severe LOW BLOOD Verified 01/07/25 23:19 [From Precedex] PRESURE egg Allergy Severe Hives Verified 01/07/25 23:19 Wheezing midazolam Allergy Severe ANAPHYLAXIS Verified 01/07/25 23:19 alcohol Allergy Intermediate Rash/ Verified 01/07/25 23:19 [From Mastisol Adhesive] severe burning sensation of the skin gum mastic Allergy Intermediate Rash/ Verified 01/07/25 23:19 [From Mastisol Adhesive] severe burning sensation of the skin iodine Allergy Intermediate RASH Verified 01/07/25 23:19 methyl salicylate Allergy Intermediate Rash/ Verified 01/07/25 23:19 [From Mastisol Adhesive] severe burning sensation of the skin storax Allergy Intermediate Rash/ Verified 01/07/25 23:19 [From Mastisol Adhesive] severe burning sensation of the skin vancomycin Allergy Mild RED AMIRA Verified 01/07/25 23:19 ketamine AdvReac Intermediate Hallucinati Verified 01/07/25 23:19 ng peptamen mateo AdvReac Rash Uncoded 01/10/25 11:14 Consultations 05/24/25 23:35 ED Decision to Admit Stat 05/26/25 07:31 Consult Infectious Diseases Routine Hospital Course (1) Sepsis: 20-year-old man with past medical history significant for mild persistent asthma, obstructive sleep apnea, POTS, moderate protein calorie malnutrition, history of Klippel-Feil syndrome, Wiedemann Xavier syndrome, nutrition through TPN, ADD, gastroparesis insomnia, bladder dysfunction who presented with fevers and nausea Sepsis Influenza illness History of recurrent CLABSI/bacteremia Met SIRS criteria with fevers, tachycardia Labs on admission notable for K 3.4, AST 136, ALT 449, Alk P 203 Resp PCR + for influenza A CXR did not show any acute findings Blood cultures negative Was initially started on empirical antibiotics which were later discontinued Was treated with Tamiflu Our pharm provided one more dose of Tamiflu for patient to go home with to complete tonight Abnormal LFTs Chronic Monitor Nutrition Patient is TPN dependent Continue TPN at home Continue home meds Updated mother at bedside Total Time Total Time Spent Total Time Spent (In Minutes): 35 Total Time Includes: Examination of the Patient, Discharge Planning and Medication Reconciliation Discharge Plan Discharge Items Patient Disposition: Home - Self-Care Reason For Visit: SEPSIS, TACHY (PRIVATE RM PER REQ) Discharge Diagnosis: Influenza A infection Condition on Discharge: Fair Activity: Resume your previous activity Non-emergency contact: Primary Care Provider Call non-emergency contact if: you have any medication questions and your symptoms worsen Follow-up/Referrals: Torres Snowden MD [Primary Care Provider] - (The office will call you with a follow up appointment.) Diet: Regular Addtl Attending Provider Instructions: Mr Wild You were hospitalized and managed for the above listed diagnosis. You were treated with Tamiflu with improvement. You are to complete the remaining dose at home. Please ensure follow up with your Primary Doctor. It was a pleasure taking care of you Pending Studies at Discharge: No Stand-Alone Forms: My [facility] invino, Smoking Cessation Medications and DC Order Prescriptions: New oseltamivir [Tamiflu] 75 mg Capsule 75 mg PO BID Qty: 1 0RF Continued famotidine (PF) 20 mg/2 mL Solution 40 mg continuous IV infusion DAILY Rx Instructions: Add to TPN just prior to administration acetaminophen [Tylenol Extra Strength] 500 mg Tablet 500 mg feeding tube Q6H PRN (Reason: .Fever >38 C, MILD-MOD PAIN) Rx Instructions: DO NOT EXCEED 3,000 MG DAILY tamsulosin 0.4 mg capsule 0.4 mg PO QAM baclofen 10 mg tablet 10 mg feeding tube QID atenolol 25 mg tablet 25 mg feeding tube QAM fludrocortisone 0.1 mg tablet 0.2 mg feeding tube QAM Tpn Sari 1 ea continuous IV infusion DIRECTED Rx Instructions: ADMINISTER IV 2,640 ML in the morning. 2,900 ML PER DAY @ 145 ML/HR X 20 HOURS with taper 1 hour taper up, 17 hour run time, 2 hour taper down per mother. sodium chloride 0.9 % Solution 1,000 ml IV DIRECTED Rx Instructions: ADMINISTER 1,000 ML OVER 2 HOURS IV DAILY NEEDED for outs over 5 liter. Administer 1,000 ml IV once a week as needed infusion for ostomy outs >5 liters menthol-zinc oxide 0.44-20.6 % Ointment 1 applic TOPICAL DIRECTED PRN (Reason: AFFECTED AREAS, G/J-TUBE) Rx Instructions: for irritation dexmethylphenidate 30 mg capsule,ER biphasic 50-50 30 mg PO QAM ondansetron HCl 4 mg Tablet 4 mg PO Q8H PRN (Reason: Nausea) pantoprazole 40 mg Recon Soln 40 mg IV DAILY Rx Instructions: MIX WITH 10 ML OF NSS. ADMINISTER VIA SLOW IV PUSH OVER 3-5 MINUTES DAILY. use within 24 hours famotidine 20 mg Tablet 20 mg feeding tube QAM sodium chloride 0.9 % Solution 1,500 ml IV DIRECTED Rx Instructions: ADMINISTER 2,000 ML OVER 20 HRS DAILY. Y site. contains overfill for priming. Remove from refrigerator 1-4 hours prior to administration econazole nitrate 1 % Cream 1 applic TOPICAL DAILY Rx Instructions: APPLY TO RASH diphenhydramine HCl [Benadryl Allergy] 25 mg Tablet 25 mg feeding tube HS Rx Instructions: MAY GIVE 50 MG VIA G-TUBE NEEDED FOR ITCHING/ANXIETY electrolytes-dextrose [Pedialyte] Solution 0 ml feeding tube DIRECTED Rx Instructions: MIX WITH ELECARE JR. AND WATER. ADMINISTER AT GOAL OF 8 ML/HR CONTINUOUSLY VIA FEEDING TUBE VIA PUMP. simethicone 80 mg Tablet,Chewable 40 mg PO Q6H PRN (Reason: ABD PAIN) therapeutic multivitamin Liquid See Rx Instructions .ROUTE .COMPLEX Rx Instructions: Add 10ml to infusion daily. 10ml=5mlfrom blue cap vial+5ml from white cap vial. REFRIGERATE dextrose 10 % in water (D10W) 10 % Parenteral Solution 1,000 ea IV DIRECTED PRN (Reason: PUMP FAILURE/WEATHER EMERGENCY.) Rx Instructions: discard 24 hours after spiked. ROOM TEMPERATURE sodium chloride 0.9 % (flush) Syringe 10 ml IV DAILY PRN (Reason: see below) Rx Instructions: administer before and after IV drug administration as part of [facility] protocol duloxetine 60 mg capsule,delayed release(DR/EC) 60 mg PO AMHS Eliquis 5 mg tablet 5 mg PO [facility]HS SMOFlipid 20 % Emulsion 350 ml IV [id number] Rx Instructions: THURSDAY THROUGH . thursday and thursday are non-lipid days cetirizine 10 mg tablet 10 mg PO TID mirabegron 50 mg tablet extended release 24 hr 50 mg PO QAM pantoprazole 40 mg tablet,delayed release (DR/EC) 40 mg PO DAILYBB Rx Instructions: do not crush,split or chew tablet albuterol sulfate 2.5 mg /3 mL (0.083 %) solution for nebulization 2.5 mg continuous nebulization Q4 PRN (Reason: Shortness Of Breath Or Wheezing) budesonide 0.5 mg/2 mL suspension for nebulization 0.5 mg inhalation BID PRN (Reason: Wheezing) erythromycin ethylsuccinate 200 mg/5 mL suspension for reconstitution 200 mg feeding tube WM Rx Instructions: 5 ml morning,noon and evening Heparin & Nacl 10-0.9 Unit/Ml 3 ml IV QAM Rx Instructions: using daily to white lumen [facility] red lumen Ethanol In Sterile Water 70% See Rx Instructions .ROUTE .COMPLEX Rx Instructions: Instill 0.8ml into 1 lumen daily, alternating red and white ports. Allow to dwell for 24 hours. DO NOT FLUSH A LOCKED SOLUTION. This solution must be withdrawn and disposed. Ethanol is INCOMPATIBLE with heparin. Withdraw ehanol and flush with normal saline prior to heparin use. Sterile Water For Irrigation 5 ml G-tube TID Rx Instructions: 5-20 ml tid after meds, 5 ml through G-tube as needed Tpn Infusion See Rx Instructions .ROUTE .COMPLEX Rx Instructions: Administer 2,900 ml over 20 hours IV (central line) once a day on Thursday,,Thursday,Thursday only with a 1 hour taper up and 2 hour taper down. Clear TPN 4 days a week (,,,) Add Famotidine and Infuvite Adult DAILY. Remove from refrigerator 1-4 hours prior to use. Tpn Fat Emulsion Fish/Plant See Rx Instructions .ROUTE .COMPLEX Rx Instructions: SMOFlipid infusion...Administer 2,900 ml over 20 hours IV (central line) once a day on Thursday, Thursday, Thursday only with a 1 hour taper up and 2 hour taper down. Administer LIPID TPN 3 days/week (M,W,F). Add Famotidine and Infuvite DAILY. Remove from refrigerator 1-4 hours prior to use. dexmethylphenidate 10 mg Tablet 20 mg PO .DAILY@1200 cholecalciferol (vitamin D3) 50 mcg/drop (2, 000 unit/drop) Drops 50 mcg PO HS Rx Instructions: administer through G-tube when admitted melatonin 10 mg Tablet 10 mg feeding tube HS Discharge Orders: Discharge Order (Routine); Ordered 05/29/25 Ordered By: Sujatha Bella Admission Data Admit Date/Time: 05/25/25 00:29 Attending Provider: Sujatha Bella I. Admit Provider: Mario Leal Primary Care Provider: Torres Snowden Other Providers: Mario Leal; Asaf Kothari; Italo Goodwin; Refugio Ruvalcaba I.; Chaitanya Marrero II; Iveth Kilpatrick; Ricci Sanchez; Ruiz Arguello; China Lange Other Interventions: Discharge Summary Assessment (RN) Last Done: 05/29/25 11:58
[2025-05-29 11:04] VITALS: PULSE 120
== END 2025-05-29 12:00 | disposition home or self-care (01) | DRG 872 ==
LOC: ED 21:23 → 2S 05-25 00:29